=== PATIENT | male | born 1965 | race Caucasian/White ===

== ENCOUNTER 2017-09-05 08:03 | Inpatient (IN) | payer OTHER ==
[~2017-09-05] VITALS: Ht 175.3 cm; Wt 60.0 kg
[2017-09-05] VITALS (11 sets, daily range): BP systolic 81–122; BP diastolic 51–87; PULSE 86–106; RESP 17–22; TEMP 99.2; Ht 175.3 cm; Wt 60.0 kg
[2017-09-05] MEDS ORDERED: SOD CHLORIDE 0.9% 1,000 ML IV ONE (08:30)
[2017-09-05] MEDS ORDERED: MULTIVITAMINS 10 ML, THIAMINE 100 MG, FOLIC ACID 1 MG, MAGNESIUM SULFATE 2 GM in SOD CH... IV ONE (08:30)
[2017-09-05] MEDS ORDERED: MULTIVITAMINS 10 ML, THIAMINE 100 MG, MAGNESIUM SULFATE 2 GM in SOD CHLORIDE 0.9% 1,000 ML IV ONE (08:30)
[2017-09-05] MEDS ORDERED: LORAZEPAM 2 MG INJ IV ONE (08:30)
[2017-09-05 08:41] LABS: ABNORMAL IP MESSAGE 1; BASOPHILS % 0.1 % (0.0-2.0); HEMATOCRIT 30.3 % (42.0-52.0); HEMOGLOBIN 9.5 g/dl (14.0-18.0); LYMPHOCYTES # 0.5 10^3/ul (0.8-2.9); LYMPHOCYTES % 3.1 % (15.0-51.0); MEAN CORPUSCULAR HEMOGLOBIN 21.2 pg (29.0-33.0); MEAN CORPUSCULAR HGB CONC 31.4 g/dl (32.0-37.0); MEAN CORPUSCULAR VOLUME 67.5 fl (82.0-101.0); MEAN PLATELET VOLUME 8.6 fl (7.4-10.4); MONOCYTE # 1.4 10^3/ul (0.3-0.9); MONOCYTES % 8.4 % (0.0-11.0); NEUTROPHIL # 14.7 10^3/ul (1.6-7.5); NEUTROPHILS % 87.6 % (39.0-77.0); PLATELET COUNT 308 10^3/UL (140-415); POSITIVE DIFF @See below; RED BLOOD COUNT 4.49 10^6/ul (4.70-6.10); RED CELL DISTRIBUTION WIDTH 18.4 % (11.5-14.5); WHITE BLOOD COUNT 16.8 10^3/ul (4.8-10.8)
[2017-09-05 09:03] LABS: ALANINE AMINOTRANSFERASE 41 IU/L (13-69); ALBUMIN 3.9 g/dl (3.3-4.9); ALBUMIN/GLOBULIN RATIO 0.84; ALKALINE PHOSPHATASE 151 IU/L (42-121); ANION GAP 20 (8-16); ASPARTATE AMINO TRANSFERASE 94 IU/L (15-46); BILIRUBIN,INDIRECT 0.7 mg/dl (0-1.1); BILIRUBIN,TOTAL 0.7 mg/dl (0.2-1.3); BLOOD UREA NITROGEN 8 mg/dl (7-20); CARBON DIOXIDE 28 mmol/L (21-31); CHLORIDE 70 mmol/L (97-110); CREATININE 0.56 mg/dl (0.61-1.24); GLUCOSE 115 mg/dl (70-220); TOTAL PROTEIN 8.5 g/dl (6.1-8.1)
[2017-09-05 09:10] LABS: POTASSIUM 2.4 mmol/L (3.5-5.1); SODIUM 116 mmol/L (135-144)
[2017-09-05 09:12] LABS: TROPONIN-I < 0.012 ng/ml (0.00-0.12)
[2017-09-05] MEDS ORDERED: POTASSIUM CHLORIDE (SR) 20 MEQ TAB PO STA (09:21)
[2017-09-05] MEDS ORDERED: CALCIUM GLUCONATE 10% 1 GM in SOD CHLORIDE 0.9% 100 ML IVPB ONE (09:30)
--- NOTE | 2017-09-05 09:32 | ERD ---
ER Documentation Chief Complaint Chief Complaint BIB RA FOR EVAL SEIZURE. NO TRAUMA HPI 51-year-old man with a history of alcoholism and alcohol withdrawal seizures brought in by EMS after having an alcohol withdrawal seizure today, described as tonic-clonic and similar to previous episodes. Patient admits to drinking alcohol denies suicidal homicidal ideation, no loss of bowel or bladder control , no fevers or chills, no vomiting or diarrhea. Patient denies chest pain or shortness of breath. ROS All systems reviewed and are negative except as per history of present illness. Medications Home Meds No Active Prescriptions or Reported Meds Allergies Allergies: Coded Allergies: No Known Allergy (Unverified , 09/05/17) PMhx/Soc Alcoholism and associated complications History of Surgery: No Anesthesia Reaction: No Hx Neurological Disorder: No Hx Respiratory Disorders: No Hx Cardiac Disorders: No Hx Psychiatric Problems: No Hx Miscellaneous Medical Probl: Yes (SEIZURES ) Hx Alcohol Use: Yes Hx Substance Use: No Hx Tobacco Use: Yes Smoking Status: Current some day smoker FmHx Family History: No diabetes Physical Exam Vitals Vital Signs Date Time Temp Pulse Resp B/P Pulse Ox O2 Delivery O2 Flow Rate FiO2 09/05/17 10:05 113 18 150/99 96 Nasal Cannula 3.0 09/05/17 09:00 97.6 112 18 167/99 96 Nasal Cannula 3.0 09/05/17 08:08 98.1 103 17 171/102 89 Physical Exam GENERAL: Well-developed, appears dehydrated, afebrile, withdrawing HEENT: Dry mucous membranes, pink conjunctiva, no cervical spine tenderness or step-off deformities, no goiter, no jaundice or icterus, extraocular movements intact without pain. No submandibular induration, and no pharyngeal erythema NEURO: Alert and oriented 3, cranial nerves II through XII intact bilaterally, pupils equal round reactive to light, upper and lower extremity tremors, tongue fasciculation CARDIAC: Tachycardic and regular, no murmurs rubs or gallops LUNGS: Clear bilaterally no wheezing crackles or stridor ABDOMEN: Soft nontender, no guarding, no rigidity, no rebound, no psoas sign no obturator sign. SKIN: Warm and dry to touch, no abrasions, contusions, or hematomas, no lacerations, no ecchymosis, no target lesions, and without ulcers EXTREMITIES: No clubbing cyanosis or edema, calves are bilaterally symmetrical, no Homans sign, no popliteal cord sign. Distal pulses equal and bilateral PSYCH: Agitated, withdrawing Result Diagram: 09/05/1782409/05/17824 Results 24 hrs Laboratory Tests Test 09/05/17 08:25 White Blood Count 16.810^3/ul Red Blood Count 4.4910^6/ul Hemoglobin 9.5g/dl Hematocrit 30.3% Mean Corpuscular Volume 67.5fl Mean Corpuscular Hemoglobin 21.2pg Mean Corpuscular Hemoglobin Concent 31.4g/dl Red Cell Distribution Width 18.4% Platelet Count 45968^3/UL Mean Platelet Volume 8.6fl Neutrophils % 87.6% Lymphocytes % 3.1% Monocytes % 8.4% Eosinophils % 0.0% Basophils % 0.1% Nucleated Red Blood Cells % 0.0/100WBC Neutrophils # 14.710^3/ul Lymphocytes # 0.510^3/ul Monocytes # 1.410^3/ul Eosinophils # 0.010^3/ul Basophils # 0.010^3/ul Nucleated Red Blood Cells # 0.010^3/ul Sodium Level 116mmol/L Potassium Level 2.4mmol/L Chloride Level 70mmol/L Carbon Dioxide Level 28mmol/L Anion Gap 20 Blood Urea Nitrogen 8mg/dl Creatinine 0.56mg/dl Glucose Level 115mg/dl Calcium Level 7.0mg/dl Total Bilirubin 0.7mg/dl Direct Bilirubin 0.00mg/dl Indirect Bilirubin 0.7mg/dl Aspartate Amino Transf (AST/SGOT) 94IU/L Alanine Aminotransferase (ALT/SGPT) 41IU/L Alkaline Phosphatase 151IU/L Troponin I < 0.012ng/ml Total Protein 8.5g/dl Albumin 3.9g/dl Globulin 4.60g/dl Albumin/Globulin Ratio 0.84 Lipase 122U/L Current Medications Medications (Trade) Dose Ordered Sig/Ricki Route PRN Reason Start Time Stop Time Status Last Admin Dose Admin Multivitamins 10 ml/Thiamine HCl 100 mg/Folic Acid 1 mg/Magnesium Sulfate 2 gm/ Sodium Chloride 1,015.2 ml @ 500 mls/ hr Q2H2M ONCE IV 09/05/17 08:30 09/05/17 08:30 DC Sodium Chloride (NS) 1,000 ml @ 1,000 mls/hr Q1H ONCE IV 09/05/17 08:30 09/05/17 09:29 DC 09/05/17 08:24 Lorazepam 2 mg 2 mg ONCE ONCE IV 09/05/17 08:30 09/05/17 08:31 DC 09/05/17 08:24 Multivitamins/ Thiamine HCl/ Magnesium Sulfate/ Sodium Chloride (Mvi Adult/ Vitamin B1/ Magnesium Sulfate/ NS) 1,015 ml @ 500 mls/hr Q2H2M ONCE IV 09/05/17 08:30 09/05/17 10:31 DC 09/05/17 08:45 Potassium Chloride 60 meq 60 meq ONCE STAT PO 09/05/17 09:21 09/05/17 09:22 DC 09/05/17 09:39 Calcium Gluconate 1 gm/Sodium Chloride 110 ml @ 110 mls/hr ONCE ONCE IVPB 09/05/17 09:30 09/05/17 09:35 DC Calcium Gluconate 1 gm/Dextrose 110 ml @ 110 mls/hr ONCE ONCE IVPB 09/05/17 09:35 09/05/17 10:29 DC 09/05/17 10:45 Potassium Phosphate/Sodium Chloride (K Phos (Meq)/NS) 259.0909 ml @ 43.182 m... ONCE ONCE IVPB 09/05/17 15:00 09/05/17 20:59 Enalaprilat (Vasotec Iv) 1.25 mg ONCE ONCE IV 09/05/17 13:30 09/05/17 13:31 Procedures/MDM IV line was established patient was placed on circular knitter rhythm strip revealed a sinus tachycardia at 110 bpm with upright P and T waves. Patient was afebrile EKG performed, read by me: 96 bpm, normal sinus rhythm, normal axis, no acute ST segment changes, narrow QRS complex, with good R-wave progression in precordial leads. Prolonged QT of 550 ms I administered 1 L normal saline intravenously and intravenous banana bag, as well as lorazepam 2 mg IV. CBC reveals a leukocytosis of 17 and anemia 9 5, electrolytes were all abnormal with a critically low potassium at 2.4 and hyponatremia at 116, liver function tests normal, troponin negative. Calcium was critically low at 7. I also supplemented his potassium at 60 mEq p.o. 1 and he also received calcium gluconate 1 g IV x 1. Patient's hypertension improved. Critical Care: Time: 43 minutes, this was time separate from other billable procedures. Treatments/Evaluations: Close monitoring and treatment of unstable vital signs, cardiorespiratory, and neurologic status, while maintaining tight balance of fluid, respiratory, and cardiac interventions. Patient received 40 mEq intravenous potassium. One view chest x-ray performed, read by me revealed opacification of the right lung consistent with large pleural effusion and infiltrate. Although the patient is afebrile I suspect aspiration and resulting pneumonia. Rectal temperature was performed and patient was again afebrile, blood cultures were obtained and I ordered Zosyn 3.375 g IV and vancomycin 1 g IV. Patient's labs and EKG findings as well as his physical exam findings are all consistent with acute alcohol withdrawal, with above interventions his symptoms and labs have improved. Patient will be admitted to telemetry setting for continued medical management, hydration, electrolyte supplementation, and reevaluation. Departure Diagnosis: Primary Impression: Acute hypokalemia Additional Impressions: Hypocalcemia Alcohol withdrawal seizure Complication of substance-induced condition: uncomplicated Qualified Code: F10.230 - Alcohol withdrawal seizure without complication Alcoholism Dehydration Aspiration pneumonia Aspiration pneumonia type: unspecified Laterality: right Lung location: lower lobe of lung Qualified Code: J69.0 - Aspiration pneumonia of right lower lobe, unspecified aspiration pneumonia type Hypertension Hypertension type: essential hypertension Qualified Code: I10 - Essential hypertension Condition: Serious CATHERINE CHRISTOPHER MD Sep 05, 2017 09:32
[2017-09-05] MEDS ORDERED: CALCIUM GLUCONATE 10% 1 GM in DEXTROSE 5% 100 ML IVPB ONE (09:35)
--- NOTE | 2017-09-05 11:52 | RADRPT ---
PROCEDURE: XR Chest. CLINICAL INDICATION: Abdominal pain. TECHNIQUE: Single frontal view. COMPARISON: None. FINDINGS: There is near-complete opacification of the right hemithorax due to a large right pleural effusion. There is patchy consolidation throughout the visualized right lung and throughout the left lung. The heart size is normal. There is calcification in the aorta consistent with atherosclerosis. There is no pleural effusion. There is no pneumothorax. IMPRESSION: 1. Near-complete opacification of the right hemithorax due to a large right pleural effusion. 2. Probable extensive bilateral pneumonia. 3. Atherosclerosis. 4. Otherwise unremarkable chest radiograph. RPTAT: QQ .John Paul Hall MD, MD Date Time Electronically viewed and signed by .John Paul Hall MD, MD on 09/05/2017 11:51 .R/
[2017-09-05] MEDS ORDERED: VANCOMYCIN 1 GM (PMX) 250 ML IVPB SCH (13:30)
[2017-09-05] MEDS ORDERED: PIPER-TAZO 3.375 GM IV (PMX) 50 ML IV ONE (13:30)
[2017-09-05] MEDS ORDERED: ENALAPRILAT 1.25 MG INJ IV ONE (13:30)
[2017-09-05] MEDS ORDERED: POTASSIUM PHOSPHATE 40 MEQ in SOD CHLORIDE 0.9% 250 ML IVPB ONE (15:00)
[2017-09-05] MEDS ORDERED: SOD CHLORIDE 0.9% 1,000 ML IV SCH (16:00)
[2017-09-05] MEDS ORDERED: DEXTROSE 5%-0.45% NACL 1,000 ML IV SCH (16:26)
[2017-09-05] MEDS ORDERED: ONDANSETRON 4 MG INJ IV PRN (16:30)
[2017-09-05] MEDS ORDERED: NACL 0.9% 3 ML SYG IV SCH (16:30)
[2017-09-05] MEDS ORDERED: BISACODYL (EC) 5 MG TAB PO PRN (16:30)
--- NOTE | 2017-09-05 16:47 | HP ---
Date/Time of Note Date/Time of Note DATE: 09/05/17 TIME: 16:41 Assessment/Plan VTE Prophylaxis VTE Prophylaxis Intervention: SCD's Assessment/Plan Chief Complaint/Hosp Course Patient is a 51-year-old homeless alcoholic who presents with right pleural effusion, pneumonia, and alcohol withdrawal induced seizure Assessment and plan Delirium tremens Seizure's Bilateral pneumonia, likely aspiration Severe hyponatremia Large right pleural effusion Alcoholism Hypokalemia Leukocytosis Sepsis, severe, pneumonia source -Scheduled benzodiazepine with as needed Ativan for seizure, monitor closely. -Nephrology consulted for electrolyte derangement, patient received fluid in the ED, will repeat stat CMP, avoid increase in sodium more than 12 mEq over 24. Given patient's severe alcoholism and likely chronic hyponatremia -Half-normal saline for now, if sodium is more than 12 units above previous read we will have to change to free water, nephrology recommendations appreciated -Although patient's blood pressure was high earlier, low currently on the floor , continue fluids, hold off on Lasix due to blood pressure for now, thoracentesis pending for tomorrow -Repeat labs, CK, lactic acid -Monitor, if pressure remains low or seizures or uncontrolled upgrade to ICU immediately Problems: HPI/ROS Admit Date/Time Admit Date/Time Sep 05, 2017 at 13:14 Hx of Present Illness Patient is a homeless 51-year-old male with a past medical history of alcohol abuse and alcohol induced seizure who presents to [facility] with witnessed seizure in the field and brought in by EMT. Patient has not experienced seizure during this admission so far. Upon evaluation patient is lethargic, however was given Ativan in the ED, is able to respond to most questions with good recall and states that his last drink was 2 days ago, states that he wants to quit drinking. Patient also states that this has happened before when asked about the shakes or seizure. Patient's mental state is the main barrier to a extensive HPI at this time, patient denies any shortness of breath or chest pain at this time. Patient denies nausea, however is found to be dry heaving. PMH: Alcohol abuse PSH: Left shoulder surgery questionable, left wrist surgery, foot surgery Social: Alcoholic, smoker, denies drugs Meds: None PMH/Family/Social Social History Smoking Status: Current some day smoker Exam/Review of Systems Vital Signs Vitals Vital Signs Date Time Temp Pulse Resp B/P Pulse Ox O2 Delivery O2 Flow Rate FiO2 09/05/17 13:23 99.2 09/05/17 10:05 113 18 150/99 96 Nasal Cannula 3.0 Exam Exam Physical exam General: Patient is laying in bed and answers questions appropriately, but lethargic Mentation: Patient is alert and oriented 3 Head: Normocephalic atraumatic Eyes: EOMI, pupils reactive to light Neck: Supple, nontender, midline Respiratory: diminished breath sounds on the R Cardiovascular: tachycardic, no obvious murmurs Gastrointestinal: non-tender to palpation, bowel sounds heard. Neurological: Moves all extremities spontaneously Skin: No new skin lesions Labs Result Diagram: 09/05/1782409/05/17824 Medications Medications Current Medications Potassium Phosphate/Sodium Chloride (K Phos (Meq)/NS) 259.0909 ml @ 43.182 m... ONCE ONCE IVPB ; Start 09/05/17 at 15:00; Stop 09/05/17 at 20:59 CATHERINE DUMONT Sep 05, 2017 16:47
[2017-09-05] MEDS ORDERED: ALBUTEROL/IPRATROPIUM (NEB) 3 ML AMP HHN PRN (17:00)
[2017-09-05] MEDS ORDERED: NICOTINE (21 MG/24 HR) PATCH TRANSDERM SCH (17:00)
[2017-09-05 17:07] LABS: ALBUMIN 3.1 g/dl (3.3-4.9); ALBUMIN/GLOBULIN RATIO 0.68; BILIRUBIN,INDIRECT 0.5 mg/dl (0-1.1); BILIRUBIN,TOTAL 0.5 mg/dl (0.2-1.3); CALCIUM 6.9 mg/dl (8.4-10.2); CREATININE 0.74 mg/dl (0.61-1.24); TOTAL PROTEIN 7.6 g/dl (6.1-8.1)
[2017-09-05 17:22] LABS: POTASSIUM 2.7 mmol/L (3.5-5.1)
[2017-09-05] MEDS ORDERED: POTASSIUM CHLORIDE 250 ML IVPB SCH (17:30)
[2017-09-05 17:45] LABS: ALBUMIN 3.1 g/dl (3.3-4.9); CALCIUM 6.7 mg/dl (8.4-10.2); CREATININE 0.69 mg/dl (0.61-1.24); PHOSPHORUS 3.9 mg/dl (2.5-4.9)
[2017-09-05] MEDS: DIAZEPAM 5 MG/ML SYG IV SCH ×2 (18:00→22:36)
[2017-09-05] MEDS ORDERED: CALCIUM GLUCONATE 10% 1 GM in SOD CHLORIDE 0.9% 100 ML IVPB SCH (18:00)
[2017-09-05] MEDS: PIPER-TAZO 3.375 GM IV (PMX) 50 ML IVPB SCH (20:04)
[2017-09-05] MEDS: LORAZEPAM 2 MG INJ IV PRN (20:31)
[2017-09-05] MEDS: NICOTINE (21 MG/24 HR) PATCH TRANSDERM SCH (20:39)
[2017-09-05] MEDS: ALBUTEROL/IPRATROPIUM (NEB) 3 ML AMP HHN SCH (20:56)
[2017-09-05 21:53] LABS: CALCIUM 6.6 mg/dl (8.4-10.2); CREATININE 0.73 mg/dl (0.61-1.24); POTASSIUM 3.3 mmol/L (3.5-5.1)
[2017-09-05 22:57] LABS: ALBUMIN 3.1 g/dl (3.3-4.9); CALCIUM 6.6 mg/dl (8.4-10.2); CREATININE 0.74 mg/dl (0.61-1.24); PHOSPHORUS 3.9 mg/dl (2.5-4.9); POTASSIUM 3.3 mmol/L (3.5-5.1)
[2017-09-06] VITALS (24 sets, daily range): BP systolic 99–155; BP diastolic 62–93; PULSE 89–110; RESP 17–28
[2017-09-06 00:11] LABS: AADO2 Arterial 567.3 mmHg (7.0-24.0); Allen Test ACCEPTAB; Arterial Base Excess 2.5 mmol/L (-3.0-3); Arterial COHb 0.9 % (0.0-3.0); Arterial Fraction of Oxyhgb 95.6 % (93.0-99.0); Arterial HCO3 27.8 mmol/L (22.0-26.0); Arterial MetHb 0.4 % (0.0-1.5); Arterial Total Hemglobin 9.9 g/dl (12.0-18.0); MODE MASK - NRB
[2017-09-06] MEDS: LORAZEPAM 2 MG INJ IV PRN ×3 (00:16→22:37)
--- NOTE | 2017-09-06 00:31 | CONS ---
DATE OF ADMISSION: 09/05/2017 DATE OF CONSULTATION: 09/05/2017 REASON FOR CONSULTATION: Hyponatremia. PHYSICIAN REQUESTING CONSULT: Dr. Mosley. HISTORY OF PRESENT ILLNESS: This is a 51-year-old male with a past medical history of ETOH abuse who presents to [facility] Emergency Room with noted withdrawal seizures. The patient's seizu res were described as tonic-clonic. The patient in the emergency room admitted to having excessive alcohol use. Denied any vomiting, hematochezia or hemoptysis. In the emergency room, the patient w as given IV Ativan. In the emergency room, laboratory data drawn showed an initial sodium of 116, p otassium 2.4, chloride of 70. The patient was given IV hydration . In terms of the patient's hyponatremia, the patient has no prior history of hyponatremia per medical records. The patient himself is currently altered, unable to give any adequate history. PAST MEDICAL HISTORY: History of ETOH abuse. PAST SURGICAL HISTORY: The patient had left shoulder surgery, left wrist surgery. SOCIAL HISTORY: Positive alcohol use. MEDICATIONS: None. FAMILY HISTORY: Noncontributory. REVIEW OF SYSTEMS: Unable to do adequate review of systems as the patient is altered. Pertinent po sitives as obtained by reviewing medical records and speaking to hospital staff, stated in HPI. PHYSICAL EXAMINATION: VITAL SIGNS: Blood pressure is 107/67, respiration is 19, pulse 100, temperature 98.6. HEENT: Head is normocephalic. Pupils are reactive to light. NECK: Supple. HEART: Regular rate. LUNGS: Show diminished breath sounds at the base. ABDOMEN: Soft, nontender to palpation without rebound or guarding. EXTREMITIES: Negative for clubbing, cyanosis, no edema. DERMATOLOGIC: No rashes. MUSCULOSKELETAL: No joint effusions. NEUROLOGIC: Limited exam due to lack of patient cooperation. LABORATORY DATA: Currently shows sodium 123, potassium 3.0, chloride 78, bicarbonate 32, BUN 10, cr eatinine 0.69. White count , hemoglobin 9.5, hematocrit 30.3, platelet count 308. IMAGING STUDIES: The patient's chest x-ray shows near complete opacification of right hemithorax wi th right pleural effusion, bilateral pneumonia, otherwise unremarkable. ASSESSMENT AND PLAN: This is a 51-year-old male who presents with: 1. Hyponatremia, possibly acute versus subacute versus chronic. Underlying etiology is multifactor ial secondary to likely low solute intake, i.e., beer potomania given the patient's extensive alcoho l abuse, severe hypokalemia, possible volume depletion. The patient's sodium level improved from 11 6 to 122 mEq after being given IV fluids and with correction of hypokalemia. Recommendation at this point would be to decrease and discontinue IV hydration. My recommendation would be to stop IV flu ids as the patient is at high risk for overcorrection. Would continue to correct hypokalemia by giv ing potassium chloride. Will monitor serum sodium levels q.2-4 hours to ensure correction of no mor e than 10 to 12 mEq in a 24-hour period. Will monitor strict I's and O's. If patient shows evidenc e of over correction, would consider getting D5 water in conjunction with desmopressin. Will monito r closely. 2. Acute encephalopathy with seizures. Etiology may be multifactorial secondary to hyponatremia, p ossible ETOH withdrawal. The patient's sodium levels have improved. Will continue to monitor for E TRELL withdrawal. 3. Severe hypokalemia, likely secondary to p.o. intake. The patient has a total body deficit of ap proximately 400 mEq of potassium chloride. Will continue to replete and monitor sodium levels close ly. 4. Seizure disorder, possibly due to ETOH withdrawal versus hyponatremia. Continue to monitor. 5. Delirium tremens. Continue Ativan. Consider Librium. Defer to primary team. 6. Bilateral pneumonia, likely aspiration. Continue antibiotic therapy. 7. Large pleural effusion, likely parapneumonic. Continue to monitor. 8. Sepsis secondary to pneumonia. Continue current treatment plan. Please note I spent over 35 minutes of critical care time with this patient. Thank you, Dr. Mosley, for this interesting consult. It will be a pleasure to follow the patient with you throughout the hospital course. Dictated By: SLIME CHANG/VICKY Conf#: [id number] DID#: [id number]
--- NOTE | 2017-09-06 00:43 | RADRPT ---
PROCEDURE: XR Chest. CLINICAL INDICATION: Respiratory distress. TECHNIQUE: Portable AP semi erect view of the chest was obtained. COMPARISON: 09/05/2017 FINDINGS: Slight displacement of the cardiomediastinal silhouette to the left of midline is noted. Total opac ification of the right hemithorax appears slightly worse most likely related to an enlarging pleural effusion and compressive atelectasis involving the right lung. Diffuse left lung infiltrate appear s slightly worse concerning for radiographic progression of pneumonia. There is no evidence of left pleural effusion. The trachea is deviated to the left of midline by approximately 2 cm. There is no evidence of pneumothorax. The osseous structures are intact with no evidence for acute abnormality. Calcification is visible within the aorta. RPTAT:HJJR IMPRESSION: 1. Interval increase in size of the huge right pleural effusion occupying almost entire right hemith orax with associated compressive atelectasis of the right lung and displacement of the trachea and m ediastinal structures to the left. 2. Radiographic worsening of diffuse left lung infiltrate consistent with pneumonia.. Physician Allen Date Time Electronically viewed and signed by Physician Allen on 09/06/2017 00:43 /
[2017-09-06] MEDS: PIPER-TAZO 3.375 GM IV (PMX) 50 ML IVPB SCH ×4 (00:56→18:00)
[2017-09-06 03:05] LABS: CALCIUM 6.4 mg/dl (8.4-10.2); CREATININE 0.74 mg/dl (0.61-1.24); POTASSIUM 3.1 mmol/L (3.5-5.1)
[2017-09-06 03:07] LABS: ADD UMIC YES; UR ASCORBIC ACID NEGATIVE (NEGATIVE); UR BILIRUBIN (Dip) NEGATIVE (NEGATIVE); UR BLOOD (Dip) 1+ mg/dL (NEGATIVE); UR CLARITY CLEAR (CLEAR); UR COLOR YELLOW (YELLOW); UR GLUCOSE (Dip) NEGATIVE (NEGATIVE); UR KETONES (Dip) TRACE mg/dL (NEGATIVE); UR LEUKOCYTE ESTERASE (Dip) NEGATIVE Leu/ul (NEGATIVE); UR NITRITE (Dip) NEGATIVE (NEGATIVE); UR RBC 2 /HPF (0-5); UR SPECIFIC GRAVITY (Dip) 1.013 (1.003-1.030); UR TOTAL PROTEIN (Dip) 2+ mg/dl (NEGATIVE); UR UROBILINOGEN (Dip) 1+ mg/dL (NEGATIVE)
[2017-09-06] MEDS ORDERED: POTASSIUM CHLORIDE 250 ML IVPB ONE ×2 (04:00→16:00)
[2017-09-06] MEDS ORDERED: PANTOPRAZOLE 40 MG INJ IV SCH (06:00)
[2017-09-06] MEDS: DIAZEPAM 5 MG/ML SYG IV SCH ×2 (06:00)
[2017-09-06 08:26] LABS: ABNORMAL IP MESSAGE 1; BASOPHIL # 0.1 10^3/ul (0.0-0.1); BASOPHILS % 0.4 % (0.0-2.0); EOSINOPHILS # 0.1 10^3/ul (0.0-0.5); EOSINOPHILS % 0.5 % (0.0-7.0); HEMATOCRIT 29.4 % (42.0-52.0); HEMOGLOBIN 8.9 g/dl (14.0-18.0); LYMPHOCYTES # 0.3 10^3/ul (0.8-2.9); LYMPHOCYTES % 2.2 % (15.0-51.0); MEAN CORPUSCULAR HEMOGLOBIN 21.4 pg (29.0-33.0); MEAN CORPUSCULAR HGB CONC 30.3 g/dl (32.0-37.0); MEAN CORPUSCULAR VOLUME 70.8 fl (82.0-101.0); MEAN PLATELET VOLUME 9.1 fl (7.4-10.4); MONOCYTE # 1.2 10^3/ul (0.3-0.9); MONOCYTES % 8.1 % (0.0-11.0); NEUTROPHILS % 88.3 % (39.0-77.0); PLATELET COUNT 291 10^3/UL (140-415); POSITIVE DIFF @See below; RED BLOOD COUNT 4.15 10^6/ul (4.70-6.10); RED CELL DISTRIBUTION WIDTH 18.9 % (11.5-14.5); WHITE BLOOD COUNT 14.7 10^3/ul (4.8-10.8)
[2017-09-06 08:41] LABS: IRON 21 ug/dl (35-150)
[2017-09-06 08:51] LABS: TOTAL IRON BINDING CAPACITY 397 ug/dl (241-421)
[2017-09-06] MEDS: ALBUTEROL/IPRATROPIUM (NEB) 3 ML AMP HHN SCH ×3 (08:52→20:57)
[2017-09-06 09:11] LABS: ALBUMIN 3.2 g/dl (3.3-4.9); ALBUMIN/GLOBULIN RATIO 0.78; BILIRUBIN,INDIRECT 0.3 mg/dl (0-1.1); BILIRUBIN,TOTAL 0.3 mg/dl (0.2-1.3); CALCIUM 6.7 mg/dl (8.4-10.2); CHOL/HDL RATIO 3.7 RATIO; CREATININE 0.68 mg/dl (0.61-1.24); POTASSIUM 3.5 mmol/L (3.5-5.1); TOTAL PROTEIN 7.3 g/dl (6.1-8.1)
--- NOTE | 2017-09-06 09:14 | RADRPT ---
PROCEDURE: Chest radiograph CLINICAL INDICATION: Pleural effusion. COMPARISON: Radiograph from 7 hours earlier. TECHNIQUE: Single frontal chest radiograph. FINDINGS: The right chest is completely opacified. The cardiomediastinal silhouette is shifted to the left. Alveolar opacities in the left upper, mid, and lower lung which may represent edema or multi focal p neumonia. No suspicious bone lesion. IMPRESSION: Overall, no change in aeration of the lungs in the last 7 hours when allowing for differences in uche hnique. 1. Large right pleural effusion with mass effect resulting in cardiomediastinal shift to the left. 2. Alveolar opacities throughout the left lung which may represent pulmonary edema and/or pneumonia . If there is clinical concern for primary lung malignancy or metastasis, a chest CT should be consi dered for evaluation. RPTAT: PP Physician Laura Date Time Electronically viewed and signed by Physician Laura on 09/06/2017 09:14 /
--- NOTE | 2017-09-06 09:21 | PN ---
DATE: 09/06/2017 SUBJECTIVE: The patient is critically ill. Overnight, patient had a rapid response, placed on 100% nonrebreather. The patient is pending possible transfer to intensive care unit. The patient's uri nary output has increased over the last 24 hours. No other events noted. OBJECTIVE: VITAL SIGNS: Blood pressure 152/83, pulse 107, temperature 99.9. HEENT: Head is normocephalic. NECK: Supple. HEART: Regular rate. LUNGS: Show diminished breath sounds at the base. ABDOMEN: Soft, nontender to palpation. No rebound or guarding. EXTREMITIES: Negative for clubbing, cyanosis, no edema. DERMATOLOGIC: No rashes. MUSCULOSKELETAL: No joint effusions. NEUROLOGIC: No change in exam. MEDICATIONS: The patient's medications have been reviewed. LABORATORY DATA: For shows a sodium 126, potassium 3.1, BUN 13, creatinine 0.74. White c ount 14.7, hemoglobin 9.9, hematocrit 29.4, platelet count 291. ASSESSMENT AND PLAN: 1. Hyponatremia, possibly acute versus subacute versus chronic. Underlying etiology is multifactor ial secondary to volume depletion, possible low solute intake given history of alcohol use, severe h ypokalemia. The patient's sodium level has improved appropriately 10 mEq in a 24-hour period. At t his point, we will continue to monitor closely. Avoid overcorrection of no more than 18 mEq in a 48 -hour period. Would continue current treatment plan, supportive care, renally dose all medications, continue to monitor serial sodium levels. 2. Acute respiratory failure secondary to pneumonia. The patient is currently on a nonrebreather m ay require intubation. Would consider checking ABG, follow up chest x-ray. 3. Acute encephalopathy with seizures, etiology secondary to sepsis, toxic metabolic, ETOH withdraw al, and hyponatremia. Continue current medical management. 4. Severe hypokalemia. Continue to replete with potassium chloride. 5. Sepsis secondary to pneumonia. Continue current antibiotic regimen. 6. Seizure disorder. Continue medical management. 7. Delirium tremens. Continue Ativan and Librium, defer to primary team. 8. Large pleural effusion, possible parapneumonic continue to monitor. 9. Anemia. Monitor hemoglobin and hematocrit levels. Please note I spent over 30 minutes of critical care time with this patient. Dictated By: SLIME CHANG/VICKY Conf#: [id number] DID#: [id number]
[2017-09-06] MEDS ORDERED: MAGNESIUM SULFATE 2 GM/50 ML 50 ML IVPB ONE (09:30)
[2017-09-06] MEDS: CHLORDIAZEPOXIDE 25 MG CAP PO SCH ×3 (09:30→21:00)
[2017-09-06 10:03] LABS: BARBITURATES Negative (NEGATIVE); BENZODIAZEPINES Negative (NEGATIVE); CANNABINOIDS Negative (NEGATIVE); COCAINE Negative (NEGATIVE); OPIATES Negative (NEGATIVE)
[2017-09-06] MEDS ORDERED: INFLUENZA VIRUS VACCINE 0.5 ML SYG IM* ONE (12:00)
[2017-09-06 12:57] LABS: INR 1.43; PROTIME 17.5 Sec (12.2-14.2); PT RATIO 1.4
[2017-09-06 12:58] LABS: PARTIAL THROMBOPLASTIN TIME 33.7 Sec (25.0-35.0)
[2017-09-06 13:32] LABS: THYROID STIMULATING HORMONE 0.929 MIU/L (0.465-4.680)
[2017-09-06 15:11] LABS: CALCIUM 6.7 mg/dl (8.4-10.2); CREATININE 0.75 mg/dl (0.61-1.24); POTASSIUM 3.1 mmol/L (3.5-5.1)
--- NOTE | 2017-09-06 15:19 | RADRPT ---
Echocardiogram Report Patient Name: JUDD LORD Gender: Male Date: 1965 Study Date: 06-Sep-2017 Grocery Associate: Maria Del Carmen [facility] Location: [address] Ref. Physician: CATHERINE DUMONT Quality: Adequate Procedures: Transthoracic echocardiogram with complete 2D, M-Mode, and doppler examination. Indications: Pleural effusion/chf?. 2D/M Mode Doppler Measurement Value Normal Ranges Measurement Value Normal Ranges LVIDd 2D 4.8 3.5 - 5.6 cm AV Peak Lester 1.5 m/sec LVIDs 2D 3.0 2.1 - 4.1 cm AV Peak PG 8.7 mmHg LVPWd 2D 1.3 0.6 - 1.1 cm LVOT Peak Lester 1.2 m/sec IVSd 2D 1.3 0.6 - 1.1 cm LVOT Peak PG 5.6 mmHg AoR Diam 2D 2.7 2.0 - 3.7 cm TR Peak Lester 3.4 m/sec EDV 2D 109.9 cm3 TR Peak PG 46.0 mmHg ESV 2D 27.8 cm3 RVSP 49.0 mmHg LA Dimen 2D 3.5 2.3 - 4.0 cm Findings Left Ventricle: Normal left ventricular systolic function. Normal left ventricular cavity size. Mild concentric left ventricular hypertrophy. Ejection fraction is visually estimated at 60 %. Abnormal Diastolic Function. Right Ventricle: Normal right ventricular size. Normal right ventricular systolic function. Left Atrium: The left atrium is normal in size. Right Atrium: The right atrium is normal in size. Mitral Valve: Mild mitral leaflet calcification. Mild mitral annular calcification. Trace mitral regurgitation. Aortic Valve: No significant aortic stenosis or insufficiency. Aortic cusps appear mildly calcified. Trace aortic valve regurgitation. Tricuspid Valve: Normal appearance and function of the tricuspid valve with trace physiologic regurgitation. Estimated peak PA systolic pressure 49 mmHg. Pulmonic Valve: Pulmonic valve not well visualized. There is trace pulmonic regurgitation. Pericardium: Normal pericardium with no significant pericardial effusion. Aorta: Normal aortic root. IVC: Normal size and normal respiratory collapse consistent with normal right atrial pressure. Conclusions 1.Normal left ventricular systolic function. Normal left ventricular cavity size. Mild concentric left ventricular hypertrophy. Ejection fraction is visually estimated at 60 %. Abnormal Diastolic Function. 2.Normal right ventricular size. Normal right ventricular systolic function. 3.The left atrium is normal in size. 4.The right atrium is normal in size. 5.Estimated peak PA systolic pressure 49 mmHg. 6.No significant valvular stenosis or regurgitation seen. Electronically Signed By: Dhruv Torres 06-Sep-2017 15:18:16 -0800 Patient Name: JUDD LORD Study Date: 06-Sep-2017 [id number]
--- NOTE | 2017-09-06 15:55 | PN ---
Date/Time of Note Date/Time of Note DATE: 09/06/17 TIME: 15:51 Assessment/Plan VTE Prophylaxis VTE Prophylaxis Intervention: SCD's Lines/Catheters IV Catheter Type (from Nrsg): Saline Lock Urinary Cath still in place: Yes Reason Cath still needed: terminal illness/intractable pain Assessment/Plan Chief Complaint/Hosp Course Patient is a 51-year-old homeless alcoholic who presents with right pleural effusion, pneumonia, and alcohol withdrawal induced seizure Assessment and plan Delirium tremens Seizure's acute respiratory failure, 2/2 PNA/pleural effusion Bilateral pneumonia, likely aspiration Severe hyponatremia Large right pleural effusion Alcoholism Hypokalemia Leukocytosis Sepsis, severe, pneumonia source -Scheduled librium with as needed Ativan for seizure, monitor closely. -Nephrology consulted for electrolyte derangement, frequent renal panels, watch carefully for overcorrection. should not correct more than 12meq/day -seizure precautions -pulmonology consulted, abg noted -thoracentesis ordered, large R pleural effusion, patient too obtunded to consent. Decision was made by physician to proceed with thoracentesis as benefits outweigh the costs of respiratory failure -broad spectrum abx for bilat PNA -Monitor, if pressure (MAP<65)is low, seizures are uncontrolled, severe respiratory distress upgrade to ICU immediately Problems: Subjective 24 Hr Interval Summary Free Text/Dictation just received ativan, lethargic, but arousable Exam/Review of Systems Vital Signs Vitals Vital Signs Date Time Temp Pulse Resp B/P Pulse Ox O2 Delivery O2 Flow Rate FiO2 09/06/17 15:28 99.6 98 28 128/73 98 09/06/17 14:06 10.0 09/06/17 14:03 Non Rebreather Mask Intake and Output 09/05/17 09/05/17 09/06/17 15:00 23:00 07:00 Intake Total 50 ml 100 ml Output Total 1250 ml Balance 50 ml -1150 ml Exam Physical exam General: Patient is laying in bed and arousable, but lethargic, sedated with ativan Mentation: Patient is alert but sedated Head: Normocephalic atraumatic Eyes: EOMI, pupils reactive to light Neck: Supple, nontender, midline Respiratory: diminished breath sounds on the R Cardiovascular: tachycardic, no obvious murmurs Gastrointestinal: non-tender to palpation, bowel sounds heard. Neurological: Moves all extremities spontaneously Skin: No new skin lesions Results Result Diagram: 09/06/17 0802 09/06/17 1410 Results 24 hrs Laboratory Tests Test 09/05/17 16:12 09/05/17 20:19 09/06/17 00:00 09/06/17 00:06 Sodium Level 123 L 122 L Potassium Level 3.0 L 3.3 L Chloride Level 78 L 81 L Carbon Dioxide Level 32 H 30 Anion Gap 16 14 Blood Urea Nitrogen 10 13 Creatinine 0.69 0.74 Glucose Level 84 89 Calcium Level 6.7 L 6.6 L Phosphorus Level 3.9 3.9 Total Bilirubin 0.5 Direct Bilirubin 0.00 Indirect Bilirubin 0.5 Aspartate Amino Transf (AST/SGOT) 78 H Alanine Aminotransferase (ALT/SGPT) 49 Alkaline Phosphatase 130 H Creatine Kinase 620 H Total Protein 7.6 Albumin 3.1 L 3.1 L Globulin 4.50 H Albumin/Globulin Ratio 0.68 Lactic Acid Level 1.3 Urine Color YELLOW Urine Clarity CLEAR Urine pH 6.0 Urine Specific Worden 1.013 Urine Ketones TRACE A Urine Nitrite NEGATIVE Urine Bilirubin NEGATIVE Urine Urobilinogen 1+ H Urine Leukocyte Esterase NEGATIVE Urine Microscopic RBC 2 Urine Microscopic WBC 0 Urine Hemoglobin 1+ H Urine Random Creatinine 49.96 Urine Random Sodium 41 Urine Glucose NEGATIVE Urine Total Protein 124.0 H Blood Gas Specimen Source Blood arterial Arterial Blood Date Drawn 09/06/2017 12:00:11 AM Arterial Blood pH (Temp corrected) 7.398 Arterial Blood pCO2 (Temp correct) 46.1 H Arterial Blood pO2 (Temp corrected) 99.6 Arterial Blood HCO3 27.8 H Arterial Blood Base Excess 2.5 Arterial Blood Oxygen Saturation 96.9 Quan Test ACCEPTAB Arterial Blood Gas Puncture Site Right Radial Arterial Blood Carboxyhemoglobin 0.9 Arterial Blood Methemoglobin 0.4 Blood Gas A-a O2 Differential 567.3 H Oxyhemoglobin Percent 95.6 Total Hemoglobin 9.9 L Blood Gas Temperature 37.0 Blood Gas Modality MASK - NRB FiO2 100.0 Blood Gas Notified Whom TN Blood Gas Notified Time 09/06/2017 12:11:42 AM Test 09/06/17 02:17 09/06/17 02:33 09/06/17 08:02 09/06/17 12:17 Sodium Level 126 L 128 L Potassium Level 3.1 L 3.5 Chloride Level 86 L 88 L Carbon Dioxide Level 28 28 Anion Gap 15 16 Blood Urea Nitrogen 13 14 Creatinine 0.74 0.68 Glucose Level 84 78 Calcium Level 6.4 L 6.7 L Urine Opiates Screen Negative Urine Barbiturates Negative Urine Amphetamines Screen Negative Urine Benzodiazepines Screen Negative Urine Cocaine Screen Negative Urine Cannabinoids Negative White Blood Count 14.7 H Red Blood Count 4.15 L Hemoglobin 8.9 L Hematocrit 29.4 L Mean Corpuscular Volume 70.8 L Mean Corpuscular Hemoglobin 21.4 L Mean Corpuscular Hemoglobin Concent 30.3 L Red Cell Distribution Width 18.9 H Platelet Count 291 Mean Platelet Volume 9.1 Neutrophils % 88.3 H Lymphocytes % 2.2 L Monocytes % 8.1 Eosinophils % 0.5 Basophils % 0.4 Nucleated Red Blood Cells % 0.0 Neutrophils # 13.0 H Lymphocytes # 0.3 L Monocytes # 1.2 H Eosinophils # 0.1 Basophils # 0.1 Nucleated Red Blood Cells # 0.0 Magnesium Level 0.9 *L Iron Level 21 L Total Iron Binding Capacity 397 Percent Iron Saturation 5 L Ferritin 39.7 Total Bilirubin 0.3 Direct Bilirubin 0.00 Indirect Bilirubin 0.3 Aspartate Amino Transf (AST/SGOT) 81 H Alanine Aminotransferase (ALT/SGPT) 45 Alkaline Phosphatase 139 H Creatine Kinase 430 #H Total Protein 7.3 Albumin 3.2 L Globulin 4.10 H Albumin/Globulin Ratio 0.78 Triglycerides Level 81 Cholesterol Level 106 LDL Cholesterol, Calculated 62 HDL Cholesterol 28 Cholesterol/HDL Ratio 3.7 Thyroid Stimulating Hormone (TSH) 0.929 Prothrombin Time 17.5 H Prothrombin Time Ratio 1.4 INR International Normalized Ratio 1.43 Activated Partial Thromboplast Time 33.7 Test 09/06/17 14:10 Sodium Level 130 L Potassium Level 3.1 L Chloride Level 89 L Carbon Dioxide Level 31 Anion Gap 13 Blood Urea Nitrogen 15 Creatinine 0.75 Glucose Level 86 Calcium Level 6.7 L Medications Medications Current Medications Piperacillin Sod/ Tazobactam Sod (Zosyn 3.375gm/ 50 ml (Pmx)) 50 ml @ 100 mls/ hr Q6 IVPB Last administered on 09/06/17 12:56; Admin Dose 100 MLS/HR; Start 09/05/17 at 18:00 Lorazepam (Ativan) 2 mg Q10MIN PRN IV seizure Last administered on 09/06/17 09 :11; Admin Dose 2 MG; Start 09/05/17 at 16:00 Labetalol HCl (Labetalol) 10 mg Q4 PRN IV sbp>160; Start 09/05/17 at 16:30 Ondansetron HCl (Zofran Inj) 4 mg Q6H PRN IV NAUSEA AND/OR VOMITING; Start 09/05/17 at 16:30 Acetaminophen (Tylenol Tab) 650 mg Q6H PRN PO PAIN LEVEL 1-3 OR FEVER; Start 09/05/17 at 16:30 Morphine Sulfate (morphine) 2 mg Q4H PRN IV PAIN LEVEL 7-10; Start 09/05/17 at 16:30 Bisacodyl (Dulcolax) 5 mg DAILY PRN PO CONSTIPATION; Start 09/05/17 at 16:30 Pantoprazole (Protonix Iv) 40 mg DAILY@06 IV Last administered on 09/06/17 06: 19; Admin Dose 40 MG; Start 09/06/17 at 06:00 Lorazepam (Ativan) 1 mg Q6H PRN IV agitation/anxiety Last administered on 20:31; Admin Dose 1 MG; Start 09/05/17 at 17:00 Nicotine (Nicoderm 21 Mg/ 24hr) 1 patch Q24H TRANSDERM Last administered on 20:39; Admin Dose 1 PATCH; Start 09/05/17 at 17:00 Chlordiazepoxide (Librium) 50 mg TID PO ; Start 09/06/17 at 09:30 CATHERINE DUMONT Sep 06, 2017 15:55
[2017-09-06] MEDS: NICOTINE (21 MG/24 HR) PATCH TRANSDERM SCH (16:22)
[2017-09-06 17:17] LABS: INR 1.32; PROTIME 16.5 Sec (12.2-14.2); PT RATIO 1.3
[2017-09-06] MEDS ORDERED: LIDOCAINE 1% (MPF) 5 ML VIAL ONE (17:50)
--- NOTE | 2017-09-06 17:51 | RADRPT ---
PROCEDURE: US guided right thoracentesis. CLINICAL INDICATION: Shortness of breath. Right pleural effusion. TECHNIQUE: Prior to the procedure, informed consent was obtained. The risks, benefits, and alternatives were e xplained to the patient or the patient's family, including but not limited to bleeding, infection, p ain, visceral or vascular damage, shock, pneumothorax, chest tube placement, air embolism, and . The patient or the patient's family understood the risks and the alternatives and wished to proce ed with the study. Informed written consent was obtained. A procedural pause was performed. The patient's name, date of , and procedure to be performed were verified. Ultrasound of the right hemithorax was performed in the axial and sagittal planes. A right pleural e ffusion is noted. Utilizing ultrasound guidance, optimal location for entry to the pleural cavity wa s ascertained. The overlying skin was prepped and draped in the usual sterile fashion. Approximate ly 10 ml of 1% Xylocaine was injected locally for pain control. Using ultrasound guidance, a 5-Fren Yueh catheter was introduced into the right pleural space without difficulty. Fluid was aspirated . COMPARISON: Chest x-ray done earlier the same day which demonstrated a large right pleural effusio n. FINDINGS: Initial ultrasound demonstrates fluid in the right pleural space. Approximately 2.0 liters of serou s fluid was aspirated and sent to the laboratory. IMPRESSION: 1. Satisfactory ultrasound-guided right thoracentesis. RPTAT: QQ .John Paul Hall MD, Date Time Electronically viewed and signed by .John Paul Hall MD, on 09/06/2017 17:50 .R/
--- NOTE | 2017-09-06 18:00 | RADRPT ---
PROCEDURE: XR Chest. CLINICAL INDICATION: Shortness of breath. Post right thoracentesis. TECHNIQUE: Single frontal view. COMPARISON: 09/06/2017. 0744 hours. FINDINGS: Previously noted large right pleural effusion is now much smaller. There is a small right pleural ef fusion and mild right basilar atelectasis. There is interstitial and alveolar disease throughout the left lung, unchanged. The heart size is normal. There is calcification in the aorta consistent with atherosclerosis. There is no left pleural effusion. There is no pneumothorax. IMPRESSION: 1. Marked improvement in the aeration of the right lung. 2. No pneumothorax. 3. No other change from the prior chest radiograph. RPTAT: QQ .John Paul Hall MD, MD Date Time Electronically viewed and signed by .John Paul Hall MD, on 09/06/2017 18:00 .R/
[2017-09-06 18:55] LABS: AADO2 Arterial 176.1 mmHg (7.0-24.0); Allen Test ACCEPTAB; Arterial Base Excess 3.3 mmol/L (-3.0-3); Arterial COHb 0.4 % (0.0-3.0); Arterial Fraction of Oxyhgb 98.1 % (93.0-99.0); Arterial HCO3 29.7 mmol/L (22.0-26.0); Arterial MetHb 0.4 % (0.0-1.5); MODE MASK - NRB
[2017-09-06 19:46] LABS: FLUID GLUCOSE 84 mg/dl
[2017-09-06 19:47] LABS: FLD MN% 64.3 %; FLD RBC 1000 /uL; FLD WBC 238 /cmm
[2017-09-06 19:48] LABS: FLUID AMYLASE 43 U/L; FLUID LD 425 U/L; FLUID TOTAL PROTEIN 5.3 g/dl; FLUID TYPE PLEURAL FLUID
[2017-09-06 19:54] LABS: FLD CLARITY HAZY; FLD COLOR YELLOW; FLD TYPE PLEURAL
[2017-09-06 19:55] LABS: FLD PMN% 35.7 %; PATH REVIEW? NO
[2017-09-07] VITALS (13 sets, daily range): BP systolic 122–155; BP diastolic 68–88; PULSE 81–101; RESP 19–22
[2017-09-07] MEDS: PIPER-TAZO 3.375 GM IV (PMX) 50 ML IVPB SCH ×4 (00:56→18:59)
--- NOTE | 2017-09-07 07:23 | RADRPT ---
PROCEDURE: XR Chest. CLINICAL INDICATION: Pleural effusion, status post recent right-sided thoracentesis. TECHNIQUE: Single portable view of the chest was obtained COMPARISON: DR REHMAN 09/06/2017 FINDINGS: The cardiomediastinal silhouette is stable in size and configuration. There is interval increased si ze of a right-sided pleural effusion with right mid lung consolidation or atelectasis .Interval appe aring patchy right lower lobe air space disease is present. Left-sided pulmonary vascular congestive changes are slightly decreased. No evidence of a pneumothorax. IMPRESSION: 1. Increased size of a right-sided pleural effusion. 2. Increasing right mid lung consolidation or atelectasis. 3. Interval appearing right lower lobe patchy air space disease 4. Interval slightly decreased left-sided pulmonary vascular congestion. RPTAT: HRSR Physician Clifford Date Time Electronically viewed and signed by Crow Dodson Physician on 09/07/2017 07:23 RR/
[2017-09-07 07:40] LABS: ABNORMAL IP MESSAGE 1; BASOPHIL # 0.1 10^3/ul (0.0-0.1); BASOPHILS % 0.5 % (0.0-2.0); EOSINOPHILS # 0.1 10^3/ul (0.0-0.5); EOSINOPHILS % 1.2 % (0.0-7.0); HEMATOCRIT 27.5 % (42.0-52.0); HEMOGLOBIN 8.1 g/dl (14.0-18.0); LYMPHOCYTES # 0.5 10^3/ul (0.8-2.9); LYMPHOCYTES % 4.7 % (15.0-51.0); MEAN CORPUSCULAR HEMOGLOBIN 21.7 pg (29.0-33.0); MEAN CORPUSCULAR HGB CONC 29.5 g/dl (32.0-37.0); MEAN CORPUSCULAR VOLUME 73.7 fl (82.0-101.0); MEAN PLATELET VOLUME 9.2 fl (7.4-10.4); MONOCYTE # 0.9 10^3/ul (0.3-0.9); NEUTROPHIL # 8.8 10^3/ul (1.6-7.5); NEUTROPHILS % 84.1 % (39.0-77.0); PLATELET COUNT 253 10^3/UL (140-415); POSITIVE DIFF @See below; RED BLOOD COUNT 3.73 10^6/ul (4.70-6.10); RED CELL DISTRIBUTION WIDTH 18.7 % (11.5-14.5); WHITE BLOOD COUNT 10.4 10^3/ul (4.8-10.8)
[2017-09-07] MEDS: ALBUTEROL/IPRATROPIUM (NEB) 3 ML AMP HHN SCH ×3 (07:49→20:16)
[2017-09-07 08:07] LABS: CREATININE 0.67 mg/dl (0.61-1.24); PHOSPHORUS 2.7 mg/dl (2.5-4.9); POTASSIUM 3.5 mmol/L (3.5-5.1)
[2017-09-07 08:11] LABS: MAGNESIUM 0.9 mg/dl (1.7-2.5)
[2017-09-07] MEDS ORDERED: MAGNESIUM SULFATE 4 GM/100 ML 100 ML IVPB SCH (09:00)
[2017-09-07] MEDS: CHLORDIAZEPOXIDE 25 MG CAP PO SCH ×3 (09:00→20:48)
[2017-09-07] MEDS: FAMOTIDINE 20 MG INJ IV SCH ×2 (09:30→21:05)
--- NOTE | 2017-09-07 09:31 | PN ---
DATE: 09/07/2017 SUBJECTIVE: The patient remains critically ill. No other acute events noted. No hemoptysis, hemat emesis or hematochezia. OBJECTIVE: VITAL SIGNS: Blood pressure is 140/74, respirations 20, pulse 83, temperature 98.6. HEENT: Head is normocephalic. NECK: Supple. HEART: Regular rate. LUNGS: Show diminished breath sounds at the base. ABDOMEN: Soft, nontender to palpation without rebound or guarding. EXTREMITIES: Negative for clubbing, cyanosis, no edema. DERMATOLOGIC: No rashes. MUSCULOSKELETAL: No joint effusions. NEUROLOGIC: No change in exam. MEDICATIONS: The patient's medications have been reviewed. LABORATORY DATA: Shows sodium 133, potassium 3.5, chloride 93, BUN 14, creatinine 0.67, magnesium 0 .9. White count 10.4, hemoglobin 8.1, platelet count 253. ASSESSMENT AND PLAN: 1. Hyponatremia, etiology secondary to volume depletion, possible low solute intake state given his tory of alcohol abuse and hypokalemia. The patient's sodium levels have appropriately corrected les s than 18 mEq in a 48-hour period. At this point, we will continue current treatment plan, supporti ve care, monitor sodium levels closely. 2. Hypomagnesemia, etiology is secondary to renal wasting due to underlying ETOH abuse. Recommenda tion would be continue to monitor magnesium levels daily and replete. 3. Hypokalemia secondary to total body volume depletion and hypomagnesemia. Continue to monitor an d replete. We will continue to correct underlying hypomagnesemia. 4. Acute respiratory failure secondary to pneumonia. Continue current medical management. Continu e nonrebreather. 5. Sepsis secondary to pneumonia. Continue current antibiotic therapy. 6. Acute encephalopathy, delirium tremens. Continue current medical management. Continue Ativan. 7. Seizure disorder. Continue current treatment. 8. Large pleural effusion, likely parapneumonic, continue to monitor. Dictated By: SLIME CHANG/VICKY Conf#: [id number] DID#: [id number]
[2017-09-07] MEDS ORDERED: FUROSEMIDE 20 MG INJ IV ONE (10:00)
[2017-09-07] MEDS ORDERED: LACTULOSE 30ML CUP PO ONE ×2 (10:00→21:00)
[2017-09-07] MEDS ORDERED: MAGNESIUM SULFATE 3 GM in DEXTROSE 5% 100 ML IVPB ONE (10:00)
[2017-09-07] MEDS: SOD CHLORIDE 0.9% 1,000 ML IV SCH (10:32)
--- NOTE | 2017-09-07 13:43 | PN ---
Date/Time of Note Date/Time of Note DATE: 09/07/17 TIME: 13:40 Assessment/Plan VTE Prophylaxis VTE Prophylaxis Intervention: SCD's Lines/Catheters IV Catheter Type (from Nrs): Saline Lock Urinary Cath still in place: Yes Reason Cath still needed: terminal illness/intractable pain Assessment/Plan Chief Complaint/Hosp Course Patient is a 51-year-old homeless alcoholic who presents with right pleural effusion, pneumonia, and alcohol withdrawal induced seizure Assessment and plan Delirium tremens Seizure's bacteremia, gram neg acute respiratory failure, 2/2 PNA/pleural effusion Bilateral pneumonia, likely aspiration Severe hyponatremia Large right pleural effusion Alcoholism Hypokalemia Leukocytosis Sepsis, severe, pneumonia source -Scheduled librium with as needed Ativan for seizure, monitor closely. -gram neg on blood culture, repeat tomorrow, cont abx until sensitivities -s/p 2 L drained on pleural effusion, pulm recs appreciated, Dr. Richter. Pleural effusion again seen on CXR, repeat tomorrow -Nephrology consulted for electrolyte derangement, frequent renal panels, watch carefully for overcorrection. should not correct more than 12meq/day -seizure precautions -pulmonology consulted, abg noted -broad spectrum abx for bilat PNA DISPO: monitor closely, patient still high risk of DTs. electrolytes returning to normal, however patient now has recurrent pleural effusion/bilat PNA/gram neg bacteremia. Will have to await sensitivies before planning dispo. Problems: Subjective 24 Hr Interval Summary Free Text/Dictation no symptoms of DT this AM. lethargic, but sedated with ativan Exam/Review of Systems Vital Signs Vitals Vital Signs Date Time Temp Pulse Resp B/P Pulse Ox O2 Delivery O2 Flow Rate FiO2 09/07/17 12:00 90 09/07/17 11:14 98.0 20 132/68 98 09/07/17 11:00 5.0 09/07/17 08:00 Simple Mask Intake and Output 09/06/17 09/06/17 09/07/17 15:00 23:00 07:00 Intake Total 50 ml 30 ml Output Total 3800 ml 1200 ml Balance 50 ml -3800 ml -1170 ml Exam Physical exam General: Patient is laying in bed and arousable, but lethargic, Mentation: Patient is alert but sedated Head: Normocephalic atraumatic Eyes: EOMI, pupils reactive to light Neck: Supple, nontender, midline Respiratory: diminished breath sounds on the R Cardiovascular: tachycardic, no obvious murmurs Gastrointestinal: non-tender to palpation, bowel sounds heard. Neurological: Moves all extremities spontaneously Skin: No new skin lesions Results Result Diagram: 09/07/17 0653 09/07/17 0653 Results 24 hrs Laboratory Tests Test 09/06/17 14:10 09/06/17 15:56 09/06/17 16:34 09/06/17 17:15 Sodium Level 130 L Potassium Level 3.1 L Chloride Level 89 L Carbon Dioxide Level 31 Anion Gap 13 Blood Urea Nitrogen 15 Creatinine 0.75 Glucose Level 86 Calcium Level 6.7 L Blood Gas Specimen Source Blood arterial Arterial Blood Date Drawn 09/06/2017 6:35:00 PM Arterial Blood pH (Temp corrected) 7.350 Arterial Blood pCO2 (Temp correct) 55.0 H Arterial Blood pO2 (Temp corrected) 140.3 H Arterial Blood HCO3 29.7 H Arterial Blood Base Excess 3.3 H Arterial Blood Oxygen Saturation 98.9 H Quan Test ACCEPTAB Arterial Blood Gas Puncture Site Left Radial Arterial Blood Carboxyhemoglobin 0.4 Arterial Blood Methemoglobin 0.4 Blood Gas A-a O2 Differential 176.1 H Oxyhemoglobin Percent 98.1 Total Hemoglobin 10.0 L Blood Gas Temperature 37.0 Blood Gas Modality MASK - NRB FiO2 53.0 Blood Gas Notified Whom DT Blood Gas Notified Time 09/06/2017 6:54:00 PM Prothrombin Time 16.5 H Prothrombin Time Ratio 1.3 INR International Normalized Ratio 1.32 Pathologist Review (Hematology) NO Body Fluid Type PLEURAL FLUID Body Fluid Volume 1100.0 Body Fluid Color YELLOW Body Fluid Appearance HAZY Body Fluid WBC 238 Body Fluid RBC (Auto) 1000 Body Fluid Polynuclear WBCs (%) 35.7 Body Fluid Mononuclear Cells % Auto 64.3 Body Fluid Glucose 84 Body Fluid Total Protein 5.3 Body Fluid Lactate Dehydrogenase 425 Body Fluid Amylase 43 Test 09/07/17 06:53 White Blood Count 10.4 # Red Blood Count 3.73 L Hemoglobin 8.1 L Hematocrit 27.5 L Mean Corpuscular Volume 73.7 L Mean Corpuscular Hemoglobin 21.7 L Mean Corpuscular Hemoglobin Concent 29.5 L Red Cell Distribution Width 18.7 H Platelet Count 253 Mean Platelet Volume 9.2 Neutrophils % 84.1 H Lymphocytes % 4.7 L Monocytes % 9.0 Eosinophils % 1.2 Basophils % 0.5 Nucleated Red Blood Cells % 0.0 Neutrophils # 8.8 H Lymphocytes # 0.5 L Monocytes # 0.9 Eosinophils # 0.1 Basophils # 0.1 Nucleated Red Blood Cells # 0.0 Sodium Level 133 L Potassium Level 3.5 Chloride Level 93 L Carbon Dioxide Level 34 H Anion Gap 10 Blood Urea Nitrogen 14 Creatinine 0.67 Glucose Level 104 Lactic Acid Level 1.0 Calcium Level 7.0 L Phosphorus Level 2.7 Magnesium Level 0.9 *L Ammonia 33 H Creatine Kinase 63 # Medications Medications Current Medications Piperacillin Sod/ Tazobactam Sod (Zosyn 3.375gm/ 50 ml (Pmx)) 50 ml @ 100 mls/ hr Q6 IVPB Last administered on 09/07/17 12:08; Admin Dose 100 MLS/HR; Start 09/05/17 at 18:00 Lorazepam (Ativan) 2 mg Q10MIN PRN IV seizure Last administered on 09/06/17 09 :11; Admin Dose 2 MG; Start 09/05/17 at 16:00 Labetalol HCl (Labetalol) 10 mg Q4 PRN IV sbp>160; Start 09/05/17 at 16:30 Ondansetron HCl (Zofran Inj) 4 mg Q6H PRN IV NAUSEA AND/OR VOMITING; Start 09/05/17 at 16:30 Acetaminophen (Tylenol Tab) 650 mg Q6H PRN PO PAIN LEVEL 1-3 OR FEVER; Start 09/05/17 at 16:30 Morphine Sulfate (morphine) 2 mg Q4H PRN IV PAIN LEVEL 7-10; Start 09/05/17 at 16:30 Bisacodyl (Dulcolax) 5 mg DAILY PRN PO CONSTIPATION; Start 09/05/17 at 16:30 Lorazepam (Ativan) 1 mg Q6H PRN IV agitation/anxiety Last administered on 22:37; Admin Dose 1 MG; Start 09/05/17 at 17:00 Nicotine (Nicoderm 21 Mg/ 24hr) 1 patch Q24H TRANSDERM Last administered on 16:22; Admin Dose 1 PATCH; Start 09/05/17 at 17:00 Famotidine 20 mg 20 mg BID IV Last administered on 09/07/17 09:30; Admin Dose 20 MG; Start 09/07/17 at 09:00 Sodium Chloride (NS) 1,000 ml @ 40 mls/hr Q24H IV Last administered on 10:32; Admin Dose 40 MLS/HR; Start 09/07/17 at 09:00 Chlordiazepoxide (Librium) 25 mg TID PO ; Start 09/07/17 at 13:00 CATHERINE DUMONT Sep 07, 2017 13:43
[2017-09-07 16:31] LABS: MICROALBUMIN 37.4 mg/dL
[2017-09-07] MEDS: NICOTINE (21 MG/24 HR) PATCH TRANSDERM SCH (17:39)
[2017-09-07 17:42] LABS: ALBUMIN 3.1 g/dl (3.3-4.9); CALCIUM 7.3 mg/dl (8.4-10.2); CREATININE 0.66 mg/dl (0.61-1.24); PHOSPHORUS 2.2 mg/dl (2.5-4.9)
--- NOTE | 2017-09-07 17:43 | CONS ---
DATE OF ADMISSION: 09/05/2017 DATE OF CONSULTATION: TYPE OF CONSULTATION: Pulmonary. REASON FOR CONSULTATION: Respiratory distress. Thank you, Dr. Rehman, for this consultation. HISTORY OF PRESENT ILLNESS: This is a 51-year-old gentleman with multiple medical problems, extensi ve alcohol history, came in altered and in respiratory distress, found to have extensive right pleur al effusion. Few further details are available. The patient had been drinking prior to this admiss ion with evidence of delirium tremens. PAST MEDICAL HISTORY: EtOH abuse, shoulder and wrist surgeries. MEDICATIONS: Per chart. ALLERGIES: NONE. SOCIAL HISTORY: Positive tobacco and alcohol history. REVIEW OF SYSTEMS: A 12-point review of systems unable to perform. PHYSICAL EXAMINATION: GENERAL: Well-nourished, well-developed gentleman, comfortable at rest, no acute distress. VITAL SIGNS: Currently afebrile, pulse is 98, blood pressure 132/60, O2 sat 96% on 5 liters. NECK: Supple. No JVD or lymphadenopathy. CARDIAC: S1, S2, no added sounds or murmurs. CHEST: Diminished air entry bilaterally. ABDOMEN: Soft, nontender. No guarding or rebound. EXTREMITIES: No cyanosis, clubbing or edema. NEUROLOGIC: Generalized weakness. LABORATORIES: White count initially 15.8, now 10.4. Hemoglobin 8.1. BUN 14, creatinine 0.67. Mag was 0.9. Initial ABG: PaO2 was 114 on nonrebreather. IMAGING: Initial chest x-ray demonstrated extensive right pleural effusion. The patient underwent thoracentesis with 2 liters of fluid removed from the right lung. Subsequent resolution. No underl isidro masses noted. Pleural fluid was consistent with exudative process given high protein and LDH. IMPRESSION: Likely aspiration pneumonia versus healthcare-associated pneumonia and exudative pleura l effusion. The patient, in addition, has blood cultures demonstrating gram-negative rods. PLAN: 1. Continue medications for EtOH withdrawal. 2. Aspiration precautions. 3. Correct magnesium. 4. Continue Zosyn. 5. DVT and GI prophylaxis. Dictated By: WOOD CONTRERAS/VICKY Conf#: [id number] DID#: [id number] CC: TANK MALHOTRA;*EndCC*
[2017-09-07] MEDS: MULTIVITAMINS 10 ML, THIAMINE 100 MG in SOD CHLORIDE 0.9% 1,000 ML IVPB SCH (20:14)
[2017-09-07] MEDS: FOLIC ACID 1 MG TAB PO SCH (20:39)
[2017-09-08] VITALS (15 sets, daily range): BP systolic 120–189; BP diastolic 74–104; PULSE 84–100; RESP 18–30
[2017-09-08] MEDS: PIPER-TAZO 3.375 GM IV (PMX) 50 ML IVPB SCH ×4 (00:17→17:54)
[2017-09-08] MEDS: LABETALOL HCL 20MG INJ IV PRN ×2 (04:16→09:46)
[2017-09-08 07:16] LABS: ABNORMAL IP MESSAGE 1; BASOPHIL # 0.1 10^3/ul (0.0-0.1); BASOPHILS % 0.6 % (0.0-2.0); EOSINOPHILS # 0.1 10^3/ul (0.0-0.5); EOSINOPHILS % 1.2 % (0.0-7.0); HEMATOCRIT 27.3 % (42.0-52.0); HEMOGLOBIN 8.1 g/dl (14.0-18.0); LYMPHOCYTES # 0.6 10^3/ul (0.8-2.9); LYMPHOCYTES % 5.7 % (15.0-51.0); MEAN CORPUSCULAR HEMOGLOBIN 21.8 pg (29.0-33.0); MEAN CORPUSCULAR HGB CONC 29.7 g/dl (32.0-37.0); MEAN CORPUSCULAR VOLUME 73.4 fl (82.0-101.0); MEAN PLATELET VOLUME 9.1 fl (7.4-10.4); MONOCYTE # 1.2 10^3/ul (0.3-0.9); MONOCYTES % 12.4 % (0.0-11.0); NEUTROPHIL # 7.9 10^3/ul (1.6-7.5); NEUTROPHILS % 79.7 % (39.0-77.0); PLATELET COUNT 230 10^3/UL (140-415); POSITIVE DIFF @See below; RED BLOOD COUNT 3.72 10^6/ul (4.70-6.10); RED CELL DISTRIBUTION WIDTH 19.2 % (11.5-14.5); WHITE BLOOD COUNT 9.9 10^3/ul (4.8-10.8)
[2017-09-08 07:30] LABS: CALCIUM 7.2 mg/dl (8.4-10.2); CREATININE 0.67 mg/dl (0.61-1.24); PHOSPHORUS 2.5 mg/dl (2.5-4.9)
[2017-09-08 07:56] LABS: MAGNESIUM 0.9 mg/dl (1.7-2.5)
--- NOTE | 2017-09-08 08:51 | RADRPT ---
PROCEDURE: XR Chest. CLINICAL INDICATION: Shortness of breath. TECHNIQUE: Single frontal view. COMPARISON: 09/07/2017. FINDINGS: There is extensive consolidation throughout the right lung and in the left mid to upper lung zone, u nchanged. The heart size is normal. There is a moderate right pleural effusion, unchanged. Fluid is in the right minor fissure. There is no pneumothorax. IMPRESSION: 1. Bilateral multifocal pneumonia with right worse than left, unchanged. 2. Moderate right pleural effusion, unchanged. 3. No change from the 09/07/2017 chest radiograph. RPTAT: QQ .John Paul Hall MD, MD Date Time Electronically viewed and signed by .John Paul Hall MD, MD on 09/08/2017 08:51 .R/
[2017-09-08] MEDS: ALBUTEROL/IPRATROPIUM (NEB) 3 ML AMP HHN SCH ×3 (08:59→19:55)
[2017-09-08] MEDS: SOD CHLORIDE 0.9% 1,000 ML IV SCH (09:00)
[2017-09-08] MEDS ORDERED: FOLIC ACID 1 MG TAB PO SCH (09:00)
[2017-09-08] MEDS ORDERED: THIAMINE 100 MG TAB PO SCH (09:00)
[2017-09-08] MEDS: MULTIVITAMINS 10 ML, THIAMINE 100 MG in SOD CHLORIDE 0.9% 1,000 ML IVPB SCH (09:03)
[2017-09-08] MEDS: FOLIC ACID 1 MG TAB PO SCH (09:09)
[2017-09-08] MEDS: CHLORDIAZEPOXIDE 25 MG CAP PO SCH ×3 (09:10→21:46)
[2017-09-08] MEDS: FAMOTIDINE 20 MG INJ IV SCH ×2 (09:13→21:39)
[2017-09-08] MEDS: LORAZEPAM 2 MG INJ IV PRN (09:30)
[2017-09-08] MEDS ORDERED: POTASSIUM CHLORIDE (SR) 20 MEQ TAB PO STA (09:40)
[2017-09-08] MEDS ORDERED: POTASSIUM CHLORIDE 250 ML IVPB ONE ×2 (10:00→15:00)
[2017-09-08] MEDS ORDERED: hydrALAzine 20 MG INJ IV PRN (10:00)
--- NOTE | 2017-09-08 10:01 | CONS ---
Date/Time of Note Date/Time of Note DATE: 09/08/17 TIME: 09:57 Consult Date/Type/Reason Admit Date/Time Sep 05, 2017 at 13:14 Initial Consult Date Subjective The patient remains sedated. no signs of dt. continues good uo. No other acute events noted. No hemoptysis, hematemesis or hematochezia. OBJECTIVE: HEENT: Head is normocephalic. NECK: Supple. HEART: Regular rate. LUNGS: Show diminished breath sounds at the base. ABDOMEN: Soft, nontender to palpation without rebound or guarding. EXTREMITIES: Negative for clubbing, cyanosis, no edema. DERMATOLOGIC: No rashes. MUSCULOSKELETAL: No joint effusions. NEUROLOGIC: No change in exam. MEDICATIONS: The patient's medications have been reviewed. L Objective Vital Signs Date Time Temp Pulse Resp B/P Pulse Ox O2 Delivery O2 Flow Rate FiO2 09/08/17 09:42 97.9 92 22 189/104 99 09/08/17 09:00 Nasal Cannula 5.0 Intake and Output 09/07/17 09/07/17 09/08/17 15:00 23:00 07:00 Intake Total 400 ml 200 ml Output Total 2100 ml Balance -1700 ml 200 ml Results/Medications Result Diagram: 09/08/17 0655 09/08/17 0655 Results 24 hrs Laboratory Tests Test 09/07/17 17:06 09/08/17 06:55 Sodium Level 136 141 Potassium Level 3.0 L 3.0 L Chloride Level 91 L 98 Carbon Dioxide Level 35 H 35 H Anion Gap 13 11 Blood Urea Nitrogen 13 13 Creatinine 0.66 0.67 Glucose Level 101 100 Calcium Level 7.3 L 7.2 L Phosphorus Level 2.2 L 2.5 Albumin 3.1 L White Blood Count 9.9 Red Blood Count 3.72 L Hemoglobin 8.1 L Hematocrit 27.3 L Mean Corpuscular Volume 73.4 L Mean Corpuscular Hemoglobin 21.8 L Mean Corpuscular Hemoglobin Concent 29.7 L Red Cell Distribution Width 19.2 H Platelet Count 230 Mean Platelet Volume 9.1 Neutrophils % 79.7 H Lymphocytes % 5.7 L Monocytes % 12.4 H Eosinophils % 1.2 Basophils % 0.6 Nucleated Red Blood Cells % 0.0 Neutrophils # 7.9 H Lymphocytes # 0.6 L Monocytes # 1.2 H Eosinophils # 0.1 Basophils # 0.1 Nucleated Red Blood Cells # 0.0 Magnesium Level 0.9 *L Ammonia 16 Medications Current Medications Piperacillin Sod/ Tazobactam Sod (Zosyn 3.375gm/ 50 ml (Pmx)) 50 ml @ 100 mls/ hr Q6 IVPB Last administered on 09/08/17 05:35; Admin Dose 100 MLS/HR; Start 09/05/17 at 18:00 Lorazepam (Ativan) 2 mg Q10MIN PRN IV seizure Last administered on 09/06/17 09 :11; Admin Dose 2 MG; Start 09/05/17 at 16:00 Labetalol HCl (Labetalol) 10 mg Q4 PRN IV sbp>160 Last administered on 09:46; Admin Dose 10 MG; Start 09/05/17 at 16:30 Ondansetron HCl (Zofran Inj) 4 mg Q6H PRN IV NAUSEA AND/OR VOMITING; Start 09/05/17 at 16:30 Acetaminophen (Tylenol Tab) 650 mg Q6H PRN PO PAIN LEVEL 1-3 OR FEVER; Start 09/05/17 at 16:30 Morphine Sulfate (morphine) 2 mg Q4H PRN IV PAIN LEVEL 7-10; Start 09/05/17 at 16:30 Bisacodyl (Dulcolax) 5 mg DAILY PRN PO CONSTIPATION; Start 09/05/17 at 16:30 Lorazepam (Ativan) 1 mg Q6H PRN IV agitation/anxiety Last administered on 09/08 09:30; Admin Dose 1 MG; Start 09/05/17 at 17:00 Nicotine (Nicoderm 21 Mg/ 24hr) 1 patch Q24H TRANSDERM Last administered on 17:39; Admin Dose 1 PATCH; Start 09/05/17 at 17:00 Famotidine 20 mg 20 mg BID IV Last administered on 09/08/17 09:13; Admin Dose 20 MG; Start 09/07/17 at 09:00 Sodium Chloride (NS) 1,000 ml @ 40 mls/hr Q24H IV Last administered on 10:32; Admin Dose 40 MLS/HR; Start 09/07/17 at 09:00 Chlordiazepoxide 25 mg 25 mg TID PO Last administered on 09/08/17 09:10; Admin Dose 25 MG; Start 09/07/17 at 13:00 Multivitamins/ Thiamine HCl/ Sodium Chloride (Mvi Adult/ Vitamin B1/NS) 1,011 ml @ 125 mls/hr DAILY@09 IVPB Last administered on 09/08/17 09:03; Admin Dose 125 MLS/HR; Start 09/07/17 at 16:30 Folic Acid 1 mg 1 mg DAILY PO Last administered on 09/08/17 09:09; Admin Dose 1 MG; Start 09/07/17 at 16:30 Magnesium Sulfate 6 gm/Dextrose 112 ml @ 50 mls/hr ONCE ONCE IVPB ; Start 09/14 at 11:00; Stop 09/08/17 at 13:14 Potassium Chloride (KCl 40 MEQ/250 ML NS) 250 ml @ 62.5 mls/hr ONCE ONCE IVPB ; Start 09/08/17 at 10:00; Stop 09/08/17 at 13:59 Assessment/Plan Chief Complaint/Hosp Course 1. Hyponatremia, etiology secondary to volume depletion, possible low solute intake state given history of alcohol abuse and hypokalemia. The patient's sodium levels have appropriately corrected less than 18 mEq in a 48-hour period. At this point, we will continue current treatment plan, supportive care , monitor sodium levels closely. 2. Hypomagnesemia, etiology is secondary to renal wasting due to underlying ETOH abuse and poor po intake in ETOH diet. Recommendation would be continue to monitor magnesium levels daily and replete. 3. Hypokalemia secondary to total body volume depletion and hypomagnesemia. improving. Continue to monitor and replete. We will continue to correct underlying hypomagnesemia. improved. 4. Acute respiratory failure secondary to pneumonia. Continue current medical management. Continue nonrebreather. 5. Sepsis secondary to pneumonia. Continue current antibiotic therapy. 6. Acute encephalopathy, delirium tremens. Continue current medical management. Continue Ativan. 7. Seizure disorder. Continue current treatment. 8. Large pleural effusion, likely parapneumonic, continue to monitor. Problems: WICHO MARY MD Sep 08, 2017 10:01
--- NOTE | 2017-09-08 10:45 | PN ---
Date/Time of Note Date/Time of Note DATE: 09/08/17 TIME: 10:44 Assessment/Plan VTE Prophylaxis VTE Prophylaxis Intervention: SCD's Lines/Catheters IV Catheter Type (from Nrsg): Saline Lock Assessment/Plan Assessment/Plan 1. Delirium tremens - Continue monitoring - On Librium and Ativan PRN for agitation 2. bacteremia, gram neg - continue on IV antibiotics - awaiting sensitivities - remains afebrile with nl WBC 3. acute respiratory failure, 2/2 PNA/pleural effusion - Pulmonology on board and recommendations appreciated - s/p 2 L drained on pleural effusion - CXR this am shows moderate R pleural effusion 4. Bilateral pneumonia, likely aspiration - CXR shows worsening on R. - Continue antibiotics 5. Severe hyponatremia- resolved - Nephrology on board and recommendations appreciated 6. Large right pleural effusion - CXR shows moderate pleural effusion still present 7. Alcoholism - Banana bag - Librium 8. Hypokalemia -replaced. continue monitoring 9. Sepsis, severe, pneumonia source- improving 10. Disposition - Continue monitoring closely given high risk for DTS. Okay for transfer to med/ surg Subjective 24 Hr Interval Summary Free Text/Dictation Patient resting comfortably and opens eyes to touch. Confused but in no acute distress. no signs of DT. Exam/Review of Systems Vital Signs Vitals Vital Signs Date Time Temp Pulse Resp B/P Pulse Ox O2 Delivery O2 Flow Rate FiO2 09/08/17 10:16 98.2 89 21 120/79 100 09/08/17 09:00 Nasal Cannula 4.0 Intake and Output 09/07/17 09/07/17 09/08/17 14:59 22:59 06:59 Intake Total 400 ml 200 ml Output Total 2100 ml Balance -1700 ml 200 ml Exam General: Patient resting comfortably, lethargic but opens eyes to touch Mentation: Patient is alert but sedated Head: Normocephalic atraumatic Eyes: EOMI, pupils reactive to light Neck: Supple, nontender, midline Respiratory: diminished breath sounds on the R Cardiovascular: tachycardic, no obvious murmurs Gastrointestinal: non-tender to palpation, bowel sounds heard. Neurological: Moves all extremities spontaneously Skin: No new skin lesions Results Result Diagram: 09/08/17 0655 09/08/17 0655 Results 24 hrs Laboratory Tests Test 09/07/17 17:06 09/08/17 06:55 Sodium Level 136 141 Potassium Level 3.0 L 3.0 L Chloride Level 91 L 98 Carbon Dioxide Level 35 H 35 H Anion Gap 13 11 Blood Urea Nitrogen 13 13 Creatinine 0.66 0.67 Glucose Level 101 100 Calcium Level 7.3 L 7.2 L Phosphorus Level 2.2 L 2.5 Albumin 3.1 L White Blood Count 9.9 Red Blood Count 3.72 L Hemoglobin 8.1 L Hematocrit 27.3 L Mean Corpuscular Volume 73.4 L Mean Corpuscular Hemoglobin 21.8 L Mean Corpuscular Hemoglobin Concent 29.7 L Red Cell Distribution Width 19.2 H Platelet Count 230 Mean Platelet Volume 9.1 Neutrophils % 79.7 H Lymphocytes % 5.7 L Monocytes % 12.4 H Eosinophils % 1.2 Basophils % 0.6 Nucleated Red Blood Cells % 0.0 Neutrophils # 7.9 H Lymphocytes # 0.6 L Monocytes # 1.2 H Eosinophils # 0.1 Basophils # 0.1 Nucleated Red Blood Cells # 0.0 Magnesium Level 0.9 *L Ammonia 16 Medications Medications Current Medications Piperacillin Sod/ Tazobactam Sod (Zosyn 3.375gm/ 50 ml (Pmx)) 50 ml @ 100 mls/ hr Q6 IVPB Last administered on 09/08/17 05:35; Admin Dose 100 MLS/HR; Start 09/05/17 at 18:00 Lorazepam (Ativan) 2 mg Q10MIN PRN IV seizure Last administered on 09/06/17 09 :11; Admin Dose 2 MG; Start 09/05/17 at 16:00 Labetalol HCl (Labetalol) 10 mg Q4 PRN IV sbp>160 Last administered on 09:46; Admin Dose 10 MG; Start 09/05/17 at 16:30 Ondansetron HCl (Zofran Inj) 4 mg Q6H PRN IV NAUSEA AND/OR VOMITING; Start 09/05/17 at 16:30 Acetaminophen (Tylenol Tab) 650 mg Q6H PRN PO PAIN LEVEL 1-3 OR FEVER; Start 09/05/17 at 16:30 Morphine Sulfate (morphine) 2 mg Q4H PRN IV PAIN LEVEL 7-10; Start 09/05/17 at 16:30 Bisacodyl (Dulcolax) 5 mg DAILY PRN PO CONSTIPATION; Start 09/05/17 at 16:30 Lorazepam (Ativan) 1 mg Q6H PRN IV agitation/anxiety Last administered on 09/08 09:30; Admin Dose 1 MG; Start 09/05/17 at 17:00 Nicotine (Nicoderm 21 Mg/ 24hr) 1 patch Q24H TRANSDERM Last administered on 17:39; Admin Dose 1 PATCH; Start 09/05/17 at 17:00 Famotidine 20 mg 20 mg BID IV Last administered on 09/08/17 09:13; Admin Dose 20 MG; Start 09/07/17 at 09:00 Sodium Chloride (NS) 1,000 ml @ 40 mls/hr Q24H IV Last administered on 10:32; Admin Dose 40 MLS/HR; Start 09/07/17 at 09:00 Chlordiazepoxide 25 mg 25 mg TID PO Last administered on 09/08/17 09:10; Admin Dose 25 MG; Start 09/07/17 at 13:00 Multivitamins/ Thiamine HCl/ Sodium Chloride (Mvi Adult/ Vitamin B1/NS) 1,011 ml @ 125 mls/hr DAILY@09 IVPB Last administered on 09/08/17 09:03; Admin Dose 125 MLS/HR; Start 09/07/17 at 16:30 Folic Acid 1 mg 1 mg DAILY PO Last administered on 09/08/17 09:09; Admin Dose 1 MG; Start 09/07/17 at 16:30 Magnesium Sulfate 6 gm/Dextrose 112 ml @ 50 mls/hr ONCE ONCE IVPB ; Start 09/14 at 11:00; Stop 09/08/17 at 13:14 Potassium Chloride 250 ml @ 62.5 mls/hr ONCE ONCE IVPB ; Start 09/08/17 at 10 :00; Stop 09/08/17 at 13:59 Potassium Chloride (KCl 40 MEQ/250 ML NS) 250 ml @ 62.5 mls/hr ONCE ONCE IVPB ; Start 09/08/17 at 15:00; Stop 09/08/17 at 18:59 THEO BUSH MD Sep 08, 2017 10:44
[2017-09-08] MEDS ORDERED: MAGNESIUM SULFATE 6 GM in DEXTROSE 5% 100 ML IVPB ONE (11:00)
--- NOTE | 2017-09-08 12:33 | CONS ---
Date/Time of Note Date/Time of Note DATE: 09/08/17 TIME: 12:31 Consult Date/Type/Reason Admit Date/Time Sep 05, 2017 at 13:14 Initial Consult Date Type of Consultation: Pulmonary Subjective Patient confused but comfortable this morning. No new events. Continues nasal cannula oxygen. Objective Vital Signs Date Time Temp Pulse Resp B/P Pulse Ox O2 Delivery O2 Flow Rate FiO2 09/08/17 12:18 87 09/08/17 11:06 98.0 24 162/84 100 09/08/17 09:00 Nasal Cannula 4.0 Intake and Output 09/07/17 09/07/17 09/08/17 15:00 23:00 07:00 Intake Total 400 ml 200 ml Output Total 2100 ml Balance -1700 ml 200 ml Exam GENERAL: Chronically ill-appearing gentleman comfortable at rest no acute distress VITAL SIGNS: per chart NECK: Supple. No JVD or lymphadenopathy. CARDIAC EXAM: S1, S2. No added sounds or murmurs. CHEST: Diminished air entry bilaterally ABDOMEN: Soft, nontender. No guarding or rebound. EXTREMITIES: No cyanosis, clubbing or edema. NEUROLOGIC: Generalized weakness. No focal deficits. Results/Medications Result Diagram: 09/08/17 0655 09/08/17 0655 Results 24 hrs Laboratory Tests Test 09/07/17 17:06 09/08/17 06:55 Sodium Level 136 141 Potassium Level 3.0 L 3.0 L Chloride Level 91 L 98 Carbon Dioxide Level 35 H 35 H Anion Gap 13 11 Blood Urea Nitrogen 13 13 Creatinine 0.66 0.67 Glucose Level 101 100 Calcium Level 7.3 L 7.2 L Phosphorus Level 2.2 L 2.5 Albumin 3.1 L White Blood Count 9.9 Red Blood Count 3.72 L Hemoglobin 8.1 L Hematocrit 27.3 L Mean Corpuscular Volume 73.4 L Mean Corpuscular Hemoglobin 21.8 L Mean Corpuscular Hemoglobin Concent 29.7 L Red Cell Distribution Width 19.2 H Platelet Count 230 Mean Platelet Volume 9.1 Neutrophils % 79.7 H Lymphocytes % 5.7 L Monocytes % 12.4 H Eosinophils % 1.2 Basophils % 0.6 Nucleated Red Blood Cells % 0.0 Neutrophils # 7.9 H Lymphocytes # 0.6 L Monocytes # 1.2 H Eosinophils # 0.1 Basophils # 0.1 Nucleated Red Blood Cells # 0.0 Magnesium Level 0.9 *L Ammonia 16 Medications Current Medications Piperacillin Sod/ Tazobactam Sod (Zosyn 3.375gm/ 50 ml (Pmx)) 50 ml @ 100 mls/ hr Q6 IVPB Last administered on 09/08/17 12:26; Admin Dose 100 MLS/HR; Start 09/05/17 at 18:00 Lorazepam (Ativan) 2 mg Q10MIN PRN IV seizure Last administered on 09/06/17 09 :11; Admin Dose 2 MG; Start 09/05/17 at 16:00 Labetalol HCl (Labetalol) 10 mg Q4 PRN IV sbp>160 Last administered on 09:46; Admin Dose 10 MG; Start 09/05/17 at 16:30 Ondansetron HCl (Zofran Inj) 4 mg Q6H PRN IV NAUSEA AND/OR VOMITING; Start 09/05/17 at 16:30 Acetaminophen (Tylenol Tab) 650 mg Q6H PRN PO PAIN LEVEL 1-3 OR FEVER; Start 09/05/17 at 16:30 Morphine Sulfate (morphine) 2 mg Q4H PRN IV PAIN LEVEL 7-10; Start 09/05/17 at 16:30 Bisacodyl (Dulcolax) 5 mg DAILY PRN PO CONSTIPATION; Start 09/05/17 at 16:30 Lorazepam (Ativan) 1 mg Q6H PRN IV agitation/anxiety Last administered on 09/08 09:30; Admin Dose 1 MG; Start 09/05/17 at 17:00 Nicotine (Nicoderm 21 Mg/ 24hr) 1 patch Q24H TRANSDERM Last administered on 17:39; Admin Dose 1 PATCH; Start 09/05/17 at 17:00 Famotidine 20 mg 20 mg BID IV Last administered on 09/08/17 09:13; Admin Dose 20 MG; Start 09/07/17 at 09:00 Sodium Chloride (NS) 1,000 ml @ 40 mls/hr Q24H IV Last administered on 10:32; Admin Dose 40 MLS/HR; Start 09/07/17 at 09:00 Chlordiazepoxide 25 mg 25 mg TID PO Last administered on 09/08/17 09:10; Admin Dose 25 MG; Start 09/07/17 at 13:00 Multivitamins/ Thiamine HCl/ Sodium Chloride (Mvi Adult/ Vitamin B1/NS) 1,011 ml @ 125 mls/hr DAILY@09 IVPB Last administered on 09/08/17 09:03; Admin Dose 125 MLS/HR; Start 09/07/17 at 16:30 Folic Acid 1 mg 1 mg DAILY PO Last administered on 09/08/17 09:09; Admin Dose 1 MG; Start 09/07/17 at 16:30 Magnesium Sulfate 6 gm/Dextrose 112 ml @ 50 mls/hr ONCE ONCE IVPB Last administered on 09/08/17 11:14; Admin Dose 50 MLS/HR; Start 09/08/17 at 11:00 ; Stop 09/08/17 at 13:14 Potassium Chloride 250 ml @ 62.5 mls/hr ONCE ONCE IVPB ; Start 09/08/17 at 10 :00; Stop 09/08/17 at 13:59 Potassium Chloride (KCl 40 MEQ/250 ML NS) 250 ml @ 62.5 mls/hr ONCE ONCE IVPB ; Start 09/08/17 at 15:00; Stop 09/08/17 at 18:59 Assessment/Plan Chief Complaint/Hosp Course Assessment 1. Hypoxemic respiratory failure with large right pleural effusion likely post aspiration 2. EtOH withdrawal 3. Electrolyte abnormalities Plan 1. Continue Librium taper 2. Thiamine and folate 3. Watch for reaccumulation of exudative pleural fluid 4. Encourage out of bed Transfer to [facility] Problems: WOOD TUBBS MD, [facility] Sep 08, 2017 12:33
[2017-09-08 14:40] LABS: CALCIUM 7.1 mg/dl (8.4-10.2); CREATININE 0.63 mg/dl (0.61-1.24)
[2017-09-08 14:44] LABS: POTASSIUM 2.8 mmol/L (3.5-5.1)
[2017-09-08] MEDS: FUROSEMIDE 40 MG INJ IV SCH (15:10)
[2017-09-08] MEDS: METHYLPREDNISOLONE 40 MG INJ IV SCH ×2 (15:11→21:39)
[2017-09-08] MEDS: NICOTINE (21 MG/24 HR) PATCH TRANSDERM SCH (18:02)
[2017-09-09] VITALS (8 sets, daily range): BP systolic 122–161; BP diastolic 72–91; PULSE 82–98; RESP 19–20
[2017-09-09] MEDS: PIPER-TAZO 3.375 GM IV (PMX) 50 ML IVPB SCH ×5 (00:37→23:53)
[2017-09-09 06:16] LABS: ABNORMAL IP MESSAGE 1; BASOPHILS % 0.2 % (0.0-2.0); HEMATOCRIT 26.5 % (42.0-52.0); HEMOGLOBIN 7.7 g/dl (14.0-18.0); LYMPHOCYTES # 0.4 10^3/ul (0.8-2.9); MEAN CORPUSCULAR HEMOGLOBIN 21.6 pg (29.0-33.0); MEAN CORPUSCULAR HGB CONC 29.1 g/dl (32.0-37.0); MEAN CORPUSCULAR VOLUME 74.4 fl (82.0-101.0); MEAN PLATELET VOLUME 9.5 fl (7.4-10.4); MONOCYTE # 0.3 10^3/ul (0.3-0.9); NEUTROPHIL # 4.9 10^3/ul (1.6-7.5); NEUTROPHILS % 86.4 % (39.0-77.0); PLATELET COUNT 272 10^3/UL (140-415); POSITIVE DIFF @See below; RED BLOOD COUNT 3.56 10^6/ul (4.70-6.10); RED CELL DISTRIBUTION WIDTH 19.4 % (11.5-14.5); WHITE BLOOD COUNT 5.7 10^3/ul (4.8-10.8)
[2017-09-09] MEDS: SOD CHLORIDE 0.9% 1,000 ML IV SCH ×2 (06:22→09:00)
[2017-09-09] MEDS: METHYLPREDNISOLONE 40 MG INJ IV SCH ×3 (06:22→21:23)
[2017-09-09] MEDS: FUROSEMIDE 40 MG INJ IV SCH (06:22)
[2017-09-09 06:35] LABS: ALBUMIN 2.8 g/dl (3.3-4.9); ALBUMIN/GLOBULIN RATIO 0.65; BILIRUBIN,INDIRECT 0.1 mg/dl (0-1.1); BILIRUBIN,TOTAL 0.1 mg/dl (0.2-1.3); CALCIUM 7.2 mg/dl (8.4-10.2); CREATININE 0.66 mg/dl (0.61-1.24); POTASSIUM 3.6 mmol/L (3.5-5.1); TOTAL PROTEIN 7.1 g/dl (6.1-8.1)
[2017-09-09 07:56] LABS: AADO2 Arterial 24.9 mmHg (7.0-24.0); Allen Test ACCEPTAB; Arterial Base Excess 12.2 mmol/L (-3.0-3); Arterial Fraction of Oxyhgb 97.9 % (93.0-99.0); Arterial HCO3 37.7 mmol/L (22.0-26.0); Arterial MetHb 0 % (0.0-1.5); Arterial Total Hemglobin 7.7 g/dl (12.0-18.0); MODE NASAL CANNULA
[2017-09-09] MEDS: ALBUTEROL/IPRATROPIUM (NEB) 3 ML AMP HHN SCH ×3 (08:19→19:47)
[2017-09-09] MEDS: FAMOTIDINE 20 MG INJ IV SCH (08:37)
[2017-09-09] MEDS: CHLORDIAZEPOXIDE 25 MG CAP PO SCH ×3 (08:37→21:23)
[2017-09-09] MEDS: FOLIC ACID 1 MG TAB PO SCH (08:37)
--- NOTE | 2017-09-09 09:17 | RADRPT ---
PROCEDURE: XR Chest. CLINICAL INDICATION: Shortness of breath. TECHNIQUE: Single frontal view. COMPARISON: 09/08/2017. FINDINGS: There is extensive consolidation throughout the right lung and in the left mid to upper lung zone, s lightly improved on the left. The heart size is normal. There is a moderate right pleural effusion, unchanged. Fluid is in the right minor fissure. There is no pneumothorax. IMPRESSION: 1. Bilateral multifocal pneumonia with right worse than left, slightly improved on the left. 2. Moderate right pleural effusion, unchanged. 3. No other change from the 09/08/2017 chest radiograph. RPTAT: QQ .John Paul Hall MD, MD Date Time Electronically viewed and signed by .John Paul Hall MD, MD on 09/09/2017 09:16 .R/
[2017-09-09 09:28] LABS: PHOSPHORUS 3.4 mg/dl (2.5-4.9)
[2017-09-09 09:34] LABS: MAGNESIUM 0.9 mg/dl (1.7-2.5)
[2017-09-09] MEDS: MULTIVITAMINS 10 ML, THIAMINE 100 MG in SOD CHLORIDE 0.9% 1,000 ML IVPB SCH (09:44)
[2017-09-09] MEDS ORDERED: POTASSIUM CHLORIDE 250 ML IVPB ONE (10:30)
[2017-09-09] MEDS ORDERED: MAGNESIUM SULFATE 6 GM in DEXTROSE 5% 100 ML IVPB ONE (10:30)
--- NOTE | 2017-09-09 11:46 | CONS ---
Date/Time of Note Date/Time of Note DATE: 09/09/17 TIME: 11:42 Consult Date/Type/Reason Admit Date/Time Sep 05, 2017 at 13:14 Type of Consultation: neph Subjective The patient remains sedated. no signs of dt. continues good uo. No other acute events noted. No hemoptysis, hematemesis or hematochezia. OBJECTIVE: HEENT: Head is normocephalic. NECK: Supple. HEART: Regular rate. LUNGS: Show diminished breath sounds at the base. ABDOMEN: Soft, nontender to palpation without rebound or guarding. EXTREMITIES: Negative for clubbing, cyanosis, no edema. DERMATOLOGIC: No rashes. MUSCULOSKELETAL: No joint effusions. NEUROLOGIC: No change in exam. MEDICATIONS: The patient's medications have been reviewed. Objective Vital Signs Date Time Temp Pulse Resp B/P Pulse Ox O2 Delivery O2 Flow Rate FiO2 09/09/17 10:00 98.2 98 20 142/91 100 Nasal Cannula 1.0 Intake and Output 09/08/17 09/08/17 09/09/17 15:00 23:00 07:00 Intake Total 162 ml 660 ml 1100 ml Output Total 1600 ml 900 ml Balance 162 ml -940 ml 200 ml Results/Medications Result Diagram: 09/09/17 0510 09/09/17 0510 Results 24 hrs Laboratory Tests Test 09/08/17 13:55 09/09/17 05:10 09/09/17 07:00 Sodium Level 142 144 Potassium Level 2.8 *L 3.6 Chloride Level 99 99 Carbon Dioxide Level 38 H 38 H Anion Gap 8 11 Blood Urea Nitrogen 12 14 Creatinine 0.63 0.66 Glucose Level 115 168 Calcium Level 7.1 L 7.2 L Magnesium Level 2.4 # 0.9 #*L White Blood Count 5.7 # Red Blood Count 3.56 L Hemoglobin 7.7 L Hematocrit 26.5 L Mean Corpuscular Volume 74.4 L Mean Corpuscular Hemoglobin 21.6 L Mean Corpuscular Hemoglobin Concent 29.1 L Red Cell Distribution Width 19.4 H Platelet Count 272 Mean Platelet Volume 9.5 Neutrophils % 86.4 H Lymphocytes % 7.0 L Monocytes % 6.0 Eosinophils % 0.0 Basophils % 0.2 Nucleated Red Blood Cells % 0.0 Neutrophils # 4.9 Lymphocytes # 0.4 L Monocytes # 0.3 Eosinophils # 0.0 Basophils # 0.0 Nucleated Red Blood Cells # 0.0 Phosphorus Level 3.4 Total Bilirubin 0.1 L Direct Bilirubin 0.00 Indirect Bilirubin 0.1 Aspartate Amino Transf (AST/SGOT) 58 H Alanine Aminotransferase (ALT/SGPT) 48 Alkaline Phosphatase 117 Total Protein 7.1 Albumin 2.8 L Globulin 4.30 H Albumin/Globulin Ratio 0.65 Blood Gas Specimen Source Blood arterial Arterial Blood Date Drawn 09/09/2017 7:45:36 AM Arterial Blood pH (Temp corrected) 7.442 Arterial Blood pCO2 (Temp correct) 56.5 H Arterial Blood pO2 (Temp corrected) 122.6 H Arterial Blood HCO3 37.7 H Arterial Blood Base Excess 12.2 H Arterial Blood Oxygen Saturation 98.9 H Quan Test ACCEPTAB Arterial Blood Gas Puncture Site LB Arterial Blood Carboxyhemoglobin 1.0 Arterial Blood Methemoglobin 0 Blood Gas A-a O2 Differential 24.9 H Oxyhemoglobin Percent 97.9 Total Hemoglobin 7.7 L Blood Gas Temperature 37.0 Blood Gas Modality NASAL CANNULA FiO2 30.0 Blood Gas Notified Whom RH Blood Gas Notified Time 09/09/2017 7:56:22 AM Medications Current Medications Piperacillin Sod/ Tazobactam Sod (Zosyn 3.375gm/ 50 ml (Pmx)) 50 ml @ 100 mls/ hr Q6 IVPB Last administered on 09/09/17 06:22; Admin Dose 100 MLS/HR; Start 09/05/17 at 18:00 Lorazepam (Ativan) 2 mg Q10MIN PRN IV seizure Last administered on 09/06/17 09 :11; Admin Dose 2 MG; Start 09/05/17 at 16:00 Ondansetron HCl (Zofran Inj) 4 mg Q6H PRN IV NAUSEA AND/OR VOMITING; Start 09/05/17 at 16:30 Acetaminophen (Tylenol Tab) 650 mg Q6H PRN PO PAIN LEVEL 1-3 OR FEVER; Start 09/05/17 at 16:30 Morphine Sulfate (morphine) 2 mg Q4H PRN IV PAIN LEVEL 7-10; Start 09/05/17 at 16:30 Bisacodyl (Dulcolax) 5 mg DAILY PRN PO CONSTIPATION; Start 09/05/17 at 16:30 Lorazepam (Ativan) 1 mg Q6H PRN IV agitation/anxiety Last administered on 09/08 09:30; Admin Dose 1 MG; Start 09/05/17 at 17:00 Nicotine (Nicoderm 21 Mg/ 24hr) 1 patch Q24H TRANSDERM Last administered on 18:02; Admin Dose 1 PATCH; Start 09/05/17 at 17:00 Famotidine 20 mg 20 mg BID IV Last administered on 09/09/17 08:37; Admin Dose 20 MG; Start 09/07/17 at 09:00 Sodium Chloride (NS) 1,000 ml @ 40 mls/hr Q24H IV Last administered on 06:22; Admin Dose 40 MLS/HR; Start 09/07/17 at 09:00 Chlordiazepoxide 25 mg 25 mg TID PO Last administered on 09/09/17 08:37; Admin Dose 25 MG; Start 09/07/17 at 13:00 Multivitamins/ Thiamine HCl/ Sodium Chloride (Mvi Adult/ Vitamin B1/NS) 1,011 ml @ 125 mls/hr DAILY@09 IVPB Last administered on 09/09/17 09:44; Admin Dose 125 MLS/HR; Start 09/07/17 at 16:30 Folic Acid (Folic Acid) 1 mg DAILY PO Last administered on 09/09/17 08:37; Admin Dose 1 MG; Start 09/07/17 at 16:30 Methylprednisolone Sodium Succinate (Solu-Medrol) 40 mg Q8 IV Last administered on 09/09/17 06:22; Admin Dose 40 MG; Start 09/08/17 at 14:00 Furosemide 40 mg 40 mg DAILY@06 IV Last administered on 09/09/17 06:22; Admin Dose 40 MG; Start 09/08/17 at 13:00 Magnesium Sulfate 6 gm/Dextrose 112 ml @ 50 mls/hr ONCE ONCE IVPB Last administered on 09/09/17 11:02; Admin Dose 50 MLS/HR; Start 09/09/17 at 10:30 ; Stop 09/09/17 at 12:44 Potassium Chloride (KCl 40 MEQ/250 ML NS) 250 ml @ 62.5 mls/hr ONCE ONCE IVPB ; Start 09/09/17 at 10:30; Stop 09/09/17 at 14:29 Assessment/Plan Chief Complaint/Hosp Course 1. Hyponatremia, etiology secondary to volume depletion, possible low solute intake state given history of alcohol abuse and hypokalemia. The patient's sodium levels have appropriately corrected less than 18 mEq in a 48-hour period. At this point, we will continue current treatment plan, supportive care , monitor sodium levels closely. 2. Hypomagnesemia, etiology is secondary to renal wasting due to underlying ETOH abuse and poor po intake in ETOH diet. Recommendation would be continue to monitor magnesium levels daily and replete. not significantly improved with aggressive iv supplementation. IV magnesium may promote increased magnesium excretion so will add oral mag ox as well. 3. Hypokalemia secondary to total body volume depletion and hypomagnesemia. improved. Continue to monitor and replete. We will continue to correct underlying hypomagnesemia. improved. 4. Acute respiratory failure secondary to pneumonia. Continue current medical management. Continue nonrebreather. 5. Sepsis secondary to pneumonia. Continue current antibiotic therapy. 6. Acute encephalopathy, delirium tremens. Continue current medical management. Continue Ativan. 7. Seizure disorder. Continue current treatment. 8. Large pleural effusion, likely parapneumonic, continue to monitor. Problems: WICHO MARY MD Sep 09, 2017 11:46
--- NOTE | 2017-09-09 12:06 | PN ---
Date/Time of Note Date/Time of Note DATE: 09/09/17 TIME: 12:06 Assessment/Plan VTE Prophylaxis VTE Prophylaxis Intervention: SCD's Lines/Catheters IV C[facility]ter Type (from [facility] Saline Lock Urinary Cath still in place: No Assessment/Plan Assessment/Plan 1. Delirium tremens - Continue monitoring - On Librium and Ativan PRN for agitation - Will start tapering down Librium since may be causing patients excess lethargy 2. bacteremia, gram neg - continue on IV antibiotics - awaiting sensitivities - remains afebrile with nl WBC 3. acute respiratory failure, 2/2 PNA/pleural effusion - Pulmonology on board and recommendations appreciated - s/p 2 L drained on pleural effusion - CXR this am shows moderate R pleural effusion 4. Bilateral pneumonia, likely aspiration - CXR shows worsening on R, improvement on L - Continue antibiotics 5. Severe hyponatremia- resolved - Nephrology on board and recommendations appreciated 6. Large right pleural effusion - CXR shows moderate pleural effusion still present 7. Alcoholism - Banana bag - Librium taper 8. Hypokalemia -replaced. continue monitoring 9. Hypomagnesia - Mg 0.9. Replace with PO and IV 10. Disposition - Continue monitoring closely given high risk for DTS Subjective 24 Hr Interval Summary Free Text/Dictation Patient resting comfortably but still confused and lethargic. No acute issues and no overnight events. Patient has been coughing when eating and producing clear sputum. Exam/Review of Systems Vital Signs Vitals Vital Signs Date Time Temp Pulse Resp B/P Pulse Ox O2 Delivery O2 Flow Rate FiO2 09/09/17 10:00 98.2 98 20 142/91 100 Nasal Cannula 1.0 Intake and Output 09/08/17 09/08/17 09/09/17 15:00 23:00 07:00 Intake Total 162 ml 660 ml 1100 ml Output Total 1600 ml 900 ml Balance 162 ml -940 ml 200 ml Exam General: Patient resting comfortably, lethargic, in no acute distress Mentation: Patient is alert but sedated. mumbling to questions Head: Normocephalic atraumatic Eyes: EOMI, pupils reactive to light Neck: Supple, nontender, midline Respiratory: diminished breath sounds on the R Cardiovascular: tachycardic, no obvious murmurs Gastrointestinal: non-tender to palpation, bowel sounds heard. Neurological: Moves all extremities spontaneously Skin: No new skin lesions Results Result Diagram: 09/09/17 0510 09/09/17 0510 Results 24 hrs Laboratory Tests Test 09/08/17 13:55 09/09/17 05:10 09/09/17 07:00 Sodium Level 142 144 Potassium Level 2.8 *L 3.6 Chloride Level 99 99 Carbon Dioxide Level 38 H 38 H Anion Gap 8 11 Blood Urea Nitrogen 12 14 Creatinine 0.63 0.66 Glucose Level 115 168 Calcium Level 7.1 L 7.2 L Magnesium Level 2.4 # 0.9 #*L White Blood Count 5.7 # Red Blood Count 3.56 L Hemoglobin 7.7 L Hematocrit 26.5 L Mean Corpuscular Volume 74.4 L Mean Corpuscular Hemoglobin 21.6 L Mean Corpuscular Hemoglobin Concent 29.1 L Red Cell Distribution Width 19.4 H Platelet Count 272 Mean Platelet Volume 9.5 Neutrophils % 86.4 H Lymphocytes % 7.0 L Monocytes % 6.0 Eosinophils % 0.0 Basophils % 0.2 Nucleated Red Blood Cells % 0.0 Neutrophils # 4.9 Lymphocytes # 0.4 L Monocytes # 0.3 Eosinophils # 0.0 Basophils # 0.0 Nucleated Red Blood Cells # 0.0 Phosphorus Level 3.4 Total Bilirubin 0.1 L Direct Bilirubin 0.00 Indirect Bilirubin 0.1 Aspartate Amino Transf (AST/SGOT) 58 H Alanine Aminotransferase (ALT/SGPT) 48 Alkaline Phosphatase 117 Total Protein 7.1 Albumin 2.8 L Globulin 4.30 H Albumin/Globulin Ratio 0.65 Blood Gas Specimen Source Blood arterial Arterial Blood Date Drawn 09/09/2017 7:45:36 AM Arterial Blood pH (Temp corrected) 7.442 Arterial Blood pCO2 (Temp correct) 56.5 H Arterial Blood pO2 (Temp corrected) 122.6 H Arterial Blood HCO3 37.7 H Arterial Blood Base Excess 12.2 H Arterial Blood Oxygen Saturation 98.9 H Quan Test ACCEPTAB Arterial Blood Gas Puncture Site LB Arterial Blood Carboxyhemoglobin 1.0 Arterial Blood Methemoglobin 0 Blood Gas A-a O2 Differential 24.9 H Oxyhemoglobin Percent 97.9 Total Hemoglobin 7.7 L Blood Gas Temperature 37.0 Blood Gas Modality NASAL CANNULA FiO2 30.0 Blood Gas Notified Whom RH Blood Gas Notified Time 09/09/2017 7:56:22 AM Medications Medications Current Medications Piperacillin Sod/ Tazobactam Sod (Zosyn 3.375gm/ 50 ml (Pmx)) 50 ml @ 100 mls/ hr Q6 IVPB Last administered on 09/09/17 06:22; Admin Dose 100 MLS/HR; Start 09/05/17 at 18:00 Lorazepam (Ativan) 2 mg Q10MIN PRN IV seizure Last administered on 09/06/17 09 :11; Admin Dose 2 MG; Start 09/05/17 at 16:00 Ondansetron HCl (Zofran Inj) 4 mg Q6H PRN IV NAUSEA AND/OR VOMITING; Start 09/05/17 at 16:30 Acetaminophen (Tylenol Tab) 650 mg Q6H PRN PO PAIN LEVEL 1-3 OR FEVER; Start 09/05/17 at 16:30 Morphine Sulfate (morphine) 2 mg Q4H PRN IV PAIN LEVEL 7-10; Start 09/05/17 at 16:30 Bisacodyl (Dulcolax) 5 mg DAILY PRN PO CONSTIPATION; Start 09/05/17 at 16:30 Lorazepam (Ativan) 1 mg Q6H PRN IV agitation/anxiety Last administered on 09/08 09:30; Admin Dose 1 MG; Start 09/05/17 at 17:00 Nicotine (Nicoderm 21 Mg/ 24hr) 1 patch Q24H TRANSDERM Last administered on 18:02; Admin Dose 1 PATCH; Start 09/05/17 at 17:00 Famotidine 20 mg 20 mg BID IV Last administered on 09/09/17 08:37; Admin Dose 20 MG; Start 09/07/17 at 09:00 Sodium Chloride (NS) 1,000 ml @ 40 mls/hr Q24H IV Last administered on 06:22; Admin Dose 40 MLS/HR; Start 09/07/17 at 09:00 Chlordiazepoxide 25 mg 25 mg TID PO Last administered on 09/09/17 08:37; Admin Dose 25 MG; Start 09/07/17 at 13:00 Multivitamins/ Thiamine HCl/ Sodium Chloride (Mvi Adult/ Vitamin B1/NS) 1,011 ml @ 125 mls/hr DAILY@09 IVPB Last administered on 09/09/17 09:44; Admin Dose 125 MLS/HR; Start 09/07/17 at 16:30 Folic Acid (Folic Acid) 1 mg DAILY PO Last administered on 09/09/17 08:37; Admin Dose 1 MG; Start 09/07/17 at 16:30 Methylprednisolone Sodium Succinate (Solu-Medrol) 40 mg Q8 IV Last administered on 09/09/17 06:22; Admin Dose 40 MG; Start 09/08/17 at 14:00 Furosemide 40 mg 40 mg DAILY@06 IV Last administered on 09/09/17 06:22; Admin Dose 40 MG; Start 09/08/17 at 13:00 Magnesium Sulfate 6 gm/Dextrose 112 ml @ 50 mls/hr ONCE ONCE IVPB Last administered on 09/09/17 11:02; Admin Dose 50 MLS/HR; Start 09/09/17 at 10:30 ; Stop 09/09/17 at 12:44 Potassium Chloride (KCl 40 MEQ/250 ML NS) 250 ml @ 62.5 mls/hr ONCE ONCE IVPB ; Start 09/09/17 at 10:30; Stop 09/09/17 at 14:29 Magnesium Oxide (Mag-Ox 400) 400 mg BID PO ; Start 09/09/17 at 12:00 THEO BUSH MD Sep 09, 2017 12:06
[2017-09-09] MEDS: MAGNESIUM OXIDE 400 MG TAB PO SCH ×2 (13:34→21:23)
[2017-09-09] MEDS: NICOTINE (21 MG/24 HR) PATCH TRANSDERM SCH (17:47)
[2017-09-09] MEDS: FAMOTIDINE 20 MG TAB PO SCH (21:23)
[2017-09-10 02:00] VITALS: BP 167/90; RESP 20
[2017-09-10] MEDS: PIPER-TAZO 3.375 GM IV (PMX) 50 ML IVPB SCH ×3 (05:20→17:04)
[2017-09-10] MEDS: METHYLPREDNISOLONE 40 MG INJ IV SCH ×3 (05:20→21:41)
[2017-09-10] MEDS: FUROSEMIDE 40 MG INJ IV SCH (05:20)
[2017-09-10] MEDS: hydrALAzine 20 MG INJ IV PRN (06:01)
[2017-09-10 06:19] LABS: ABNORMAL IP MESSAGE 1; BASOPHILS % 0.2 % (0.0-2.0); HEMATOCRIT 27.9 % (42.0-52.0); LYMPHOCYTES # 0.6 10^3/ul (0.8-2.9); LYMPHOCYTES % 6.3 % (15.0-51.0); MEAN CORPUSCULAR HEMOGLOBIN 21.3 pg (29.0-33.0); MEAN CORPUSCULAR HGB CONC 28.7 g/dl (32.0-37.0); MEAN CORPUSCULAR VOLUME 74.4 fl (82.0-101.0); MEAN PLATELET VOLUME 9.4 fl (7.4-10.4); MONOCYTE # 0.8 10^3/ul (0.3-0.9); MONOCYTES % 7.5 % (0.0-11.0); NEUTROPHIL # 8.6 10^3/ul (1.6-7.5); NEUTROPHILS % 85.6 % (39.0-77.0); PLATELET COUNT 277 10^3/UL (140-415); POSITIVE DIFF @See below; RED BLOOD COUNT 3.75 10^6/ul (4.70-6.10); RED CELL DISTRIBUTION WIDTH 19.7 % (11.5-14.5); WHITE BLOOD COUNT 10.1 10^3/ul (4.8-10.8)
[2017-09-10 06:31] VITALS: BP_SYST 142; BP_SYST 170; BP_DIAS 81; BP_DIAS 83; PULSE 66; PULSE 92
[2017-09-10 06:38] LABS: ALBUMIN 2.9 g/dl (3.3-4.9); CALCIUM 7.4 mg/dl (8.4-10.2); CREATININE 0.7 mg/dl (0.61-1.24); PHOSPHORUS 3.2 mg/dl (2.5-4.9); POTASSIUM 3.8 mmol/L (3.5-5.1)
[2017-09-10 07:20] LABS: MAGNESIUM 1.2 mg/dl (1.7-2.5)
[2017-09-10] MEDS: ALBUTEROL/IPRATROPIUM (NEB) 3 ML AMP HHN SCH ×3 (07:22→19:55)
[2017-09-10 08:01] VITALS: BP 152/79; RESP 18
--- NOTE | 2017-09-10 08:58 | PN ---
DATE: 09/10/2017 SUBJECTIVE: The patient is confused, but more alert. No other events noted. OBJECTIVE: VITAL SIGNS: Blood pressure is 152/79, pulse 92, respiration 18, temperature 98.2. HEENT: Head is normocephalic. NECK: Supple. HEART: Regular rate. LUNGS: Show diminished breath sounds at the base. ABDOMEN: Soft, nontender to palpation. No rebound or guarding. EXTREMITIES: Negative for clubbing, cyanosis. No edema. DERMATOLOGIC: No rashes. MUSCULOSKELETAL: No joint effusions. NEUROLOGIC: No change in exam. MEDICATIONS: The patient's medications have been reviewed. LABORATORY DATA: Shows sodium 146, potassium 3.8, BUN 18, magnesium 1.2. White count 10.1, hemoglo bin 9.0, platelet count is 19.7. ASSESSMENT AND PLAN: 1. Hypernatremia, etiology is secondary to insensible losses. Will start the patient on D5 water a t 75 mL an hour. 2. Hypomagnesemia. Etiology is secondary to renal wasting due to underlying ETOH abuse. Would con tinue to monitor magnesium levels. Continue repletion with magnesium sulfate. 3. Hyperkalemia. Etiology secondary to hypomagnesemia and total body volume depletion. Continue t o monitor and replete. 4. Acute respiratory failure secondary to pneumonia. Continue to medical management. 5. Sepsis secondary to pneumonia. Continue current antibiotic regimen. 6. Acute encephalopathy secondary to ETOH withdrawal, delirium tremens. Continue medical managemen t. 7. Seizure disorder. Continue current treatment plan. 8. Large pleural effusion. 9. Status post hyponatremia. Dictated By: SLIME CHANG/VICKY Conf#: [id number] DID#: [id number] CC: TANK MALHOTRA;*EndCC*
[2017-09-10] MEDS: DEXTROSE 5% 1,000 ML IV SCH (09:10)
[2017-09-10] MEDS: MAGNESIUM OXIDE 400 MG TAB PO SCH ×2 (09:11→21:41)
[2017-09-10] MEDS: FOLIC ACID 1 MG TAB PO SCH (09:11)
[2017-09-10] MEDS: CHLORDIAZEPOXIDE 25 MG CAP PO SCH ×2 (09:11→21:47)
[2017-09-10] MEDS: MULTIVITAMINS 10 ML, THIAMINE 100 MG in SOD CHLORIDE 0.9% 1,000 ML IVPB SCH (09:11)
[2017-09-10] MEDS: FAMOTIDINE 20 MG TAB PO SCH ×2 (09:11→21:41)
[2017-09-10] MEDS ORDERED: MAGNESIUM SULFATE 2 GM/50 ML 50 ML IVPB ONE (09:30)
--- NOTE | 2017-09-10 10:09 | PN ---
Date/Time of Note Date/Time of Note DATE: 09/10/17 TIME: 10:09 Assessment/Plan VTE Prophylaxis VTE Prophylaxis Intervention: SCD's Lines/Catheters IV C[facility]ter Type (from [facility]): Saline Lock Urinary Cath still in place: No Assessment/Plan Assessment/Plan 1. Delirium tremens- improving - Continue monitoring - On Librium and Ativan PRN for agitation - tapering down Librium and patient less lethargic this am. 2. bacteremia, gram neg - continue on IV antibiotics - awaiting sensitivities - remains afebrile with nl WBC 3. acute respiratory failure, 2/2 PNA/pleural effusion - Pulmonology on board and recommendations appreciated - s/p 2 L drained on pleural effusion - CXR this am shows moderate R pleural effusion 4. Bilateral pneumonia, likely aspiration - CXR shows worsening on R, improvement on L - Continue antibiotics 5. Severe hyponatremia- resolved - Nephrology on board and recommendations appreciated 6. Large right pleural effusion - CXR shows moderate pleural effusion still present 7. Alcoholism - Banana bag - Librium taper 8. Hypokalemia - stable 9. Hypomagnesia - Mg 1.2. Replace with PO and IV 10. Disposition - Continue monitoring closely given high risk for DTS Subjective 24 Hr Interval Summary Free Text/Dictation Patient more awake and alert this am. Not complaining of any pain but is expressing he is hungry and would like foods other than clears. No acute overnight events. Exam/Review of Systems Vital Signs Vitals Vital Signs Date Time Temp Pulse Resp B/P Pulse Ox O2 Delivery O2 Flow Rate FiO2 09/10/17 08:01 98.2 92 18 152/79 98 09/10/17 07:22 1.0 09/10/17 07:22 Nasal Cannula Intake and Output 09/09/17 09/09/17 09/10/17 14:59 22:59 06:59 Intake Total 290 ml 1300 ml 1080 ml Output Total 300 ml Balance 290 ml 1300 ml 780 ml Exam General: Patient resting comfortably, more arousable, in no acute distress Mentation: Patient is alert but sedated. mumbling to questions Head: Normocephalic atraumatic Eyes: EOMI, pupils reactive to light Neck: Supple, nontender, midline Respiratory: diminished breath sounds on the R Cardiovascular: regular rate and rhythm, no obvious murmurs Gastrointestinal: non-tender to palpation, bowel sounds heard. Neurological: Moves all extremities spontaneously Skin: No new skin lesions Results Result Diagram: 09/10/17 0545 09/10/17 0546 Results 24 hrs Laboratory Tests Test 09/09/17 15:00 09/10/17 05:45 09/10/17 05:46 Urine Osmolality 364 White Blood Count 10.1 # Red Blood Count 3.75 L Hemoglobin 8.0 L Hematocrit 27.9 L Mean Corpuscular Volume 74.4 L Mean Corpuscular Hemoglobin 21.3 L Mean Corpuscular Hemoglobin Concent 28.7 L Red Cell Distribution Width 19.7 H Platelet Count 277 Mean Platelet Volume 9.4 Neutrophils % 85.6 H Lymphocytes % 6.3 L Monocytes % 7.5 Eosinophils % 0.0 Basophils % 0.2 Nucleated Red Blood Cells % 0.0 Neutrophils # 8.6 H Lymphocytes # 0.6 L Monocytes # 0.8 Eosinophils # 0.0 Basophils # 0.0 Nucleated Red Blood Cells # 0.0 Sodium Level 146 H Potassium Level 3.8 Chloride Level 102 Carbon Dioxide Level 39 H Anion Gap 9 Blood Urea Nitrogen 18 Creatinine 0.70 Glucose Level 124 # Calcium Level 7.4 L Phosphorus Level 3.2 Magnesium Level 1.2 L Albumin 2.9 L Medications Medications Current Medications Piperacillin Sod/ Tazobactam Sod (Zosyn 3.375gm/ 50 ml (Pmx)) 50 ml @ 100 mls/ hr Q6 IVPB Last administered on 09/10/17 05:20; Admin Dose 100 MLS/HR; Start 09/05/17 at 18:00 Lorazepam (Ativan) 2 mg Q10MIN PRN IV seizure Last administered on 09/06/17 09 :11; Admin Dose 2 MG; Start 09/05/17 at 16:00 Ondansetron HCl (Zofran Inj) 4 mg Q6H PRN IV NAUSEA AND/OR VOMITING; Start 09/05/17 at 16:30 Acetaminophen (Tylenol Tab) 650 mg Q6H PRN PO PAIN LEVEL 1-3 OR FEVER; Start 09/05/17 at 16:30 Morphine Sulfate (morphine) 2 mg Q4H PRN IV PAIN LEVEL 7-10; Start 09/05/17 at 16:30 Bisacodyl (Dulcolax) 5 mg DAILY PRN PO CONSTIPATION; Start 09/05/17 at 16:30 Lorazepam (Ativan) 1 mg Q6H PRN IV agitation/anxiety Last administered on 09/08 09:30; Admin Dose 1 MG; Start 09/05/17 at 17:00 Nicotine 1 patch 1 patch Q24H TRANSDERM Last administered on 09/09/17 17:47; Admin Dose 1 PATCH; Start 09/05/17 at 17:00 Multivitamins/ Thiamine HCl/ Sodium Chloride (Mvi Adult/ Vitamin B1/NS) 1,011 ml @ 125 mls/hr DAILY@09 IVPB Last administered on 09/10/17 09:11; Admin Dose 125 MLS/HR; Start 09/07/17 at 16:30 Folic Acid (Folic Acid) 1 mg DAILY PO Last administered on 09/10/17 09:11; Admin Dose 1 MG; Start 09/07/17 at 16:30 Methylprednisolone Sodium Succinate (Solu-Medrol) 40 mg Q8 IV Last administered on 09/10/17 05:20; Admin Dose 40 MG; Start 09/08/17 at 14:00 Furosemide (Lasix) 40 mg DAILY@06 IV Last administered on 09/10/17 05:20; Admin Dose 40 MG; Start 09/08/17 at 13:00 Magnesium Oxide (Mag-Ox 400) 400 mg BID PO Last administered on 09/10/17 09: 11; Admin Dose 400 MG; Start 09/09/17 at 12:00 Chlordiazepoxide (Librium) 25 mg BID PO Last administered on 09/10/17 09:11; Admin Dose 25 MG; Start 09/10/17 at 09:00 Famotidine (Pepcid) 20 mg BID PO Last administered on 09/10/17 09:11; Admin Dose 20 MG; Start 09/09/17 at 21:00 Hydralazine HCl 10 mg 10 mg Q4H PRN IV ELEVATED BLOOD PRESSURE Last administered on 09/10/17 06:01; Admin Dose 10 MG; Start 09/10/17 at 04:55 Magnesium Sulfate 50 ml @ 25 mls/hr ONCE ONCE IVPB ; Start 09/10/17 at 09:30; Stop 09/10/17 at 11:29 Dextrose 1,000 ml @ 50 mls/hr Q20H IV Last administered on 09/10/17 09:10; Admin Dose 50 MLS/HR; Start 09/10/17 at 08:30 Magnesium Sulfate/ Dextrose (Magnesium Sulfate/D5W) 112 ml @ 50 mls/hr ONCE IVPB ; Start 09/10/17 at 11:00; Stop 09/10/17 at 13:15 THEO BUSH MD Sep 10, 2017 10:09
[2017-09-10] MEDS ORDERED: MAGNESIUM SULFATE 6 GM in DEXTROSE 5% 100 ML IVPB SCH (11:00)
[2017-09-10 13:53] VITALS: BP 117/70; RESP 18
[2017-09-10] MEDS: NICOTINE (21 MG/24 HR) PATCH TRANSDERM SCH (17:04)
[2017-09-10 19:55] VITALS: BP 155/80; RESP 20
[2017-09-11] MEDS: PIPER-TAZO 3.375 GM IV (PMX) 50 ML IVPB SCH ×4 (00:05→17:37)
[2017-09-11 02:00] VITALS: BP_SYST 191; BP_DIAS 51; BP_DIAS 93; RESP 20
[2017-09-11] MEDS: hydrALAzine 20 MG INJ IV PRN (03:01)
[2017-09-11 03:48] VITALS: BP 134/66; PULSE 96
[2017-09-11] MEDS: DEXTROSE 5% 1,000 ML IV SCH (04:30)
[2017-09-11] MEDS: METHYLPREDNISOLONE 40 MG INJ IV SCH ×4 (05:07→21:13)
[2017-09-11] MEDS: FUROSEMIDE 40 MG INJ IV SCH (05:07)
[2017-09-11 06:30] LABS: BASOPHILS % 0.1 % (0.0-2.0); HEMATOCRIT 27.9 % (42.0-52.0); HEMOGLOBIN 8.5 g/dl (14.0-18.0); LYMPHOCYTES # 0.7 10^3/ul (0.8-2.9); LYMPHOCYTES % 6.3 % (15.0-51.0); MEAN CORPUSCULAR HEMOGLOBIN 21.8 pg (29.0-33.0); MEAN CORPUSCULAR HGB CONC 30.5 g/dl (32.0-37.0); MEAN CORPUSCULAR VOLUME 71.5 fl (82.0-101.0); MEAN PLATELET VOLUME 9.9 fl (7.4-10.4); MONOCYTE # 0.8 10^3/ul (0.3-0.9); MONOCYTES % 7.1 % (0.0-11.0); NEUTROPHIL # 9.9 10^3/ul (1.6-7.5); NEUTROPHILS % 85.3 % (39.0-77.0); PLATELET COUNT 282 10^3/UL (140-415); RED CELL DISTRIBUTION WIDTH 19.3 % (11.5-14.5); WHITE BLOOD COUNT 11.6 10^3/ul (4.8-10.8)
[2017-09-11 06:54] LABS: ALBUMIN 3.1 g/dl (3.3-4.9); CALCIUM 7.5 mg/dl (8.4-10.2); CREATININE 0.73 mg/dl (0.61-1.24); MAGNESIUM 1.1 mg/dl (1.7-2.5); PHOSPHORUS 2.6 mg/dl (2.5-4.9); POTASSIUM 3.3 mmol/L (3.5-5.1)
[2017-09-11] MEDS: ALBUTEROL/IPRATROPIUM (NEB) 3 ML AMP HHN SCH ×3 (07:45→20:10)
[2017-09-11 07:53] VITALS: BP 134/83; RESP 20
[2017-09-11] MEDS ORDERED: POTASSIUM CHLORIDE 20 MEQ POWDER FOR ORAL SOLN PO ONE (08:30)
[2017-09-11] MEDS: CHLORDIAZEPOXIDE 25 MG CAP PO SCH ×2 (08:40→20:42)
[2017-09-11] MEDS: FOLIC ACID 1 MG TAB PO SCH (08:40)
[2017-09-11] MEDS: FAMOTIDINE 20 MG TAB PO SCH ×2 (08:40→20:42)
[2017-09-11] MEDS: MAGNESIUM OXIDE 400 MG TAB PO SCH ×2 (08:40→20:42)
[2017-09-11] MEDS: MULTIVITAMINS 10 ML, THIAMINE 100 MG in SOD CHLORIDE 0.9% 1,000 ML IVPB SCH (08:41)
--- NOTE | 2017-09-11 09:04 | PN ---
DATE: 09/11/2017 SUBJECTIVE: The patient is more alert. No hemoptysis, hematemesis or hematochezia. OBJECTIVE: VITAL SIGNS: Blood pressure is 134/83, respiratory rate 20, pulse 96, temperature 97.5. HEENT: Head is normocephalic. NECK: Supple. HEART: Regular rate. LUNGS: Show diminished breath sounds at base. ABDOMEN: Soft, nontender to palpation without rebound or guarding. EXTREMITIES: No clubbing, cyanosis, no edema. DERMATOLOGIC: No rashes. MUSCULOSKELETAL: No joint effusions. NEUROLOGIC: No change in exam. MEDICATIONS: Have been reviewed. The patient has been reviewed. LABORATORY DATA: The patient has sodium 144, potassium 3.3, magnesium 1.1. White count 11.6, hemog lobin 8.5, hematocrit 27.9, platelet count is 282. ASSESSMENT AND PLAN: 1. Hypernatremia, etiology is secondary to insensible losses. The patient's sodium levels are impr oving. Continue D5 water. Continue to encourage free water intake. 2. Hypomagnesemia. Etiology secondary to renal wasting due to ETOH abuse in conjunction with diure tic therapy. Would continue to monitor and replete magnesium levels daily. 3. Hyperkalemia secondary to hypomagnesemia and total body volume depletion and diuretic therapy, c ontinue to monitor and replete. 4. Acute respiratory failure secondary to pneumonia. Continue current medical management. 5. Sepsis secondary to pneumonia. Continue current antibiotic therapy. 6. Acute encephalopathy secondary to ETOH withdrawal and delirium tremens. Continue supportive car e. 7. Seizure disorder. Continue medical management. 8. Large pleural effusion. 9. Status post hyponatremia. Dictated By: SLIME AGUILAR DO NR/NTS Conf#: [id number] DID#: [id number] CC: SLIME AGUILAR DO;*EndCC*
--- NOTE | 2017-09-11 09:15 | PN ---
Date/Time of Note Date/Time of Note DATE: 09/11/17 TIME: 09:15 Assessment/Plan VTE Prophylaxis VTE Prophylaxis Intervention: SCD's Lines/Catheters IV Catheter Type (from Nrs): Saline Lock Urinary Cath still in place: No Assessment/Plan Assessment/Plan 1. Delirium tremens- improving - Continue monitoring - On Librium and Ativan PRN for agitation - tapering down Librium and patient less lethargic this am. 2. bacteremia, gram neg - continue on IV antibiotics - awaiting sensitivities - remains afebrile with nl WBC 3. acute respiratory failure, 2/2 PNA/pleural effusion - Pulmonology on board and recommendations appreciated - s/p 2 L drained on pleural effusion - CXR this am shows moderate R pleural effusion 4. Bilateral pneumonia, likely aspiration - CXR shows worsening on R, improvement on L - Continue antibiotics 5. Severe hyponatremia- resolved - Nephrology on board and recommendations appreciated 6. Large right pleural effusion - CXR shows moderate pleural effusion still present 7. Alcoholism - Banana bag - Librium taper 8. Hypokalemia - 3.3, replaced 9. Hypomagnesia - Mg 1.1. Replace with PO and IV 10. Disposition - Continue monitoring closely given high risk for DTS Subjective 24 Hr Interval Summary Free Text/Dictation Patient awake and alert. No acute distress. Still confused and was talking about picking up his check at the bank this am. No acute overnight events. Exam/Review of Systems Vital Signs Vitals Vital Signs Date Time Temp Pulse Resp B/P Pulse Ox O2 Delivery O2 Flow Rate FiO2 09/11/17 07:53 97.5 96 20 134/83 98 09/11/17 07:48 21 09/10/17 10:23 Nasal Cannula 1.0 Intake and Output 09/10/17 09/10/17 09/11/17 15:00 23:00 07:00 Intake Total 572 ml 2380 ml 761 ml Output Total 2500 ml 1500 ml Balance 572 ml -120 ml -739 ml Exam General: Patient resting comfortably, more arousable, in no acute distress Mentation: Patient is alert and only oriented to self. Difficult to understand secondary to mumbling Head: Normocephalic atraumatic Eyes: EOMI, pupils reactive to light Neck: Supple, nontender, midline Respiratory: diminished breath sounds, no crackles or wheezing Cardiovascular: regular rate and rhythm, no obvious murmurs Gastrointestinal: non-tender to palpation, bowel sounds heard. Neurological: Moves all extremities spontaneously Skin: No new skin lesions Results Result Diagram: 09/11/1757 09/11/17 0557 Results 24 hrs Laboratory Tests Test 09/11/17 05:57 White Blood Count 11.6 H Red Blood Count 3.90 L Hemoglobin 8.5 L Hematocrit 27.9 L Mean Corpuscular Volume 71.5 L Mean Corpuscular Hemoglobin 21.8 L Mean Corpuscular Hemoglobin Concent 30.5 L Red Cell Distribution Width 19.3 H Platelet Count 282 Mean Platelet Volume 9.9 Neutrophils % 85.3 H Lymphocytes % 6.3 L Monocytes % 7.1 Eosinophils % 0.0 Basophils % 0.1 Nucleated Red Blood Cells % 0.0 Neutrophils # 9.9 H Lymphocytes # 0.7 L Monocytes # 0.8 Eosinophils # 0.0 Basophils # 0.0 Nucleated Red Blood Cells # 0.0 Sodium Level 144 Potassium Level 3.3 L Chloride Level 98 Carbon Dioxide Level 34 H Anion Gap 15 Blood Urea Nitrogen 21 H Creatinine 0.73 Glucose Level 138 Calcium Level 7.5 L Phosphorus Level 2.6 Magnesium Level 1.1 L Albumin 3.1 L Medications Medications Current Medications Piperacillin Sod/ Tazobactam Sod (Zosyn 3.375gm/ 50 ml (Pmx)) 50 ml @ 100 mls/ hr Q6 IVPB Last administered on 09/11/17 05:07; Admin Dose 100 MLS/HR; Start 09/05/17 at 18:00 Lorazepam (Ativan) 2 mg Q10MIN PRN IV seizure Last administered on 09/06/17 09 :11; Admin Dose 2 MG; Start 09/05/17 at 16:00 Ondansetron HCl (Zofran Inj) 4 mg Q6H PRN IV NAUSEA AND/OR VOMITING; Start 09/05/17 at 16:30 Acetaminophen (Tylenol Tab) 650 mg Q6H PRN PO PAIN LEVEL 1-3 OR FEVER; Start 09/05/17 at 16:30 Morphine Sulfate (morphine) 2 mg Q4H PRN IV PAIN LEVEL 7-10; Start 09/05/17 at 16:30 Bisacodyl (Dulcolax) 5 mg DAILY PRN PO CONSTIPATION; Start 09/05/17 at 16:30 Lorazepam (Ativan) 1 mg Q6H PRN IV agitation/anxiety Last administered on 09/08 09:30; Admin Dose 1 MG; Start 09/05/17 at 17:00 Nicotine 1 patch 1 patch Q24H TRANSDERM Last administered on 09/10/17 17:04; Admin Dose 1 PATCH; Start 09/05/17 at 17:00 Multivitamins/ Thiamine HCl/ Sodium Chloride (Mvi Adult/ Vitamin B1/NS) 1,011 ml @ 125 mls/hr DAILY@09 IVPB Last administered on 09/11/17 08:41; Admin Dose 125 MLS/HR; Start 09/07/17 at 16:30 Folic Acid (Folic Acid) 1 mg DAILY PO Last administered on 09/11/17 08:40; Admin Dose 1 MG; Start 09/07/17 at 16:30 Methylprednisolone Sodium Succinate (Solu-Medrol) 40 mg Q8 IV Last administered on 09/11/17 05:07; Admin Dose 40 MG; Start 09/08/17 at 14:00 Furosemide (Lasix) 40 mg DAILY@06 IV Last administered on 09/11/17 05:07; Admin Dose 40 MG; Start 09/08/17 at 13:00; Status Future Hold Magnesium Oxide (Mag-Ox 400) 400 mg BID PO Last administered on 09/11/17 08: 40; Admin Dose 400 MG; Start 09/09/17 at 12:00 Chlordiazepoxide (Librium) 25 mg BID PO Last administered on 09/11/17 08:40; Admin Dose 25 MG; Start 09/10/17 at 09:00 Famotidine (Pepcid) 20 mg BID PO Last administered on 09/11/17 08:40; Admin Dose 20 MG; Start 09/09/17 at 21:00 Hydralazine HCl 10 mg 10 mg Q4H PRN IV ELEVATED BLOOD PRESSURE Last administered on 09/11/17 03:01; Admin Dose 10 MG; Start 09/10/17 at 04:55 Dextrose 1,000 ml @ 50 mls/hr Q20H IV Last administered on 09/10/17 09:10; Admin Dose 50 MLS/HR; Start 09/10/17 at 08:30 Magnesium Sulfate (Magnesium Sulfate 2 Gm/50 ml) 50 ml @ 25 mls/hr ONCE ONCE IVPB ; Start 09/11/17 at 10:00; Stop 09/11/17 at 11:59 THEO BUSH MD Sep 11, 2017 09:15
[2017-09-11] MEDS ORDERED: MAGNESIUM SULFATE 2 GM/50 ML 50 ML IVPB ONE (10:00)
[2017-09-11 14:10] VITALS: BP 150/80; RESP 20
[2017-09-11] MEDS: NICOTINE (21 MG/24 HR) PATCH TRANSDERM SCH (17:38)
[2017-09-11 20:04] VITALS: BP 157/84; RESP 20
[2017-09-12] MEDS: DEXTROSE 5% 1,000 ML IV SCH ×2 (00:29→20:30)
[2017-09-12] MEDS: PIPER-TAZO 3.375 GM IV (PMX) 50 ML IVPB SCH ×4 (00:30→17:57)
[2017-09-12 01:41] VITALS: BP 176/94
[2017-09-12 05:55] LABS: HEMATOCRIT 26.7 % (42.0-52.0); HEMOGLOBIN 8.1 g/dl (14.0-18.0); LYMPHOCYTES # 0.7 10^3/ul (0.8-2.9); LYMPHOCYTES % 7.6 % (15.0-51.0); MEAN CORPUSCULAR HEMOGLOBIN 21.7 pg (29.0-33.0); MEAN CORPUSCULAR HGB CONC 30.3 g/dl (32.0-37.0); MEAN CORPUSCULAR VOLUME 71.4 fl (82.0-101.0); MEAN PLATELET VOLUME 10.2 fl (7.4-10.4); MONOCYTE # 0.8 10^3/ul (0.3-0.9); MONOCYTES % 8.3 % (0.0-11.0); NEUTROPHIL # 8.2 10^3/ul (1.6-7.5); NEUTROPHILS % 83.7 % (39.0-77.0); PLATELET COUNT 274 10^3/UL (140-415); RED BLOOD COUNT 3.74 10^6/ul (4.70-6.10); RED CELL DISTRIBUTION WIDTH 19.2 % (11.5-14.5); WHITE BLOOD COUNT 9.8 10^3/ul (4.8-10.8)
[2017-09-12] MEDS: METHYLPREDNISOLONE 40 MG INJ IV SCH ×3 (06:05→21:26)
[2017-09-12 06:43] LABS: ALBUMIN 2.8 g/dl (3.3-4.9); CALCIUM 7.4 mg/dl (8.4-10.2); CREATININE 0.68 mg/dl (0.61-1.24); MAGNESIUM 1.1 mg/dl (1.7-2.5); PHOSPHORUS 4.2 mg/dl (2.5-4.9); POTASSIUM 3.6 mmol/L (3.5-5.1)
[2017-09-12 08:05] VITALS: BP 188/98; RESP 18
[2017-09-12] MEDS: ALBUTEROL/IPRATROPIUM (NEB) 3 ML AMP HHN SCH ×3 (08:25→19:45)
[2017-09-12] MEDS ORDERED: POTASSIUM CHLORIDE (SR) 20 MEQ TAB PO STA (08:41)
[2017-09-12] MEDS: hydrALAzine 20 MG INJ IV PRN (08:53)
[2017-09-12] MEDS: CHLORDIAZEPOXIDE 25 MG CAP PO SCH ×2 (08:55→21:27)
[2017-09-12] MEDS: FOLIC ACID 1 MG TAB PO SCH (08:55)
[2017-09-12] MEDS: FAMOTIDINE 20 MG TAB PO SCH ×2 (08:55→21:27)
[2017-09-12] MEDS: MAGNESIUM OXIDE 400 MG TAB PO SCH ×2 (08:55→21:27)
[2017-09-12] MEDS: MULTIVITAMINS 10 ML, THIAMINE 100 MG in SOD CHLORIDE 0.9% 1,000 ML IVPB SCH (09:02)
[2017-09-12] MEDS: LISINOPRIL 10 MG TAB PO SCH (09:03)
--- NOTE | 2017-09-12 09:46 | PN ---
DATE: 09/12/2017 SUBJECTIVE: The patient is stable. No events overnight. No fevers, chills, nausea, vomiting. OBJECTIVE: VITAL SIGNS: Blood pressure is 188/98, respiration 18, pulse 73, temperature 98.6. I's and O's 2.8 liters in, 1.9 liters out. HEENT: Head is normocephalic. NECK: Supple. HEART: Regular rate. LUNGS: Show diminished breath sounds at the base. ABDOMEN: Soft, nontender to palpation. No rebound or guarding. EXTREMITIES: Negative for clubbing, cyanosis, no edema. DERMATOLOGIC: No rashes. MUSCULOSKELETAL: No joint effusions. NEUROLOGIC: No change in exam. MEDICATIONS: The patient's medications have been reviewed. LABORATORY DATA: Showed sodium 142, potassium 3.6, BUN 21, creatinine 0.68, magnesium is 1.1. Whit e count 9.8, hemoglobin 9.1, hematocrit 26.7, platelet count 274. ASSESSMENT AND PLAN: 1. Hyponatremia, improved. Continue to encourage free water intake. Continue hypertonic fluids. 2. Hypomagnesemia. Etiology is secondary to renal wasting due to chronic ETOH abuse. At this poin t, continue to monitor and replete magnesium levels daily. 3. Hyperkalemia. Etiology secondary to hypomagnesemia and total body depletion. The patient's pot assium levels have improved. Continue to monitor. 4. Acute respiratory failure secondary to pneumonia. Continue medical management. 5. Sepsis secondary to pneumonia. Continue current antibiotic regimen. 6. Delirium tremens. The patient is improving. Continue supportive care. 7. Seizure disorder. Continue medical management. 8. Pleural effusion. 9. Status post hyponatremia. Dictated By: SLIME CHANG/VICKY Conf#: [id number] DID#: [id number]
[2017-09-12] MEDS ORDERED: MAGNESIUM SULFATE 4 GM/100 ML 100 ML IVPB ONE (10:00)
[2017-09-12] MEDS ORDERED: MAGNESIUM SULFATE 2 GM/50 ML 50 ML IVPB SCH (10:30)
[2017-09-12 11:50] VITALS: BP 116/71; RESP 18
[2017-09-12 15:05] VITALS: BP 110/64; RESP 18
--- NOTE | 2017-09-12 15:51 | PN ---
Date/Time of Note Date/Time of Note DATE: 09/12/17 TIME: 15:43 Assessment/Plan VTE Prophylaxis VTE Prophylaxis Intervention: SCD's Lines/Catheters IV Catheter Type (from Nrs): Mid Line Urinary Cath still in place: No Assessment/Plan Assessment/Plan 1. Delirium tremens- improving - Continue monitoring - On Librium and Ativan PRN for agitation - tapering down Librium and patient less lethargic this am. 2. bacteremia, gram neg - continue on IV antibiotics for 10-14 days. Currently on day 8 - remains afebrile with nl WBC 3. acute respiratory failure, 2/2 PNA/pleural effusion - Pulmonology on board and recommendations appreciated - s/p 2 L drained on pleural effusion - CXR this am shows moderate R pleural effusion 4. Bilateral pneumonia, likely aspiration - Continue antibiotics 5. Severe hyponatremia- resolved - Nephrology on board and recommendations appreciated 6. Large right pleural effusion - CXR shows moderate pleural effusion still present 7. Alcoholism - Banana bag - Librium taper 8. Hypokalemia - 3.6, replaced 9. Hypomagnesia - Mg 1.1. Replace with PO and IV 10. Disposition - Continue monitoring closely given high risk for DTS Subjective 24 Hr Interval Summary Free Text/Dictation Patient awake and alert, still mumbling when asked questions but denies any pain. No acute overnight events. Exam/Review of Systems Vital Signs Vitals Vital Signs Date Time Temp Pulse Resp B/P Pulse Ox O2 Delivery O2 Flow Rate FiO2 09/12/17 15:05 98.0 114 18 110/64 96 09/12/17 14:09 21 09/10/17 10:23 Nasal Cannula 1.0 Intake and Output 09/11/17 09/11/17 09/12/17 15:00 23:00 07:00 Intake Total 675 ml 900 ml 1286 ml Output Total 1201 ml 700 ml Balance 675 ml -301 ml 586 ml Exam General: Patient resting comfortably, more arousable, in no acute distress Mentation: Patient is alert and only oriented to self. Difficult to understand fully Head: Normocephalic atraumatic Eyes: EOMI, pupils reactive to light Neck: Supple, nontender, midline Respiratory: diminished breath sounds, no crackles or wheezing Cardiovascular: regular rate and rhythm, no obvious murmurs Gastrointestinal: non-tender to palpation, bowel sounds heard. Neurological: Moves all extremities spontaneously Skin: No new skin lesions Results Result Diagram: 09/12/1752209/12/1723 Results 24 hrs Laboratory Tests Test 09/12/17 05:23 White Blood Count 9.8 Red Blood Count 3.74 L Hemoglobin 8.1 L Hematocrit 26.7 L Mean Corpuscular Volume 71.4 L Mean Corpuscular Hemoglobin 21.7 L Mean Corpuscular Hemoglobin Concent 30.3 L Red Cell Distribution Width 19.2 H Platelet Count 274 Mean Platelet Volume 10.2 Neutrophils % 83.7 H Lymphocytes % 7.6 L Monocytes % 8.3 Eosinophils % 0.0 Basophils % 0.0 Nucleated Red Blood Cells % 0.0 Neutrophils # 8.2 H Lymphocytes # 0.7 L Monocytes # 0.8 Eosinophils # 0.0 Basophils # 0.0 Nucleated Red Blood Cells # 0.0 Sodium Level 142 Potassium Level 3.6 Chloride Level 101 Carbon Dioxide Level 33 H Anion Gap 12 Blood Urea Nitrogen 21 H Creatinine 0.68 Glucose Level 125 Calcium Level 7.4 L Phosphorus Level 4.2 Magnesium Level 1.1 L Albumin 2.8 L Medications Medications Current Medications Piperacillin Sod/ Tazobactam Sod (Zosyn 3.375gm/ 50 ml (Pmx)) 50 ml @ 100 mls/ hr Q6 IVPB Last administered on 09/12/17 13:48; Admin Dose 100 MLS/HR; Start 09/05/17 at 18:00 Lorazepam (Ativan) 2 mg Q10MIN PRN IV seizure Last administered on 09/06/17 09 :11; Admin Dose 2 MG; Start 09/05/17 at 16:00 Ondansetron HCl (Zofran Inj) 4 mg Q6H PRN IV NAUSEA AND/OR VOMITING; Start 09/05/17 at 16:30 Acetaminophen (Tylenol Tab) 650 mg Q6H PRN PO PAIN LEVEL 1-3 OR FEVER; Start 09/05/17 at 16:30 Morphine Sulfate (morphine) 2 mg Q4H PRN IV PAIN LEVEL 7-10; Start 09/05/17 at 16:30 Bisacodyl (Dulcolax) 5 mg DAILY PRN PO CONSTIPATION; Start 09/05/17 at 16:30 Lorazepam (Ativan) 1 mg Q6H PRN IV agitation/anxiety Last administered on 09/08 09:30; Admin Dose 1 MG; Start 09/05/17 at 17:00 Nicotine 1 patch 1 patch Q24H TRANSDERM Last administered on 09/11/17 17:38; Admin Dose 1 PATCH; Start 09/05/17 at 17:00 Multivitamins/ Thiamine HCl/ Sodium Chloride (Mvi Adult/ Vitamin B1/NS) 1,011 ml @ 125 mls/hr DAILY@09 IVPB Last administered on 09/12/17 09:02; Admin Dose 125 MLS/HR; Start 09/07/17 at 16:30 Folic Acid (Folic Acid) 1 mg DAILY PO Last administered on 09/12/17 08:55; Admin Dose 1 MG; Start 09/07/17 at 16:30 Methylprednisolone Sodium Succinate (Solu-Medrol) 40 mg Q8 IV Last administered on 09/12/17 13:49; Admin Dose 40 MG; Start 09/08/17 at 14:00 Furosemide (Lasix) 40 mg DAILY@06 IV Last administered on 09/11/17 05:07; Admin Dose 40 MG; Start 09/08/17 at 13:00; Status Future Hold Magnesium Oxide (Mag-Ox 400) 400 mg BID PO Last administered on 09/12/17 08: 55; Admin Dose 400 MG; Start 09/09/17 at 12:00 Chlordiazepoxide (Librium) 25 mg BID PO Last administered on 09/12/17 08:55; Admin Dose 25 MG; Start 09/10/17 at 09:00 Famotidine (Pepcid) 20 mg BID PO Last administered on 09/12/17 08:55; Admin Dose 20 MG; Start 09/09/17 at 21:00 Hydralazine HCl 10 mg 10 mg Q4H PRN IV ELEVATED BLOOD PRESSURE Last administered on 09/12/17 08:53; Admin Dose 10 MG; Start 09/10/17 at 04:55 Dextrose (D5W) 1,000 ml @ 50 mls/hr Q20H IV Last administered on 09/12/17 00 :29; Admin Dose 50 MLS/HR; Start 09/10/17 at 08:30 Lisinopril (Zestril) 10 mg DAILY PO Last administered on 09/12/17 09:03; Admin Dose 10 MG; Start 09/12/17 at 09:00 THEO BUSH MD Sep 12, 2017 15:51
[2017-09-12] MEDS: NICOTINE (21 MG/24 HR) PATCH TRANSDERM SCH (17:58)
[2017-09-12 19:30] VITALS: BP 137/81; RESP 20
[2017-09-13] MEDS: PIPER-TAZO 3.375 GM IV (PMX) 50 ML IVPB SCH ×4 (00:12→18:08)
[2017-09-13 02:31] VITALS: BP 173/96; RESP 20
[2017-09-13 03:46] VITALS: BP 152/88; PULSE 77
[2017-09-13] MEDS: METHYLPREDNISOLONE 40 MG INJ IV SCH ×3 (05:31→21:38)
[2017-09-13 06:23] LABS: BASOPHILS % 0.1 % (0.0-2.0); HEMATOCRIT 27.3 % (42.0-52.0); HEMOGLOBIN 8.2 g/dl (14.0-18.0); LYMPHOCYTES # 0.7 10^3/ul (0.8-2.9); LYMPHOCYTES % 6.3 % (15.0-51.0); MEAN CORPUSCULAR HEMOGLOBIN 21.6 pg (29.0-33.0); MEAN CORPUSCULAR VOLUME 71.8 fl (82.0-101.0); MONOCYTE # 0.7 10^3/ul (0.3-0.9); MONOCYTES % 5.9 % (0.0-11.0); NEUTROPHIL # 10.1 10^3/ul (1.6-7.5); NEUTROPHILS % 87.2 % (39.0-77.0); PLATELET COUNT 248 10^3/UL (140-415); RED CELL DISTRIBUTION WIDTH 19.2 % (11.5-14.5); WHITE BLOOD COUNT 11.5 10^3/ul (4.8-10.8)
[2017-09-13 07:02] LABS: ALBUMIN 2.9 g/dl (3.3-4.9); CALCIUM 7.6 mg/dl (8.4-10.2); CREATININE 0.73 mg/dl (0.61-1.24); MAGNESIUM 1.2 mg/dl (1.7-2.5); PHOSPHORUS 4.6 mg/dl (2.5-4.9); POTASSIUM 3.7 mmol/L (3.5-5.1)
[2017-09-13 07:32] VITALS: BP 171/97; RESP 18
[2017-09-13] MEDS: ALBUTEROL/IPRATROPIUM (NEB) 3 ML AMP HHN SCH ×3 (08:46→21:12)
--- NOTE | 2017-09-13 09:03 | PN ---
DATE: 09/13/2017 SUBJECTIVE: The patient is confused but improved. No other events noted. OBJECTIVE: VITAL SIGNS: Blood pressure is 171/97, respiration 18, pulse 75, temperature 98.7. HEENT: Head is normocephalic. NECK: Supple. HEART: Regular rate. LUNGS: Show diminished breath sounds at the base. ABDOMEN: Soft, nontender to palpation without rebound or guarding. EXTREMITIES: Negative for clubbing, cyanosis, no edema. DERMATOLOGIC: No rashes. MUSCULOSKELETAL: No joint effusions. NEUROLOGIC: No change in exam. MEDICATIONS: The patient's medications have been reviewed. LABORATORY DATA: Shows sodium 140, potassium 3.7, chloride 102, BUN 20, creatinine 0.73, magnesium is 1.2. White count 11.5, hemoglobin 9.2, hematocrit 27.3, and platelet count is 248. ASSESSMENT AND PLAN: 1. Hypomagnesemia, etiology secondary to renal wasting due to chronic ETOH abuse. At this point, c ontinue to monitor and replete magnesium levels daily. 2. Hypokalemia, improved. Continue to monitor. 3. Hypernatremia, resolved. 4. Acute respiratory failure secondary to pneumonia. Continue supplemental oxygen. Continue medic al management. 5. Sepsis secondary to pneumonia. The patient is completing antibiotic course. 6. Seizure disorder. Continue current treatment plan. 7. Alcohol withdrawal and delirium tremens, improving. Continue supportive care. 8. Status post hyponatremia. Dictated By: SLIME CHANG/VICKY Conf#: [id number] DID#: [id number]
[2017-09-13] MEDS ORDERED: MAGNESIUM SULFATE 2 GM/50 ML 50 ML IVPB ONE (09:30)
[2017-09-13] MEDS: FOLIC ACID 1 MG TAB PO SCH (10:50)
[2017-09-13] MEDS: MULTIVITAMINS 10 ML, THIAMINE 100 MG in SOD CHLORIDE 0.9% 1,000 ML IVPB SCH (10:50)
[2017-09-13] MEDS: CHLORDIAZEPOXIDE 25 MG CAP PO SCH (10:50)
[2017-09-13] MEDS: FAMOTIDINE 20 MG TAB PO SCH ×2 (10:51→21:37)
[2017-09-13] MEDS: LISINOPRIL 10 MG TAB PO SCH (10:51)
[2017-09-13] MEDS: MAGNESIUM OXIDE 400 MG TAB PO SCH ×2 (10:51→21:37)
[2017-09-13 12:28] VITALS: BP 131/80; PULSE 101; RESP 16
[2017-09-13 13:02] VITALS: BP 129/74; RESP 20
--- NOTE | 2017-09-13 15:17 | PN ---
Date/Time of Note Date/Time of Note DATE: 09/13/17 TIME: 15:13 Assessment/Plan VTE Prophylaxis VTE Prophylaxis Intervention: SCD's Lines/Catheters IV Catheter Type (from Nrsg): Mid Line Urinary Cath still in place: No Assessment/Plan Assessment/Plan 1. Delirium tremens- resolving - On Librium taper and will decrease to daily for next 3 days then stop - Ativan PRN for agitation 2. bacteremia, gram neg - continue on IV antibiotics for 10-14 days. Currently on day 9 - remains afebrile with nl WBC 3. acute respiratory failure, 2/2 PNA/pleural effusion- resolving - Pulmonology on board and recommendations appreciated - s/p 2 L drained on pleural effusion - Respiratory status stable. Saturating 90% on RA 4. Bilateral pneumonia, likely aspiration - Continue antibiotics 5. Severe hyponatremia- resolved - Nephrology on board and recommendations appreciated 6. Large right pleural effusion 7. Alcoholism - Banana bag - Librium taper 8. Hypokalemia - 3.7 9. Hypomagnesia - Mg 1.2. Replace with PO and IV 10. Disposition - PT for discharge planning Subjective 24 Hr Interval Summary Free Text/Dictation Patient doing better and less confused this am. No acute overnight events and no new complaints. No witnessed seizures. Exam/Review of Systems Vital Signs Vitals Vital Signs Date Time Temp Pulse Resp B/P Pulse Ox O2 Delivery O2 Flow Rate FiO2 09/13/17 13:30 96 20 95 21 09/13/17 13:02 97.9 129/74 09/13/17 12:28 Room Air 09/10/17 10:23 1.0 Intake and Output 09/12/17 09/12/17 09/13/17 15:00 23:00 07:00 Intake Total 200 ml 1901 ml 600 ml Balance 200 ml 1901 ml 600 ml Exam General: Patient resting comfortably, in no acute distress. oriented to self and place Head: Normocephalic atraumatic Eyes: EOMI, pupils reactive to light Neck: Supple, nontender, midline Respiratory: diminished breath sounds, no crackles or wheezing Cardiovascular: regular rate and rhythm, no obvious murmurs Gastrointestinal: non-tender to palpation, bowel sounds heard. Neurological: Moves all extremities spontaneously Skin: No new skin lesions Results Result Diagram: 09/13/1728 09/13/17527 Results 24 hrs Laboratory Tests Test 09/13/17 05:28 White Blood Count 11.5 H Red Blood Count 3.80 L Hemoglobin 8.2 L Hematocrit 27.3 L Mean Corpuscular Volume 71.8 L Mean Corpuscular Hemoglobin 21.6 L Mean Corpuscular Hemoglobin Concent 30.0 L Red Cell Distribution Width 19.2 H Platelet Count 248 Mean Platelet Volume 10.0 Neutrophils % 87.2 H Lymphocytes % 6.3 L Monocytes % 5.9 Eosinophils % 0.0 Basophils % 0.1 Nucleated Red Blood Cells % 0.0 Neutrophils # 10.1 H Lymphocytes # 0.7 L Monocytes # 0.7 Eosinophils # 0.0 Basophils # 0.0 Nucleated Red Blood Cells # 0.0 Sodium Level 140 Potassium Level 3.7 Chloride Level 102 Carbon Dioxide Level 28 Anion Gap 14 Blood Urea Nitrogen 20 Creatinine 0.73 Glucose Level 130 Calcium Level 7.6 L Phosphorus Level 4.6 Magnesium Level 1.2 L Albumin 2.9 L Medications Medications Current Medications Piperacillin Sod/ Tazobactam Sod (Zosyn 3.375gm/ 50 ml (Pmx)) 50 ml @ 100 mls/ hr Q6 IVPB Last administered on 09/13/17 12:28; Admin Dose 100 MLS/HR; Start 09/05/17 at 18:00 Lorazepam (Ativan) 2 mg Q10MIN PRN IV seizure Last administered on 09/06/17 09 :11; Admin Dose 2 MG; Start 09/05/17 at 16:00 Ondansetron HCl (Zofran Inj) 4 mg Q6H PRN IV NAUSEA AND/OR VOMITING; Start 09/05/17 at 16:30 Acetaminophen (Tylenol Tab) 650 mg Q6H PRN PO PAIN LEVEL 1-3 OR FEVER; Start 09/05/17 at 16:30 Morphine Sulfate (morphine) 2 mg Q4H PRN IV PAIN LEVEL 7-10; Start 09/05/17 at 16:30 Bisacodyl (Dulcolax) 5 mg DAILY PRN PO CONSTIPATION; Start 09/05/17 at 16:30 Lorazepam (Ativan) 1 mg Q6H PRN IV agitation/anxiety Last administered on 09/08 09:30; Admin Dose 1 MG; Start 09/05/17 at 17:00 Nicotine 1 patch 1 patch Q24H TRANSDERM Last administered on 09/12/17 17:58; Admin Dose 1 PATCH; Start 09/05/17 at 17:00 Multivitamins/ Thiamine HCl/ Sodium Chloride (Mvi Adult/ Vitamin B1/NS) 1,011 ml @ 125 mls/hr DAILY@09 IVPB Last administered on 09/13/17 10:50; Admin Dose 125 MLS/HR; Start 09/07/17 at 16:30 Folic Acid (Folic Acid) 1 mg DAILY PO Last administered on 09/13/17 10:50; Admin Dose 1 MG; Start 09/07/17 at 16:30 Methylprednisolone Sodium Succinate (Solu-Medrol) 40 mg Q8 IV Last administered on 09/13/17 13:50; Admin Dose 40 MG; Start 09/08/17 at 14:00 Furosemide (Lasix) 40 mg DAILY@06 IV Last administered on 09/11/17 05:07; Admin Dose 40 MG; Start 09/08/17 at 13:00; Status Future Hold Magnesium Oxide (Mag-Ox 400) 400 mg BID PO Last administered on 09/13/17 10: 51; Admin Dose 400 MG; Start 09/09/17 at 12:00 Famotidine (Pepcid) 20 mg BID PO Last administered on 09/13/17 10:51; Admin Dose 20 MG; Start 09/09/17 at 21:00 Hydralazine HCl 10 mg 10 mg Q4H PRN IV ELEVATED BLOOD PRESSURE Last administered on 09/12/17 08:53; Admin Dose 10 MG; Start 09/10/17 at 04:55 Dextrose (D5W) 1,000 ml @ 50 mls/hr Q20H IV Last administered on 09/12/17 00 :29; Admin Dose 50 MLS/HR; Start 09/10/17 at 08:30 Lisinopril (Zestril) 10 mg DAILY PO Last administered on 09/13/17 10:51; Admin Dose 10 MG; Start 09/12/17 at 09:00 Chlordiazepoxide (Librium) 25 mg DAILY PO ; Start 09/14/17 at 09:00 THEO BUSH MD Sep 13, 2017 15:17
[2017-09-13] MEDS: DEXTROSE 5% 1,000 ML IV SCH ×2 (16:01→21:39)
[2017-09-13] MEDS: NICOTINE (21 MG/24 HR) PATCH TRANSDERM SCH (18:08)
[2017-09-13 19:35] VITALS: BP 126/74; RESP 20
[2017-09-14] MEDS: PIPER-TAZO 3.375 GM IV (PMX) 50 ML IVPB SCH ×5 (00:38→23:50)
[2017-09-14 02:06] VITALS: BP 157/92; RESP 20
[2017-09-14] MEDS: METHYLPREDNISOLONE 40 MG INJ IV SCH ×3 (05:47→21:10)
[2017-09-14 06:13] LABS: HEMATOCRIT 27.4 % (42.0-52.0); HEMOGLOBIN 8.3 g/dl (14.0-18.0); LYMPHOCYTES # 0.7 10^3/ul (0.8-2.9); LYMPHOCYTES % 5.2 % (15.0-51.0); MEAN CORPUSCULAR HEMOGLOBIN 21.8 pg (29.0-33.0); MEAN CORPUSCULAR HGB CONC 30.3 g/dl (32.0-37.0); MEAN CORPUSCULAR VOLUME 71.9 fl (82.0-101.0); MEAN PLATELET VOLUME 10.6 fl (7.4-10.4); MONOCYTE # 0.7 10^3/ul (0.3-0.9); MONOCYTES % 5.6 % (0.0-11.0); NEUTROPHIL # 11.7 10^3/ul (1.6-7.5); NEUTROPHILS % 88.7 % (39.0-77.0); PLATELET COUNT 265 10^3/UL (140-415); RED BLOOD COUNT 3.81 10^6/ul (4.70-6.10); RED CELL DISTRIBUTION WIDTH 19.1 % (11.5-14.5); WHITE BLOOD COUNT 13.2 10^3/ul (4.8-10.8)
[2017-09-14 06:45] LABS: ALBUMIN 2.7 g/dl (3.3-4.9); CALCIUM 7.7 mg/dl (8.4-10.2); CREATININE 0.74 mg/dl (0.61-1.24); MAGNESIUM 1.1 mg/dl (1.7-2.5); PHOSPHORUS 4.2 mg/dl (2.5-4.9); POTASSIUM 3.8 mmol/L (3.5-5.1)
[2017-09-14] MEDS: ALBUTEROL/IPRATROPIUM (NEB) 3 ML AMP HHN SCH ×3 (07:56→19:37)
[2017-09-14 07:59] VITALS: BP 149/87; RESP 20
[2017-09-14] MEDS: MULTIVITAMINS 10 ML, THIAMINE 100 MG in SOD CHLORIDE 0.9% 1,000 ML IVPB SCH (08:40)
[2017-09-14] MEDS: FOLIC ACID 1 MG TAB PO SCH (08:41)
[2017-09-14] MEDS: FAMOTIDINE 20 MG TAB PO SCH ×2 (08:41→21:10)
[2017-09-14] MEDS: LISINOPRIL 10 MG TAB PO SCH (08:42)
[2017-09-14] MEDS: MAGNESIUM OXIDE 400 MG TAB PO SCH ×2 (08:42→21:10)
[2017-09-14] MEDS: CHLORDIAZEPOXIDE 25 MG CAP PO SCH (08:44)
--- NOTE | 2017-09-14 09:39 | PN ---
DATE: 09/14/2017 SUBJECTIVE: The patient is stable. No events overnight. No fevers, chills, nausea, vomiting. OBJECTIVE: VITAL SIGNS: Blood pressure is 149/87, respiratory rate 20, pulse 91, temperature 98.6. HEENT: Head is normocephalic. NECK: Supple. HEART: Regular rate. LUNGS: Show diminished breath sounds at the base. ABDOMEN: Soft, nontender to palpation. No rebound or guarding. EXTREMITIES: Negative for clubbing, cyanosis, no edema. DERMATOLOGIC: No rashes. MUSCULOSKELETAL: No joint effusions. NEUROLOGIC: No change in exam. MEDICATIONS: The patient's medications have been reviewed. LABORATORY DATA: Shows a BMP within normal limits. Magnesium 1.1. White count 13.2, hemoglobin 8. 3, hematocrit 27.4, platelet count is 265. ASSESSMENT AND PLAN: 1. Hypomagnesemia, etiology secondary to renal wasting due to chronic alcohol abuse. Continue to m onitor magnesium level. Continue daily repletion. 2. Hyperkalemia, improved. 3. Hyponatremia, resolved. 4. Acute respiratory failure secondary to pneumonia. Continue supplemental oxygen. 5. Sepsis secondary to pneumonia. The patient is completing antibiotic course. 6. Alcohol use with withdrawal and delirium tremens. Continue current regimen. Continue Librium, continue Ativan. 7. Status post hyponatremia. Dictated By: SLIME CHANG/VICKY Conf#: [id number] DID#: [id number] CC: TANK MALHOTRA;*EndCC*
[2017-09-14] MEDS ORDERED: MAGNESIUM SULFATE 2 GM/50 ML 50 ML IVPB ONE (10:00)
[2017-09-14] MEDS: FERROUS SULFATE (EC) 325 MG TAB PO SCH (10:27)
[2017-09-14 13:34] VITALS: BP 108/67; RESP 20
[2017-09-14] MEDS: NICOTINE (21 MG/24 HR) PATCH TRANSDERM SCH (16:58)
--- NOTE | 2017-09-14 17:16 | PN ---
Date/Time of Note Date/Time of Note DATE: 09/14/17 TIME: 17:04 Assessment/Plan VTE Prophylaxis VTE Prophylaxis Intervention: SCD's Lines/Catheters IV Catheter Type (from Nrsg): Mid Line Urinary Cath still in place: No Assessment/Plan Assessment/Plan 1. Delirium tremens- resolving - On Librium taper and will decrease to daily for next 3 days then stop - Ativan PRN for agitation 2. bacteremia, gram neg - continue on IV antibiotics for 10-14 days. Currently on day 10 - remains afebrile with nl WBC 3. acute respiratory failure, 2/2 PNA/pleural effusion- resolving - Pulmonology on board and recommendations appreciated - s/p 2 L drained on pleural effusion - Respiratory status stable. Saturating 90% on RA 4. Bilateral pneumonia, likely aspiration - Continue antibiotics 5. Severe hyponatremia- resolved - Nephrology on board and recommendations appreciated 6. Large right pleural effusion 7. Alcoholism - Banana bag - Librium taper 8. Hypokalemia - 3.8 9. Hypomagnesia - Mg 1.1. Replace with PO and IV - Nephrology on board assisting with electrolyte abnormalities 10. Disposition - Rehab consult placed Subjective 24 Hr Interval Summary Free Text/Dictation Patient doing well and has no new complaints. worked with PT and feels unsteady on his feet. No signs of DTs Exam/Review of Systems Vital Signs Vitals Vital Signs Date Time Temp Pulse Resp B/P Pulse Ox O2 Delivery O2 Flow Rate FiO2 09/14/17 16:23 82 23 99 21 09/14/17 13:34 98.4 108/67 09/13/17 12:28 Room Air 09/10/17 10:23 1.0 Intake and Output 09/13/17 09/13/17 09/14/17 15:00 23:00 07:00 Intake Total 340 ml 1770 ml 100 ml Output Total 400 ml Balance 340 ml 1370 ml 100 ml Exam General: Patient resting comfortably, in no acute distress. oriented to self and place Head: Normocephalic atraumatic Eyes: EOMI, pupils reactive to light Neck: Supple, nontender, midline Respiratory: diminished breath sounds, no crackles or wheezing Cardiovascular: regular rate and rhythm, no obvious murmurs Gastrointestinal: non-tender to palpation, bowel sounds heard. Neurological: Moves all extremities spontaneously Skin: No new skin lesions Results Result Diagram: 09/14/17 0532 09/14/17 0532 Results 24 hrs Laboratory Tests Test 09/14/17 05:32 White Blood Count 13.2 H Red Blood Count 3.81 L Hemoglobin 8.3 L Hematocrit 27.4 L Mean Corpuscular Volume 71.9 L Mean Corpuscular Hemoglobin 21.8 L Mean Corpuscular Hemoglobin Concent 30.3 L Red Cell Distribution Width 19.1 H Platelet Count 265 Mean Platelet Volume 10.6 H Neutrophils % 88.7 H Lymphocytes % 5.2 L Monocytes % 5.6 Eosinophils % 0.0 Basophils % 0.0 Nucleated Red Blood Cells % 0.0 Neutrophils # 11.7 H Lymphocytes # 0.7 L Monocytes # 0.7 Eosinophils # 0.0 Basophils # 0.0 Nucleated Red Blood Cells # 0.0 Sodium Level 139 Potassium Level 3.8 Chloride Level 103 Carbon Dioxide Level 27 Anion Gap 13 Blood Urea Nitrogen 20 Creatinine 0.74 Glucose Level 140 Calcium Level 7.7 L Phosphorus Level 4.2 Magnesium Level 1.1 L Albumin 2.7 L Medications Medications Current Medications Piperacillin Sod/ Tazobactam Sod (Zosyn 3.375gm/ 50 ml (Pmx)) 50 ml @ 100 mls/ hr Q6 IVPB Last administered on 09/14/17 12:41; Admin Dose 100 MLS/HR; Start 09/05/17 at 18:00 Lorazepam (Ativan) 2 mg Q10MIN PRN IV seizure Last administered on 09/06/17 09 :11; Admin Dose 2 MG; Start 09/05/17 at 16:00 Ondansetron HCl (Zofran Inj) 4 mg Q6H PRN IV NAUSEA AND/OR VOMITING; Start 09/05/17 at 16:30 Acetaminophen (Tylenol Tab) 650 mg Q6H PRN PO PAIN LEVEL 1-3 OR FEVER; Start 09/05/17 at 16:30 Morphine Sulfate (morphine) 2 mg Q4H PRN IV PAIN LEVEL 7-10; Start 09/05/17 at 16:30 Bisacodyl (Dulcolax) 5 mg DAILY PRN PO CONSTIPATION; Start 09/05/17 at 16:30 Lorazepam (Ativan) 1 mg Q6H PRN IV agitation/anxiety Last administered on 09/08 09:30; Admin Dose 1 MG; Start 09/05/17 at 17:00 Nicotine 1 patch 1 patch Q24H TRANSDERM Last administered on 09/14/17 16:58; Admin Dose 1 PATCH; Start 09/05/17 at 17:00 Multivitamins/ Thiamine HCl/ Sodium Chloride (Mvi Adult/ Vitamin B1/NS) 1,011 ml @ 125 mls/hr DAILY@09 IVPB Last administered on 09/14/17 08:40; Admin Dose 125 MLS/HR; Start 09/07/17 at 16:30 Folic Acid (Folic Acid) 1 mg DAILY PO Last administered on 09/14/17 08:41; Admin Dose 1 MG; Start 09/07/17 at 16:30 Methylprednisolone Sodium Succinate (Solu-Medrol) 40 mg Q8 IV Last administered on 09/14/17 14:13; Admin Dose 40 MG; Start 09/08/17 at 14:00 Magnesium Oxide (Mag-Ox 400) 400 mg BID PO Last administered on 09/14/17 08: 42; Admin Dose 400 MG; Start 09/09/17 at 12:00 Famotidine (Pepcid) 20 mg BID PO Last administered on 09/14/17 08:41; Admin Dose 20 MG; Start 09/09/17 at 21:00 Hydralazine HCl (Apresoline) 10 mg Q4H PRN IV ELEVATED BLOOD PRESSURE Last administered on 09/12/17 08:53; Admin Dose 10 MG; Start 09/10/17 at 04:55 Lisinopril (Zestril) 10 mg DAILY PO Last administered on 09/14/17 08:42; Admin Dose 10 MG; Start 09/12/17 at 09:00 Chlordiazepoxide (Librium) 25 mg DAILY PO Last administered on 09/14/17 08:44 ; Admin Dose 25 MG; Start 09/14/17 at 09:00 Ferrous Sulfate (Ferrous Sulfate (Ec)) 325 mg DAILY PO Last administered on 10:27; Admin Dose 325 MG; Start 09/14/17 at 09:30 THEO BUSH MD Sep 14, 2017 17:15
[2017-09-14 20:44] VITALS: BP 136/79; RESP 20
[2017-09-15 02:56] VITALS: BP 141/84; RESP 18
[2017-09-15] MEDS: PIPER-TAZO 3.375 GM IV (PMX) 50 ML IVPB SCH ×4 (06:21→23:29)
[2017-09-15] MEDS: METHYLPREDNISOLONE 40 MG INJ IV SCH ×3 (06:21→21:43)
[2017-09-15 06:34] LABS: ABNORMAL IP MESSAGE 1; BASOPHILS % 0.1 % (0.0-2.0); HEMATOCRIT 27.2 % (42.0-52.0); HEMOGLOBIN 8.2 g/dl (14.0-18.0); LYMPHOCYTES # 0.5 10^3/ul (0.8-2.9); LYMPHOCYTES % 3.9 % (15.0-51.0); MEAN CORPUSCULAR HEMOGLOBIN 21.8 pg (29.0-33.0); MEAN CORPUSCULAR HGB CONC 30.1 g/dl (32.0-37.0); MEAN CORPUSCULAR VOLUME 72.1 fl (82.0-101.0); MEAN PLATELET VOLUME 10.6 fl (7.4-10.4); MONOCYTE # 0.8 10^3/ul (0.3-0.9); MONOCYTES % 5.7 % (0.0-11.0); NEUTROPHIL # 11.7 10^3/ul (1.6-7.5); NEUTROPHILS % 89.7 % (39.0-77.0); PLATELET COUNT 256 10^3/UL (140-415); POSITIVE DIFF @See below; RED BLOOD COUNT 3.77 10^6/ul (4.70-6.10); RED CELL DISTRIBUTION WIDTH 19.2 % (11.5-14.5); WHITE BLOOD COUNT 13.1 10^3/ul (4.8-10.8)
[2017-09-15 07:08] LABS: ALBUMIN 2.6 g/dl (3.3-4.9); CALCIUM 8.3 mg/dl (8.4-10.2); CREATININE 0.86 mg/dl (0.61-1.24); MAGNESIUM 1.2 mg/dl (1.7-2.5); PHOSPHORUS 3.7 mg/dl (2.5-4.9); POTASSIUM 3.8 mmol/L (3.5-5.1)
[2017-09-15] MEDS: ALBUTEROL/IPRATROPIUM (NEB) 3 ML AMP HHN SCH ×3 (07:39→19:53)
[2017-09-15 07:50] VITALS: BP 143/84; RESP 16
[2017-09-15] MEDS: FERROUS SULFATE (EC) 325 MG TAB PO SCH (08:18)
[2017-09-15] MEDS: LISINOPRIL 10 MG TAB PO SCH (08:18)
[2017-09-15] MEDS: FOLIC ACID 1 MG TAB PO SCH (08:18)
[2017-09-15] MEDS: FAMOTIDINE 20 MG TAB PO SCH ×2 (08:18→20:37)
[2017-09-15] MEDS: MAGNESIUM OXIDE 400 MG TAB PO SCH ×2 (08:18→20:37)
[2017-09-15] MEDS: CHLORDIAZEPOXIDE 25 MG CAP PO SCH (08:18)
[2017-09-15] MEDS: MULTIVITAMINS 10 ML, THIAMINE 100 MG in SOD CHLORIDE 0.9% 1,000 ML IVPB SCH (08:40)
--- NOTE | 2017-09-15 09:25 | PN ---
Date/Time of Note Date/Time of Note DATE: 09/15/17 TIME: 09:24 Assessment/Plan VTE Prophylaxis VTE Prophylaxis Intervention: other Lines/C[facility] Cath still in place: No Assessment/Plan Chief Complaint/Hosp Course renal follow up SUBJECTIVE: The patient is stable. No events overnight. No fevers, chills, nausea, vomiting. OBJECTIVE: HEENT: Head is normocephalic. NECK: Supple. HEART: Regular rate. LUNGS: Show diminished breath sounds at the base. ABDOMEN: Soft, nontender to palpation. No rebound or guarding. EXTREMITIES: Negative for clubbing, cyanosis, no edema. DERMATOLOGIC: No rashes. MUSCULOSKELETAL: No joint effusions. NEUROLOGIC: No change in exam. MEDICATIONS: The patient's medications have been reviewed. ASSESSMENT AND PLAN: 1. Hypomagnesemia, etiology secondary to renal wasting due to chronic alcohol abuse. will replete aggressively. will calculate FeMag in no improvement with today's repletion 2. Hyperkalemia, improved. 3. Hyponatremia, resolved. 4. Acute respiratory failure secondary to pneumonia. Continue supplemental oxygen. 5. Sepsis secondary to pneumonia. The patient is completing antibiotic course. 6. Alcohol use with withdrawal and delirium tremens. Continue current regimen. Continue Librium, continue Ativan. 7. Status post hyponatremia. Problems: Exam/Review of Systems Vital Signs Vitals Vital Signs Date Time Temp Pulse Resp B/P Pulse Ox O2 Delivery O2 Flow Rate FiO2 09/15/17 07:50 97.7 100 16 143/84 100 09/15/17 07:39 21 09/13/17 12:28 Room Air Intake and Output 09/14/17 09/14/17 09/15/17 14:59 22:59 06:59 Intake Total 860 ml 1861 ml 650 ml Output Total 1000 ml 850 ml Balance 860 ml 861 ml -200 ml Results Result Diagram: 09/15/17 0515 09/15/17 0515 Results 24 hrs Laboratory Tests Test 09/15/17 05:15 White Blood Count 13.1 H Red Blood Count 3.77 L Hemoglobin 8.2 L Hematocrit 27.2 L Mean Corpuscular Volume 72.1 L Mean Corpuscular Hemoglobin 21.8 L Mean Corpuscular Hemoglobin Concent 30.1 L Red Cell Distribution Width 19.2 H Platelet Count 256 Mean Platelet Volume 10.6 H Neutrophils % 89.7 H Lymphocytes % 3.9 L Monocytes % 5.7 Eosinophils % 0.0 Basophils % 0.1 Nucleated Red Blood Cells % 0.0 Neutrophils # 11.7 H Lymphocytes # 0.5 L Monocytes # 0.8 Eosinophils # 0.0 Basophils # 0.0 Nucleated Red Blood Cells # 0.0 Sodium Level 141 Potassium Level 3.8 Chloride Level 105 Carbon Dioxide Level 29 Anion Gap 11 Blood Urea Nitrogen 23 H Creatinine 0.86 Glucose Level 151 Calcium Level 8.3 L Phosphorus Level 3.7 Magnesium Level 1.2 L Albumin 2.6 L Medications Medications Current Medications Piperacillin Sod/ Tazobactam Sod (Zosyn 3.375gm/ 50 ml (Pmx)) 50 ml @ 100 mls/ hr Q6 IVPB Last administered on 09/15/17 06:21; Admin Dose 100 MLS/HR; Start 09/05/17 at 18:00 Lorazepam (Ativan) 2 mg Q10MIN PRN IV seizure Last administered on 09/06/17 09 :11; Admin Dose 2 MG; Start 09/05/17 at 16:00 Ondansetron HCl (Zofran Inj) 4 mg Q6H PRN IV NAUSEA AND/OR VOMITING; Start 09/05/17 at 16:30 Acetaminophen (Tylenol Tab) 650 mg Q6H PRN PO PAIN LEVEL 1-3 OR FEVER; Start 09/05/17 at 16:30 Morphine Sulfate (morphine) 2 mg Q4H PRN IV PAIN LEVEL 7-10; Start 09/05/17 at 16:30 Bisacodyl (Dulcolax) 5 mg DAILY PRN PO CONSTIPATION; Start 09/05/17 at 16:30 Lorazepam (Ativan) 1 mg Q6H PRN IV agitation/anxiety Last administered on 09/08 09:30; Admin Dose 1 MG; Start 09/05/17 at 17:00 Nicotine 1 patch 1 patch Q24H TRANSDERM Last administered on 09/14/17 16:58; Admin Dose 1 PATCH; Start 09/05/17 at 17:00 Multivitamins/ Thiamine HCl/ Sodium Chloride (Mvi Adult/ Vitamin B1/NS) 1,011 ml @ 125 mls/hr DAILY@09 IVPB Last administered on 09/15/17 08:40; Admin Dose 125 MLS/HR; Start 09/07/17 at 16:30 Folic Acid (Folic Acid) 1 mg DAILY PO Last administered on 09/15/17 08:18; Admin Dose 1 MG; Start 09/07/17 at 16:30 Methylprednisolone Sodium Succinate (Solu-Medrol) 40 mg Q8 IV Last administered on 09/15/17 06:21; Admin Dose 40 MG; Start 09/08/17 at 14:00 Magnesium Oxide (Mag-Ox 400) 400 mg BID PO Last administered on 09/15/17 08: 18; Admin Dose 400 MG; Start 09/09/17 at 12:00 Famotidine (Pepcid) 20 mg BID PO Last administered on 09/15/17 08:18; Admin Dose 20 MG; Start 09/09/17 at 21:00 Hydralazine HCl (Apresoline) 10 mg Q4H PRN IV ELEVATED BLOOD PRESSURE Last administered on 09/12/17 08:53; Admin Dose 10 MG; Start 09/10/17 at 04:55 Lisinopril (Zestril) 10 mg DAILY PO Last administered on 09/15/17 08:18; Admin Dose 10 MG; Start 09/12/17 at 09:00 Chlordiazepoxide (Librium) 25 mg DAILY PO Last administered on 09/15/17 08:18 ; Admin Dose 25 MG; Start 09/14/17 at 09:00 Ferrous Sulfate (Ferrous Sulfate (Ec)) 325 mg DAILY PO Last administered on 08:18; Admin Dose 325 MG; Start 09/14/17 at 09:30 EWELINA MCCLURE DO Sep 15, 2017 09:25
[2017-09-15] MEDS ORDERED: MAGNESIUM SULFATE 6 GM in DEXTROSE 5% 100 ML IVPB ONE (10:10)
--- NOTE | 2017-09-15 10:11 | CONS ---
Date/Time of Note Date/Time of Note DATE: 09/15/17 TIME: 10:08 Assessment/Plan Assessment/Plan Additional Assessment/Plan Assessment and recommendations; 1. Patient admitted with alcohol withdrawal with right sided pneumonia, possibly aspiration, status post right thoracentesis. Continue current supportive care. Will obtain follow-up chest x-ray. Consultation Date/Type/Reason Admit Date/Time Sep 05, 2017 at 13:14 Initial Consult Date Type of Consultation: Pulmonary 24 HR Interval Summary Free Text/Dictation Patient's condition is stable. Resting comfortably. Has remained hemodynamically stable. Chest exam; diminished but clear breath sounds bilaterally. S1-S2 audible, no murmurs. Regular rhythm. Abdomen exam; soft, nontender. No organomegaly. Bowel sounds audible. Extremity exam; no peripheral edema. Pulses 1+ bilaterally. 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 Exam/Review of Systems Vital Signs Vitals Vital Signs Date Time Temp Pulse Resp B/P Pulse Ox O2 Delivery O2 Flow Rate FiO2 09/15/17 07:50 97.7 100 16 143/84 100 09/15/17 07:39 21 09/13/17 12:28 Room Air Intake and Output 09/14/17 09/14/17 09/15/17 15:00 23:00 07:00 Intake Total 860 ml 1861 ml 650 ml Output Total 1000 ml 850 ml Balance 860 ml 861 ml -200 ml Results Result Diagram: 09/15/17 0515 09/15/17 0515 Results 24 hrs Laboratory Tests Test 09/15/17 05:15 White Blood Count 13.1 H Red Blood Count 3.77 L Hemoglobin 8.2 L Hematocrit 27.2 L Mean Corpuscular Volume 72.1 L Mean Corpuscular Hemoglobin 21.8 L Mean Corpuscular Hemoglobin Concent 30.1 L Red Cell Distribution Width 19.2 H Platelet Count 256 Mean Platelet Volume 10.6 H Neutrophils % 89.7 H Lymphocytes % 3.9 L Monocytes % 5.7 Eosinophils % 0.0 Basophils % 0.1 Nucleated Red Blood Cells % 0.0 Neutrophils # 11.7 H Lymphocytes # 0.5 L Monocytes # 0.8 Eosinophils # 0.0 Basophils # 0.0 Nucleated Red Blood Cells # 0.0 Sodium Level 141 Potassium Level 3.8 Chloride Level 105 Carbon Dioxide Level 29 Anion Gap 11 Blood Urea Nitrogen 23 H Creatinine 0.86 Glucose Level 151 Calcium Level 8.3 L Phosphorus Level 3.7 Magnesium Level 1.2 L Albumin 2.6 L Medications Medications Current Medications Piperacillin Sod/ Tazobactam Sod (Zosyn 3.375gm/ 50 ml (Pmx)) 50 ml @ 100 mls/ hr Q6 IVPB Last administered on 09/15/17 06:21; Admin Dose 100 MLS/HR; Start 09/05/17 at 18:00 Lorazepam (Ativan) 2 mg Q10MIN PRN IV seizure Last administered on 09/06/17 09 :11; Admin Dose 2 MG; Start 09/05/17 at 16:00 Ondansetron HCl (Zofran Inj) 4 mg Q6H PRN IV NAUSEA AND/OR VOMITING; Start 09/05/17 at 16:30 Acetaminophen (Tylenol Tab) 650 mg Q6H PRN PO PAIN LEVEL 1-3 OR FEVER; Start 09/05/17 at 16:30 Morphine Sulfate (morphine) 2 mg Q4H PRN IV PAIN LEVEL 7-10; Start 09/05/17 at 16:30 Bisacodyl (Dulcolax) 5 mg DAILY PRN PO CONSTIPATION; Start 09/05/17 at 16:30 Lorazepam (Ativan) 1 mg Q6H PRN IV agitation/anxiety Last administered on 09/08 09:30; Admin Dose 1 MG; Start 09/05/17 at 17:00 Nicotine 1 patch 1 patch Q24H TRANSDERM Last administered on 09/14/17 16:58; Admin Dose 1 PATCH; Start 09/05/17 at 17:00 Multivitamins/ Thiamine HCl/ Sodium Chloride (Mvi Adult/ Vitamin B1/NS) 1,011 ml @ 125 mls/hr DAILY@09 IVPB Last administered on 09/15/17 08:40; Admin Dose 125 MLS/HR; Start 09/07/17 at 16:30 Folic Acid (Folic Acid) 1 mg DAILY PO Last administered on 09/15/17 08:18; Admin Dose 1 MG; Start 09/07/17 at 16:30 Methylprednisolone Sodium Succinate (Solu-Medrol) 40 mg Q8 IV Last administered on 09/15/17 06:21; Admin Dose 40 MG; Start 09/08/17 at 14:00 Magnesium Oxide (Mag-Ox 400) 400 mg BID PO Last administered on 09/15/17 08: 18; Admin Dose 400 MG; Start 09/09/17 at 12:00 Famotidine (Pepcid) 20 mg BID PO Last administered on 09/15/17 08:18; Admin Dose 20 MG; Start 09/09/17 at 21:00 Hydralazine HCl (Apresoline) 10 mg Q4H PRN IV ELEVATED BLOOD PRESSURE Last administered on 09/12/17 08:53; Admin Dose 10 MG; Start 09/10/17 at 04:55 Lisinopril (Zestril) 10 mg DAILY PO Last administered on 09/15/17 08:18; Admin Dose 10 MG; Start 09/12/17 at 09:00 Ferrous Sulfate 325 mg 325 mg DAILY PO Last administered on 09/15/17 08:18; Admin Dose 325 MG; Start 09/14/17 at 09:30 Magnesium Sulfate/ Dextrose (Magnesium Sulfate/D5W) 112 ml @ 25 mls/hr ONCE ONCE IVPB ; Start 09/15/17 at 10:10; Stop 09/15/17 at 14:38 Chlordiazepoxide (Librium) 10 mg DAILY PO ; Start 09/16/17 at 09:00 KIRILL PEREZ Sep 15, 2017 10:11
[2017-09-15] MEDS: ACETAMINOPHEN 325 MG TAB PO PRN (14:05)
--- NOTE | 2017-09-15 14:06 | RADRPT ---
PROCEDURE: XR portable chest CLINICAL INDICATION: Pleural effusion TECHNIQUE: Portable upright chest radiograph COMPARISON: Portable chest radiograph 09/09/2017 FINDINGS: New apparent elevation of the right hemidiaphragm in a configuration suggesting right subpulmonic pl eural effusion. Interval decrease in right lung volume. Except for right lower lung zone opacity, im proved aeration in both lungs. No other significant interval changes seen. IMPRESSION: 1. No apparent elevation of the right hemidiaphragm in a configuration suggesting right subpulmonic pleural effusion; consider decubitus chest radiographs or chest sonography for further analysis. 2. Except for right lower lung zone opacity, improved aeration in both lungs. Right lung volume inte rval decrease. RPTAT: TT Physician Kamlesh Date Time Electronically viewed and signed by Physician Kamlesh on 09/15/2017 14:05 JS/
[2017-09-15 14:39] VITALS: BP 139/78; RESP 16
--- NOTE | 2017-09-15 15:00 | PN ---
Date/Time of Note Date/Time of Note DATE: 09/15/17 TIME: 14:56 Assessment/Plan VTE Prophylaxis VTE Prophylaxis Intervention: SCD's Lines/Catheters [facility]ter [facility] (from [facility] Mid Line Urinary Cath still in place: No Assessment/Plan Chief Complaint/Hosp Course Patient is a 51-year-old homeless alcoholic who presents with right pleural effusion, pneumonia, and alcohol withdrawal induced seizure 1. Delirium tremens- resolving - On Librium taper - Ativan PRN for agitation 2. bacteremia, gram neg - continue on IV antibiotics for 10-14 days. Currently on day 11 - remains afebrile -wbc creeping up -if wbc stable tomorrow, will transition to oral for remainder of abx 3. acute respiratory failure, 2/2 PNA/pleural effusion- resolving - Pulmonology on board and recommendations appreciated - s/p 2 L drained on pleural effusion - Respiratory status stable. Saturating well 4. Bilateral pneumonia, likely aspiration - Continue antibiotics 5. Severe hyponatremia- resolved - Nephrology on board and recommendations appreciated 6. Large right pleural effusion -resolving 7. Alcoholism - Banana bag - Librium taper 8. Hypokalemia - replete as needed 9. Hypomagnesia - Nephrology on board assisting with electrolyte abnormalities 10. Disposition - Rehab consult placed Problems: Subjective 24 Hr Interval Summary Free Text/Dictation no acute complaints Exam/Review of Systems Vital Signs Vitals Vital Signs Date Time Temp Pulse Resp B/P Pulse Ox O2 Delivery O2 Flow Rate FiO2 09/15/17 14:39 98.6 96 16 139/78 99 09/15/17 13:56 21 09/13/17 12:28 Room Air Intake and Output 09/14/17 09/14/17 09/15/17 15:00 23:00 07:00 Intake Total 860 ml 1861 ml 650 ml Output Total 1000 ml 850 ml Balance 860 ml 861 ml -200 ml Exam General: Patient resting comfortably, in no acute distress. oriented to self and place Head: Normocephalic atraumatic Eyes: EOMI, pupils reactive to light Neck: Supple, nontender, midline Respiratory: diminished breath sounds, no crackles or wheezing Cardiovascular: regular rate and rhythm, no obvious murmurs Gastrointestinal: non-tender to palpation, bowel sounds heard. Neurological: Moves all extremities spontaneously Skin: No new skin lesions Results Result Diagram: 09/15/17 0515 09/15/17 0515 Results 24 hrs Laboratory Tests Test 09/15/17 05:15 White Blood Count 13.1 H Red Blood Count 3.77 L Hemoglobin 8.2 L Hematocrit 27.2 L Mean Corpuscular Volume 72.1 L Mean Corpuscular Hemoglobin 21.8 L Mean Corpuscular Hemoglobin Concent 30.1 L Red Cell Distribution Width 19.2 H Platelet Count 256 Mean Platelet Volume 10.6 H Neutrophils % 89.7 H Lymphocytes % 3.9 L Monocytes % 5.7 Eosinophils % 0.0 Basophils % 0.1 Nucleated Red Blood Cells % 0.0 Neutrophils # 11.7 H Lymphocytes # 0.5 L Monocytes # 0.8 Eosinophils # 0.0 Basophils # 0.0 Nucleated Red Blood Cells # 0.0 Sodium Level 141 Potassium Level 3.8 Chloride Level 105 Carbon Dioxide Level 29 Anion Gap 11 Blood Urea Nitrogen 23 H Creatinine 0.86 Glucose Level 151 Calcium Level 8.3 L Phosphorus Level 3.7 Magnesium Level 1.2 L Albumin 2.6 L Medications Medications Current Medications Piperacillin Sod/ Tazobactam Sod (Zosyn 3.375gm/ 50 ml (Pmx)) 50 ml @ 100 mls/ hr Q6 IVPB Last administered on 09/15/17 12:20; Admin Dose 100 MLS/HR; Start 09/05/17 at 18:00 Lorazepam (Ativan) 2 mg Q10MIN PRN IV seizure Last administered on 09/06/17 09 :11; Admin Dose 2 MG; Start 09/05/17 at 16:00 Ondansetron HCl (Zofran Inj) 4 mg Q6H PRN IV NAUSEA AND/OR VOMITING; Start 09/05/17 at 16:30 Acetaminophen (Tylenol Tab) 650 mg Q6H PRN PO PAIN LEVEL 1-3 OR FEVER Last administered on 09/15/17 14:05; Admin Dose 650 MG; Start 09/05/17 at 16:30 Morphine Sulfate (morphine) 2 mg Q4H PRN IV PAIN LEVEL 7-10; Start 09/05/17 at 16:30 Bisacodyl (Dulcolax) 5 mg DAILY PRN PO CONSTIPATION; Start 09/05/17 at 16:30 Lorazepam (Ativan) 1 mg Q6H PRN IV agitation/anxiety Last administered on 09/08 09:30; Admin Dose 1 MG; Start 09/05/17 at 17:00 Nicotine 1 patch 1 patch Q24H TRANSDERM Last administered on 09/14/17 16:58; Admin Dose 1 PATCH; Start 09/05/17 at 17:00 Multivitamins/ Thiamine HCl/ Sodium Chloride (Mvi Adult/ Vitamin B1/NS) 1,011 ml @ 125 mls/hr DAILY@09 IVPB Last administered on 09/15/17 08:40; Admin Dose 125 MLS/HR; Start 09/07/17 at 16:30 Folic Acid (Folic Acid) 1 mg DAILY PO Last administered on 09/15/17 08:18; Admin Dose 1 MG; Start 09/07/17 at 16:30 Methylprednisolone Sodium Succinate (Solu-Medrol) 40 mg Q8 IV Last administered on 09/15/17 13:04; Admin Dose 40 MG; Start 09/08/17 at 14:00 Magnesium Oxide (Mag-Ox 400) 400 mg BID PO Last administered on 09/15/17 08: 18; Admin Dose 400 MG; Start 09/09/17 at 12:00 Famotidine (Pepcid) 20 mg BID PO Last administered on 09/15/17 08:18; Admin Dose 20 MG; Start 09/09/17 at 21:00 Hydralazine HCl (Apresoline) 10 mg Q4H PRN IV ELEVATED BLOOD PRESSURE Last administered on 09/12/17 08:53; Admin Dose 10 MG; Start 09/10/17 at 04:55 Lisinopril (Zestril) 10 mg DAILY PO Last administered on 09/15/17 08:18; Admin Dose 10 MG; Start 09/12/17 at 09:00 Ferrous Sulfate (Ferrous Sulfate (Ec)) 325 mg DAILY PO Last administered on 08:18; Admin Dose 325 MG; Start 09/14/17 at 09:30 Chlordiazepoxide (Librium) 10 mg BID PO ; Start 09/15/17 at 21:00; Status UNCATHERINE CHIN Sep 15, 2017 15:00
[2017-09-15] MEDS: NICOTINE (21 MG/24 HR) PATCH TRANSDERM SCH (17:17)
[2017-09-15 20:00] VITALS: BP 119/68; RESP 18
[2017-09-15] MEDS: CHLORDIAZEPOXIDE 5 MG CAP PO SCH (20:37)
[2017-09-16 02:54] VITALS: BP 137/80; RESP 18
[2017-09-16 05:14] LABS: ABNORMAL IP MESSAGE 1; BASOPHILS % 0.1 % (0.0-2.0); HEMATOCRIT 26.2 % (42.0-52.0); HEMOGLOBIN 8.1 g/dl (14.0-18.0); LYMPHOCYTES # 0.5 10^3/ul (0.8-2.9); LYMPHOCYTES % 3.3 % (15.0-51.0); MEAN CORPUSCULAR HGB CONC 30.9 g/dl (32.0-37.0); MEAN CORPUSCULAR VOLUME 71.2 fl (82.0-101.0); MEAN PLATELET VOLUME 10.8 fl (7.4-10.4); MONOCYTE # 0.6 10^3/ul (0.3-0.9); NEUTROPHIL # 14.7 10^3/ul (1.6-7.5); PLATELET COUNT 261 10^3/UL (140-415); POSITIVE DIFF @See below; RED BLOOD COUNT 3.68 10^6/ul (4.70-6.10); RED CELL DISTRIBUTION WIDTH 19.4 % (11.5-14.5)
[2017-09-16 05:56] LABS: CALCIUM 8.4 mg/dl (8.4-10.2); CREATININE 0.72 mg/dl (0.61-1.24); MAGNESIUM 1.5 mg/dl (1.7-2.5); PHOSPHORUS 3.5 mg/dl (2.5-4.9); POTASSIUM 3.9 mmol/L (3.5-5.1)
[2017-09-16] MEDS: METHYLPREDNISOLONE 40 MG INJ IV SCH (06:12)
[2017-09-16] MEDS: PIPER-TAZO 3.375 GM IV (PMX) 50 ML IVPB SCH (06:13)
[2017-09-16] MEDS: ALBUTEROL/IPRATROPIUM (NEB) 3 ML AMP HHN SCH ×3 (07:17→19:41)
[2017-09-16 07:45] VITALS: BP 155/83; RESP 19
[2017-09-16] MEDS: FOLIC ACID 1 MG TAB PO SCH (08:20)
[2017-09-16] MEDS: FERROUS SULFATE (EC) 325 MG TAB PO SCH (08:20)
[2017-09-16] MEDS: MAGNESIUM OXIDE 400 MG TAB PO SCH ×2 (08:20→20:33)
[2017-09-16] MEDS: LISINOPRIL 10 MG TAB PO SCH (08:20)
[2017-09-16] MEDS: MULTIVITAMINS 10 ML, THIAMINE 100 MG in SOD CHLORIDE 0.9% 1,000 ML IVPB SCH (08:20)
[2017-09-16] MEDS: FAMOTIDINE 20 MG TAB PO SCH ×2 (08:20→20:33)
[2017-09-16] MEDS: CHLORDIAZEPOXIDE 5 MG CAP PO SCH ×3 (08:20→20:33)
[2017-09-16] MEDS ORDERED: CHLORDIAZEPOXIDE 5 MG CAP PO SCH (09:00)
--- NOTE | 2017-09-16 09:02 | PN ---
Date/Time of Note Date/Time of Note DATE: 09/16/17 TIME: 09:02 Assessment/Plan VTE Prophylaxis VTE Prophylaxis Intervention: other Lines/Catheters [facility] Mid Line Urinary Cath still in place: No Assessment/Plan Chief Complaint/Hosp Course renal follow up SUBJECTIVE: The patient is stable. No events overnight. No fevers, chills, nausea, vomiting. OBJECTIVE: HEENT: Head is normocephalic. NECK: Supple. HEART: Regular rate. LUNGS: Show diminished breath sounds at the base. ABDOMEN: Soft, nontender to palpation. No rebound or guarding. EXTREMITIES: Negative for clubbing, cyanosis, no edema. DERMATOLOGIC: No rashes. MUSCULOSKELETAL: No joint effusions. NEUROLOGIC: No change in exam. MEDICATIONS: The patient's medications have been reviewed. ASSESSMENT AND PLAN: 1. Hypomagnesemia, etiology secondary to renal wasting due to chronic alcohol abuse. will replete aggressively. will calculate FeMag in no improvement with today's repletion 2. Hyperkalemia, improved. 3. Hyponatremia, resolved. 4. Acute respiratory failure secondary to pneumonia. Continue supplemental oxygen. 5. Sepsis secondary to pneumonia. The patient is completing antibiotic course. 6. Alcohol use with withdrawal and delirium tremens. Continue current regimen. Continue Librium, continue Ativan. 7. Status post hyponatremia. Problems: Exam/Review of Systems Vital Signs Vitals Vital Signs Date Time Temp Pulse Resp B/P Pulse Ox O2 Delivery O2 Flow Rate FiO2 09/16/17 07:45 97.6 91 19 155/83 97 09/16/17 07:21 21 09/13/17 12:28 Room Air Intake and Output 09/15/17 09/15/17 09/16/17 15:00 23:00 07:00 Intake Total 162 ml 2261 ml 840 ml Output Total 500 ml 1075 ml Balance 162 ml 1761 ml -235 ml Results Result Diagram: 09/16/17 0450 09/16/17 0450 Results 24 hrs Laboratory Tests Test 09/16/17 04:50 White Blood Count 16.0 #H Red Blood Count 3.68 L Hemoglobin 8.1 L Hematocrit 26.2 L Mean Corpuscular Volume 71.2 L Mean Corpuscular Hemoglobin 22.0 L Mean Corpuscular Hemoglobin Concent 30.9 L Red Cell Distribution Width 19.4 H Platelet Count 261 Mean Platelet Volume 10.8 H Neutrophils % 92.0 H Lymphocytes % 3.3 L Monocytes % 4.0 Eosinophils % 0.0 Basophils % 0.1 Nucleated Red Blood Cells % 0.0 Neutrophils # 14.7 H Lymphocytes # 0.5 L Monocytes # 0.6 Eosinophils # 0.0 Basophils # 0.0 Nucleated Red Blood Cells # 0.0 Sodium Level 140 Potassium Level 3.9 Chloride Level 106 Carbon Dioxide Level 29 Anion Gap 9 Blood Urea Nitrogen 19 Creatinine 0.72 Glucose Level 143 Calcium Level 8.4 Phosphorus Level 3.5 Magnesium Level 1.5 L Medications Medications Current Medications Lorazepam (Ativan) 2 mg Q10MIN PRN IV seizure Last administered on 09/06/17 09 :11; Admin Dose 2 MG; Start 09/05/17 at 16:00 Ondansetron HCl (Zofran Inj) 4 mg Q6H PRN IV NAUSEA AND/OR VOMITING; Start 09/05/17 at 16:30 Acetaminophen (Tylenol Tab) 650 mg Q6H PRN PO PAIN LEVEL 1-3 OR FEVER Last administered on 09/15/17 14:05; Admin Dose 650 MG; Start 09/05/17 at 16:30 Morphine Sulfate (morphine) 2 mg Q4H PRN IV PAIN LEVEL 7-10; Start 09/05/17 at 16:30 Bisacodyl (Dulcolax) 5 mg DAILY PRN PO CONSTIPATION; Start 09/05/17 at 16:30 Lorazepam (Ativan) 1 mg Q6H PRN IV agitation/anxiety Last administered on 09/08 09:30; Admin Dose 1 MG; Start 09/05/17 at 17:00 Nicotine 1 patch 1 patch Q24H TRANSDERM Last administered on 09/15/17 17:17; Admin Dose 1 PATCH; Start 09/05/17 at 17:00 Multivitamins/ Thiamine HCl/ Sodium Chloride (Mvi Adult/ Vitamin B1/NS) 1,011 ml @ 125 mls/hr DAILY@09 IVPB Last administered on 09/16/17 08:20; Admin Dose 125 MLS/HR; Start 09/07/17 at 16:30 Folic Acid (Folic Acid) 1 mg DAILY PO Last administered on 09/16/17 08:20; Admin Dose 1 MG; Start 09/07/17 at 16:30 Methylprednisolone Sodium Succinate (Solu-Medrol) 40 mg Q8 IV Last administered on 09/16/17 06:12; Admin Dose 40 MG; Start 09/08/17 at 14:00 Magnesium Oxide (Mag-Ox 400) 400 mg BID PO Last administered on 09/16/17 08: 20; Admin Dose 400 MG; Start 09/09/17 at 12:00 Famotidine (Pepcid) 20 mg BID PO Last administered on 09/16/17 08:20; Admin Dose 20 MG; Start 09/09/17 at 21:00 Hydralazine HCl (Apresoline) 10 mg Q4H PRN IV ELEVATED BLOOD PRESSURE Last administered on 09/12/17 08:53; Admin Dose 10 MG; Start 09/10/17 at 04:55 Lisinopril (Zestril) 10 mg DAILY PO Last administered on 09/16/17 08:20; Admin Dose 10 MG; Start 09/12/17 at 09:00 Ferrous Sulfate 325 mg 325 mg DAILY PO Last administered on 09/16/17 08:20; Admin Dose 325 MG; Start 09/14/17 at 09:30 Levofloxacin/ Dextrose (Levaquin 750 Mg/ D5W 150 ml (Pmx)) 150 ml @ 100 mls/hr Q24H IVPB ; Start 09/16/17 at 09:00; Status UNV Chlordiazepoxide (Librium) 5 mg BID PO ; Start 09/16/17 at 09:00; Status UNV EWELINA MCCLURE DO Sep 16, 2017 09:02
--- NOTE | 2017-09-16 10:15 | CONS ---
Date/Time of Note Date/Time of Note DATE: 09/16/17 TIME: 10:13 Assessment/Plan Assessment/Plan Additional Assessment/Plan Chest x-ray was reviewed which is showing slight elevation of right hemidiaphragm with significant improvement in right pleural effusion as well as infiltrative changes in the right lower lobe. Assessment and recommendations; 1. Patient admitted with shortness of breath with very large right pleural effusion status post thoracentesis, fluid studies are equivocal in terms of either a transudate or exudate. 2. Possibly parapneumonic effusion. 3. Unlikely to be hepatic hydrothorax because of significant improvement in chest x-ray. 4. History of alcohol abuse. Continue current supportive care. Will obtain CT scan of chest again without contrast. Once a CT imaging is done I will review it and make further recommendations. Consultation Date/Type/Reason Admit Date/Time Sep 05, 2017 at 13:14 Type of Consultation: Pulmonary 24 HR Interval Summary Free Text/Dictation Patient's condition is stable. Denies any shortness of breath, chest pain, abdominal pain, nausea or vomiting. General exam; middle-aged male, awake and alert, currently in no distress. Exam/Review of Systems Vital Signs Vitals Vital Signs Date Time Temp Pulse Resp B/P Pulse Ox O2 Delivery O2 Flow Rate FiO2 09/16/17 07:45 97.6 91 19 155/83 97 09/16/17 07:21 21 09/13/17 12:28 Room Air Intake and Output 09/15/17 09/15/17 09/16/17 15:00 23:00 07:00 Intake Total 162 ml 2261 ml 840 ml Output Total 500 ml 1075 ml Balance 162 ml 1761 ml -235 ml Exam HEENT exam; supple neck, no JVD. No lymphadenopathy. Midline trachea. No thyromegaly. Patient has a multiple carious teeth. Chest exam; diminished but clear breath sounds. S1-S2 audible, no murmurs. Regular rhythm. Abdomen exam; soft, no ascites. No organomegaly. Nontender. Bowel sounds audible. Extremity exam; no edema. No clubbing. [employer] exam; no focal motor deficit. Results Result Diagram: 09/16/17 0450 09/16/17 0450 Results 24 hrs Laboratory Tests Test 09/16/17 04:50 White Blood Count 16.0 #H Red Blood Count 3.68 L Hemoglobin 8.1 L Hematocrit 26.2 L Mean Corpuscular Volume 71.2 L Mean Corpuscular Hemoglobin 22.0 L Mean Corpuscular Hemoglobin Concent 30.9 L Red Cell Distribution Width 19.4 H Platelet Count 261 Mean Platelet Volume 10.8 H Neutrophils % 92.0 H Lymphocytes % 3.3 L Monocytes % 4.0 Eosinophils % 0.0 Basophils % 0.1 Nucleated Red Blood Cells % 0.0 Neutrophils # 14.7 H Lymphocytes # 0.5 L Monocytes # 0.6 Eosinophils # 0.0 Basophils # 0.0 Nucleated Red Blood Cells # 0.0 Sodium Level 140 Potassium Level 3.9 Chloride Level 106 Carbon Dioxide Level 29 Anion Gap 9 Blood Urea Nitrogen 19 Creatinine 0.72 Glucose Level 143 Calcium Level 8.4 Phosphorus Level 3.5 Magnesium Level 1.5 L Medications Medications Current Medications Lorazepam (Ativan) 2 mg Q10MIN PRN IV seizure Last administered on 09/06/17 09 :11; Admin Dose 2 MG; Start 09/05/17 at 16:00 Ondansetron HCl (Zofran Inj) 4 mg Q6H PRN IV NAUSEA AND/OR VOMITING; Start 09/05/17 at 16:30 Acetaminophen (Tylenol Tab) 650 mg Q6H PRN PO PAIN LEVEL 1-3 OR FEVER Last administered on 09/15/17 14:05; Admin Dose 650 MG; Start 09/05/17 at 16:30 Morphine Sulfate (morphine) 2 mg Q4H PRN IV PAIN LEVEL 7-10; Start 09/05/17 at 16:30 Bisacodyl (Dulcolax) 5 mg DAILY PRN PO CONSTIPATION; Start 09/05/17 at 16:30 Lorazepam (Ativan) 1 mg Q6H PRN IV agitation/anxiety Last administered on 09/08 09:30; Admin Dose 1 MG; Start 09/05/17 at 17:00 Nicotine 1 patch 1 patch Q24H TRANSDERM Last administered on 09/15/17 17:17; Admin Dose 1 PATCH; Start 09/05/17 at 17:00 Multivitamins/ Thiamine HCl/ Sodium Chloride (Mvi Adult/ Vitamin B1/NS) 1,011 ml @ 125 mls/hr DAILY@09 IVPB Last administered on 09/16/17 08:20; Admin Dose 125 MLS/HR; Start 09/07/17 at 16:30 Folic Acid (Folic Acid) 1 mg DAILY PO Last administered on 09/16/17 08:20; Admin Dose 1 MG; Start 09/07/17 at 16:30 Methylprednisolone Sodium Succinate (Solu-Medrol) 40 mg Q8 IV Last administered on 09/16/17 06:12; Admin Dose 40 MG; Start 09/08/17 at 14:00 Magnesium Oxide (Mag-Ox 400) 400 mg BID PO Last administered on 09/16/17 08: 20; Admin Dose 400 MG; Start 09/09/17 at 12:00 Famotidine (Pepcid) 20 mg BID PO Last administered on 09/16/17 08:20; Admin Dose 20 MG; Start 09/09/17 at 21:00 Hydralazine HCl (Apresoline) 10 mg Q4H PRN IV ELEVATED BLOOD PRESSURE Last administered on 09/12/17 08:53; Admin Dose 10 MG; Start 09/10/17 at 04:55 Lisinopril (Zestril) 10 mg DAILY PO Last administered on 09/16/17 08:20; Admin Dose 10 MG; Start 09/12/17 at 09:00 Ferrous Sulfate 325 mg 325 mg DAILY PO Last administered on 09/16/17 08:20; Admin Dose 325 MG; Start 09/14/17 at 09:30 Levofloxacin/ Dextrose (Levaquin 750 Mg/ D5W 150 ml (Pmx)) 150 ml @ 100 mls/hr Q24H IVPB ; Start 09/16/17 at 10:00 Chlordiazepoxide 5 mg 5 mg BID PO ; Start 09/16/17 at 09:00 Magnesium Sulfate/ Dextrose (Magnesium Sulfate/D5W) 112 ml @ 18.667 mls/ hr ONCE ONCE IVPB ; Start 09/16/17 at 11:00; Stop 09/16/17 at 16:59 KIRILL PEREZ Sep 16, 2017 10:15
[2017-09-16] MEDS: LEVOFLOXACIN 750MG/D5W (PMX) 150 ML IVPB SCH (10:19)
[2017-09-16] MEDS ORDERED: MAGNESIUM SULFATE 6 GM in DEXTROSE 5% 100 ML IVPB ONE (11:00)
--- NOTE | 2017-09-16 11:48 | RADRPT ---
PROCEDURE: XR Chest. CLINICAL INDICATION: Shortness of breath. Pleural effusion. TECHNIQUE: Single portable view of the chest was obtained. COMPARISON: 09/16/2017 and 09/15/2017 FINDINGS: Cardiac/vascular structures: Stable cardiomediastinal silhouette. Aortic calcifications. Pulmonary: Diffuse right lung air space opacities.. Large right pleural effusion. No significant le ft pleural effusion. No evidence of pneumothorax. Osseous structures: Normal Soft tissues: Normal IMPRESSION: 1. Large right pleural effusion. 2. Diffuse right lung air space opacities may represent atelectasis or pneumonia. RPTAT:AAJJ Physician Chris Date Time Electronically viewed and signed by Angi Mukherjee Physician on 09/16/2017 11:48 /
--- NOTE | 2017-09-16 12:19 | PN ---
Date/Time of Note Date/Time of Note DATE: 09/16/17 TIME: 12:17 Assessment/Plan VTE Prophylaxis VTE Prophylaxis Intervention: SCD's Lines/Catheters [facility] Mid Line Urinary Cath still in place: No Assessment/Plan Chief Complaint/Hosp Course Patient is a 51-year-old homeless alcoholic who presents with right pleural effusion, pneumonia, and alcohol withdrawal induced seizure #. Delirium tremens- resolving - On Librium taper - Ativan PRN for agitation #. bacteremia, gram neg - continue on IV antibiotics for 10-14 days. Currently on day 12 - remains afebrile -wbc has mild elevation, will watch #. acute respiratory failure, 2/2 PNA/pleural effusion- resolved - Pulmonology on board and recommendations appreciated - s/p 2 L drained on pleural effusion - Respiratory status stable. Saturating well #. Bilateral pneumonia, likely aspiration - Continue antibiotics #. Severe hyponatremia- resolved - Nephrology on board and recommendations appreciated #. Large right pleural effusion -resolved #. Alcoholism - Banana bag - Librium taper #. Hypokalemia - replete as needed #. Hypomagnesia - Nephrology on board assisting with electrolyte abnormalities #. Disposition - Rehab consult placed Problems: Subjective 24 Hr Interval Summary Free Text/Dictation no acute issues, no sob Exam/Review of Systems Vital Signs Vitals Vital Signs Date Time Temp Pulse Resp B/P Pulse Ox O2 Delivery O2 Flow Rate FiO2 09/16/17 07:45 97.6 91 19 155/83 97 09/16/17 07:21 21 09/13/17 12:28 Room Air Intake and Output 09/15/17 09/15/17 09/16/17 15:00 23:00 07:00 Intake Total 162 ml 2261 ml 840 ml Output Total 500 ml 1075 ml Balance 162 ml 1761 ml -235 ml Exam General: Patient resting comfortably, in no acute distress. oriented to self and place Head: Normocephalic atraumatic Eyes: EOMI, pupils reactive to light Neck: Supple, nontender, midline Respiratory: diminished breath sounds, no crackles or wheezing Cardiovascular: regular rate and rhythm, no obvious murmurs Gastrointestinal: non-tender to palpation, bowel sounds heard. Neurological: Moves all extremities spontaneously Skin: No new skin lesions Results Result Diagram: 09/16/17 0450 09/16/17 0450 Results 24 hrs Laboratory Tests Test 09/16/17 04:50 White Blood Count 16.0 #H Red Blood Count 3.68 L Hemoglobin 8.1 L Hematocrit 26.2 L Mean Corpuscular Volume 71.2 L Mean Corpuscular Hemoglobin 22.0 L Mean Corpuscular Hemoglobin Concent 30.9 L Red Cell Distribution Width 19.4 H Platelet Count 261 Mean Platelet Volume 10.8 H Neutrophils % 92.0 H Lymphocytes % 3.3 L Monocytes % 4.0 Eosinophils % 0.0 Basophils % 0.1 Nucleated Red Blood Cells % 0.0 Neutrophils # 14.7 H Lymphocytes # 0.5 L Monocytes # 0.6 Eosinophils # 0.0 Basophils # 0.0 Nucleated Red Blood Cells # 0.0 Sodium Level 140 Potassium Level 3.9 Chloride Level 106 Carbon Dioxide Level 29 Anion Gap 9 Blood Urea Nitrogen 19 Creatinine 0.72 Glucose Level 143 Calcium Level 8.4 Phosphorus Level 3.5 Magnesium Level 1.5 L Medications Medications Current Medications Lorazepam (Ativan) 2 mg Q10MIN PRN IV seizure Last administered on 09/06/17 09 :11; Admin Dose 2 MG; Start 09/05/17 at 16:00 Ondansetron HCl (Zofran Inj) 4 mg Q6H PRN IV NAUSEA AND/OR VOMITING; Start 09/05/17 at 16:30 Acetaminophen (Tylenol Tab) 650 mg Q6H PRN PO PAIN LEVEL 1-3 OR FEVER Last administered on 09/15/17 14:05; Admin Dose 650 MG; Start 09/05/17 at 16:30 Morphine Sulfate (morphine) 2 mg Q4H PRN IV PAIN LEVEL 7-10; Start 09/05/17 at 16:30 Bisacodyl (Dulcolax) 5 mg DAILY PRN PO CONSTIPATION; Start 09/05/17 at 16:30 Lorazepam (Ativan) 1 mg Q6H PRN IV agitation/anxiety Last administered on 09/08 09:30; Admin Dose 1 MG; Start 09/05/17 at 17:00 Nicotine 1 patch 1 patch Q24H TRANSDERM Last administered on 09/15/17 17:17; Admin Dose 1 PATCH; Start 09/05/17 at 17:00 Multivitamins/ Thiamine HCl/ Sodium Chloride (Mvi Adult/ Vitamin B1/NS) 1,011 ml @ 125 mls/hr DAILY@09 IVPB Last administered on 09/16/17 08:20; Admin Dose 125 MLS/HR; Start 09/07/17 at 16:30 Folic Acid (Folic Acid) 1 mg DAILY PO Last administered on 09/16/17 08:20; Admin Dose 1 MG; Start 09/07/17 at 16:30 Methylprednisolone Sodium Succinate (Solu-Medrol) 40 mg Q8 IV Last administered on 09/16/17 06:12; Admin Dose 40 MG; Start 09/08/17 at 14:00 Magnesium Oxide (Mag-Ox 400) 400 mg BID PO Last administered on 09/16/17 08: 20; Admin Dose 400 MG; Start 09/09/17 at 12:00 Famotidine (Pepcid) 20 mg BID PO Last administered on 09/16/17 08:20; Admin Dose 20 MG; Start 09/09/17 at 21:00 Hydralazine HCl (Apresoline) 10 mg Q4H PRN IV ELEVATED BLOOD PRESSURE Last administered on 09/12/17 08:53; Admin Dose 10 MG; Start 09/10/17 at 04:55 Lisinopril (Zestril) 10 mg DAILY PO Last administered on 09/16/17 08:20; Admin Dose 10 MG; Start 09/12/17 at 09:00 Ferrous Sulfate 325 mg 325 mg DAILY PO Last administered on 09/16/17 08:20; Admin Dose 325 MG; Start 09/14/17 at 09:30 Levofloxacin/ Dextrose (Levaquin 750 Mg/ D5W 150 ml (Pmx)) 150 ml @ 100 mls/hr Q24H IVPB Last administered on 09/16/17 10:19; Admin Dose 100 MLS/HR; Start 09/16/17 at 10:00 Chlordiazepoxide 5 mg 5 mg BID PO ; Start 09/16/17 at 09:00 Magnesium Sulfate/ Dextrose (Magnesium Sulfate/D5W) 112 ml @ 18.667 mls/ hr ONCE ONCE IVPB Last administered on 09/16/17 11:06; Admin Dose 18.667 MLS/HR ; Start 09/16/17 at 11:00; Stop 09/16/17 at 16:59 CATHERINE DUMONT Sep 16, 2017 12:19
--- NOTE | 2017-09-16 12:20 | RADRPT ---
PROCEDURE: CT Chest without contrast. CLINICAL INDICATION: Right pleural effusion. Alcohol withdrawal. Dyspnea. Liver cirrhosis. TECHNIQUE: CT scan of the chest without contrast was performed on a multidetector high-resolution CT scanner. Coronal and sagittal reformatted images were obtained from the axial source images. DIC OM images are available. CTDI 7.86 mGy and DLP 300.51 mGy-cm. One or more of the following dose reduction techniques were used: - Automated exposure control. - Adjustment of the mA and/or kV according to patient size. - Use of iterative reconstruction technique. COMPARISON: CHEST 09/15/2017; CHEST 09/09/2017 FINDINGS: Lungs: Mild scattered compressive atelectasis within the lungs, worse on the right side. Airways: Normal. Pleura: Very large right-sided pleural effusion with associated adjacent atelectasis. Mediastinum: Normal. Cardiovascular: Atherosclerotic vascular calcifications. Lymph nodes: No adenopathy. Musculoskeletal: Normal. Upper abdomen: Significant liver cirrhosis with portal hypertension. Mild ascites. IMPRESSION: 1. Very large right pleural effusion with adjacent compressive atelectasis. 2. Significant liver cirrhosis with portal hypertension and mild ascites. RPTAT: HMJB .Francisco Javier Sommers MD, MD Date Time Electronically viewed and signed by .Francisco Javier Sommers MD, MD on 09/16/2017 12:20 .B/
[2017-09-16 15:27] VITALS: BP 123/69; RESP 19
[2017-09-16] MEDS: NICOTINE (21 MG/24 HR) PATCH TRANSDERM SCH (16:54)
[2017-09-16 21:00] VITALS: BP 126/65; RESP 20
[2017-09-16 21:16] LABS: ADD UMIC YES; UR AMORPHOUS CRYSTAL FEW /HPF (NONE SEEN); UR ASCORBIC ACID NEGATIVE (NEGATIVE); UR BILIRUBIN (Dip) NEGATIVE (NEGATIVE); UR BLOOD (Dip) 1+ mg/dL (NEGATIVE); UR CLARITY SLIGHTLY CLOUDY (CLEAR); UR COLOR YELLOW (YELLOW); UR GLUCOSE (Dip) NEGATIVE (NEGATIVE); UR KETONES (Dip) NEGATIVE (NEGATIVE); UR LEUKOCYTE ESTERASE (Dip) NEGATIVE Leu/ul (NEGATIVE); UR NITRITE (Dip) NEGATIVE (NEGATIVE); UR RBC 24 /HPF (0-5); UR SPECIFIC GRAVITY (Dip) 1.013 (1.003-1.030); UR TOTAL PROTEIN (Dip) NEGATIVE (NEGATIVE); UR UROBILINOGEN (Dip) NEGATIVE (NEGATIVE)
[2017-09-17 02:03] VITALS: BP 113/74; RESP 18
[2017-09-17 05:55] LABS: BASOPHILS % 0.1 % (0.0-2.0); EOSINOPHILS # 0.1 10^3/ul (0.0-0.5); EOSINOPHILS % 1.1 % (0.0-7.0); HEMATOCRIT 28.8 % (42.0-52.0); HEMOGLOBIN 8.7 g/dl (14.0-18.0); LYMPHOCYTES # 1.8 10^3/ul (0.8-2.9); MEAN CORPUSCULAR HEMOGLOBIN 21.8 pg (29.0-33.0); MEAN CORPUSCULAR HGB CONC 30.2 g/dl (32.0-37.0); MONOCYTE # 1.2 10^3/ul (0.3-0.9); MONOCYTES % 9.4 % (0.0-11.0); NEUTROPHIL # 9.8 10^3/ul (1.6-7.5); NEUTROPHILS % 74.5 % (39.0-77.0); PLATELET COUNT 279 10^3/UL (140-415); RED CELL DISTRIBUTION WIDTH 19.7 % (11.5-14.5); WHITE BLOOD COUNT 13.1 10^3/ul (4.8-10.8)
[2017-09-17 06:53] LABS: CALCIUM 8.4 mg/dl (8.4-10.2); CREATININE 0.82 mg/dl (0.61-1.24); MAGNESIUM 1.6 mg/dl (1.7-2.5); PHOSPHORUS 3.1 mg/dl (2.5-4.9); POTASSIUM 3.5 mmol/L (3.5-5.1)
[2017-09-17 06:54] LABS: ALBUMIN 2.8 g/dl (3.3-4.9); BILIRUBIN,INDIRECT 0.2 mg/dl (0-1.1); BILIRUBIN,TOTAL 0.2 mg/dl (0.2-1.3); TOTAL PROTEIN 6.7 g/dl (6.1-8.1)
[2017-09-17] MEDS: ALBUTEROL/IPRATROPIUM (NEB) 3 ML AMP HHN SCH ×3 (07:20→20:38)
[2017-09-17 08:04] VITALS: BP 108/71; RESP 20
[2017-09-17] MEDS: MAGNESIUM OXIDE 400 MG TAB PO SCH ×2 (08:05→20:25)
[2017-09-17] MEDS: LISINOPRIL 10 MG TAB PO SCH (08:05)
[2017-09-17] MEDS: CHLORDIAZEPOXIDE 5 MG CAP PO SCH (08:06)
[2017-09-17] MEDS: FERROUS SULFATE (EC) 325 MG TAB PO SCH (08:06)
[2017-09-17] MEDS: FOLIC ACID 1 MG TAB PO SCH (08:06)
[2017-09-17] MEDS: FAMOTIDINE 20 MG TAB PO SCH ×2 (08:06→20:25)
[2017-09-17] MEDS: MULTIVITAMINS 10 ML, THIAMINE 100 MG in SOD CHLORIDE 0.9% 1,000 ML IVPB SCH (08:07)
[2017-09-17] MEDS ORDERED: predniSONE 20 MG TAB PO SCH (09:00)
[2017-09-17] MEDS: LEVOFLOXACIN 750MG/D5W (PMX) 150 ML IVPB SCH (10:03)
[2017-09-17] MEDS ORDERED: MAGNESIUM SULFATE 2 GM/50 ML 50 ML IVPB ONE (11:00)
--- NOTE | 2017-09-17 12:31 | PN ---
DATE: 09/17/2017 SUBJECTIVE: The patient is stable. No events overnight. OBJECTIVE: VITAL SIGNS: Blood pressure is 108/71, temperature 98.8, pulse 101, respirations 20. HEENT: Head is normocephalic. NECK: Supple. HEART: Regular rate. LUNGS: Show diminished breath sounds at the base. ABDOMEN: Soft, nontender to palpation. No rebound or guarding. EXTREMITIES: Negative for clubbing, cyanosis, no edema. DERMATOLOGIC: No rashes. MUSCULOSKELETAL: No joint effusions. NEUROLOGIC: No change in exam. MEDICATIONS: The patient's medications have been reviewed. LABORATORY DATA: Shows BMP within normal limits. Magnesium level 1.5. ASSESSMENT AND PLAN: 1. Hypomagnesemia, etiology secondary to renal wasting due to chronic alcohol abuse. Continue to r eplete with IV and oral magnesium supplementation. We will give 1 course of magnesium sulfate 2 gra ms IV x1. We will continue to monitor. 2. Hypokalemia, improved. 3. Hyponatremia, resolved. 4. Acute respiratory failure secondary to pneumonia. Continue supplemental oxygen. 5. Sepsis secondary to pneumonia. Continue current antibiotic course. 6. Alcohol abuse with withdrawal and delirium tremens. Continue Librium. Continue Ativan. 7. Status post hyponatremia. Dictated By: SLIME CHANG/VICKY Conf#: [id number] DID#: [id number] CC: TANK MALHOTRA;*EndCC*
[2017-09-17 13:51] VITALS: BP 106/66; RESP 18
[2017-09-17] MEDS ORDERED: LORAZEPAM 1 MG TAB PO PRN (15:00)
--- NOTE | 2017-09-17 15:00 | PN ---
Date/Time of Note Date/Time of Note DATE: 09/17/17 TIME: 14:58 Assessment/Plan VTE Prophylaxis VTE Prophylaxis Intervention: SCD's Lines/Catheters IV [facility] Type (from [facility] Mid Line Urinary Cath still in place: No Assessment/Plan Chief Complaint/Hosp Course Patient is a 51-year-old homeless alcoholic who presents with right pleural effusion, pneumonia, and alcohol withdrawal induced seizure. #R pleural effusion -recurrent -?hepatic hydrothorax -tap today/tomorrow #elevated AST/ALT -?cirrhosis -us gallbladder ordered #. Delirium tremens- resolved -librium tapered off - Ativan PRN for agitation/anxiety #. bacteremia, gram neg - continue on IV antibiotics for 10-14 days. stop in 2 days - remains afebrile -wbc has mild elevation, will watch although likely 2/2 steroids #. acute respiratory failure, 2/2 PNA/pleural effusion- resolved - Pulmonology on board and recommendations appreciated - s/p 2 L drained on pleural effusion - Respiratory status stable. Saturating well #. Bilateral pneumonia, likely aspiration - Continue antibiotics #. Severe hyponatremia- resolved - Nephrology on board and recommendations appreciated #. Alcoholism - Banana bag - Librium tapered #. Hypokalemia - replete as needed #. Hypomagnesia - Nephrology on board assisting with electrolyte abnormalities #. Disposition - Rehab consult placed -patient continues to be weak during PT Problems: Subjective 24 Hr Interval Summary Free Text/Dictation no sob, sitting in chair with no acute complaints Exam/Review of Systems Vital Signs Vitals Vital Signs Date Time Temp Pulse Resp B/P Pulse Ox O2 Delivery O2 Flow Rate FiO2 09/17/17 13:59 82 20 97 21 09/17/17 13:51 98.3 106/66 09/13/17 12:28 Room Air Intake and Output 09/16/17 09/16/17 09/17/17 15:00 23:00 07:00 Intake Total 2393 ml Output Total 450 ml Balance 1943 ml Exam General: Patient resting comfortably, in no acute distress. oriented to self and place Head: Normocephalic atraumatic Eyes: EOMI, pupils reactive to light Neck: Supple, nontender, midline Respiratory: diminished breath sounds, no crackles or wheezing Cardiovascular: regular rate and rhythm, no obvious murmurs Gastrointestinal: non-tender to palpation, bowel sounds heard. Neurological: Moves all extremities spontaneously Skin: No new skin lesions Results Result Diagram: 09/17/17 0532 09/17/17 0532 Results 24 hrs Laboratory Tests Test 09/16/17 20:30 09/17/17 05:32 Urine Color YELLOW Urine Clarity SLIGHTLY CLOUDY A Urine pH 7.0 Urine Specific [place] 1.013 Urine Ketones NEGATIVE Urine Nitrite NEGATIVE Urine Bilirubin NEGATIVE Urine Urobilinogen NEGATIVE Urine Leukocyte Esterase NEGATIVE Urine Microscopic RBC 24 H Urine Microscopic WBC 2 Urine Amorphous Crystals FEW A Urine Hemoglobin 1+ H Urine Glucose NEGATIVE Urine Total Protein NEGATIVE White Blood Count 13.1 H Red Blood Count 4.00 L Hemoglobin 8.7 L Hematocrit 28.8 L Mean Corpuscular Volume 72.0 L Mean Corpuscular Hemoglobin 21.8 L Mean Corpuscular Hemoglobin Concent 30.2 L Red Cell Distribution Width 19.7 H Platelet Count 279 Mean Platelet Volume 10.0 Neutrophils % 74.5 Lymphocytes % 14.0 L Monocytes % 9.4 Eosinophils % 1.1 Basophils % 0.1 Nucleated Red Blood Cells % 0.0 Neutrophils # 9.8 H Lymphocytes # 1.8 Monocytes # 1.2 H Eosinophils # 0.1 Basophils # 0.0 Nucleated Red Blood Cells # 0.0 Sodium Level 141 Potassium Level 3.5 Chloride Level 106 Carbon Dioxide Level 28 Anion Gap 11 Blood Urea Nitrogen 21 H Creatinine 0.82 Glucose Level 78 # Calcium Level 8.4 Phosphorus Level 3.1 Magnesium Level 1.6 L Total Bilirubin 0.2 Direct Bilirubin 0.00 Indirect Bilirubin 0.2 Aspartate Amino Transf (AST/SGOT) 213 H Alanine Aminotransferase (ALT/SGPT) 295 H Alkaline Phosphatase 154 H Total Protein 6.7 Albumin 2.8 L Medications Medications Current Medications Lorazepam (Ativan) 2 mg Q10MIN PRN IV seizure Last administered on 09/06/17 09 :11; Admin Dose 2 MG; Start 09/05/17 at 16:00 Ondansetron HCl (Zofran Inj) 4 mg Q6H PRN IV NAUSEA AND/OR VOMITING; Start 09/05/17 at 16:30 Acetaminophen (Tylenol Tab) 650 mg Q6H PRN PO PAIN LEVEL 1-3 OR FEVER Last administered on 09/15/17 14:05; Admin Dose 650 MG; Start 09/05/17 at 16:30 Morphine Sulfate (morphine) 2 mg Q4H PRN IV PAIN LEVEL 7-10; Start 09/05/17 at 16:30 Bisacodyl (Dulcolax) 5 mg DAILY PRN PO CONSTIPATION; Start 09/05/17 at 16:30 Lorazepam (Ativan) 1 mg Q6H PRN IV agitation/anxiety Last administered on 09/08 09:30; Admin Dose 1 MG; Start 09/05/17 at 17:00 Nicotine 1 patch 1 patch Q24H TRANSDERM Last administered on 09/16/17 16:54; Admin Dose 1 PATCH; Start 09/05/17 at 17:00 Multivitamins/ Thiamine HCl/ Sodium Chloride (Mvi Adult/ Vitamin B1/NS) 1,011 ml @ 125 mls/hr DAILY@09 IVPB Last administered on 09/17/17 08:07; Admin Dose 125 MLS/HR; Start 09/07/17 at 16:30 Folic Acid (Folic Acid) 1 mg DAILY PO Last administered on 09/17/17 08:06; Admin Dose 1 MG; Start 09/07/17 at 16:30 Magnesium Oxide (Mag-Ox 400) 400 mg BID PO Last administered on 09/17/17 08: 05; Admin Dose 400 MG; Start 09/09/17 at 12:00 Famotidine (Pepcid) 20 mg BID PO Last administered on 09/17/17 08:06; Admin Dose 20 MG; Start 09/09/17 at 21:00 Hydralazine HCl (Apresoline) 10 mg Q4H PRN IV ELEVATED BLOOD PRESSURE Last administered on 09/12/17 08:53; Admin Dose 10 MG; Start 09/10/17 at 04:55 Lisinopril (Zestril) 10 mg DAILY PO Last administered on 09/17/17 08:05; Admin Dose 10 MG; Start 09/12/17 at 09:00 Ferrous Sulfate 325 mg 325 mg DAILY PO Last administered on 09/17/17 08:06; Admin Dose 325 MG; Start 09/14/17 at 09:30 Levofloxacin/ Dextrose (Levaquin 750 Mg/ D5W 150 ml (Pmx)) 150 ml @ 100 mls/hr Q24H IVPB Last administered on 09/17/17 10:03; Admin Dose 100 MLS/HR; Start 09/16/17 at 10:00 Chlordiazepoxide (Librium) 5 mg BID PO Last administered on 09/17/17t 08:06; Admin Dose 5 MG; Start 09/16/17 at 09:00 Prednisone (Prednisone) 10 mg DAILY PO ; Start 09/18/17 at 09:00 CATHERINE DUMONT Sep 17, 2017 15:00
[2017-09-17 15:40] LABS: INR 1.36; PROTIME 16.8 Sec (12.2-14.2); PT RATIO 1.3
--- NOTE | 2017-09-17 15:52 | CONS ---
Date/Time of Note Date/Time of Note DATE: 09/17/17 TIME: 15:49 Consult Date/Type/Reason Admit Date/Time Sep 05, 2017 at 13:14 Type of Consultation: Pulmonary Subjective Increased sob. Objective Vital Signs Date Time Temp Pulse Resp B/P Pulse Ox O2 Delivery O2 Flow Rate FiO2 09/17/17 13:59 82 20 97 21 09/17/17 13:51 98.3 106/66 09/13/17 12:28 Room Air Intake and Output 09/16/17 09/16/17 09/17/17 15:00 23:00 07:00 Intake Total 2393 ml Output Total 450 ml Balance 1943 ml Exam PHYSICAL EXAMINATION: GENERAL: WNWD male. VITAL SIGNS: NECK: Supple. No JVD or lymphadenopathy. CARDIAC: S1, S2, no added sounds or murmurs. CHEST: Diminished air entry R>L ABDOMEN: Soft, nontender. No guarding or rebound. EXTREMITIES: No cyanosis, clubbing or edema. NEUROLOGIC: Generalized weakness. Results/Medications Result Diagram: 09/17/17 0532 09/17/17 0532 Results 24 hrs Laboratory Tests Test 09/16/17 20:30 09/17/17 05:32 09/17/17 14:57 Urine Color YELLOW Urine Clarity SLIGHTLY CLOUDY A Urine pH 7.0 Urine Specific [place] 1.013 Urine Ketones NEGATIVE Urine Nitrite NEGATIVE Urine Bilirubin NEGATIVE Urine Urobilinogen NEGATIVE Urine Leukocyte Esterase NEGATIVE Urine Microscopic RBC 24 H Urine Microscopic WBC 2 Urine Amorphous Crystals FEW A Urine Hemoglobin 1+ H Urine Glucose NEGATIVE Urine Total Protein NEGATIVE White Blood Count 13.1 H Red Blood Count 4.00 L Hemoglobin 8.7 L Hematocrit 28.8 L Mean Corpuscular Volume 72.0 L Mean Corpuscular Hemoglobin 21.8 L Mean Corpuscular Hemoglobin Concent 30.2 L Red Cell Distribution Width 19.7 H Platelet Count 279 Mean Platelet Volume 10.0 Neutrophils % 74.5 Lymphocytes % 14.0 L Monocytes % 9.4 Eosinophils % 1.1 Basophils % 0.1 Nucleated Red Blood Cells % 0.0 Neutrophils # 9.8 H Lymphocytes # 1.8 Monocytes # 1.2 H Eosinophils # 0.1 Basophils # 0.0 Nucleated Red Blood Cells # 0.0 Sodium Level 141 Potassium Level 3.5 Chloride Level 106 Carbon Dioxide Level 28 Anion Gap 11 Blood Urea Nitrogen 21 H Creatinine 0.82 Glucose Level 78 # Calcium Level 8.4 Phosphorus Level 3.1 Magnesium Level 1.6 L Total Bilirubin 0.2 Direct Bilirubin 0.00 Indirect Bilirubin 0.2 Aspartate Amino Transf (AST/SGOT) 213 H Alanine Aminotransferase (ALT/SGPT) 295 H Alkaline Phosphatase 154 H Total Protein 6.7 Albumin 2.8 L Prothrombin Time 16.8 H Prothrombin Time Ratio 1.3 INR International Normalized Ratio 1.36 Medications Current Medications Lorazepam (Ativan) 2 mg Q10MIN PRN IV seizure Last administered on 09/06/17 09 :11; Admin Dose 2 MG; Start 09/05/17 at 16:00 Ondansetron HCl (Zofran Inj) 4 mg Q6H PRN IV NAUSEA AND/OR VOMITING; Start 09/05/17 at 16:30 Acetaminophen (Tylenol Tab) 650 mg Q6H PRN PO PAIN LEVEL 1-3 OR FEVER Last administered on 09/15/17 14:05; Admin Dose 650 MG; Start 09/05/17 at 16:30 Morphine Sulfate (morphine) 2 mg Q4H PRN IV PAIN LEVEL 7-10; Start 09/05/17 at 16:30 Bisacodyl (Dulcolax) 5 mg DAILY PRN PO CONSTIPATION; Start 09/05/17 at 16:30 Lorazepam (Ativan) 1 mg Q6H PRN IV agitation/anxiety Last administered on 09/08 09:30; Admin Dose 1 MG; Start 09/05/17 at 17:00 Nicotine 1 patch 1 patch Q24H TRANSDERM Last administered on 09/16/17 16:54; Admin Dose 1 PATCH; Start 09/05/17 at 17:00 Multivitamins/ Thiamine HCl/ Sodium Chloride (Mvi Adult/ Vitamin B1/NS) 1,011 ml @ 125 mls/hr DAILY@09 IVPB Last administered on 09/17/17 08:07; Admin Dose 125 MLS/HR; Start 09/07/17 at 16:30 Folic Acid (Folic Acid) 1 mg DAILY PO Last administered on 09/17/17 08:06; Admin Dose 1 MG; Start 09/07/17 at 16:30 Magnesium Oxide (Mag-Ox 400) 400 mg BID PO Last administered on 09/17/17 08: 05; Admin Dose 400 MG; Start 09/09/17 at 12:00 Famotidine (Pepcid) 20 mg BID PO Last administered on 09/17/17 08:06; Admin Dose 20 MG; Start 09/09/17 at 21:00 Hydralazine HCl (Apresoline) 10 mg Q4H PRN IV ELEVATED BLOOD PRESSURE Last administered on 09/12/17 08:53; Admin Dose 10 MG; Start 09/10/17 at 04:55 Lisinopril (Zestril) 10 mg DAILY PO Last administered on 09/17/17 08:05; Admin Dose 10 MG; Start 09/12/17 at 09:00 Ferrous Sulfate (Ferrous Sulfate (Ec)) 325 mg DAILY PO Last administered on 08:06; Admin Dose 325 MG; Start 09/14/17 at 09:30 Prednisone (Prednisone) 10 mg DAILY PO ; Start 09/18/17 at 09:00 Levofloxacin (Levaquin) 750 mg DAILY@06 PO ; Start 09/18/17 at 06:00 Lorazepam (Ativan) 1 mg Q6H PRN PO ANXIETY; Start 09/17/17 at 15:00 Assessment/Plan Chief Complaint/Hosp Course Assessment 1. 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 2. EtOH withdrawal 3. Electrolyte abnormalities Plan 1. Repeat thoracentesis. Pleural fluid studies 2. Aspiration precautions. 3. Referral to Liver Unit 4. Encourage out of bed Problems: WOOD TUBBS MD, [facility] Sep 17, 2017 15:52
[2017-09-17] MEDS ORDERED: LIDOCAINE 1% (MPF) 5 ML VIAL ONE (16:42)
--- NOTE | 2017-09-17 17:09 | RADRPT ---
PROCEDURE: US guided right thoracentesis. CLINICAL INDICATION: Shortness of breath. Right pleural effusion. TECHNIQUE: Prior to the procedure, informed consent was obtained. The risks, benefits, and alternatives were e xplained to the patient or the patient's family, including but not limited to bleeding, infection, p ain, visceral or vascular damage, shock, pneumothorax, chest tube placement, air embolism, and . The patient or the patient's family understood the risks and the alternatives and wished to proce ed with the study. Informed written consent was obtained. A procedural pause was performed. The patient's name, date of , and procedure to be performed were verified. Ultrasound of the right hemithorax was performed in the axial and sagittal planes. A right pleural e ffusion is noted. Utilizing ultrasound guidance, optimal location for entry to the pleural cavity wa s ascertained. The overlying skin was prepped and draped in the usual sterile fashion. Approximate ly 10 ml of 1% Xylocaine was injected locally for pain control. Using ultrasound guidance, a 5-Fren ch Yueh catheter was introduced into the right pleural space without difficulty. Fluid was aspirated . COMPARISON: None. FINDINGS: Initial ultrasound demonstrates fluid in the right pleural space. Approximately 1.0liters of serous fluid was aspirated and sent to the laboratory. IMPRESSION: 1. Satisfactory ultrasound-guided right thoracentesis. RPTAT: QQ .John Paul Hall MD, Date Time Electronically viewed and signed by .John Paul Hall MD, on 09/17/2017 17:09 .R/
--- NOTE | 2017-09-17 17:11 | RADRPT ---
PROCEDURE: XR Chest. CLINICAL INDICATION: Post right thoracentesis. TECHNIQUE: Single frontal view. COMPARISON: 09/16/2017. FINDINGS: Previously noted large right pleural effusion is no longer present. There is only a very small right pleural effusion. There is a small right pneumothorax measuring approximately 10%. There is improve d aeration of the right lung. The left lung is clear and there is no left pleural effusion. There is no left pneumothorax. The heart size is normal. IMPRESSION: 1. Improved appearance of the right lung and much smaller right pleural effusion. 2. Approximately a 10% right pneumothorax. Follow-up chest x-ray advised. 3. No other change from 09/16/2017 chest radiograph. Call report: A call report of the findings was made to Dr. Mosley on 09/17/2017 at 1705 hours. RPTAT: QQ .John Paul Hall MD, MD Date Time Electronically viewed and signed by .John Paul Hall MD, on 09/17/2017 17:10 .R/
--- NOTE | 2017-09-17 17:49 | RADRPT ---
PROCEDURE: US Abdomen (right upper quadrant). CLINICAL INDICATION: Cirrhosis. TECHNIQUE: Multiple real-time longitudinal and transverse images of the right upper quadrant of th e abdomen were acquired utilizing a curved array transducer. Images were reviewed on a high-resoluti on PACS workstation. COMPARISON: None FINDINGS: The liver is normal in size and normal in echogenicity. There is no focal hepatic lesion. The liver has a nodular surface consistent with cirrhosis. There is normal antegrade flow in the portal vein demonstrated with color Doppler and pulsed Doppler sonog moira. Gallstones are present in the gallbladder. There is gallbladder wall thickening, likely due to ascit es or contracted gallbladder. The bile ducts are normal with the common bile duct measuring 4.4 mm in diameter. The visualized portions of the pancreas are unremarkable with obscuration of the tail of the pancrea s. There is mild ascites. There is a large right pleural effusion. The right kidney measures 11.5 x 5.9 x 5.6 cm. There is normal echogenicity of the right kidney. There is no perinephric fluid collection. There is mild right hydronephrosis with no obstructing le salomon visualized. There is no right renal mass or calculus. IMPRESSION: 1. Cirrhotic liver with nodular surface. 2. Gallstones in the gallbladder. Gallbladder wall thickening likely due to ascites or contracted g allbladder. 3. Mild ascites. 4. Large right pleural effusion. 5. Mild right hydronephrosis. 6. Otherwise unremarkable right upper quadrant abdomen ultrasound. RPTAT: QQ .John Paul Hall MD, Date Time Electronically viewed and signed by .John Paul Hall MD, on 09/17/2017 17:49 .R/
[2017-09-17] MEDS: NICOTINE (21 MG/24 HR) PATCH TRANSDERM SCH (17:51)
[2017-09-17 19:43] LABS: FLD MN% 82.4 %; FLD PMN% 17.6 %; FLD RBC 0 /uL; FLD WBC 74 /cmm
[2017-09-17 20:10] VITALS: BP 122/72; RESP 18
[2017-09-17 20:19] LABS: FLUID AMYLASE < 30 U/L; FLUID GLUCOSE 99 mg/dl; FLUID LD 263 U/L; FLUID TOTAL PROTEIN 3.4 g/dl; FLUID TYPE PLEURAL FLUID
[2017-09-17 20:40] LABS: FLD TYPE PLEURAL
[2017-09-17 20:42] LABS: FLD CLARITY CLEAR; FLD COLOR YELLOW
--- NOTE | 2017-09-17 21:25 | RADRPT ---
PROCEDURE: XR Chest. CLINICAL INDICATION: . Follow up right pneumothorax . Status post right thoracentesis TECHNIQUE: Single frontal chest x-ray. COMPARISON: 04:55 p.m. FINDINGS: There is increased moderate to large right-sided pneumothorax measuring 40%. There is layering pleur al effusion with right lower thorax. . Atelectasis of the right lower lung is seen. The left lung is clear.. The cardiomediastinal silhouette is unremarkable. The osseous structures are intact. IMPRESSION: Large 40% right-sided hydropneumothorax increased since prior exam. Call report: A call report of the findings was made to patient's nurse Kun with instructions to notify Dr. Mosley on 09/17/2017 9:20:39 PM.. RPTAT: RR .Laureano Hewitt MD, Date Time Electronically viewed and signed by .Laureano Hewitt MD, on 09/17/2017 21:24 .L/
[2017-09-18] VITALS (10 sets, daily range): BP systolic 114–158; BP diastolic 73–102; PULSE 84–98; RESP 16–21
[2017-09-18] MEDS: LEVOFLOXACIN 750 MG TABLET PO SCH (05:38)
[2017-09-18 06:05] LABS: EOSINOPHILS # 0.1 10^3/ul (0.0-0.5); EOSINOPHILS % 0.8 % (0.0-7.0); HEMATOCRIT 23.9 % (42.0-52.0); HEMOGLOBIN 7.5 g/dl (14.0-18.0); LYMPHOCYTES # 1.8 10^3/ul (0.8-2.9); LYMPHOCYTES % 17.8 % (15.0-51.0); MEAN CORPUSCULAR HEMOGLOBIN 22.1 pg (29.0-33.0); MEAN CORPUSCULAR HGB CONC 31.4 g/dl (32.0-37.0); MEAN CORPUSCULAR VOLUME 70.5 fl (82.0-101.0); MEAN PLATELET VOLUME 10.3 fl (7.4-10.4); MONOCYTE # 0.9 10^3/ul (0.3-0.9); MONOCYTES % 8.6 % (0.0-11.0); NEUTROPHIL # 7.2 10^3/ul (1.6-7.5); NEUTROPHILS % 71.9 % (39.0-77.0); PLATELET COUNT 221 10^3/UL (140-415); RED BLOOD COUNT 3.39 10^6/ul (4.70-6.10); RED CELL DISTRIBUTION WIDTH 18.9 % (11.5-14.5)
[2017-09-18 06:40] LABS: ALBUMIN 2.5 g/dl (3.3-4.9); BILIRUBIN,INDIRECT 0.3 mg/dl (0-1.1); BILIRUBIN,TOTAL 0.3 mg/dl (0.2-1.3)
[2017-09-18 07:03] LABS: CALCIUM 7.8 mg/dl (8.4-10.2); CREATININE 0.69 mg/dl (0.61-1.24); MAGNESIUM 1.2 mg/dl (1.7-2.5); PHOSPHORUS 3.6 mg/dl (2.5-4.9); POTASSIUM 3.7 mmol/L (3.5-5.1)
[2017-09-18] MEDS ORDERED: MULTIVITAMINS 10 ML, THIAMINE 100 MG in SOD CHLORIDE 0.9% 1,000 ML IVPB SCH (09:00)
[2017-09-18] MEDS: ALBUTEROL/IPRATROPIUM (NEB) 3 ML AMP HHN SCH ×3 (09:07→19:36)
--- NOTE | 2017-09-18 09:34 | RADRPT ---
PROCEDURE: XR Chest AP portable CLINICAL INDICATION: Pneumothorax TECHNIQUE: An AP portable radiograph of the chest was submitted. COMPARISON: 09/17/2017 FINDINGS: Support Hardware: None Cardiovascular: The cardiovascular silhouette appears unremarkable except for persistent leftward sh ift of the mediastinum. Lung [place]: There is partial atelectasis of the right lung. Pleural Spaces: The right pneumothorax has decreased in size with the thickness at the lateral right hemithorax going from 4.1 cm to 2.1 cm. No effusion is identified. Osseous Structures: The osseous structures appear intact. Soft Tissues: The soft tissues appear unremarkable. IMPRESSION: 1. The right pneumothorax has decreased in size from the previous study from 4.1-2.1 cm in lateral thickness. 2. Partial atelectasis of the right lung. 3. The mediastinum remains mildly shifted leftward but the right hemidiaphragm is not depressed. Physician Jennifer Date Time Electronically viewed and signed by Physician Jennifer on 09/18/2017 09:34 /
--- NOTE | 2017-09-18 09:35 | PN ---
DATE: 09/18/2017 SUBJECTIVE: The patient is stable. No events overnight. OBJECTIVE: VITAL SIGNS: Blood pressure is 126/80, pulse 77, respiration 18, temperature 98.2. HEENT: Head is normocephalic. NECK: Supple. HEART: Regular rate. LUNGS: Show diminished breath sounds at the base. ABDOMEN: Soft, nontender to palpation. No rebound or guarding. EXTREMITIES: Negative for clubbing, cyanosis. No edema. DERMATOLOGIC: No rashes. MUSCULOSKELETAL: No joint effusions. NEUROLOGIC: No change in exam. MEDICATIONS: Reviewed. LABORATORY DATA: Showed a magnesium of 1.2, sodium 137, potassium 3.7, BUN 17, creatinine 0.69. ASSESSMENT AND PLAN: 1. Hypomagnesemia, etiology secondary to renal wasting due to chronic alcohol abuse. Continue to r eplete with IV and oral magnesium. We will give one course of magnesium sulfate 3 grams IV x1. 2. Hypokalemia, improved. 3. Hyponatremia, resolved. 4. Acute respiratory failure secondary to pneumonia. The patient is completing antibiotic course. 5. Alcohol abuse withdrawal, delirium tremens. Continue Librium and Ativan. 6. Status post hyponatremia. Dictated By: SLIME CHANG/VICKY Conf#: [id number] DID#: [id number]
[2017-09-18] MEDS: FERROUS SULFATE (EC) 325 MG TAB PO SCH (09:53)
[2017-09-18] MEDS: FAMOTIDINE 20 MG TAB PO SCH ×2 (09:53→21:50)
[2017-09-18] MEDS: MAGNESIUM OXIDE 400 MG TAB PO SCH ×2 (09:53→21:50)
[2017-09-18] MEDS: FOLIC ACID 1 MG TAB PO SCH (09:54)
[2017-09-18] MEDS: LISINOPRIL 10 MG TAB PO SCH (09:54)
[2017-09-18] MEDS: predniSONE 20 MG TAB PO SCH (09:54)
[2017-09-18] MEDS: MULTIVITAMINS 10 ML, THIAMINE 100 MG in SOD CHLORIDE 0.9% 1,000 ML IVPB SCH (09:55)
[2017-09-18] MEDS ORDERED: MAGNESIUM SULFATE 3 GM in DEXTROSE 5% 100 ML IVPB ONE (10:00)
--- NOTE | 2017-09-18 11:28 | CONS ---
Date/Time of Note Date/Time of Note DATE: 09/18/17 TIME: 11:26 Assessment/Plan Assessment/Plan Additional Assessment/Plan Assessment and recommendations; 1. 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 2. Advanced cirrhosis of liver with portal hypertension. 3. Anemia. Continue current treatment. Add Aldactone 25 mg daily. Because of significant improvement in chest x-ray patient does not need any chest tube placement. Prognosis is poor. Consultation Date/Type/Reason Admit Date/Time Sep 05, 2017 at 13:14 Type of Consultation: Pulmonary 24 HR Interval Summary Free Text/Dictation Patient's condition is stable. Remains awake and alert. Has remained hemodynamically stable. General exam; middle-aged male, awake alert, currently in no distress. Laying flat in bed. Exam/Review of Systems Vital Signs Vitals Vital Signs Date Time Temp Pulse Resp B/P Pulse Ox O2 Delivery O2 Flow Rate FiO2 09/18/17 10:43 Nasal Cannula 3.0 09/18/17 09:07 96 20 97 21 09/18/17 08:08 98.2 126/80 Intake and Output 09/17/17 09/17/17 09/18/17 15:00 23:00 07:00 Intake Total 2411 ml 600 ml Output Total 1800 ml 1400 ml Balance 611 ml -800 ml Exam HEENT exam; supple neck, no JVD. No lymphadenopathy. Midline trachea. No thyromegaly. Chest exam; minimally decreased breath sounds right lower lobe. S1-S2 audible, no murmurs. Regular rhythm. Abdomen exam; protuberant. Nontender. No organomegaly. Bowel sounds audible. Extremity exam; no peripheral edema. HIDE INSPECTOR exam; no focal deficit. Results Result Diagram: 09/18/1752909/18/17 0530 Results 24 hrs Laboratory Tests Test 09/17/17 14:57 09/17/17 17:00 09/18/17 05:30 Prothrombin Time 16.8 H Prothrombin Time Ratio 1.3 INR International Normalized Ratio 1.36 Body Fluid Type PLEURAL FLUID Body Fluid Volume 1000.0 Body Fluid Color YELLOW Body Fluid Appearance CLEAR Body Fluid WBC 74 Body Fluid RBC (Auto) 0 Body Fluid Polynuclear WBCs (%) 17.6 Body Fluid Mononuclear Cells % Auto 82.4 Body Fluid Glucose 99 Body Fluid Total Protein 3.4 Body Fluid Lactate Dehydrogenase 263 Body Fluid Amylase < 30 White Blood Count 10.0 # Red Blood Count 3.39 L Hemoglobin 7.5 L Hematocrit 23.9 L Mean Corpuscular Volume 70.5 L Mean Corpuscular Hemoglobin 22.1 L Mean Corpuscular Hemoglobin Concent 31.4 L Red Cell Distribution Width 18.9 H Platelet Count 221 # Mean Platelet Volume 10.3 Neutrophils % 71.9 Lymphocytes % 17.8 Monocytes % 8.6 Eosinophils % 0.8 Basophils % 0.0 Nucleated Red Blood Cells % 0.0 Neutrophils # 7.2 Lymphocytes # 1.8 Monocytes # 0.9 Eosinophils # 0.1 Basophils # 0.0 Nucleated Red Blood Cells # 0.0 Sodium Level 137 Potassium Level 3.7 Chloride Level 104 Carbon Dioxide Level 28 Anion Gap 9 Blood Urea Nitrogen 17 Creatinine 0.69 Glucose Level 71 Calcium Level 7.8 L Phosphorus Level 3.6 Magnesium Level 1.2 L Total Bilirubin 0.3 Direct Bilirubin 0.00 Indirect Bilirubin 0.3 Aspartate Amino Transf (AST/SGOT) 114 H Alanine Aminotransferase (ALT/SGPT) 214 H Alkaline Phosphatase 161 H Total Protein 6.0 L Albumin 2.5 L Medications Medications Current Medications Lorazepam (Ativan) 2 mg Q10MIN PRN IV seizure Last administered on 09/06/17 09 :11; Admin Dose 2 MG; Start 09/05/17 at 16:00 Ondansetron HCl (Zofran Inj) 4 mg Q6H PRN IV NAUSEA AND/OR VOMITING; Start 09/05/17 at 16:30 Acetaminophen (Tylenol Tab) 650 mg Q6H PRN PO PAIN LEVEL 1-3 OR FEVER Last administered on 09/15/17 14:05; Admin Dose 650 MG; Start 09/05/17 at 16:30 Morphine Sulfate (morphine) 2 mg Q4H PRN IV PAIN LEVEL 7-10; Start 09/05/17 at 16:30 Bisacodyl (Dulcolax) 5 mg DAILY PRN PO CONSTIPATION; Start 09/05/17 at 16:30 Lorazepam (Ativan) 1 mg Q6H PRN IV agitation/anxiety Last administered on 09/08 09:30; Admin Dose 1 MG; Start 09/05/17 at 17:00 Nicotine (Nicoderm 21 Mg/ 24hr) 1 patch Q24H TRANSDERM Last administered on 17:51; Admin Dose 1 PATCH; Start 09/05/17 at 17:00 Folic Acid (Folic Acid) 1 mg DAILY PO Last administered on 09/18/17 09:54; Admin Dose 1 MG; Start 09/07/17 at 16:30 Magnesium Oxide (Mag-Ox 400) 400 mg BID PO Last administered on 09/18/17 09: 53; Admin Dose 400 MG; Start 09/09/17 at 12:00 Famotidine (Pepcid) 20 mg BID PO Last administered on 09/18/17 09:53; Admin Dose 20 MG; Start 09/09/17 at 21:00 Hydralazine HCl (Apresoline) 10 mg Q4H PRN IV ELEVATED BLOOD PRESSURE Last administered on 09/12/17 08:53; Admin Dose 10 MG; Start 09/10/17 at 04:55 Lisinopril (Zestril) 10 mg DAILY PO Last administered on 09/18/17 09:54; Admin Dose 10 MG; Start 09/12/17 at 09:00 Ferrous Sulfate (Ferrous Sulfate (Ec)) 325 mg DAILY PO Last administered on 09:53; Admin Dose 325 MG; Start 09/14/17 at 09:30 Prednisone (Prednisone) 10 mg DAILY PO Last administered on 09/18/17 09:54; Admin Dose 10 MG; Start 09/18/17 at 09:00 Levofloxacin (Levaquin) 750 mg DAILY@06 PO Last administered on 09/18/17 05: 38; Admin Dose 750 MG; Start 09/18/17 at 06:00 Lorazepam 1 mg 1 mg Q6H PRN PO ANXIETY; Start 09/17/17 at 15:00 Magnesium Sulfate/ Dextrose (Magnesium Sulfate/D5W) 106 ml @ 35.333 mls/ hr ONCE ONCE IVPB Last administered on 09/18/17 11:20; Admin Dose 35.333 MLS/HR ; Start 09/18/17 at 10:00; Stop 09/18/17 at 12:59 Spironolactone (Aldactone) 100 mg DAILY PO ; Start 09/19/17 at 09:00 Furosemide 40 mg 40 mg DAILY PO ; Start 09/19/17 at 09:00 Multivitamins/ Thiamine HCl/ Sodium Chloride (Mvi Adult/ Vitamin B1/NS) 1,011 ml @ 50 mls/hr DAILY@09 IVPB Last administered on 09/18/17t 11:21; Admin Dose 50 MLS/HR; Start 09/18/17 at 09:00; Stop 09/18/17 at 15:00 KIRILL PEREZ Sep 18, 2017 11:28
[2017-09-18] MEDS: SPIRONOLACTONE 25 MG TAB NGT SCH (11:40)
--- NOTE | 2017-09-18 14:10 | PN ---
Date/Time of Note Date/Time of Note DATE: 09/18/17 TIME: 14:07 Assessment/Plan VTE Prophylaxis VTE Prophylaxis Intervention: SCD's Lines/Catheters IV [facility]from [facility] Mid Line Urinary Cath still in place: No Assessment/Plan Chief Complaint/Hosp Course Patient is a 51-year-old homeless alcoholic who presents with right pleural effusion, pneumonia, and alcohol withdrawal induced seizure. #R pleural effusion -recurrent -?hepatic hydrothorax -will recur likely -aldactone/lasix started, low dose, will titrate as needed #pneumo/hydropneumothorax -s/p thoracentesis on 09/17 -stable, seen by pulmonology -will monitor #elevated AST/ALT -cirrhosis -us gallbladder noted #. Delirium tremens- resolved -librium tapered off - Ativan PRN for agitation/anxiety #. bacteremia, gram neg - continue on IV antibiotics for 10-14 days. stop in 1 day - remains afebrile -wbc stabilized #. acute respiratory failure, 2/2 PNA/pleural effusion- resolved - Pulmonology on board and recommendations appreciated - s/p 2 L drained on pleural effusion 1st time, 1 L drained 2nd time - Respiratory status stable. Saturating well #. Bilateral pneumonia, likely aspiration - Continue antibiotics #. Severe hyponatremia- resolved - Nephrology on board and recommendations appreciated #. Alcoholism - Banana bag stopped -thiamine and folic acid - Librium tapered #. Hypokalemia - replete as needed #. Hypomagnesia - Nephrology on board assisting with electrolyte abnormalities #. Disposition - Rehab consult placed -patient continues to be weak during PT -poor prognosis -needs placement as patient is weak Problems: Subjective 24 Hr Interval Summary Free Text/Dictation pneumothorax s/p thoracentesis yesterday, stable, breathing well Exam/Review of Systems Vital Signs Vitals Vital Signs Date Time Temp Pulse Resp B/P Pulse Ox O2 Delivery O2 Flow Rate FiO2 09/18/17 14:01 91 20 96 21 09/18/17 13:17 97.9 141/88 09/18/17 11:40 Nasal Cannula 3.0 Intake and Output 09/17/17 09/17/17 09/18/17 14:59 22:59 06:59 Intake Total 2025 ml 986 ml Output Total 1800 ml 1400 ml Balance 225 ml -414 ml Exam General: Patient resting comfortably, in no acute distress. oriented to self and place Head: Normocephalic atraumatic Eyes: EOMI, pupils reactive to light Neck: Supple, nontender, midline Respiratory: diminished breath sounds on R, no crackles or wheezing Cardiovascular: regular rate and rhythm, no obvious murmurs Gastrointestinal: non-tender to palpation, bowel sounds heard. Neurological: Moves all extremities spontaneously Skin: No new skin lesions Results Result Diagram: 09/18/17 0530 09/18/17 0530 Results 24 hrs Laboratory Tests Test 09/17/17 14:57 09/17/17 17:00 09/18/17 05:30 Prothrombin Time 16.8 H Prothrombin Time Ratio 1.3 INR International Normalized Ratio 1.36 Body Fluid Type PLEURAL FLUID Body Fluid Volume 1000.0 Body Fluid Color YELLOW Body Fluid Appearance CLEAR Body Fluid WBC 74 Body Fluid RBC (Auto) 0 Body Fluid Polynuclear WBCs (%) 17.6 Body Fluid Mononuclear Cells % Auto 82.4 Body Fluid Glucose 99 Body Fluid Total Protein 3.4 Body Fluid Lactate Dehydrogenase 263 Body Fluid Amylase < 30 White Blood Count 10.0 # Red Blood Count 3.39 L Hemoglobin 7.5 L Hematocrit 23.9 L Mean Corpuscular Volume 70.5 L Mean Corpuscular Hemoglobin 22.1 L Mean Corpuscular Hemoglobin Concent 31.4 L Red Cell Distribution Width 18.9 H Platelet Count 221 # Mean Platelet Volume 10.3 Neutrophils % 71.9 Lymphocytes % 17.8 Monocytes % 8.6 Eosinophils % 0.8 Basophils % 0.0 Nucleated Red Blood Cells % 0.0 Neutrophils # 7.2 Lymphocytes # 1.8 Monocytes # 0.9 Eosinophils # 0.1 Basophils # 0.0 Nucleated Red Blood Cells # 0.0 Sodium Level 137 Potassium Level 3.7 Chloride Level 104 Carbon Dioxide Level 28 Anion Gap 9 Blood Urea Nitrogen 17 Creatinine 0.69 Glucose Level 71 Calcium Level 7.8 L Phosphorus Level 3.6 Magnesium Level 1.2 L Total Bilirubin 0.3 Direct Bilirubin 0.00 Indirect Bilirubin 0.3 Aspartate Amino Transf (AST/SGOT) 114 H Alanine Aminotransferase (ALT/SGPT) 214 H Alkaline Phosphatase 161 H Total Protein 6.0 L Albumin 2.5 L Medications Medications Current Medications Lorazepam (Ativan) 2 mg Q10MIN PRN IV seizure Last administered on 09/06/17 09 :11; Admin Dose 2 MG; Start 09/05/17 at 16:00 Ondansetron HCl (Zofran Inj) 4 mg Q6H PRN IV NAUSEA AND/OR VOMITING; Start 09/05/17 at 16:30 Acetaminophen (Tylenol Tab) 650 mg Q6H PRN PO PAIN LEVEL 1-3 OR FEVER Last administered on 09/15/17 14:05; Admin Dose 650 MG; Start 09/05/17 at 16:30 Morphine Sulfate (morphine) 2 mg Q4H PRN IV PAIN LEVEL 7-10; Start 09/05/17 at 16:30 Bisacodyl (Dulcolax) 5 mg DAILY PRN PO CONSTIPATION; Start 09/05/17 at 16:30 Lorazepam (Ativan) 1 mg Q6H PRN IV agitation/anxiety Last administered on 09/08 09:30; Admin Dose 1 MG; Start 09/05/17 at 17:00 Nicotine (Nicoderm 21 Mg/ 24hr) 1 patch Q24H TRANSDERM Last administered on 17:51; Admin Dose 1 PATCH; Start 09/05/17 at 17:00 Folic Acid (Folic Acid) 1 mg DAILY PO Last administered on 09/18/17 09:54; Admin Dose 1 MG; Start 09/07/17 at 16:30 Magnesium Oxide (Mag-Ox 400) 400 mg BID PO Last administered on 09/18/17 09: 53; Admin Dose 400 MG; Start 09/09/17 at 12:00 Famotidine (Pepcid) 20 mg BID PO Last administered on 09/18/17 09:53; Admin Dose 20 MG; Start 09/09/17 at 21:00 Hydralazine HCl (Apresoline) 10 mg Q4H PRN IV ELEVATED BLOOD PRESSURE Last administered on 09/12/17 08:53; Admin Dose 10 MG; Start 09/10/17 at 04:55 Lisinopril (Zestril) 10 mg DAILY PO Last administered on 09/18/17 09:54; Admin Dose 10 MG; Start 09/12/17 at 09:00 Ferrous Sulfate (Ferrous Sulfate (Ec)) 325 mg DAILY PO Last administered on 09:53; Admin Dose 325 MG; Start 09/14/17 at 09:30 Prednisone (Prednisone) 10 mg DAILY PO Last administered on 09/18/17 09:54; Admin Dose 10 MG; Start 09/18/17 at 09:00 Levofloxacin (Levaquin) 750 mg DAILY@06 PO Last administered on 09/18/17 05: 38; Admin Dose 750 MG; Start 09/18/17 at 06:00 Lorazepam (Ativan) 1 mg Q6H PRN PO ANXIETY; Start 09/17/17 at 15:00 Spironolactone (Aldactone) 100 mg DAILY PO ; Start 09/19/17 at 09:00 Furosemide 40 mg 40 mg DAILY PO ; Start 09/19/17 at 09:00 Multivitamins/ Thiamine HCl/ Sodium Chloride (Mvi Adult/ Vitamin B1/NS) 1,011 ml @ 50 mls/hr DAILY@09 IVPB Last administered on 09/18/17 11:21; Admin Dose 50 MLS/HR; Start 09/18/17 at 09:00; Stop 09/18/17 at 15:00 Spironolactone (Aldactone) 25 mg DAILY NGT Last administered on 09/18/17 11: 40; Admin Dose 25 MG; Start 09/18/17 at 11:30 CATHERINE DUMONT Sep 18, 2017 14:10
[2017-09-18] MEDS: NICOTINE (21 MG/24 HR) PATCH TRANSDERM SCH (17:22)
[2017-09-19] VITALS (12 sets, daily range): BP systolic 101–149; BP diastolic 68–82; PULSE 99–117; RESP 18–20
[2017-09-19] MEDS: LEVOFLOXACIN 750 MG TABLET PO SCH (06:16)
--- NOTE | 2017-09-19 08:09 | RADRPT ---
PROCEDURE: XR Chest. CLINICAL INDICATION: pneumothorax TECHNIQUE: AP portable chest COMPARISON: AP portable chest 09/18/2017 FINDINGS: The position of the patient is different than the more recent chest study 09/18/2017. Again noted is a moderate to large right pneumothorax which may have increased during the interval. There is right lung atelectasis. No evidence of left pneumothorax. The left lung is clear. No gross pleural effusi ons. The heart is within normal limits size without pulmonary vascular congestion. IMPRESSION: 1. Difficult to optimally evaluate changes in size of the right pneumothorax though it is probably increased during the interval and now all is considered [id number]. 2. Right lung atelectasis. 3. No gross pleural effusions. RPTAT:AAJJ Physician Delia Date Time Electronically viewed and signed by Zulema Burns Physician on 09/19/2017 08:08 /
[2017-09-19] MEDS: ALBUTEROL/IPRATROPIUM (NEB) 3 ML AMP HHN SCH ×3 (08:12→19:57)
[2017-09-19] MEDS ORDERED: MAGNESIUM SULFATE 2 GM/50 ML 50 ML IVPB ONE (09:00)
[2017-09-19] MEDS ORDERED: SPIRONOLACTONE 50 MG TAB PO SCH (09:00)
[2017-09-19] MEDS ORDERED: FUROSEMIDE 40 MG TAB PO SCH ×2 (09:00)
[2017-09-19 09:13] LABS: EOSINOPHILS # 0.1 10^3/ul (0.0-0.5); HEMATOCRIT 23.4 % (42.0-52.0); HEMOGLOBIN 7.4 g/dl (14.0-18.0); LYMPHOCYTES # 1.6 10^3/ul (0.8-2.9); LYMPHOCYTES % 16.5 % (15.0-51.0); MEAN CORPUSCULAR HEMOGLOBIN 22.2 pg (29.0-33.0); MEAN CORPUSCULAR HGB CONC 31.6 g/dl (32.0-37.0); MEAN CORPUSCULAR VOLUME 70.1 fl (82.0-101.0); MEAN PLATELET VOLUME 10.4 fl (7.4-10.4); MONOCYTE # 0.9 10^3/ul (0.3-0.9); MONOCYTES % 9.6 % (0.0-11.0); NEUTROPHIL # 7.1 10^3/ul (1.6-7.5); NEUTROPHILS % 72.3 % (39.0-77.0); PLATELET COUNT 216 10^3/UL (140-415); RED BLOOD COUNT 3.34 10^6/ul (4.70-6.10); RED CELL DISTRIBUTION WIDTH 19.5 % (11.5-14.5); WHITE BLOOD COUNT 9.8 10^3/ul (4.8-10.8)
[2017-09-19] MEDS: MAGNESIUM OXIDE 400 MG TAB PO SCH ×2 (09:20→20:51)
[2017-09-19] MEDS: FERROUS SULFATE (EC) 325 MG TAB PO SCH (09:20)
[2017-09-19] MEDS: LISINOPRIL 10 MG TAB PO SCH (09:20)
[2017-09-19] MEDS: FOLIC ACID 1 MG TAB PO SCH (09:20)
[2017-09-19] MEDS: SPIRONOLACTONE 25 MG TAB NGT SCH (09:20)
[2017-09-19] MEDS: FUROSEMIDE 20 MG TAB PO SCH (09:20)
[2017-09-19] MEDS: predniSONE 20 MG TAB PO SCH (09:21)
[2017-09-19] MEDS: FAMOTIDINE 20 MG TAB PO SCH ×2 (09:21→20:51)
[2017-09-19 09:30] LABS: CALCIUM 8.6 mg/dl (8.4-10.2); CREATININE 0.77 mg/dl (0.61-1.24); PHOSPHORUS 4.1 mg/dl (2.5-4.9); POTASSIUM 3.7 mmol/L (3.5-5.1)
--- NOTE | 2017-09-19 09:54 | PN ---
DATE: 09/19/2017 SUBJECTIVE: The patient is stable. No events overnight. No fevers, chills, nausea, vomiting. OBJECTIVE: VITAL SIGNS: Blood pressure is 132/75, respiration 18, pulse 98, temperature 98.5. HEENT: Head is normocephalic. NECK: Supple. HEART: Regular rate. LUNGS: Show diminished breath sounds at the base. ABDOMEN: Soft, nontender to palpation without rebound or guarding. EXTREMITIES: Negative for clubbing, cyanosis, no edema. DERMATOLOGIC: No rashes. MUSCULOSKELETAL: No joint effusions. NEUROLOGIC: No change in exam. MEDICATIONS: The patient's medications have been reviewed. LABORATORY DATA: Currently pending. ASSESSMENT AND PLAN: 1. Hypomagnesemia, etiology secondary to renal wasting due to chronic alcohol abuse. Continue to m onitor and replete with IV and oral magnesium. 2. Hypokalemia, improved. 3. Hyponatremia, resolved. 4. Acute respiratory failure secondary to pneumonia. The patient has completed antibiotic course. Respiratory status has improved. 5. Alcohol abuse, delirium tremens. Continue Librium, Ativan. 6. Status post hyponatremia. 7. Bacteremia. The patient has completed an antibiotic course. 8. Right pneumothorax. Would continue to monitor closely. The patient may require a chest tube pl acement, defer to pulmonary. Dictated By: SLIME CHANG/VICKY Conf#: [id number] DID#: [id number] CC: TANK MALHOTRA;*EndCC*
[2017-09-19] MEDS ORDERED: LIDOCAINE 1% (MPF) 5 ML VIAL SC ONE (14:30)
--- NOTE | 2017-09-19 14:30 | CONS ---
Date/Time of Note Date/Time of Note DATE: 09/19/17 TIME: 14:29 Consult Date/Type/Reason Admit Date/Time Sep 05, 2017 at 13:14 Type of Consultation: Pulmonary Subjective Mild shortness of breath. Chest x-ray shows right pneumothorax with pleural effusion. Objective Vital Signs Date Time Temp Pulse Resp B/P Pulse Ox O2 Delivery O2 Flow Rate FiO2 09/19/17 13:52 90 17 95 21 09/19/17 12:03 97.5 128/82 09/19/17 11:13 Room Air 09/18/17 16:00 2.0 Intake and Output 09/18/17 09/18/17 09/19/17 15:00 23:00 07:00 Intake Total 850 ml 2572 ml 420 ml Output Total 750 ml 900 ml 1000 ml Balance 100 ml 1672 ml -580 ml Exam Chronically ill-appearing gentleman comfortable at rest GENERAL: VITAL SIGNS: per chart NECK: Supple. No JVD or lymphadenopathy. CARDIAC EXAM: S1, S2. No added sounds or murmurs. CHEST: Diminished air entry right lung. ABDOMEN: Soft, nontender. No guarding or rebound. EXTREMITIES: No cyanosis, clubbing or edema. NEUROLOGIC: Generalized weakness. No focal deficits. Results/Medications Result Diagram: 09/19/1782609/19/17 0827 Results 24 hrs Laboratory Tests Test 09/19/17 08:27 White Blood Count 9.8 Red Blood Count 3.34 L Hemoglobin 7.4 L Hematocrit 23.4 L Mean Corpuscular Volume 70.1 L Mean Corpuscular Hemoglobin 22.2 L Mean Corpuscular Hemoglobin Concent 31.6 L Red Cell Distribution Width 19.5 H Platelet Count 216 Mean Platelet Volume 10.4 Neutrophils % 72.3 Lymphocytes % 16.5 Monocytes % 9.6 Eosinophils % 1.0 Basophils % 0.0 Nucleated Red Blood Cells % 0.0 Neutrophils # 7.1 Lymphocytes # 1.6 Monocytes # 0.9 Eosinophils # 0.1 Basophils # 0.0 Nucleated Red Blood Cells # 0.0 Sodium Level 139 Potassium Level 3.7 Chloride Level 102 Carbon Dioxide Level 30 Anion Gap 11 Blood Urea Nitrogen 18 Creatinine 0.77 Glucose Level 76 Calcium Level 8.6 Phosphorus Level 4.1 Magnesium Level 1.1 L Medications Current Medications Lorazepam (Ativan) 2 mg Q10MIN PRN IV seizure Last administered on 09/06/17 09 :11; Admin Dose 2 MG; Start 09/05/17 at 16:00 Ondansetron HCl (Zofran Inj) 4 mg Q6H PRN IV NAUSEA AND/OR VOMITING; Start 09/05/17 at 16:30 Acetaminophen (Tylenol Tab) 650 mg Q6H PRN PO PAIN LEVEL 1-3 OR FEVER Last administered on 09/15/17 14:05; Admin Dose 650 MG; Start 09/05/17 at 16:30 Morphine Sulfate (morphine) 2 mg Q4H PRN IV PAIN LEVEL 7-10; Start 09/05/17 at 16:30 Bisacodyl (Dulcolax) 5 mg DAILY PRN PO CONSTIPATION; Start 09/05/17 at 16:30 Lorazepam (Ativan) 1 mg Q6H PRN IV agitation/anxiety Last administered on 09/08 09:30; Admin Dose 1 MG; Start 09/05/17 at 17:00 Nicotine (Nicoderm 21 Mg/ 24hr) 1 patch Q24H TRANSDERM Last administered on 17:22; Admin Dose 1 PATCH; Start 09/05/17 at 17:00 Folic Acid (Folic Acid) 1 mg DAILY PO Last administered on 09/19/17 09:20; Admin Dose 1 MG; Start 09/07/17 at 16:30 Magnesium Oxide (Mag-Ox 400) 400 mg BID PO Last administered on 09/19/17 09: 20; Admin Dose 400 MG; Start 09/09/17 at 12:00 Famotidine (Pepcid) 20 mg BID PO Last administered on 09/19/17 09:21; Admin Dose 20 MG; Start 09/09/17 at 21:00 Hydralazine HCl (Apresoline) 10 mg Q4H PRN IV ELEVATED BLOOD PRESSURE Last administered on 09/12/17 08:53; Admin Dose 10 MG; Start 09/10/17 at 04:55 Lisinopril (Zestril) 10 mg DAILY PO Last administered on 09/19/17 09:20; Admin Dose 10 MG; Start 09/12/17 at 09:00 Ferrous Sulfate (Ferrous Sulfate (Ec)) 325 mg DAILY PO Last administered on 09:20; Admin Dose 325 MG; Start 09/14/17 at 09:30 Prednisone (Prednisone) 10 mg DAILY PO Last administered on 09/19/17 09:21; Admin Dose 10 MG; Start 09/18/17 at 09:00 Levofloxacin (Levaquin) 750 mg DAILY@06 PO Last administered on 09/19/17 06: 16; Admin Dose 750 MG; Start 09/18/17 at 06:00 Lorazepam (Ativan) 1 mg Q6H PRN PO ANXIETY; Start 09/17/17 at 15:00 Spironolactone (Aldactone) 25 mg DAILY NGT Last administered on 09/19/17 09: 20; Admin Dose 25 MG; Start 09/18/17 at 11:30 Furosemide (Lasix) 10 mg DAILY PO Last administered on 09/19/17 09:20; Admin Dose 10 MG; Start 09/19/17 at 09:00 Lidocaine (Xylocaine 1% (Mpf)) 5 ml ONCE ONCE SC ; Start 09/19/17 at 14:30; Stop 09/19/17 at 14:31 Assessment/Plan Chief Complaint/Hosp Course Assessment 1. 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 2. EtOH withdrawal 3. Electrolyte abnormalities 4. Status post thoracentesis now with pleural effusion and pneumothorax. Plan 1. Discussed with radiology will place chest tube. 2. Aspiration precautions. 3. Referral to Liver Unit 4. Encourage out of bed Problems: WOOD TUBBS [facility] Sep 19, 2017 14:30
--- NOTE | 2017-09-19 15:16 | PN ---
Date/Time of Note Date/Time of Note DATE: 09/19/17 TIME: 15:14 Assessment/Plan VTE Prophylaxis VTE Prophylaxis Intervention: SCD's Lines/Catheters IV Catheter Type (from Nrs): Mid Line Urinary Cath still in place: No Assessment/Plan Chief Complaint/Hosp Course s: no sob, no acute change o: General: Patient resting comfortably, in no acute distress. oriented to self and place Head: Normocephalic atraumatic Eyes: EOMI, pupils reactive to light Neck: Supple, nontender, midline Respiratory: diminished breath sounds on R, no crackles or wheezing Cardiovascular: regular rate and rhythm, no obvious murmurs Gastrointestinal: non-tender to palpation, bowel sounds heard. Neurological: Moves all extremities spontaneously Skin: No new skin lesions Patient is a 51-year-old homeless alcoholic who presents with right pleural effusion, pneumonia, and alcohol withdrawal induced seizure. 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 Delirium tremens- resolved -librium tapered off - Ativan PRN for agitation/anxiety #. bacteremia, gram neg - continue on IV antibiotics for 10-14 days. stop tomorrow - remains afebrile -wbc stabilized #. acute respiratory failure, 2/2 PNA/pleural effusion- resolved - Pulmonology on board and recommendations appreciated - s/p 2 L drained on pleural effusion 1st time, 1 L drained 2nd time - Respiratory status stable. Saturating well #. Bilateral pneumonia, likely aspiration - Continue antibiotics #. Severe hyponatremia- resolved - Nephrology on board and recommendations appreciated #. Alcoholism - Banana bag stopped -thiamine and folic acid - Librium tapered #. Hypokalemia - replete as needed #. Hypomagnesia - Nephrology on board assisting with electrolyte abnormalities #. Disposition - Rehab consult placed -patient continues to be weak during PT -poor prognosis -needs placement as patient is weak Problems: Exam/Review of Systems Vital Signs Vitals Vital Signs Date Time Temp Pulse Resp B/P Pulse Ox O2 Delivery O2 Flow Rate FiO2 09/19/17 13:52 90 17 95 21 09/19/17 12:03 97.5 128/82 09/19/17 11:13 Room Air 09/18/17 16:00 2.0 Intake and Output 09/18/17 09/18/17 09/19/17 15:00 23:00 07:00 Intake Total 850 ml 2572 ml 420 ml Output Total 750 ml 900 ml 1000 ml Balance 100 ml 1672 ml -580 ml Results Result Diagram: 09/19/17 0827 09/19/17 0827 Results 24 hrs Laboratory Tests Test 09/19/17 08:27 White Blood Count 9.8 Red Blood Count 3.34 L Hemoglobin 7.4 L Hematocrit 23.4 L Mean Corpuscular Volume 70.1 L Mean Corpuscular Hemoglobin 22.2 L Mean Corpuscular Hemoglobin Concent 31.6 L Red Cell Distribution Width 19.5 H Platelet Count 216 Mean Platelet Volume 10.4 Neutrophils % 72.3 Lymphocytes % 16.5 Monocytes % 9.6 Eosinophils % 1.0 Basophils % 0.0 Nucleated Red Blood Cells % 0.0 Neutrophils # 7.1 Lymphocytes # 1.6 Monocytes # 0.9 Eosinophils # 0.1 Basophils # 0.0 Nucleated Red Blood Cells # 0.0 Sodium Level 139 Potassium Level 3.7 Chloride Level 102 Carbon Dioxide Level 30 Anion Gap 11 Blood Urea Nitrogen 18 Creatinine 0.77 Glucose Level 76 Calcium Level 8.6 Phosphorus Level 4.1 Magnesium Level 1.1 L Medications Medications Current Medications Lorazepam (Ativan) 2 mg Q10MIN PRN IV seizure Last administered on 09/06/17 09 :11; Admin Dose 2 MG; Start 09/05/17 at 16:00 Ondansetron HCl (Zofran Inj) 4 mg Q6H PRN IV NAUSEA AND/OR VOMITING; Start 09/05/17 at 16:30 Acetaminophen (Tylenol Tab) 650 mg Q6H PRN PO PAIN LEVEL 1-3 OR FEVER Last administered on 09/15/17 14:05; Admin Dose 650 MG; Start 09/05/17 at 16:30 Morphine Sulfate (morphine) 2 mg Q4H PRN IV PAIN LEVEL 7-10; Start 09/05/17 at 16:30 Bisacodyl (Dulcolax) 5 mg DAILY PRN PO CONSTIPATION; Start 09/05/17 at 16:30 Lorazepam (Ativan) 1 mg Q6H PRN IV agitation/anxiety Last administered on 09/08 09:30; Admin Dose 1 MG; Start 09/05/17 at 17:00 Nicotine (Nicoderm 21 Mg/ 24hr) 1 patch Q24H TRANSDERM Last administered on 17:22; Admin Dose 1 PATCH; Start 09/05/17 at 17:00 Folic Acid (Folic Acid) 1 mg DAILY PO Last administered on 09/19/17 09:20; Admin Dose 1 MG; Start 09/07/17 at 16:30 Magnesium Oxide (Mag-Ox 400) 400 mg BID PO Last administered on 09/19/17 09: 20; Admin Dose 400 MG; Start 09/09/17 at 12:00 Famotidine (Pepcid) 20 mg BID PO Last administered on 09/19/17 09:21; Admin Dose 20 MG; Start 09/09/17 at 21:00 Hydralazine HCl (Apresoline) 10 mg Q4H PRN IV ELEVATED BLOOD PRESSURE Last administered on 09/12/17 08:53; Admin Dose 10 MG; Start 09/10/17 at 04:55 Lisinopril (Zestril) 10 mg DAILY PO Last administered on 09/19/17 09:20; Admin Dose 10 MG; Start 09/12/17 at 09:00 Ferrous Sulfate (Ferrous Sulfate (Ec)) 325 mg DAILY PO Last administered on 09:20; Admin Dose 325 MG; Start 09/14/17 at 09:30 Prednisone (Prednisone) 10 mg DAILY PO Last administered on 09/19/17 09:21; Admin Dose 10 MG; Start 09/18/17 at 09:00 Levofloxacin (Levaquin) 750 mg DAILY@06 PO Last administered on 09/19/17 06: 16; Admin Dose 750 MG; Start 09/18/17 at 06:00 Lorazepam (Ativan) 1 mg Q6H PRN PO ANXIETY; Start 09/17/17 at 15:00 Spironolactone (Aldactone) 25 mg DAILY NGT Last administered on 09/19/17 09: 20; Admin Dose 25 MG; Start 09/18/17 at 11:30 Furosemide 10 mg 10 mg DAILY PO Last administered on 09/19/17t 09:20; Admin Dose 10 MG; Start 09/19/17 at 09:00 Sodium Chloride (NS) 1,000 ml @ 100 mls/hr Q10H IV ; Start 09/19/17 at 15:00 CATHERINE DUMONT Sep 19, 2017 15:16
[2017-09-19] MEDS: SOD CHLORIDE 0.9% 1,000 ML IV SCH (15:18)
[2017-09-19] MEDS ORDERED: LIDOCAINE 1% (MDV) 20 ML INJ ONE (16:07)
[2017-09-19] MEDS ORDERED: SOD CHLORIDE 0.9% 500 ML ONE (16:07)
[2017-09-19] MEDS: NICOTINE (21 MG/24 HR) PATCH TRANSDERM SCH (17:00)
--- NOTE | 2017-09-19 17:19 | RADRPT ---
PROCEDURE: Fluoroscopic guided placement of right chest tube. CLINICAL INDICATION: Right pneumothorax. Shortness of breath. TECHNIQUE: Informed consent was obtained. The procedure, risks, benefits, complications and alternatives were explained to the patient. Risks including bleeding, infection, and pneumothorax were explained. The patient understood and was willing to proceed. A procedural pause was performed. The patient's name, date of , and procedure to be performed w ere verified. The right anterior/superior chest wall were prepped and draped in usual sterile fashion. Following the local injection of 1% lidocaine, a 19-gauge Yueh needle was advanced into the right pl eural space in the mid axillary line at the 6/7 interspace with fluoroscopic guidance. The Yueh meta l needle was removed leaving the plastic outer cannula in position. A 0.035 inch guidewire was adva nced into the right pleural space through the plastic cannula with fluoroscopic guidance. The plast ic cannula was removed. The tract was dilated to 8-Yakut. An 8.5 Yakut multipurpose drainage cat heter was then advanced over the guide wire. The guidewire was removed. Fluoroscopic guidance demo nstrates the catheter in satisfactory position within the pleural space. The catheter was sutured t o the patient's skin with 2-0 silk suture. A dressing was applied. The patient tolerated procedure well. A Pleur-Evac system was attached to t he end of the chest tube. COMPARISON: Chest x-ray done earlier the same day. FINDINGS: Final images demonstrate the tip of the catheter in the upper right pleural space. A total of 0.1 m inutes of fluoroscopy time was used. 4 images of the chest were obtained with image intensifier. IMPRESSION: 1. Successful fluoroscopic guided placement of right chest tube. RPTAT: QQ .John Paul Hall MD, MD Date Time Electronically viewed and signed by .John Paul Hall MD, on 09/19/2017 17:18 .R/
[2017-09-20] VITALS (10 sets, daily range): BP systolic 100–113; BP diastolic 61–71; PULSE 77–104; RESP 18–19
[2017-09-20] MEDS: SOD CHLORIDE 0.9% 1,000 ML IV SCH (01:00)
[2017-09-20] MEDS: LEVOFLOXACIN 750 MG TABLET PO SCH (06:15)
[2017-09-20] MEDS: morphine 2 MG INJ IV PRN (06:15)
[2017-09-20] MEDS: ALBUTEROL/IPRATROPIUM (NEB) 3 ML AMP HHN SCH ×3 (08:13→20:08)
[2017-09-20] MEDS ORDERED: predniSONE 5 MG TAB PO SCH (09:00)
[2017-09-20 09:37] LABS: BASOPHILS % 0.1 % (0.0-2.0); EOSINOPHILS # 0.1 10^3/ul (0.0-0.5); EOSINOPHILS % 0.9 % (0.0-7.0); HEMATOCRIT 24.3 % (42.0-52.0); HEMOGLOBIN 7.6 g/dl (14.0-18.0); LYMPHOCYTES % 17.4 % (15.0-51.0); MEAN CORPUSCULAR HEMOGLOBIN 22.2 pg (29.0-33.0); MEAN CORPUSCULAR HGB CONC 31.3 g/dl (32.0-37.0); MEAN CORPUSCULAR VOLUME 70.8 fl (82.0-101.0); MEAN PLATELET VOLUME 10.2 fl (7.4-10.4); MONOCYTE # 0.7 10^3/ul (0.3-0.9); MONOCYTES % 6.2 % (0.0-11.0); NEUTROPHIL # 8.7 10^3/ul (1.6-7.5); NEUTROPHILS % 74.6 % (39.0-77.0); PLATELET COUNT 247 10^3/UL (140-415); RED BLOOD COUNT 3.43 10^6/ul (4.70-6.10); RED CELL DISTRIBUTION WIDTH 19.9 % (11.5-14.5); WHITE BLOOD COUNT 11.6 10^3/ul (4.8-10.8)
[2017-09-20] MEDS: MAGNESIUM OXIDE 400 MG TAB PO SCH ×2 (09:39→21:01)
[2017-09-20] MEDS: FOLIC ACID 1 MG TAB PO SCH (09:39)
[2017-09-20] MEDS: LISINOPRIL 10 MG TAB PO SCH (09:39)
[2017-09-20] MEDS: FERROUS SULFATE (EC) 325 MG TAB PO SCH (09:39)
[2017-09-20] MEDS: FAMOTIDINE 20 MG TAB PO SCH ×2 (09:39→21:01)
[2017-09-20] MEDS: FUROSEMIDE 20 MG TAB PO SCH (09:40)
[2017-09-20] MEDS: SPIRONOLACTONE 25 MG TAB NGT SCH (09:40)
--- NOTE | 2017-09-20 09:57 | RADRPT ---
PROCEDURE: XR Chest. CLINICAL INDICATION: Right hydropneumothorax. Right chest tube. TECHNIQUE: Single frontal view. COMPARISON: 09/19/2017. FINDINGS: The 8-Beninese right pigtail chest tube catheter is in satisfactory position entering laterally with t he tips superiorly. Previously noted right pneumothorax is no longer present. The lungs are clear. The heart size is normal. There is no pleural effusion. There is no left pneumothorax. IMPRESSION: 1. Right chest tube in satisfactory position. 2. Previously noted right hydropneumothorax is no longer present. 3. Otherwise unremarkable chest radiograph. RPTAT: QQ .John Paul Hall MD, MD Date Time Electronically viewed and signed by .John Paul Hall MD, MD on 09/20/2017 09:57 .R/
[2017-09-20 10:19] LABS: CALCIUM 8.5 mg/dl (8.4-10.2); CREATININE 0.75 mg/dl (0.61-1.24); PHOSPHORUS 4.4 mg/dl (2.5-4.9); POTASSIUM 3.4 mmol/L (3.5-5.1)
--- NOTE | 2017-09-20 10:58 | PN ---
DATE: 09/20/2017 SUBJECTIVE: The patient is stable. Chest tube in place. No other acute events noted. No hemoptys is, hematemesis or hematochezia. OBJECTIVE: VITAL SIGNS: Blood pressure is 100/65, respiration 18, pulse 72, temperature 98.5. HEENT: Head is normocephalic. NECK: Supple. HEART: Regular rate. LUNGS: Show diminished breath sounds at the base. ABDOMEN: Soft, nontender to palpation. No rebound or guarding. EXTREMITIES: Negative for clubbing, cyanosis. No edema. DERMATOLOGIC: No rashes. MUSCULOSKELETAL: No joint effusions. NEUROLOGIC: No change in exam. MEDICATIONS: Have been reviewed. LABORATORY DATA: Has been reviewed from yesterday. Laboratory data from today is pending. ASSESSMENT AND PLAN: 1. Hypomagnesemia secondary to renal wasting due to chronic alcohol abuse. Continue to monitor and replete with intravenous and oral magnesium. It may take several weeks before magnesium levels nor malize. 2. Hypokalemia, improved. 3. Hypernatremia, resolved. 4. Acute respiratory failure secondary to pneumonia. The patient is completing antibiotic course. 5. Alcohol abuse. Continue Librium, Ativan. 6. Right pneumothorax status post chest tube. Continue to monitor. 7. Bacteremia. The patient has completed antibiotic course. 8. Status post hyponatremia. Dictated By: SLIME CHANG/VICKY Conf#: [id number] DID#: [id number]
--- NOTE | 2017-09-20 11:47 | PN ---
Date/Time of Note Date/Time of Note DATE: 09/20/17 TIME: 11:44 Assessment/Plan VTE Prophylaxis VTE Prophylaxis Intervention: ambulation, SCD's Lines/Catheters IV Catheter Type (from Nrs): Mid Line Urinary Cath still in place: No Assessment/Plan Chief Complaint/Hosp Course s: 09.19:no sob, no acute change 09.20: s/p chest tube, chest discomfort at site of chest tube insertion o: General: Patient resting comfortably, in no acute distress. oriented to self and place Head: Normocephalic atraumatic Eyes: EOMI, pupils reactive to light Neck: Supple, nontender, midline Respiratory: diminished breath sounds on R, no crackles or wheezing Cardiovascular: regular rate and rhythm, no obvious murmurs Gastrointestinal: non-tender to palpation, bowel sounds heard. Neurological: Moves all extremities spontaneously Skin: No new skin lesions, chest tube placed R Patient is a 51-year-old homeless alcoholic who presents with right pleural effusion, pneumonia, and alcohol withdrawal induced seizure. 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 Delirium tremens- resolved -librium tapered off - Ativan PRN for agitation/anxiety #. bacteremia, gram neg - continue on IV antibiotics for 10-14 days. stop after today - remains afebrile -wbc stabilized #. acute respiratory failure, 2/2 PNA/pleural effusion- resolved - Pulmonology on board and recommendations appreciated - s/p 2 L drained on pleural effusion 1st time, 1 L drained 2nd time - Respiratory status stable. Saturating well #. Bilateral pneumonia, likely aspiration - Continue antibiotics #. Severe hyponatremia- resolved - Nephrology on board and recommendations appreciated #. Alcoholism - Banana bag stopped -thiamine and folic acid - Librium tapered #. Hypokalemia - replete as needed #. Hypomagnesia - Nephrology on board assisting with electrolyte abnormalities #. Disposition - chest tube management, poor prognosis given hepatic hydrothorax/pneumothorax Problems: Exam/Review of Systems Vital Signs Vitals Vital Signs Date Time Temp Pulse Resp B/P Pulse Ox O2 Delivery O2 Flow Rate FiO2 09/20/17 08:19 77 09/20/17 08:13 18 99 Nasal Cannula 3.0 09/20/17 08:04 98.5 100/65 09/19/17 19:57 21 Intake and Output 09/19/17 09/19/17 09/20/17 15:00 23:00 07:00 Intake Total 750 ml 1400 ml Output Total 1500 ml Balance -750 ml 1400 ml Results Result Diagram: 09/20/17 0859 09/20/17 0859 Results 24 hrs Laboratory Tests Test 09/20/17 08:59 White Blood Count 11.6 H Red Blood Count 3.43 L Hemoglobin 7.6 L Hematocrit 24.3 L Mean Corpuscular Volume 70.8 L Mean Corpuscular Hemoglobin 22.2 L Mean Corpuscular Hemoglobin Concent 31.3 L Red Cell Distribution Width 19.9 H Platelet Count 247 Mean Platelet Volume 10.2 Neutrophils % 74.6 Lymphocytes % 17.4 Monocytes % 6.2 Eosinophils % 0.9 Basophils % 0.1 Nucleated Red Blood Cells % 0.0 Neutrophils # 8.7 H Lymphocytes # 2.0 Monocytes # 0.7 Eosinophils # 0.1 Basophils # 0.0 Nucleated Red Blood Cells # 0.0 Sodium Level 139 Potassium Level 3.4 L Chloride Level 98 Carbon Dioxide Level 30 Anion Gap 14 Blood Urea Nitrogen 16 Creatinine 0.75 Glucose Level 84 Calcium Level 8.5 Phosphorus Level 4.4 Magnesium Level 1.0 L Medications Medications Current Medications Lorazepam (Ativan) 2 mg Q10MIN PRN IV seizure Last administered on 09/06/17 09 :11; Admin Dose 2 MG; Start 09/05/17 at 16:00 Ondansetron HCl (Zofran Inj) 4 mg Q6H PRN IV NAUSEA AND/OR VOMITING; Start 09/05/17 at 16:30 Acetaminophen (Tylenol Tab) 650 mg Q6H PRN PO PAIN LEVEL 1-3 OR FEVER Last administered on 09/15/17 14:05; Admin Dose 650 MG; Start 09/05/17 at 16:30 Morphine Sulfate (morphine) 2 mg Q4H PRN IV PAIN LEVEL 7-10 Last administered on 09/20/17 06:15; Admin Dose 2 MG; Start 09/05/17 at 16:30 Bisacodyl (Dulcolax) 5 mg DAILY PRN PO CONSTIPATION; Start 09/05/17 at 16:30 Lorazepam (Ativan) 1 mg Q6H PRN IV agitation/anxiety Last administered on 09/08 09:30; Admin Dose 1 MG; Start 09/05/17 at 17:00 Nicotine (Nicoderm 21 Mg/ 24hr) 1 patch Q24H TRANSDERM Last administered on 17:22; Admin Dose 1 PATCH; Start 09/05/17 at 17:00 Folic Acid (Folic Acid) 1 mg DAILY PO Last administered on 09/20/17 09:39; Admin Dose 1 MG; Start 09/07/17 at 16:30 Magnesium Oxide (Mag-Ox 400) 400 mg BID PO Last administered on 09/20/17 09: 39; Admin Dose 400 MG; Start 09/09/17 at 12:00 Famotidine (Pepcid) 20 mg BID PO Last administered on 09/20/17 09:39; Admin Dose 20 MG; Start 09/09/17 at 21:00 Hydralazine HCl (Apresoline) 10 mg Q4H PRN IV ELEVATED BLOOD PRESSURE Last administered on 09/12/17 08:53; Admin Dose 10 MG; Start 09/10/17 at 04:55 Lisinopril (Zestril) 10 mg DAILY PO Last administered on 09/20/17 09:39; Admin Dose 10 MG; Start 09/12/17 at 09:00 Ferrous Sulfate (Ferrous Sulfate (Ec)) 325 mg DAILY PO Last administered on 09:39; Admin Dose 325 MG; Start 09/14/17 at 09:30 Levofloxacin (Levaquin) 750 mg DAILY@06 PO Last administered on 09/20/17 06: 15; Admin Dose 750 MG; Start 09/18/17 at 06:00 Lorazepam (Ativan) 1 mg Q6H PRN PO ANXIETY; Start 09/17/17 at 15:00 Spironolactone (Aldactone) 25 mg DAILY NGT Last administered on 09/20/17 09: 40; Admin Dose 25 MG; Start 09/18/17 at 11:30 Furosemide 10 mg 10 mg DAILY PO Last administered on 09/20/17 09:40; Admin Dose 10 MG; Start 09/19/17 at 09:00 Sodium Chloride (NS) 1,000 ml @ 100 mls/hr Q10H IV Last administered on 15:18; Admin Dose 100 MLS/HR; Start 09/19/17 at 15:00 Prednisone (Prednisone) 5 mg DAILY PO Last administered on 09/20/17 09:39; Admin Dose 5 MG; Start 09/20/17 at 09:00 CATHERINE DUMONT Sep 20, 2017 11:47
--- NOTE | 2017-09-20 13:18 | CONS ---
Date/Time of Note Date/Time of Note DATE: 09/20/17 TIME: 13:15 Consult Date/Type/Reason Admit Date/Time Sep 05, 2017 at 13:14 Type of Consultation: Pulmonary Subjective Better, less shortness of breath Significant drainage from catheter. PTX resolved. Objective Vital Signs Date Time Temp Pulse Resp B/P Pulse Ox O2 Delivery O2 Flow Rate FiO2 09/20/17 12:12 96 09/20/17 11:55 98.6 18 101/61 100 09/20/17 08:13 Nasal Cannula 3.0 09/19/17 19:57 21 Intake and Output 09/19/17 09/19/17 09/20/17 15:00 23:00 07:00 Intake Total 750 ml 1400 ml Output Total 1500 ml Balance -750 ml 1400 ml Results/Medications Result Diagram: 09/20/17 0859 09/20/17 0859 Results 24 hrs Laboratory Tests Test 09/20/17 08:59 White Blood Count 11.6 H Red Blood Count 3.43 L Hemoglobin 7.6 L Hematocrit 24.3 L Mean Corpuscular Volume 70.8 L Mean Corpuscular Hemoglobin 22.2 L Mean Corpuscular Hemoglobin Concent 31.3 L Red Cell Distribution Width 19.9 H Platelet Count 247 Mean Platelet Volume 10.2 Neutrophils % 74.6 Lymphocytes % 17.4 Monocytes % 6.2 Eosinophils % 0.9 Basophils % 0.1 Nucleated Red Blood Cells % 0.0 Neutrophils # 8.7 H Lymphocytes # 2.0 Monocytes # 0.7 Eosinophils # 0.1 Basophils # 0.0 Nucleated Red Blood Cells # 0.0 Sodium Level 139 Potassium Level 3.4 L Chloride Level 98 Carbon Dioxide Level 30 Anion Gap 14 Blood Urea Nitrogen 16 Creatinine 0.75 Glucose Level 84 Calcium Level 8.5 Phosphorus Level 4.4 Magnesium Level 1.0 L Medications Current Medications Lorazepam (Ativan) 2 mg Q10MIN PRN IV seizure Last administered on 09/06/17 09 :11; Admin Dose 2 MG; Start 09/05/17 at 16:00 Ondansetron HCl (Zofran Inj) 4 mg Q6H PRN IV NAUSEA AND/OR VOMITING; Start 09/05/17 at 16:30 Acetaminophen (Tylenol Tab) 650 mg Q6H PRN PO PAIN LEVEL 1-3 OR FEVER Last administered on 09/15/17 14:05; Admin Dose 650 MG; Start 09/05/17 at 16:30 Morphine Sulfate (morphine) 2 mg Q4H PRN IV PAIN LEVEL 7-10 Last administered on 09/20/17 06:15; Admin Dose 2 MG; Start 09/05/17 at 16:30 Bisacodyl (Dulcolax) 5 mg DAILY PRN PO CONSTIPATION; Start 09/05/17 at 16:30 Lorazepam (Ativan) 1 mg Q6H PRN IV agitation/anxiety Last administered on 09/08 09:30; Admin Dose 1 MG; Start 09/05/17 at 17:00 Nicotine (Nicoderm 21 Mg/ 24hr) 1 patch Q24H TRANSDERM Last administered on 17:22; Admin Dose 1 PATCH; Start 09/05/17 at 17:00 Folic Acid (Folic Acid) 1 mg DAILY PO Last administered on 09/20/17 09:39; Admin Dose 1 MG; Start 09/07/17 at 16:30 Magnesium Oxide (Mag-Ox 400) 400 mg BID PO Last administered on 09/20/17 09: 39; Admin Dose 400 MG; Start 09/09/17 at 12:00 Famotidine (Pepcid) 20 mg BID PO Last administered on 09/20/17 09:39; Admin Dose 20 MG; Start 09/09/17 at 21:00 Hydralazine HCl (Apresoline) 10 mg Q4H PRN IV ELEVATED BLOOD PRESSURE Last administered on 09/12/17 08:53; Admin Dose 10 MG; Start 09/10/17 at 04:55 Lisinopril (Zestril) 10 mg DAILY PO Last administered on 09/20/17 09:39; Admin Dose 10 MG; Start 09/12/17 at 09:00 Ferrous Sulfate (Ferrous Sulfate (Ec)) 325 mg DAILY PO Last administered on 09:39; Admin Dose 325 MG; Start 09/14/17 at 09:30 Levofloxacin (Levaquin) 750 mg DAILY@06 PO Last administered on 09/20/17 06: 15; Admin Dose 750 MG; Start 09/18/17 at 06:00 Lorazepam (Ativan) 1 mg Q6H PRN PO ANXIETY; Start 09/17/17 at 15:00 Spironolactone (Aldactone) 25 mg DAILY NGT Last administered on 09/20/17 09: 40; Admin Dose 25 MG; Start 09/18/17 at 11:30 Furosemide (Lasix) 10 mg DAILY PO Last administered on 09/20/17 09:40; Admin Dose 10 MG; Start 09/19/17 at 09:00 Assessment/Plan Chief Complaint/Hosp Course Assessment 1. Hypoxemic respiratory failure resolved following placement of chest tube. 2. EtOH withdrawal 3. Electrolyte abnormalities Plan 1. Continue chest tube drainage. 2. Aspiration precautions. 3. Encourage OOB. 4. Monitor H/H Problems: WOOD TUBBS MD, [facility] Sep 20, 2017 13:18
--- NOTE | 2017-09-20 16:50 | CONS ---
DATE OF ADMISSION: 09/05/2017 DATE OF CONSULTATION: 09/20/2017 REASON FOR CONSULTATION: Evaluation for pneumothorax. HISTORY OF PRESENT ILLNESS: Thank you, for asking me to see this patient, a 51-year-old m kaylyn with history of ETOH admitted because of a witnessed seizure. The patient was found to have a p leural effusion and subsequently had was found to have a hydropneumothorax on the right side, underw ent a was successful placement of a chest tube on the right side. Chest x-ray this morning shows ri ght chest tube is in place previously right hydropneumothorax is no longer seen. Chest tube has drai abhi 500 mL of clear fluid. PAST MEDICAL HISTORY: Significant for hypertension. PAST SURGICAL HISTORY: None. ALLERGIES: NONE. SOCIAL HISTORY: Positive for drinking history of ETOH use. PHYSICAL EXAMINATION VITAL SIGNS: Blood pressure is 106/66, pulse is 93, respirations 18, saturation is 100% on 2 liters of oxygen. CARDIOVASCULAR: Regular rate and rhythm. LUNGS: Clear. ABDOMEN: Soft. EXTREMITIES: Warm. IMPRESSION: Status post chest tube placement. RECOMMENDATIONS: Will continue chest tube suction until the drainage is less than 100 mL a date dis cussed with Dr. Richter. Dictated By: CHET BRICE/VICKY Conf#: [id number] DID#: [id number]
[2017-09-20] MEDS: NICOTINE (21 MG/24 HR) PATCH TRANSDERM SCH (19:22)
[2017-09-21] VITALS (11 sets, daily range): BP systolic 78–102; BP diastolic 48–67; PULSE 64–106; RESP 18–20
[2017-09-21] MEDS: LEVOFLOXACIN 750 MG TABLET PO SCH (05:49)
[2017-09-21] MEDS: ALBUTEROL/IPRATROPIUM (NEB) 3 ML AMP HHN SCH ×3 (08:14→20:50)
[2017-09-21] MEDS: FOLIC ACID 1 MG TAB PO SCH (08:21)
[2017-09-21] MEDS: FUROSEMIDE 20 MG TAB PO SCH (08:21)
[2017-09-21] MEDS: FERROUS SULFATE (EC) 325 MG TAB PO SCH (08:22)
[2017-09-21] MEDS: SPIRONOLACTONE 25 MG TAB NGT SCH (08:22)
[2017-09-21] MEDS: FAMOTIDINE 20 MG TAB PO SCH ×2 (08:22→20:35)
[2017-09-21] MEDS: MAGNESIUM OXIDE 400 MG TAB PO SCH ×2 (08:22→20:34)
[2017-09-21] MEDS: LISINOPRIL 10 MG TAB PO SCH (08:22)
[2017-09-21 08:51] LABS: BASOPHILS % 0.1 % (0.0-2.0); EOSINOPHILS # 0.2 10^3/ul (0.0-0.5); EOSINOPHILS % 1.2 % (0.0-7.0); HEMATOCRIT 25.3 % (42.0-52.0); LYMPHOCYTES # 1.5 10^3/ul (0.8-2.9); LYMPHOCYTES % 11.6 % (15.0-51.0); MEAN CORPUSCULAR HEMOGLOBIN 22.2 pg (29.0-33.0); MEAN CORPUSCULAR HGB CONC 31.6 g/dl (32.0-37.0); MEAN CORPUSCULAR VOLUME 70.1 fl (82.0-101.0); MEAN PLATELET VOLUME 10.2 fl (7.4-10.4); MONOCYTE # 0.9 10^3/ul (0.3-0.9); MONOCYTES % 6.7 % (0.0-11.0); NEUTROPHIL # 10.2 10^3/ul (1.6-7.5); NEUTROPHILS % 79.2 % (39.0-77.0); PLATELET COUNT 244 10^3/UL (140-415); RED BLOOD COUNT 3.61 10^6/ul (4.70-6.10); RED CELL DISTRIBUTION WIDTH 20.3 % (11.5-14.5); WHITE BLOOD COUNT 12.9 10^3/ul (4.8-10.8)
[2017-09-21 09:00] LABS: CALCIUM 8.9 mg/dl (8.4-10.2); CREATININE 0.8 mg/dl (0.61-1.24); PHOSPHORUS 4.4 mg/dl (2.5-4.9); POTASSIUM 4.3 mmol/L (3.5-5.1)
[2017-09-21] MEDS ORDERED: MAGNESIUM SULFATE 2 GM/50 ML 50 ML IVPB ONE (09:30)
--- NOTE | 2017-09-21 11:15 | CONS ---
Date/Time of Note Date/Time of Note DATE: 09/21/17 TIME: 11:13 Consult Date/Type/Reason Admit Date/Time Sep 05, 2017 at 13:14 Type of Consultation: Pulmonary Subjective Still having moderate chest tube output. Greater than 150 cc over 24 hour period. Objective Vital Signs Date Time Temp Pulse Resp B/P Pulse Ox O2 Delivery O2 Flow Rate FiO2 09/21/17 08:38 64 09/21/17 08:30 98.6 18 102/67 96 09/21/17 08:15 2.0 09/21/17 08:15 Nasal Cannula 09/19/17 19:57 21 Intake and Output 09/20/17 09/20/17 09/21/17 14:59 22:59 06:59 Intake Total 1200 ml 200 ml Output Total 2020 ml 1660 ml Balance -820 ml -1460 ml Exam GENERAL: thin gentleman comfortable at rest no acute distress. NECK: Supple. No JVD or lymphadenopathy. CARDIAC EXAM: S1, S2. No added sounds or murmurs. CHEST: Diminished air entry right lung ABDOMEN: Soft, nontender. No guarding or rebound. EXTREMITIES: No cyanosis, clubbing or edema. NEUROLOGIC: Generalized weakness. No focal deficits. Results/Medications Result Diagram: 09/21/1780409/21/17804 Results 24 hrs Laboratory Tests Test 09/21/17 08:05 White Blood Count 12.9 H Red Blood Count 3.61 L Hemoglobin 8.0 L Hematocrit 25.3 L Mean Corpuscular Volume 70.1 L Mean Corpuscular Hemoglobin 22.2 L Mean Corpuscular Hemoglobin Concent 31.6 L Red Cell Distribution Width 20.3 H Platelet Count 244 Mean Platelet Volume 10.2 Neutrophils % 79.2 H Lymphocytes % 11.6 L Monocytes % 6.7 Eosinophils % 1.2 Basophils % 0.1 Nucleated Red Blood Cells % 0.0 Neutrophils # 10.2 H Lymphocytes # 1.5 Monocytes # 0.9 Eosinophils # 0.2 Basophils # 0.0 Nucleated Red Blood Cells # 0.0 Sodium Level 133 L Potassium Level 4.3 Chloride Level 95 L Carbon Dioxide Level 31 Anion Gap 11 Blood Urea Nitrogen 16 Creatinine 0.80 Glucose Level 73 Calcium Level 8.9 Phosphorus Level 4.4 Magnesium Level 0.8 *L Medications Current Medications Lorazepam (Ativan) 2 mg Q10MIN PRN IV seizure Last administered on 09/06/17 09 :11; Admin Dose 2 MG; Start 09/05/17 at 16:00 Ondansetron HCl (Zofran Inj) 4 mg Q6H PRN IV NAUSEA AND/OR VOMITING; Start 09/05/17 at 16:30 Acetaminophen (Tylenol Tab) 650 mg Q6H PRN PO PAIN LEVEL 1-3 OR FEVER Last administered on 09/15/17 14:05; Admin Dose 650 MG; Start 09/05/17 at 16:30 Morphine Sulfate (morphine) 2 mg Q4H PRN IV PAIN LEVEL 7-10 Last administered on 09/20/17 06:15; Admin Dose 2 MG; Start 09/05/17 at 16:30 Bisacodyl (Dulcolax) 5 mg DAILY PRN PO CONSTIPATION; Start 09/05/17 at 16:30 Lorazepam (Ativan) 1 mg Q6H PRN IV agitation/anxiety Last administered on 09/08 09:30; Admin Dose 1 MG; Start 09/05/17 at 17:00 Nicotine (Nicoderm 21 Mg/ 24hr) 1 patch Q24H TRANSDERM Last administered on 19:22; Admin Dose 1 PATCH; Start 09/05/17 at 17:00 Folic Acid (Folic Acid) 1 mg DAILY PO Last administered on 09/21/17 08:21; Admin Dose 1 MG; Start 09/07/17 at 16:30 Magnesium Oxide (Mag-Ox 400) 400 mg BID PO Last administered on 09/21/17 08: 22; Admin Dose 400 MG; Start 09/09/17 at 12:00 Famotidine (Pepcid) 20 mg BID PO Last administered on 09/21/17 08:22; Admin Dose 20 MG; Start 09/09/17 at 21:00 Hydralazine HCl (Apresoline) 10 mg Q4H PRN IV ELEVATED BLOOD PRESSURE Last administered on 09/12/17 08:53; Admin Dose 10 MG; Start 09/10/17 at 04:55 Lisinopril (Zestril) 10 mg DAILY PO Last administered on 09/21/17 08:22; Admin Dose 10 MG; Start 09/12/17 at 09:00 Ferrous Sulfate (Ferrous Sulfate (Ec)) 325 mg DAILY PO Last administered on 08:22; Admin Dose 325 MG; Start 09/14/17 at 09:30 Levofloxacin (Levaquin) 750 mg DAILY@06 PO Last administered on 09/21/17 05: 49; Admin Dose 750 MG; Start 09/18/17 at 06:00 Lorazepam (Ativan) 1 mg Q6H PRN PO ANXIETY; Start 09/17/17 at 15:00 Spironolactone (Aldactone) 25 mg DAILY NGT Last administered on 09/21/17 08: 22; Admin Dose 25 MG; Start 09/18/17 at 11:30 Furosemide 10 mg 10 mg DAILY PO Last administered on 09/21/17 08:21; Admin Dose 10 MG; Start 09/19/17 at 09:00 Magnesium Sulfate (Magnesium Sulfate 2 Gm/50 ml) 50 ml @ 25 mls/hr ONCE ONCE IVPB Last administered on 09/21/17 09:52; Admin Dose 25 MLS/HR; Start at 09:30; Stop 09/21/17 at 11:29 Assessment/Plan Chief Complaint/Hosp Course Assessment 1. Hypoxemic respiratory failure resolved following placement of chest tube. 2. EtOH withdrawal 3. Electrolyte abnormalities Plan 1. Continue chest tube drainage. Discussed with nursing staff to monitor chest tube output. Will clamp once drainage less than 100 cc / 24hr. repeat chest x-ray in a.m. 2. Aspiration precautions. 3. Encourage OOB. 4. Repeat chest x-ray in a.m. Monitor H/H Problems: WOOD TUBBS MD, [facility] Sep 21, 2017 11:15
--- NOTE | 2017-09-21 11:37 | PN ---
Date/Time of Note Date/Time of Note DATE: 09/21/17 TIME: 11:36 Assessment/Plan VTE Prophylaxis VTE Prophylaxis Intervention: ambulation, SCD's Lines/Catheters IV Catheter Type (from Nrsg): Mid Line Urinary Cath still in place: No Assessment/Plan Chief Complaint/Hosp Course s: 09.19:no sob, no acute change 09.20: s/p chest tube, chest discomfort at site of chest tube insertion 09.21: no acute complaints o: General: Patient resting comfortably, in no acute distress. oriented to self and place Head: Normocephalic atraumatic Eyes: EOMI, pupils reactive to light Neck: Supple, nontender, midline Respiratory: diminished breath sounds on R, no crackles or wheezing Cardiovascular: regular rate and rhythm, no obvious murmurs Gastrointestinal: non-tender to palpation, bowel sounds heard. Neurological: Moves all extremities spontaneously Skin: No new skin lesions, chest tube placed R Patient is a 51-year-old homeless alcoholic who presents with right pleural effusion, pneumonia, and alcohol withdrawal induced seizure. 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 Delirium tremens- resolved -librium tapered off - Ativan PRN for agitation/anxiety #. bacteremia, gram neg - continue on IV antibiotics for 10-14 days. stop after today - remains afebrile -wbc stabilized #. acute respiratory failure, 2/2 PNA/pleural effusion- resolved - Pulmonology on board and recommendations appreciated - s/p 2 L drained on pleural effusion 1st time, 1 L drained 2nd time - Respiratory status stable. Saturating well #. Bilateral pneumonia, likely aspiration - Continue antibiotics #. Severe hyponatremia- resolved - Nephrology on board and recommendations appreciated #. Alcoholism - Banana bag stopped -thiamine and folic acid - Librium tapered #. Hypokalemia - replete as needed #. Hypomagnesia - Nephrology on board assisting with electrolyte abnormalities #. Disposition - chest tube management, poor prognosis given hepatic hydrothorax/pneumothorax Problems: Exam/Review of Systems Vital Signs Vitals Vital Signs Date Time Temp Pulse Resp B/P Pulse Ox O2 Delivery O2 Flow Rate FiO2 09/21/17 08:38 64 09/21/17 08:30 98.6 18 102/67 96 09/21/17 08:15 2.0 09/21/17 08:15 Nasal Cannula 09/19/17 19:57 21 Intake and Output 09/20/17 09/20/17 09/21/17 15:00 23:00 07:00 Intake Total 1200 ml 200 ml Output Total 2020 ml 1660 ml Balance -820 ml -1460 ml Results Result Diagram: 09/21/17 0805 09/21/17 0805 Results 24 hrs Laboratory Tests Test 09/21/17 08:05 White Blood Count 12.9 H Red Blood Count 3.61 L Hemoglobin 8.0 L Hematocrit 25.3 L Mean Corpuscular Volume 70.1 L Mean Corpuscular Hemoglobin 22.2 L Mean Corpuscular Hemoglobin Concent 31.6 L Red Cell Distribution Width 20.3 H Platelet Count 244 Mean Platelet Volume 10.2 Neutrophils % 79.2 H Lymphocytes % 11.6 L Monocytes % 6.7 Eosinophils % 1.2 Basophils % 0.1 Nucleated Red Blood Cells % 0.0 Neutrophils # 10.2 H Lymphocytes # 1.5 Monocytes # 0.9 Eosinophils # 0.2 Basophils # 0.0 Nucleated Red Blood Cells # 0.0 Sodium Level 133 L Potassium Level 4.3 Chloride Level 95 L Carbon Dioxide Level 31 Anion Gap 11 Blood Urea Nitrogen 16 Creatinine 0.80 Glucose Level 73 Calcium Level 8.9 Phosphorus Level 4.4 Magnesium Level 0.8 *L Medications Medications Current Medications Lorazepam (Ativan) 2 mg Q10MIN PRN IV seizure Last administered on 09/06/17 09 :11; Admin Dose 2 MG; Start 09/05/17 at 16:00 Ondansetron HCl (Zofran Inj) 4 mg Q6H PRN IV NAUSEA AND/OR VOMITING; Start 09/05/17 at 16:30 Acetaminophen (Tylenol Tab) 650 mg Q6H PRN PO PAIN LEVEL 1-3 OR FEVER Last administered on 09/15/17 14:05; Admin Dose 650 MG; Start 09/05/17 at 16:30 Morphine Sulfate (morphine) 2 mg Q4H PRN IV PAIN LEVEL 7-10 Last administered on 09/20/17 06:15; Admin Dose 2 MG; Start 09/05/17 at 16:30 Bisacodyl (Dulcolax) 5 mg DAILY PRN PO CONSTIPATION; Start 09/05/17 at 16:30 Lorazepam (Ativan) 1 mg Q6H PRN IV agitation/anxiety Last administered on 09/08 09:30; Admin Dose 1 MG; Start 09/05/17 at 17:00 Nicotine (Nicoderm 21 Mg/ 24hr) 1 patch Q24H TRANSDERM Last administered on 19:22; Admin Dose 1 PATCH; Start 09/05/17 at 17:00 Folic Acid (Folic Acid) 1 mg DAILY PO Last administered on 09/21/17 08:21; Admin Dose 1 MG; Start 09/07/17 at 16:30 Magnesium Oxide (Mag-Ox 400) 400 mg BID PO Last administered on 09/21/17 08: 22; Admin Dose 400 MG; Start 09/09/17 at 12:00 Famotidine (Pepcid) 20 mg BID PO Last administered on 09/21/17 08:22; Admin Dose 20 MG; Start 09/09/17 at 21:00 Hydralazine HCl (Apresoline) 10 mg Q4H PRN IV ELEVATED BLOOD PRESSURE Last administered on 09/12/17 08:53; Admin Dose 10 MG; Start 09/10/17 at 04:55 Lisinopril (Zestril) 10 mg DAILY PO Last administered on 09/21/17 08:22; Admin Dose 10 MG; Start 09/12/17 at 09:00 Ferrous Sulfate (Ferrous Sulfate (Ec)) 325 mg DAILY PO Last administered on 08:22; Admin Dose 325 MG; Start 09/14/17 at 09:30 Levofloxacin (Levaquin) 750 mg DAILY@06 PO Last administered on 09/21/17 05: 49; Admin Dose 750 MG; Start 09/18/17 at 06:00 Lorazepam (Ativan) 1 mg Q6H PRN PO ANXIETY; Start 09/17/17 at 15:00 Spironolactone (Aldactone) 25 mg DAILY NGT Last administered on 11/24/17at 08: 22; Admin Dose 25 MG; Start 09/18/17 at 11:30 Furosemide (Lasix) 10 mg DAILY PO Last administered on 09/21/17t 08:21; Admin Dose 10 MG; Start 09/19/17 at 09:00 CATHERINE DUMONT Sep 21, 2017 11:37
--- NOTE | 2017-09-21 12:09 | PN ---
DATE: 09/21/2017 SUBJECTIVE: The patient is stable. The patient continues to have a chest tube in place. No other events noted. OBJECTIVE: VITAL SIGNS: Blood pressure 102/67, respiration 18, pulse 77, temperature 98.6. HEENT: Head is normocephalic. NECK: Supple. HEART: Regular rate. LUNGS: Show diminished breath sounds at base. ABDOMEN: Soft, nontender to palpation. No rebound or guarding. EXTREMITIES: Negative for clubbing, cyanosis, no edema. DERMATOLOGIC: No rashes. MUSCULOSKELETAL: No joint effusions. NEUROLOGIC: No change in exam. MEDICATIONS: The patient's medications have been reviewed. LABORATORY DATA: From 09/21/2017 is pending. ASSESSMENT AND PLAN: 1. Hypomagnesemia, etiology secondary to chronic alcohol abuse, hypokalemia. Continue to monitor a nd replete with IV and oral magnesium. 2. Hypokalemia. Continue to monitor and replete. 3. Hyponatremia, resolved. 4. Hypertension, likely from third spacing and volume loss. The patient is status post IV fluids. 5. Acute respiratory failure secondary to pneumonia, improved. 6. Alcohol abuse. Continue Librium and Ativan. 7. Right pneumothorax, status post chest tube. Continue to monitor. 8. Sepsis bacteremia. Patient is completing antibiotic course. 9. Status post hyponatremia. Dictated By: SLIME AGUILAR DO NR/NTS Conf#: [id number] DID#: [id number] CC: TANK MALHOTRA; CHET MONREAL MD;*End*
[2017-09-21] MEDS: SOD CHLORIDE 0.9% 1,000 ML IV SCH (13:12)
--- NOTE | 2017-09-21 16:29 | PN ---
Date/Time of Note Date/Time of Note DATE: 09/21/17 TIME: 16:28 Assessment/Plan Lines/Catheters IV Catheter Type (from Nrsg): Mid Line Lema in Place (from Nrsg): No Assessment/Plan Chief Complaint/Hosp Course IMPRESSION: Status post chest tube placement. CT with 170 cc RECOMMENDATIONS: Will continue chest tube suction until the drainage is less than 100 mL a date discussed with Dr. Richter. Problems: Subjective 24 Hr Interval Summary Constitutional: improved Pain Control: mild Exam/Review of Systems Vital Signs Vitals Vital Signs Date Time Temp Pulse Resp B/P Pulse Ox O2 Delivery O2 Flow Rate FiO2 09/21/17 16:22 98 09/21/17 13:04 18 99 21 09/21/17 12:15 98.4 78/54 09/21/17 08:15 2.0 09/21/17 08:15 Nasal Cannula Intake and Output 09/20/17 09/20/17 09/21/17 15:00 23:00 07:00 Intake Total 1200 ml 200 ml Output Total 2020 ml 1660 ml Balance -820 ml -1460 ml Exam Neck: non-tender, supple Respiratory: clear to auscultation, normal air movement Cardiovascular: nl pulses, regular rate and rhythm Results Result Diagram: 09/21/1780409/21/17804 CHET MONREAL MD Sep 21, 2017 16:29
[2017-09-21] MEDS: NICOTINE (21 MG/24 HR) PATCH TRANSDERM SCH (17:30)
[2017-09-22] VITALS (12 sets, daily range): BP systolic 101–113; BP diastolic 55–66; PULSE 91–107; RESP 19–20
[2017-09-22] MEDS: SOD CHLORIDE 0.9% 1,000 ML IV SCH ×2 (03:44→18:31)
[2017-09-22] MEDS ORDERED: MAGNESIUM SULFATE 2 GM/50 ML 50 ML IVPB ONE (07:30)
--- NOTE | 2017-09-22 08:19 | PN ---
DATE: 09/22/2017 SUBJECTIVE: The patient remains on IV fluids. The patient's chest tube remains in place. No other events noted. OBJECTIVE: VITAL SIGNS: Blood pressure is 102/56, respirations 20, pulse 106, temperature 98.0. HEAD: Normocephalic. HEART: Regular rate. LUNGS: Show diminished breath sounds at the base. ABDOMEN: Soft, nontender to palpation. No rebound or guarding. EXTREMITIES: Negative for clubbing, cyanosis, no edema. DERMATOLOGIC: No rashes. MUSCULOSKELETAL: No joint effusions. NEUROLOGIC: No change in exam. MEDICATIONS: The patient's medications have been reviewed. LABORATORY DATA: From 09/21/2017 was reviewed. The patient had a magnesium of 0.8. ASSESSMENT AND PLAN: 1. Severe hypomagnesemia. Etiology is multifactorial secondary to chronic alcohol abuse causing tu bular dysfunction, resulting in . Other contributing factors include recent diuretic therapy, IV fluids that caused renal magnesium wasting. At this point, will hold Lasix. We will continue to aggressively replete with IV magnesium. We will also calculate a fractional excretion of magnesium although would expect findings to be consistent with . 2. Hypokalemia, replete with potassium chloride. 3. Hyponatremia, etiology may be secondary to hypovolemia. We will continue to monitor. The patie nt on IV fluids. 4. Right pneumothorax, status post chest tube placement. 5. Alcohol abuse. Continue Librium, Ativan. 6. Status post respiratory failure. Dictated By: SLIME AGUILAR DO NR/VICKY Conf#: [id number] DID#: [id number] CC: TANK MALHOTRA;*EndCC*
[2017-09-22] MEDS: ALBUTEROL/IPRATROPIUM (NEB) 3 ML AMP HHN SCH ×3 (08:22→19:21)
[2017-09-22 09:01] LABS: CALCIUM 8.8 mg/dl (8.4-10.2); CREATININE 0.76 mg/dl (0.61-1.24); MAGNESIUM 1.2 mg/dl (1.7-2.5); PHOSPHORUS 4.5 mg/dl (2.5-4.9); POTASSIUM 4.5 mmol/L (3.5-5.1)
[2017-09-22] MEDS: SPIRONOLACTONE 25 MG TAB NGT SCH (09:04)
[2017-09-22] MEDS: FERROUS SULFATE (EC) 325 MG TAB PO SCH (09:04)
[2017-09-22] MEDS: FOLIC ACID 1 MG TAB PO SCH (09:06)
[2017-09-22] MEDS: FAMOTIDINE 20 MG TAB PO SCH ×2 (09:06→21:44)
[2017-09-22] MEDS: LISINOPRIL 5 MG TAB PO SCH (09:06)
[2017-09-22] MEDS: MAGNESIUM OXIDE 400 MG TAB PO SCH ×2 (09:12→21:44)
--- NOTE | 2017-09-22 11:32 | CONS ---
Date/Time of Note Date/Time of Note DATE: 09/22/17 TIME: 11:32 Consult Date/Type/Reason Admit Date/Time Sep 05, 2017 at 13:14 Type of Consultation: Pulmonary Subjective Still with moderate chest tube output. Objective Vital Signs Date Time Temp Pulse Resp B/P Pulse Ox O2 Delivery O2 Flow Rate FiO2 09/22/17 08:22 96 20 Nasal Cannula 09/22/17 07:46 98.3 101/66 95 09/21/17 20:50 21 09/21/17 08:15 2.0 Intake and Output 09/21/17 09/21/17 09/22/17 15:00 23:00 07:00 Intake Total 1440 ml 1180 ml Output Total 900 ml 1000 ml Balance 540 ml 180 ml Exam GENERAL: Elderly gentleman anxious on nonrebreather. No accessory muscle use. VITAL SIGNS: per chart NECK: Supple. No JVD or lymphadenopathy. CARDIAC EXAM: S1, S2. No added sounds or murmurs. CHEST: Diminished air entry right lung ABDOMEN: Soft, nontender. No guarding or rebound. EXTREMITIES: No cyanosis, clubbing or edema. NEUROLOGIC: Generalized weakness. No focal deficits. Results/Medications Result Diagram: 09/21/17 0805 09/22/17 0739 Results 24 hrs Laboratory Tests Test 09/22/17 07:39 Sodium Level 134 L Potassium Level 4.5 Chloride Level 97 Carbon Dioxide Level 27 Anion Gap 15 Blood Urea Nitrogen 18 Creatinine 0.76 Glucose Level 81 Calcium Level 8.8 Phosphorus Level 4.5 Magnesium Level 1.2 L Medications Current Medications Lorazepam (Ativan) 2 mg Q10MIN PRN IV seizure Last administered on 09/06/17 09 :11; Admin Dose 2 MG; Start 09/05/17 at 16:00 Ondansetron HCl (Zofran Inj) 4 mg Q6H PRN IV NAUSEA AND/OR VOMITING; Start 09/05/17 at 16:30 Acetaminophen (Tylenol Tab) 650 mg Q6H PRN PO PAIN LEVEL 1-3 OR FEVER Last administered on 09/15/17 14:05; Admin Dose 650 MG; Start 09/05/17 at 16:30 Morphine Sulfate (morphine) 2 mg Q4H PRN IV PAIN LEVEL 7-10 Last administered on 09/20/17 06:15; Admin Dose 2 MG; Start 09/05/17 at 16:30 Bisacodyl (Dulcolax) 5 mg DAILY PRN PO CONSTIPATION; Start 09/05/17 at 16:30 Lorazepam (Ativan) 1 mg Q6H PRN IV agitation/anxiety Last administered on 09/08 09:30; Admin Dose 1 MG; Start 09/05/17 at 17:00 Nicotine (Nicoderm 21 Mg/ 24hr) 1 patch Q24H TRANSDERM Last administered on 17:30; Admin Dose 1 PATCH; Start 09/05/17 at 17:00 Folic Acid (Folic Acid) 1 mg DAILY PO Last administered on 09/22/17 09:06; Admin Dose 1 MG; Start 09/07/17 at 16:30 Magnesium Oxide (Mag-Ox 400) 400 mg BID PO Last administered on 09/22/17 09: 12; Admin Dose 400 MG; Start 09/09/17 at 12:00 Famotidine (Pepcid) 20 mg BID PO Last administered on 09/22/17 09:06; Admin Dose 20 MG; Start 09/09/17 at 21:00 Hydralazine HCl (Apresoline) 10 mg Q4H PRN IV ELEVATED BLOOD PRESSURE Last administered on 09/12/17 08:53; Admin Dose 10 MG; Start 09/10/17 at 04:55 Ferrous Sulfate (Ferrous Sulfate (Ec)) 325 mg DAILY PO Last administered on 09:04; Admin Dose 325 MG; Start 09/14/17 at 09:30 Lorazepam (Ativan) 1 mg Q6H PRN PO ANXIETY; Start 09/17/17 at 15:00 Spironolactone (Aldactone) 25 mg DAILY NGT Last administered on 09/22/17 09: 04; Admin Dose 25 MG; Start 09/18/17 at 11:30 Furosemide 10 mg 10 mg DAILY PO Last administered on 09/21/17 08:21; Admin Dose 10 MG; Start 09/19/17 at 09:00; Status Future Hold Sodium Chloride (NS) 1,000 ml @ 70 mls/hr [id number] IV Last administered on 03:44; Admin Dose 70 MLS/HR; Start 09/21/17 at 13:00 Lisinopril (Zestril) 5 mg DAILY PO Last administered on 09/22/17t 09:06; Admin Dose 5 MG; Start 09/22/17 at 09:00 Assessment/Plan Chief Complaint/Hosp Course Assessment 1. Hypoxemic respiratory failure resolved following placement of chest tube. 2. EtOH withdrawal 3. Electrolyte abnormalities 4. Persistent pleural effusion likely hepatic hydrothorax Plan 1. Continue chest tube drainage. Discussed with nursing staff to monitor chest tube output. Will clamp once drainage less than 100 cc / 24hr. repeat chest x-ray in a.m. may require pleurodesis versus Pleurx catheter. 2. Aspiration precautions. 3. Encourage OOB. 4. Repeat chest x-ray pending. Problems: WOOD TUBBS MD, [facility] Sep 22, 2017 11:32
--- NOTE | 2017-09-22 12:24 | PN ---
Date/Time of Note Date/Time of Note DATE: 09/22/17 TIME: 12:24 Assessment/Plan Lines/Catheters IV Catheter Type (from Nrsg): Peripheral IV Lema in Place (from Nrsg): No Assessment/Plan Chief Complaint/Hosp Course IMPRESSION: Status post chest tube placement. CT with 300 cc RECOMMENDATIONS: Will continue chest tube suction until the drainage is less than 100 mL a date discussed with Dr. Richter. Problems: Subjective 24 Hr Interval Summary Constitutional: improved Pain Control: mild Exam/Review of Systems Vital Signs Vitals Vital Signs Date Time Temp Pulse Resp B/P Pulse Ox O2 Delivery O2 Flow Rate FiO2 09/22/17 12:00 94 09/22/17 11:33 98.3 19 111/58 96 09/22/17 08:22 Nasal Cannula 09/21/17 20:50 21 09/21/17 08:15 2.0 Intake and Output 09/21/17 09/21/17 09/22/17 15:00 23:00 07:00 Intake Total 1440 ml 1180 ml Output Total 900 ml 1000 ml Balance 540 ml 180 ml Results Result Diagram: 09/21/17 0805 09/22/17 0739 CHET MONREAL MD Sep 22, 2017 12:24
--- NOTE | 2017-09-22 12:29 | PN ---
Date/Time of Note Date/Time of Note DATE: 09/22/17 TIME: 12:28 Assessment/Plan VTE Prophylaxis VTE Prophylaxis Intervention: ambulation, SCD's Lines/Catheters IV Catheter Type (from Nrsg): Peripheral IV Urinary Cath still in place: No Assessment/Plan Chief Complaint/Hosp Course s: 09.19:no sob, no acute change 09.20: s/p chest tube, chest discomfort at site of chest tube insertion 09.21: no acute complaints . chest tube still draining, no acute complaints o: General: Patient resting comfortably, in no acute distress. oriented to self and place Head: Normocephalic atraumatic Eyes: EOMI, pupils reactive to light Neck: Supple, nontender, midline Respiratory: diminished breath sounds on R, no crackles or wheezing Cardiovascular: regular rate and rhythm, no obvious murmurs Gastrointestinal: non-tender to palpation, bowel sounds heard. Neurological: Moves all extremities spontaneously Skin: No new skin lesions, chest tube placed R Patient is a 51-year-old homeless alcoholic who presents with right pleural effusion, pneumonia, and alcohol withdrawal induced seizure. 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 Delirium tremens- resolved -librium tapered off - Ativan PRN for agitation/anxiety #. bacteremia, gram neg - continue on IV antibiotics for 10-14 days. stopped abx - remains afebrile -wbc stabilized #. acute respiratory failure, 2/2 PNA/pleural effusion- resolved - Pulmonology on board and recommendations appreciated - s/p 2 L drained on pleural effusion 1st time, 1 L drained 2nd time - Respiratory status stable. Saturating well #. Bilateral pneumonia, likely aspiration -abx finished #. Severe hyponatremia- resolved - Nephrology on board and recommendations appreciated #. Alcoholism - Banana bag stopped -thiamine and folic acid - Librium tapered #. Hypokalemia - replete as needed #. Hypomagnesia - Nephrology on board assisting with electrolyte abnormalities #. Disposition - chest tube management, poor prognosis given hepatic hydrothorax/pneumothorax Problems: Exam/Review of Systems Vital Signs Vitals Vital Signs Date Time Temp Pulse Resp B/P Pulse Ox O2 Delivery O2 Flow Rate FiO2 09/22/17 12:00 94 09/22/17 11:33 98.3 19 111/58 96 09/22/17 08:22 Nasal Cannula 09/21/17 20:50 21 09/21/17 08:15 2.0 Intake and Output 09/21/17 09/21/17 09/22/17 15:00 23:00 07:00 Intake Total 1440 ml 1180 ml Output Total 900 ml 1000 ml Balance 540 ml 180 ml Results Result Diagram: 09/21/17 0805 09/22/17 0739 Results 24 hrs Laboratory Tests Test 09/22/17 07:39 Sodium Level 134 L Potassium Level 4.5 Chloride Level 97 Carbon Dioxide Level 27 Anion Gap 15 Blood Urea Nitrogen 18 Creatinine 0.76 Glucose Level 81 Calcium Level 8.8 Phosphorus Level 4.5 Magnesium Level 1.2 L Medications Medications Current Medications Lorazepam (Ativan) 2 mg Q10MIN PRN IV seizure Last administered on 09/06/17 09 :11; Admin Dose 2 MG; Start 09/05/17 at 16:00 Ondansetron HCl (Zofran Inj) 4 mg Q6H PRN IV NAUSEA AND/OR VOMITING; Start 09/05/17 at 16:30 Acetaminophen (Tylenol Tab) 650 mg Q6H PRN PO PAIN LEVEL 1-3 OR FEVER Last administered on 09/15/17 14:05; Admin Dose 650 MG; Start 09/05/17 at 16:30 Morphine Sulfate (morphine) 2 mg Q4H PRN IV PAIN LEVEL 7-10 Last administered on 09/20/17 06:15; Admin Dose 2 MG; Start 09/05/17 at 16:30 Bisacodyl (Dulcolax) 5 mg DAILY PRN PO CONSTIPATION; Start 09/05/17 at 16:30 Lorazepam (Ativan) 1 mg Q6H PRN IV agitation/anxiety Last administered on 09/08 09:30; Admin Dose 1 MG; Start 09/05/17 at 17:00 Nicotine (Nicoderm 21 Mg/ 24hr) 1 patch Q24H TRANSDERM Last administered on 17:30; Admin Dose 1 PATCH; Start 09/05/17 at 17:00 Folic Acid (Folic Acid) 1 mg DAILY PO Last administered on 09/22/17 09:06; Admin Dose 1 MG; Start 09/07/17 at 16:30 Magnesium Oxide (Mag-Ox 400) 400 mg BID PO Last administered on 09/22/17 09: 12; Admin Dose 400 MG; Start 09/09/17 at 12:00 Famotidine (Pepcid) 20 mg BID PO Last administered on 09/22/17 09:06; Admin Dose 20 MG; Start 09/09/17 at 21:00 Hydralazine HCl (Apresoline) 10 mg Q4H PRN IV ELEVATED BLOOD PRESSURE Last administered on 09/12/17 08:53; Admin Dose 10 MG; Start 09/10/17 at 04:55 Ferrous Sulfate (Ferrous Sulfate (Ec)) 325 mg DAILY PO Last administered on 09:04; Admin Dose 325 MG; Start 09/14/17 at 09:30 Lorazepam (Ativan) 1 mg Q6H PRN PO ANXIETY; Start 09/17/17 at 15:00 Spironolactone (Aldactone) 25 mg DAILY NGT Last administered on 09/22/17 09: 04; Admin Dose 25 MG; Start 09/18/17 at 11:30 Furosemide 10 mg 10 mg DAILY PO Last administered on 09/21/17 08:21; Admin Dose 10 MG; Start 09/19/17 at 09:00; Status Future Hold Sodium Chloride (NS) 1,000 ml @ 70 mls/hr [id number] IV Last administered on 03:44; Admin Dose 70 MLS/HR; Start 09/21/17 at 13:00 Lisinopril (Zestril) 5 mg DAILY PO Last administered on 09/22/17 09:06; Admin Dose 5 MG; Start 09/22/17 at 09:00 CATHERINE DUMONT Sep 22, 2017 12:29
[2017-09-22] MEDS: NICOTINE (21 MG/24 HR) PATCH TRANSDERM SCH (18:31)
[2017-09-23] VITALS (12 sets, daily range): BP systolic 99–127; BP diastolic 55–75; PULSE 87–100; RESP 18–20
[2017-09-23] MEDS: SOD CHLORIDE 0.9% 1,000 ML IV SCH ×2 (00:43→21:23)
[2017-09-23] MEDS ORDERED: MAGNESIUM SULFATE 2 GM/50 ML 50 ML IVPB ONE (08:00)
[2017-09-23 08:41] LABS: CALCIUM 8.4 mg/dl (8.4-10.2); CREATININE 0.78 mg/dl (0.61-1.24); MAGNESIUM 1.1 mg/dl (1.7-2.5); PHOSPHORUS 3.7 mg/dl (2.5-4.9)
[2017-09-23] MEDS: MAGNESIUM OXIDE 400 MG TAB PO SCH ×2 (08:42→21:21)
[2017-09-23] MEDS: SPIRONOLACTONE 25 MG TAB NGT SCH (08:42)
[2017-09-23] MEDS: FOLIC ACID 1 MG TAB PO SCH (08:42)
[2017-09-23] MEDS: FAMOTIDINE 20 MG TAB PO SCH ×2 (08:43→21:21)
[2017-09-23] MEDS: FERROUS SULFATE (EC) 325 MG TAB PO SCH (08:43)
[2017-09-23] MEDS: LISINOPRIL 5 MG TAB PO SCH (08:43)
[2017-09-23] MEDS: ALBUTEROL/IPRATROPIUM (NEB) 3 ML AMP HHN SCH ×3 (08:59→19:24)
--- NOTE | 2017-09-23 09:42 | PN ---
DATE: 09/23/2017 SUBJECTIVE: The patient is stable. No events overnight. PHYSICAL EXAMINATION: OBJECTIVE: VITAL SIGNS: Blood pressure 127/75, respiration 19, pulse 87, temperature 97.6. HEENT: Head is normocephalic. NECK: Supple. HEART: Regular rate. LUNGS: Show diminished breath sounds at the base. ABDOMEN: Soft, nontender to palpation. No rebound or guarding. EXTREMITIES: Negative for clubbing, cyanosis, edema. DERMATOLOGIC: No rashes. MUSCULOSKELETAL: No joint effusions. NEUROLOGIC: No change in exam. MEDICATIONS: The patient's medications have been reviewed. LABORATORY DATA: From 09/22/2017 was reviewed, shows sodium 134, magnesium 1.2. White count 12.9, platelet count 244. MEDICATIONS: The patient's medications have been reviewed. ASSESSMENT AND PLAN: 1. Severe hypomagnesemia. Etiology is secondary to chronic alcohol abuse causing tubular dysfuncti on resulting in renal magnesium wasting. Other contributing factors is most recent diuretic therapy , IV fluids. At this point, continue to monitor and replete magnesium aggressively. Will calculate a fractional excretion of magnesium. Monitor closely. 2. Hypokalemia. Continue to monitor and replete. 3. Hyponatremia the patient's sodium levels are improving. Currently on IV fluids will continue to monitor on IV fluids. 4. Right pneumothorax the patient has a chest tube in place. 5. Alcohol abuse. Continue Librium, Ativan. 6. Status post respiratory failure. Dictated By: SLIME CHANG/VICKY Conf#: [id number] DID#: [id number]
--- NOTE | 2017-09-23 11:35 | PN ---
Date/Time of Note Date/Time of Note DATE: 09/23/17 TIME: 11:35 Assessment/Plan VTE Prophylaxis VTE Prophylaxis Intervention: ambulation, SCD's Lines/Catheters IV Catheter Type (from Nrs): Peripheral IV Urinary Cath still in place: No Assessment/Plan Chief Complaint/Hosp Course s: 09.19:no sob, no acute change 09.20: s/p chest tube, chest discomfort at site of chest tube insertion 09.21: no acute complaints . chest tube still draining, no acute complaints . no acute complaints o: General: Patient resting comfortably, in no acute distress. oriented to self and place Head: Normocephalic atraumatic Eyes: EOMI, pupils reactive to light Neck: Supple, nontender, midline Respiratory: diminished breath sounds on R, no crackles or wheezing Cardiovascular: regular rate and rhythm, no obvious murmurs Gastrointestinal: non-tender to palpation, bowel sounds heard. Neurological: Moves all extremities spontaneously Skin: No new skin lesions, chest tube placed R Patient is a 51-year-old homeless alcoholic who presents with right pleural effusion, pneumonia, and alcohol withdrawal induced seizure. 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 Delirium tremens- resolved -librium tapered off - Ativan PRN for agitation/anxiety #. bacteremia, gram neg - continue on IV antibiotics for 10-14 days. stopped abx - remains afebrile -wbc stabilized #. acute respiratory failure, 2/2 PNA/pleural effusion- resolved - Pulmonology on board and recommendations appreciated - s/p 2 L drained on pleural effusion 1st time, 1 L drained 2nd time - Respiratory status stable. Saturating well #. Bilateral pneumonia, likely aspiration -abx finished #. Severe hyponatremia- resolved - Nephrology on board and recommendations appreciated #. Alcoholism - Banana bag stopped -thiamine and folic acid - Librium tapered #. Hypokalemia - replete as needed #. Hypomagnesia - Nephrology on board assisting with electrolyte abnormalities #. Disposition - chest tube management, poor prognosis given hepatic hydrothorax/pneumothorax Problems: Exam/Review of Systems Vital Signs Vitals Vital Signs Date Time Temp Pulse Resp B/P Pulse Ox O2 Delivery O2 Flow Rate FiO2 09/23/17 08:59 98 20 Nasal Cannula 09/23/17 08:59 2.0 09/23/17 08:02 98.3 103/61 96 09/22/17 19:21 21 Intake and Output 09/22/17 09/22/17 09/23/17 14:59 22:59 06:59 Intake Total 560 ml 980 ml Output Total 1400 ml Balance 560 ml -420 ml Results Result Diagram: 09/21/17 0805 09/23/17 0708 Results 24 hrs Laboratory Tests Test 09/23/17 07:08 Sodium Level 136 Potassium Level 4.0 Chloride Level 100 Carbon Dioxide Level 29 Anion Gap 11 Blood Urea Nitrogen 15 Creatinine 0.78 Glucose Level 99 Calcium Level 8.4 Phosphorus Level 3.7 Magnesium Level 1.1 L Medications Medications Current Medications Lorazepam (Ativan) 2 mg Q10MIN PRN IV seizure Last administered on 09/06/17 09 :11; Admin Dose 2 MG; Start 09/05/17 at 16:00 Ondansetron HCl (Zofran Inj) 4 mg Q6H PRN IV NAUSEA AND/OR VOMITING; Start 09/05/17 at 16:30 Acetaminophen (Tylenol Tab) 650 mg Q6H PRN PO PAIN LEVEL 1-3 OR FEVER Last administered on 09/15/17 14:05; Admin Dose 650 MG; Start 09/05/17 at 16:30 Morphine Sulfate (morphine) 2 mg Q4H PRN IV PAIN LEVEL 7-10 Last administered on 09/20/17 06:15; Admin Dose 2 MG; Start 09/05/17 at 16:30 Bisacodyl (Dulcolax) 5 mg DAILY PRN PO CONSTIPATION; Start 09/05/17 at 16:30 Lorazepam (Ativan) 1 mg Q6H PRN IV agitation/anxiety Last administered on 09/08 09:30; Admin Dose 1 MG; Start 09/05/17 at 17:00 Nicotine (Nicoderm 21 Mg/ 24hr) 1 patch Q24H TRANSDERM Last administered on 11/ 25/17at 18:31; Admin Dose 1 PATCH; Start 09/05/17 at 17:00 Folic Acid (Folic Acid) 1 mg DAILY PO Last administered on 09/23/17 08:42; Admin Dose 1 MG; Start 09/07/17 at 16:30 Magnesium Oxide (Mag-Ox 400) 400 mg BID PO Last administered on 09/23/17 08: 42; Admin Dose 400 MG; Start 09/09/17 at 12:00 Famotidine (Pepcid) 20 mg BID PO Last administered on 09/23/17 08:43; Admin Dose 20 MG; Start 09/09/17 at 21:00 Hydralazine HCl (Apresoline) 10 mg Q4H PRN IV ELEVATED BLOOD PRESSURE Last administered on 09/12/17 08:53; Admin Dose 10 MG; Start 09/10/17 at 04:55 Ferrous Sulfate (Ferrous Sulfate (Ec)) 325 mg DAILY PO Last administered on 08:43; Admin Dose 325 MG; Start 09/14/17 at 09:30 Lorazepam (Ativan) 1 mg Q6H PRN PO ANXIETY; Start 09/17/17 at 15:00 Spironolactone (Aldactone) 25 mg DAILY NGT Last administered on 09/23/17 08: 42; Admin Dose 25 MG; Start 09/18/17 at 11:30 Furosemide 10 mg 10 mg DAILY PO Last administered on 09/21/17 08:21; Admin Dose 10 MG; Start 09/19/17 at 09:00; Status Future Hold Sodium Chloride (NS) 1,000 ml @ 70 mls/hr [id number] IV Last administered on 00:43; Admin Dose 70 MLS/HR; Start 09/21/17 at 13:00 Lisinopril (Zestril) 5 mg DAILY PO Last administered on 09/23/17 08:43; Admin Dose 5 MG; Start 09/22/17 at 09:00 CATHERINE DUMONT Sep 23, 2017 11:35
--- NOTE | 2017-09-23 11:47 | CONS ---
Date/Time of Note Date/Time of Note DATE: 09/23/17 TIME: 11:47 Consult Date/Type/Reason Admit Date/Time Sep 05, 2017 at 13:14 Type of Consultation: Pulmonary Subjective Still having moderate drainage from chest tube. Objective Vital Signs Date Time Temp Pulse Resp B/P Pulse Ox O2 Delivery O2 Flow Rate FiO2 09/23/17 08:59 98 20 Nasal Cannula 09/23/17 08:59 2.0 09/23/17 08:02 98.3 103/61 96 09/22/17 19:21 21 Intake and Output 09/22/17 09/22/17 09/23/17 14:59 22:59 06:59 Intake Total 560 ml 980 ml Output Total 1400 ml Balance 560 ml -420 ml Exam GENERAL: Thin gentleman comfortable at rest no acute distress VITAL SIGNS: per chart NECK: Supple. No JVD or lymphadenopathy. CARDIAC EXAM: S1, S2. No added sounds or murmurs. CHEST: Diminished air entry right lung ABDOMEN: Soft, nontender. No guarding or rebound. EXTREMITIES: No cyanosis, clubbing or edema. NEUROLOGIC: Generalized weakness. No focal deficits. Results/Medications Result Diagram: 09/21/17 0805 09/23/17 0708 Results 24 hrs Laboratory Tests Test 09/23/17 07:08 Sodium Level 136 Potassium Level 4.0 Chloride Level 100 Carbon Dioxide Level 29 Anion Gap 11 Blood Urea Nitrogen 15 Creatinine 0.78 Glucose Level 99 Calcium Level 8.4 Phosphorus Level 3.7 Magnesium Level 1.1 L Medications Current Medications Lorazepam (Ativan) 2 mg Q10MIN PRN IV seizure Last administered on 09/06/17 09 :11; Admin Dose 2 MG; Start 09/05/17 at 16:00 Ondansetron HCl (Zofran Inj) 4 mg Q6H PRN IV NAUSEA AND/OR VOMITING; Start 09/05/17 at 16:30 Acetaminophen (Tylenol Tab) 650 mg Q6H PRN PO PAIN LEVEL 1-3 OR FEVER Last administered on 09/15/17 14:05; Admin Dose 650 MG; Start 09/05/17 at 16:30 Morphine Sulfate (morphine) 2 mg Q4H PRN IV PAIN LEVEL 7-10 Last administered on 09/20/17 06:15; Admin Dose 2 MG; Start 09/05/17 at 16:30 Bisacodyl (Dulcolax) 5 mg DAILY PRN PO CONSTIPATION; Start 09/05/17 at 16:30 Lorazepam (Ativan) 1 mg Q6H PRN IV agitation/anxiety Last administered on 09/08 09:30; Admin Dose 1 MG; Start 09/05/17 at 17:00 Nicotine (Nicoderm 21 Mg/ 24hr) 1 patch Q24H TRANSDERM Last administered on 18:31; Admin Dose 1 PATCH; Start 09/05/17 at 17:00 Folic Acid (Folic Acid) 1 mg DAILY PO Last administered on 09/23/17 08:42; Admin Dose 1 MG; Start 09/07/17 at 16:30 Magnesium Oxide (Mag-Ox 400) 400 mg BID PO Last administered on 09/23/17 08: 42; Admin Dose 400 MG; Start 09/09/17 at 12:00 Famotidine (Pepcid) 20 mg BID PO Last administered on 09/23/17 08:43; Admin Dose 20 MG; Start 09/09/17 at 21:00 Hydralazine HCl (Apresoline) 10 mg Q4H PRN IV ELEVATED BLOOD PRESSURE Last administered on 09/12/17 08:53; Admin Dose 10 MG; Start 09/10/17 at 04:55 Ferrous Sulfate (Ferrous Sulfate (Ec)) 325 mg DAILY PO Last administered on 08:43; Admin Dose 325 MG; Start 09/14/17 at 09:30 Lorazepam (Ativan) 1 mg Q6H PRN PO ANXIETY; Start 09/17/17 at 15:00 Spironolactone (Aldactone) 25 mg DAILY NGT Last administered on 09/23/17 08: 42; Admin Dose 25 MG; Start 09/18/17 at 11:30 Furosemide 10 mg 10 mg DAILY PO Last administered on 09/21/17 08:21; Admin Dose 10 MG; Start 09/19/17 at 09:00; Status Future Hold Sodium Chloride (NS) 1,000 ml @ 70 mls/hr [id number] IV Last administered on 00:43; Admin Dose 70 MLS/HR; Start 09/21/17 at 13:00 Lisinopril (Zestril) 5 mg DAILY PO Last administered on 09/23/17t 08:43; Admin Dose 5 MG; Start 09/22/17 at 09:00 Assessment/Plan Chief Complaint/Hosp Course Assessment 1. Hypoxemic respiratory failure resolved following placement of chest tube. 2. EtOH withdrawal 3. Electrolyte abnormalities 4. Persistent pleural effusion likely hepatic hydrothorax Plan 1. Continue chest tube drainage. Discussed with nursing staff to monitor chest tube output. Will clamp once drainage less than 100 cc / 24hr. repeat chest x-ray in a.m. may require pleurodesis versus Pleurx catheter. 2. Aspiration precautions. 3. Encourage OOB. 4. Alternative therapeutic plan includes possible TIPS procedure although I would defer this. Problems: WOOD TUBBS MD, [facility] Sep 23, 2017 11:47
--- NOTE | 2017-09-23 14:34 | PN ---
Date/Time of Note Date/Time of Note DATE: 09/23/17 TIME: 14:34 Assessment/Plan Lines/Catheters IV Catheter Type (from Nrsg): Peripheral IV Lema in Place (from Nrsg): No Assessment/Plan Chief Complaint/Hosp Course IMPRESSION: Status post chest tube placement. CT with 475 cc RECOMMENDATIONS: Will continue chest tube suction until the drainage is less than 100 mL a date discussed with Dr. Richter. Problems: Subjective 24 Hr Interval Summary Constitutional: improved Pain Control: mild Exam/Review of Systems Vital Signs Vitals Vital Signs Date Time Temp Pulse Resp B/P Pulse Ox O2 Delivery O2 Flow Rate FiO2 09/23/17 12:00 89 09/23/17 11:59 98.3 19 107/65 96 09/23/17 08:59 Nasal Cannula 09/23/17 08:59 2.0 09/22/17 19:21 21 Intake and Output 09/22/17 09/22/17 09/23/17 15:00 23:00 07:00 Intake Total 560 ml 910 ml Output Total 1400 ml Balance 560 ml -490 ml Exam Neck: non-tender, supple Respiratory: clear to auscultation, normal air movement Cardiovascular: nl pulses, regular rate and rhythm Results Result Diagram: 09/21/17 0805 09/23/17 0708 CHET MONREAL MD Sep 23, 2017 14:34
[2017-09-23] MEDS: NICOTINE (21 MG/24 HR) PATCH TRANSDERM SCH (16:58)
[2017-09-24] VITALS (12 sets, daily range): BP systolic 109–133; BP diastolic 67–85; PULSE 78–98; RESP 16–21
[2017-09-24] MEDS: ALBUTEROL/IPRATROPIUM (NEB) 3 ML AMP HHN SCH ×3 (08:00→20:19)
[2017-09-24 08:20] LABS: BASOPHILS % 0.2 % (0.0-2.0); EOSINOPHILS # 0.2 10^3/ul (0.0-0.5); EOSINOPHILS % 2.2 % (0.0-7.0); HEMATOCRIT 26.8 % (42.0-52.0); HEMOGLOBIN 8.2 g/dl (14.0-18.0); LYMPHOCYTES # 1.3 10^3/ul (0.8-2.9); LYMPHOCYTES % 14.3 % (15.0-51.0); MEAN CORPUSCULAR HEMOGLOBIN 22.3 pg (29.0-33.0); MEAN CORPUSCULAR HGB CONC 30.6 g/dl (32.0-37.0); MEAN CORPUSCULAR VOLUME 72.8 fl (82.0-101.0); MEAN PLATELET VOLUME 10.9 fl (7.4-10.4); MONOCYTE # 0.6 10^3/ul (0.3-0.9); MONOCYTES % 6.8 % (0.0-11.0); NEUTROPHIL # 7.1 10^3/ul (1.6-7.5); NEUTROPHILS % 75.8 % (39.0-77.0); PLATELET COUNT 164 10^3/UL (140-415); RED BLOOD COUNT 3.68 10^6/ul (4.70-6.10); RED CELL DISTRIBUTION WIDTH 21.8 % (11.5-14.5); WHITE BLOOD COUNT 9.4 10^3/ul (4.8-10.8)
[2017-09-24] MEDS ORDERED: MAGNESIUM SULFATE 2 GM/50 ML 50 ML IVPB ONE (08:30)
[2017-09-24] MEDS: FERROUS SULFATE (EC) 325 MG TAB PO SCH (08:37)
[2017-09-24] MEDS: MAGNESIUM OXIDE 400 MG TAB PO SCH ×2 (08:37→20:22)
[2017-09-24] MEDS: LISINOPRIL 5 MG TAB PO SCH (08:37)
[2017-09-24] MEDS: FOLIC ACID 1 MG TAB PO SCH (08:37)
[2017-09-24] MEDS: SPIRONOLACTONE 25 MG TAB NGT SCH (08:37)
[2017-09-24] MEDS: FAMOTIDINE 20 MG TAB PO SCH ×2 (08:38→20:22)
--- NOTE | 2017-09-24 08:46 | PN ---
DATE: 09/24/2017 SUBJECTIVE: The patient is stable. No events overnight. OBJECTIVE: VITAL SIGNS: Blood pressure is 110/67, temperature is 98.3, pulse 90, respirations 20. HEENT: Head is normocephalic. NECK: Supple. HEART: Regular rate. LUNGS: Show diminished breath sounds at the base. ABDOMEN: Soft, nontender to palpation. No rebound or guarding. EXTREMITIES: Negative for clubbing, cyanosis, no edema. DERMATOLOGIC: No rashes. MUSCULOSKELETAL: No joint effusions. NEUROLOGIC: No change in exam. MEDICATIONS: The patient's medications have been reviewed. LABORATORY DATA: Has been reviewed. ASSESSMENT AND PLAN: 1. Severe hypomagnesemia. Etiology secondary to chronic alcohol abuse causing tubular dysfunction resulting in renal magnesium wasting. Other contributing factors for this recent diuretic therapy a nd IV fluids. At this point, will continue to monitor the magnesium aggressively. 2. Hypokalemia. Continue to monitor and replete. 3. Hyponatremia, resolved. 4. Right pneumothorax status post chest tube. 5. EtOH abuse. Continue Librium, Ativan. 6. Status post respiratory failure. 7. Tachycardia, resolved. Dictated By: SLIME CHANG/VICKY Conf#: [id number] DID#: [id number]
[2017-09-24 09:09] LABS: ALBUMIN 2.9 g/dl (3.3-4.9); ALBUMIN/GLOBULIN RATIO 0.78; BILIRUBIN,INDIRECT 0.1 mg/dl (0-1.1); BILIRUBIN,TOTAL 0.1 mg/dl (0.2-1.3); CALCIUM 8.3 mg/dl (8.4-10.2); CREATININE 0.75 mg/dl (0.61-1.24); POTASSIUM 3.9 mmol/L (3.5-5.1); TOTAL PROTEIN 6.6 g/dl (6.1-8.1)
--- NOTE | 2017-09-24 10:36 | CONS ---
Date/Time of Note Date/Time of Note DATE: 09/24/17 TIME: 10:34 Assessment/Plan Assessment/Plan Additional Assessment/Plan Assessment and recommendations; 1. Patient admitted with hypoxemia with large right pleural effusion status post thoracentesis with ensuing right hydropneumothorax ultimately requiring a chest tube placement because of hypoxemia. 2. 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 There is copious amounts of drainage per day. 3. Anemia and thrombocytopenia. Continue current supportive care. Prognosis is poor. Only possible alternative would be to perform a TIPS procedure. Consultation Date/Type/Reason Admit Date/Time Sep 05, 2017 at 13:14 Type of Consultation: Pulmonary 24 HR Interval Summary Free Text/Dictation Patient condition is stable. Denies any shortness of breath or chest pain. General exam; middle-aged male, awake, currently in no distress. Appears quite emaciated. Exam/Review of Systems Vital Signs Vitals Vital Signs Date Time Temp Pulse Resp B/P Pulse Ox O2 Delivery O2 Flow Rate FiO2 09/24/17 08:19 98 09/24/17 08:06 98.3 20 109/67 100 09/23/17 19:25 21 09/23/17 08:59 Nasal Cannula 09/23/17 08:59 2.0 Intake and Output 09/23/17 09/23/17 09/24/17 15:00 23:00 07:00 Intake Total 1110 ml 400 ml 350 ml Output Total 1475 ml 800 ml 750 ml Balance -365 ml -400 ml -400 ml Exam HEENT exam; supple neck, no JVD. No lymphadenopathy. Midline trachea. No thyromegaly. Chest exam; diminished breath sounds right lung. Right-sided chest tube in place. Left lung is clear to auscultation. S1-S2 audible, no murmurs. Regular rhythm. Abdomen exam; soft, nontender. No organomegaly. Bowel sounds audible. Extremity exam; no peripheral edema. Patient has a multiple ecchymosis involving all 4 extremities. HAND TOUCH UP PAINTER exam; no focal motor deficit. Results Result Diagram: 09/24/17 0716 09/24/17 0716 Results 24 hrs Laboratory Tests Test 09/24/17 07:16 White Blood Count 9.4 # Red Blood Count 3.68 L Hemoglobin 8.2 L Hematocrit 26.8 L Mean Corpuscular Volume 72.8 L Mean Corpuscular Hemoglobin 22.3 L Mean Corpuscular Hemoglobin Concent 30.6 L Red Cell Distribution Width 21.8 H Platelet Count 164 # Mean Platelet Volume 10.9 H Neutrophils % 75.8 Lymphocytes % 14.3 L Monocytes % 6.8 Eosinophils % 2.2 Basophils % 0.2 Nucleated Red Blood Cells % 0.0 Neutrophils # 7.1 Lymphocytes # 1.3 Monocytes # 0.6 Eosinophils # 0.2 Basophils # 0.0 Nucleated Red Blood Cells # 0.0 Sodium Level 136 Potassium Level 3.9 Chloride Level 104 Carbon Dioxide Level 23 Anion Gap 13 Blood Urea Nitrogen 21 H Creatinine 0.75 Glucose Level 88 Calcium Level 8.3 L Magnesium Level 0.9 *L Total Bilirubin 0.1 L Direct Bilirubin 0.00 Indirect Bilirubin 0.1 Aspartate Amino Transf (AST/SGOT) 33 Alanine Aminotransferase (ALT/SGPT) 55 Alkaline Phosphatase 249 H Total Protein 6.6 Albumin 2.9 L Globulin 3.70 H Albumin/Globulin Ratio 0.78 Medications Medications Current Medications Lorazepam (Ativan) 2 mg Q10MIN PRN IV seizure Last administered on 09/06/17 09 :11; Admin Dose 2 MG; Start 09/05/17 at 16:00 Ondansetron HCl (Zofran Inj) 4 mg Q6H PRN IV NAUSEA AND/OR VOMITING; Start 09/05/17 at 16:30 Acetaminophen (Tylenol Tab) 650 mg Q6H PRN PO PAIN LEVEL 1-3 OR FEVER Last administered on 09/15/17 14:05; Admin Dose 650 MG; Start 09/05/17 at 16:30 Morphine Sulfate (morphine) 2 mg Q4H PRN IV PAIN LEVEL 7-10 Last administered on 09/20/17 06:15; Admin Dose 2 MG; Start 09/05/17 at 16:30 Bisacodyl (Dulcolax) 5 mg DAILY PRN PO CONSTIPATION; Start 09/05/17 at 16:30 Lorazepam (Ativan) 1 mg Q6H PRN IV agitation/anxiety Last administered on 09/08 09:30; Admin Dose 1 MG; Start 09/05/17 at 17:00 Nicotine (Nicoderm 21 Mg/ 24hr) 1 patch Q24H TRANSDERM Last administered on 16:58; Admin Dose 1 PATCH; Start 09/05/17 at 17:00 Folic Acid (Folic Acid) 1 mg DAILY PO Last administered on 09/24/17 08:37; Admin Dose 1 MG; Start 09/07/17 at 16:30 Magnesium Oxide (Mag-Ox 400) 400 mg BID PO Last administered on 09/24/17 08: 37; Admin Dose 400 MG; Start 09/09/17 at 12:00 Famotidine (Pepcid) 20 mg BID PO Last administered on 09/24/17 08:38; Admin Dose 20 MG; Start 09/09/17 at 21:00 Hydralazine HCl (Apresoline) 10 mg Q4H PRN IV ELEVATED BLOOD PRESSURE Last administered on 09/12/17 08:53; Admin Dose 10 MG; Start 09/10/17 at 04:55 Ferrous Sulfate (Ferrous Sulfate (Ec)) 325 mg DAILY PO Last administered on 08:37; Admin Dose 325 MG; Start 09/14/17 at 09:30 Lorazepam (Ativan) 1 mg Q6H PRN PO ANXIETY; Start 09/17/17 at 15:00 Spironolactone (Aldactone) 25 mg DAILY NGT Last administered on 09/24/17 08: 37; Admin Dose 25 MG; Start 09/18/17 at 11:30 Furosemide 10 mg 10 mg DAILY PO Last administered on 09/21/17 08:21; Admin Dose 10 MG; Start 09/19/17 at 09:00; Status Future Hold Sodium Chloride (NS) 1,000 ml @ 70 mls/hr [id number] IV Last administered on 21:23; Admin Dose 70 MLS/HR; Start 09/21/17 at 13:00 Lisinopril (Zestril) 5 mg DAILY PO Last administered on 09/24/17 08:37; Admin Dose 5 MG; Start 09/22/17 at 09:00 KIRILL PEREZ Sep 24, 2017 10:36
[2017-09-24] MEDS: SOD CHLORIDE 0.9% 1,000 ML IV SCH (13:41)
--- NOTE | 2017-09-24 15:54 | PN ---
Date/Time of Note Date/Time of Note DATE: 09/24/17 TIME: 15:48 Assessment/Plan VTE Prophylaxis VTE Prophylaxis Intervention: SCD's Lines/Catheters IV Catheter Type (from Nrs): Peripheral IV Urinary Cath still in place: No Assessment/Plan Assessment/Plan 1. 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 Believes TIPS will be only fci solution for effusion - aldactone/lasix started, low dose, will titrate as needed 2. Pneumo/hydropneumothorax - s/p thoracentesis on 09/17 - chest tube placed 09/19, draining mod amount still - CT surgery recs appreciated 3. tachycardia- resolved - continue to monitor 4. elevated AST/ALT - cirrhosis - us gallbladder noted 5. Delirium tremens- resolved - Completed course of Librium - Ativan PRN for agitation/anxiety 6. bacteremia, gram neg - Completed course of antibiotics - remains afebrile - wbc stabilized 7. acute respiratory failure, 2/2 PNA/pleural effusion- resolved - Pulmonology on board and recommendations appreciated - s/p 2 L drained on pleural effusion 1st time, 1 L drained 2nd time - Respiratory status stable. Saturating well 8. Bilateral pneumonia, likely aspiration - completed course of antibiotics 9. Severe hyponatremia- resolved - Nephrology on board and recommendations appreciated 10. Alcoholism - thiamine and folic acid - Librium tapered off 11. Hypokalemia- stable - replete as needed 12. Hypomagnesia - Nephrology on board assisting with electrolyte abnormalities 13. Disposition - chest tube management, poor prognosis given hepatic hydrothorax/pneumothorax Subjective 24 Hr Interval Summary Free Text/Dictation Patient denies any new complaints and no acute overnight events. Still continues with output from chest tube. No acute overnight events. Exam/Review of Systems Vital Signs Vitals Vital Signs Date Time Temp Pulse Resp B/P Pulse Ox O2 Delivery O2 Flow Rate FiO2 09/24/17 14:20 92 18 97 21 09/24/17 12:41 98.3 133/76 09/23/17 08:59 Nasal Cannula 09/23/17 08:59 2.0 Intake and Output 09/23/17 09/23/17 09/24/17 14:59 22:59 06:59 Intake Total 1110 ml 470 ml 350 ml Output Total 1475 ml 800 ml 750 ml Balance -365 ml -330 ml -400 ml Exam General: Patient resting comfortably, in no acute distress Head: Normocephalic atraumatic Eyes: EOMI, pupils reactive to light Neck: Supple, nontender, midline Respiratory: diminished breath sounds on R, no crackles or wheezing Cardiovascular: regular rate and rhythm, no obvious murmurs Gastrointestinal: non-tender to palpation, bowel sounds heard. Neurological: Moves all extremities spontaneously Skin: No new skin lesions, chest tube placed on R with no discharge or drainage from site Results Result Diagram: 09/24/1716 09/24/1716 Results 24 hrs Laboratory Tests Test 09/24/17 07:16 White Blood Count 9.4 # Red Blood Count 3.68 L Hemoglobin 8.2 L Hematocrit 26.8 L Mean Corpuscular Volume 72.8 L Mean Corpuscular Hemoglobin 22.3 L Mean Corpuscular Hemoglobin Concent 30.6 L Red Cell Distribution Width 21.8 H Platelet Count 164 # Mean Platelet Volume 10.9 H Neutrophils % 75.8 Lymphocytes % 14.3 L Monocytes % 6.8 Eosinophils % 2.2 Basophils % 0.2 Nucleated Red Blood Cells % 0.0 Neutrophils # 7.1 Lymphocytes # 1.3 Monocytes # 0.6 Eosinophils # 0.2 Basophils # 0.0 Nucleated Red Blood Cells # 0.0 Sodium Level 136 Potassium Level 3.9 Chloride Level 104 Carbon Dioxide Level 23 Anion Gap 13 Blood Urea Nitrogen 21 H Creatinine 0.75 Glucose Level 88 Calcium Level 8.3 L Magnesium Level 0.9 *L Total Bilirubin 0.1 L Direct Bilirubin 0.00 Indirect Bilirubin 0.1 Aspartate Amino Transf (AST/SGOT) 33 Alanine Aminotransferase (ALT/SGPT) 55 Alkaline Phosphatase 249 H Total Protein 6.6 Albumin 2.9 L Globulin 3.70 H Albumin/Globulin Ratio 0.78 Medications Medications Current Medications Lorazepam (Ativan) 2 mg Q10MIN PRN IV seizure Last administered on 09/06/17 09 :11; Admin Dose 2 MG; Start 09/05/17 at 16:00 Ondansetron HCl (Zofran Inj) 4 mg Q6H PRN IV NAUSEA AND/OR VOMITING; Start 09/05/17 at 16:30 Acetaminophen (Tylenol Tab) 650 mg Q6H PRN PO PAIN LEVEL 1-3 OR FEVER Last administered on 09/15/17 14:05; Admin Dose 650 MG; Start 09/05/17 at 16:30 Morphine Sulfate (morphine) 2 mg Q4H PRN IV PAIN LEVEL 7-10 Last administered on 09/20/17 06:15; Admin Dose 2 MG; Start 09/05/17 at 16:30 Bisacodyl (Dulcolax) 5 mg DAILY PRN PO CONSTIPATION; Start 09/05/17 at 16:30 Lorazepam (Ativan) 1 mg Q6H PRN IV agitation/anxiety Last administered on 09/08 09:30; Admin Dose 1 MG; Start 09/05/17 at 17:00 Nicotine (Nicoderm 21 Mg/ 24hr) 1 patch Q24H TRANSDERM Last administered on 16:58; Admin Dose 1 PATCH; Start 09/05/17 at 17:00 Folic Acid (Folic Acid) 1 mg DAILY PO Last administered on 09/24/17 08:37; Admin Dose 1 MG; Start 09/07/17 at 16:30 Magnesium Oxide (Mag-Ox 400) 400 mg BID PO Last administered on 09/24/17 08: 37; Admin Dose 400 MG; Start 09/09/17 at 12:00 Famotidine (Pepcid) 20 mg BID PO Last administered on 09/24/17 08:38; Admin Dose 20 MG; Start 09/09/17 at 21:00 Hydralazine HCl (Apresoline) 10 mg Q4H PRN IV ELEVATED BLOOD PRESSURE Last administered on 09/12/17 08:53; Admin Dose 10 MG; Start 09/10/17 at 04:55 Ferrous Sulfate (Ferrous Sulfate (Ec)) 325 mg DAILY PO Last administered on 08:37; Admin Dose 325 MG; Start 09/14/17 at 09:30 Lorazepam (Ativan) 1 mg Q6H PRN PO ANXIETY; Start 09/17/17 at 15:00 Spironolactone (Aldactone) 25 mg DAILY NGT Last administered on 09/24/17 08: 37; Admin Dose 25 MG; Start 09/18/17 at 11:30 Furosemide 10 mg 10 mg DAILY PO Last administered on 09/21/17 08:21; Admin Dose 10 MG; Start 09/19/17 at 09:00; Status Future Hold Sodium Chloride (NS) 1,000 ml @ 70 mls/hr [id number] IV Last administered on 13:41; Admin Dose 70 MLS/HR; Start 09/21/17 at 13:00 Lisinopril (Zestril) 5 mg DAILY PO Last administered on 09/24/17 08:37; Admin Dose 5 MG; Start 09/22/17 at 09:00 THEO BUSH MD Sep 24, 2017 15:54
[2017-09-24] MEDS: NICOTINE (21 MG/24 HR) PATCH TRANSDERM SCH (17:04)
--- NOTE | 2017-09-24 18:44 | PN ---
Date/Time of Note Date/Time of Note DATE: 09/24/17 TIME: 18:43 Assessment/Plan Lines/Catheters IV Catheter Type (from Nrsg): Peripheral IV Lema in Place (from Nrsg): No Assessment/Plan Chief Complaint/Hosp Course IMPRESSION: Status post chest tube placement. CT with 625 cc RECOMMENDATIONS: Will continue chest tube suction until the drainage is less than 100 mL a date discussed with Dr. Richter. Problems: Subjective 24 Hr Interval Summary Constitutional: improved Pain Control: mild Exam/Review of Systems Vital Signs Vitals Vital Signs Date Time Temp Pulse Resp B/P Pulse Ox O2 Delivery O2 Flow Rate FiO2 09/24/17 16:43 98.2 104 18 133/77 99 09/24/17 14:20 21 09/23/17 08:59 Nasal Cannula 09/23/17 08:59 2.0 Intake and Output 09/23/17 09/23/17 09/24/17 15:00 23:00 07:00 Intake Total 1110 ml 400 ml 350 ml Output Total 1475 ml 800 ml 750 ml Balance -365 ml -400 ml -400 ml Exam Neck: non-tender, supple Respiratory: clear to auscultation, normal air movement Cardiovascular: nl pulses, regular rate and rhythm Gastrointestinal: nl liver, spleen, non-tender, soft Results Result Diagram: 09/24/17 0716 09/24/17715 CHET MONREAL MD Sep 24, 2017 18:44
[2017-09-24] MEDS: ACETAMINOPHEN 325 MG TAB PO PRN (19:45)
[2017-09-25] VITALS (12 sets, daily range): BP systolic 94–122; BP diastolic 57–72; PULSE 82–106; RESP 17–20
[2017-09-25] MEDS: SOD CHLORIDE 0.9% 1,000 ML IV SCH ×2 (03:04→21:35)
[2017-09-25 07:12] LABS: BASOPHILS % 0.2 % (0.0-2.0); EOSINOPHILS # 0.2 10^3/ul (0.0-0.5); EOSINOPHILS % 2.5 % (0.0-7.0); HEMATOCRIT 25.3 % (42.0-52.0); HEMOGLOBIN 7.8 g/dl (14.0-18.0); LYMPHOCYTES # 1.3 10^3/ul (0.8-2.9); LYMPHOCYTES % 15.8 % (15.0-51.0); MEAN CORPUSCULAR HEMOGLOBIN 22.3 pg (29.0-33.0); MEAN CORPUSCULAR HGB CONC 30.8 g/dl (32.0-37.0); MEAN CORPUSCULAR VOLUME 72.3 fl (82.0-101.0); MEAN PLATELET VOLUME 10.6 fl (7.4-10.4); MONOCYTE # 0.6 10^3/ul (0.3-0.9); MONOCYTES % 6.8 % (0.0-11.0); NEUTROPHIL # 6.1 10^3/ul (1.6-7.5); NEUTROPHILS % 74.2 % (39.0-77.0); PLATELET COUNT 155 10^3/UL (140-415); RED CELL DISTRIBUTION WIDTH 21.5 % (11.5-14.5); WHITE BLOOD COUNT 8.3 10^3/ul (4.8-10.8)
[2017-09-25 07:40] LABS: ALBUMIN 2.8 g/dl (3.3-4.9); CALCIUM 8.6 mg/dl (8.4-10.2); CREATININE 0.62 mg/dl (0.61-1.24); PHOSPHORUS 4.7 mg/dl (2.5-4.9); POTASSIUM 3.9 mmol/L (3.5-5.1)
[2017-09-25] MEDS: FAMOTIDINE 20 MG TAB PO SCH ×2 (08:32→21:34)
[2017-09-25] MEDS: FERROUS SULFATE (EC) 325 MG TAB PO SCH (08:32)
[2017-09-25] MEDS: MAGNESIUM OXIDE 400 MG TAB PO SCH ×2 (08:32→21:34)
[2017-09-25] MEDS: FOLIC ACID 1 MG TAB PO SCH (08:32)
[2017-09-25] MEDS: SPIRONOLACTONE 25 MG TAB NGT SCH (08:32)
[2017-09-25] MEDS: LISINOPRIL 5 MG TAB PO SCH (08:33)
--- NOTE | 2017-09-25 08:39 | PN ---
DATE: 09/25/2017 SUBJECTIVE: The patient is stable. No events overnight. No fevers, chills, nausea, vomiting. OBJECTIVE: VITAL SIGNS: Blood pressure is 100/66, respirations 20, pulse 89, temperature 99.0. HEENT: Head is normocephalic. NECK: Supple. HEART: Regular rate. LUNGS: Show diminished breath sounds at the base. ABDOMEN: Soft, nontender to palpation. No rebound or guarding. EXTREMITIES: Negative for clubbing, cyanosis, no edema. DERMATOLOGIC: No rashes. MUSCULOSKELETAL: No joint effusions. NEUROLOGIC: No change in exam. MEDICATIONS: The patient's medications have been reviewed. LABORATORY DATA: Shows white count 8.3, hemoglobin 7.8, platelet count 155. Sodium 135, BUN 15, cr eatinine 0.62. ASSESSMENT AND PLAN: 1. Severe hypermagnesemia. Etiology secondary to chronic alcohol abuse causing tubular dysfunction resulting in renal magnesium wasting. Other contributing factors may be IV fluids. At this point, continue magnesium repletion. Continue IV magnesium and low magnesium, monitor closely. 2. Hypokalemia. Continue to monitor and replete. 3. Hyponatremia, resolved. 4. Right pneumothorax status post chest tube. 5. EtOH abuse. Continue Librium and Ativan. 6. Status post respiratory failure. Dictated By: SLIME CHANG/VICKY Conf#: [id number] DID#: [id number]
[2017-09-25] MEDS ORDERED: MAGNESIUM SULFATE 2 GM/50 ML 50 ML IVPB ONE (09:00)
[2017-09-25] MEDS: ALBUTEROL/IPRATROPIUM (NEB) 3 ML AMP HHN SCH ×3 (09:06→20:10)
--- NOTE | 2017-09-25 10:25 | CONS ---
Date/Time of Note Date/Time of Note DATE: 09/25/17 TIME: 10:22 Assessment/Plan Assessment/Plan Additional Assessment/Plan Assessment and recommendations; 1. Patient admitted for shortness of breath with right-sided pleural effusion status post thoracentesis resulting in postop hydropneumothorax requiring chest tube. 2. 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 3. Right-sided chest tube draining copious amounts of fluid daily. Continue current supportive care. Prognosis is very guarded. Only viable option at this time would be to perform a TIPS procedure. Consultation Date/Type/Reason Admit Date/Time Sep 05, 2017 at 13:14 Type of Consultation: Pulmonary 24 HR Interval Summary Free Text/Dictation Patient's condition remains stable. Right-sided chest tube still draining copious amounts of pleural fluid/ascites fluid. General exam; middle-aged male, awake, currently in no distress. Exam/Review of Systems Vital Signs Vitals Vital Signs Date Time Temp Pulse Resp B/P Pulse Ox O2 Delivery O2 Flow Rate FiO2 09/25/17 09:06 81 20 92 21 09/25/17 07:41 99.0 100/66 09/23/17 08:59 Nasal Cannula 09/23/17 08:59 2.0 Intake and Output 09/24/17 09/24/17 09/25/17 14:59 22:59 06:59 Intake Total 2160 ml 770 ml Output Total 1990 ml 190 ml Balance 170 ml 580 ml Exam HEENT exam; supple neck, positive JVD. No lymphadenopathy. Midline trachea. No thyromegaly. No neck masses. Pharynx is clear. Chest exam; diminished breath sounds bilaterally. No added sounds. S1-S2 audible, no murmurs. Regular rhythm. Right-sided chest tube in place. Abdomen exam; soft, nontender. No organomegaly. Mildly protuberant. Bowel sounds audible. Extremity exam; no edema. [employer] exam; no focal deficit. Results Result Diagram: 09/25/17 0653 09/25/17 0653 Results 24 hrs Laboratory Tests Test 09/25/17 06:53 White Blood Count 8.3 Red Blood Count 3.50 L Hemoglobin 7.8 L Hematocrit 25.3 L Mean Corpuscular Volume 72.3 L Mean Corpuscular Hemoglobin 22.3 L Mean Corpuscular Hemoglobin Concent 30.8 L Red Cell Distribution Width 21.5 H Platelet Count 155 Mean Platelet Volume 10.6 H Neutrophils % 74.2 Lymphocytes % 15.8 Monocytes % 6.8 Eosinophils % 2.5 Basophils % 0.2 Nucleated Red Blood Cells % 0.0 Neutrophils # 6.1 Lymphocytes # 1.3 Monocytes # 0.6 Eosinophils # 0.2 Basophils # 0.0 Nucleated Red Blood Cells # 0.0 Sodium Level 135 Potassium Level 3.9 Chloride Level 101 Carbon Dioxide Level 26 Anion Gap 12 Blood Urea Nitrogen 15 Creatinine 0.62 Glucose Level 94 Calcium Level 8.6 Phosphorus Level 4.7 Magnesium Level 1.0 L Albumin 2.8 L Medications Medications Current Medications Lorazepam (Ativan) 2 mg Q10MIN PRN IV seizure Last administered on 09/06/17 09 :11; Admin Dose 2 MG; Start 09/05/17 at 16:00 Ondansetron HCl (Zofran Inj) 4 mg Q6H PRN IV NAUSEA AND/OR VOMITING; Start 09/05/17 at 16:30 Acetaminophen (Tylenol Tab) 650 mg Q6H PRN PO PAIN LEVEL 1-3 OR FEVER Last administered on 09/24/17 19:45; Admin Dose 650 MG; Start 09/05/17 at 16:30 Morphine Sulfate (morphine) 2 mg Q4H PRN IV PAIN LEVEL 7-10 Last administered on 09/20/17 06:15; Admin Dose 2 MG; Start 09/05/17 at 16:30 Bisacodyl (Dulcolax) 5 mg DAILY PRN PO CONSTIPATION; Start 09/05/17 at 16:30 Lorazepam (Ativan) 1 mg Q6H PRN IV agitation/anxiety Last administered on 09/08 09:30; Admin Dose 1 MG; Start 09/05/17 at 17:00 Nicotine (Nicoderm 21 Mg/ 24hr) 1 patch Q24H TRANSDERM Last administered on 17:04; Admin Dose 1 PATCH; Start 09/05/17 at 17:00 Folic Acid (Folic Acid) 1 mg DAILY PO Last administered on 09/25/17 08:32; Admin Dose 1 MG; Start 09/07/17 at 16:30 Magnesium Oxide (Mag-Ox 400) 400 mg BID PO Last administered on 09/25/17 08: 32; Admin Dose 400 MG; Start 09/09/17 at 12:00 Famotidine (Pepcid) 20 mg BID PO Last administered on 09/25/17 08:32; Admin Dose 20 MG; Start 09/09/17 at 21:00 Hydralazine HCl (Apresoline) 10 mg Q4H PRN IV ELEVATED BLOOD PRESSURE Last administered on 09/12/17 08:53; Admin Dose 10 MG; Start 09/10/17 at 04:55 Ferrous Sulfate (Ferrous Sulfate (Ec)) 325 mg DAILY PO Last administered on 08:32; Admin Dose 325 MG; Start 09/14/17 at 09:30 Lorazepam (Ativan) 1 mg Q6H PRN PO ANXIETY; Start 09/17/17 at 15:00 Spironolactone (Aldactone) 25 mg DAILY NGT Last administered on 09/25/17 08: 32; Admin Dose 25 MG; Start 09/18/17 at 11:30 Furosemide 10 mg 10 mg DAILY PO Last administered on 09/21/17 08:21; Admin Dose 10 MG; Start 09/19/17 at 09:00; Status Future Hold Sodium Chloride (NS) 1,000 ml @ 50 mls/hr Q20H IV Last administered on 03:04; Admin Dose 70 MLS/HR; Start 09/21/17 at 13:00 Lisinopril 5 mg 5 mg DAILY PO Last administered on 09/25/17 08:33; Admin Dose 5 MG; Start 09/22/17 at 09:00 Magnesium Sulfate (Magnesium Sulfate 2 Gm/50 ml) 50 ml @ 25 mls/hr ONCE ONCE IVPB Last administered on 09/25/17 08:32; Admin Dose 25 MLS/HR; Start at 09:00; Stop 09/25/17 at 10:59 KIRILL PEREZ Sep 25, 2017 10:25
--- NOTE | 2017-09-25 11:37 | PN ---
Date/Time of Note Date/Time of Note DATE: 09/25/17 TIME: 11:32 Assessment/Plan VTE Prophylaxis VTE Prophylaxis Intervention: SCD's Lines/Catheters IV Catheter Type (from Nrsg): Peripheral IV Urinary Cath still in place: No Assessment/Plan Assessment/Plan 1. 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 Believes TIPS will be only group home solution for effusion - On aldactone/lasix and will increase aldactone to 50mg 2. Pneumo/hydropneumothorax - s/p thoracentesis on 09/17 - chest tube placed 09/19, draining mod amount still - CT surgery recommendations appreciated 3. Cirrhosis of liver - LFT within normal limites - us gallbladder noted 4. Delirium tremens- resolved - Completed course of Librium - Ativan PRN for agitation/anxiety 5. bacteremia, gram neg - Completed course of antibiotics - remains afebrile - wbc stabilized 6. acute respiratory failure, 2/2 PNA- resolved - Pulmonology on board and recommendations appreciated - Respiratory status stable. Saturating well 7. Bilateral pneumonia, likely aspiration - completed course of antibiotics 8. Severe hyponatremia- resolved - Nephrology on board and recommendations appreciated 9. Alcoholism - thiamine and folic acid - Librium tapered off 10. Hypokalemia- stable - replete as needed 11. Severe Hypomagnesia - Nephrology on board assisting with electrolyte abnormalities 12. Disposition - continue in telemetry for chest tube management, poor prognosis given hepatic hydrothorax/pneumothorax Subjective 24 Hr Interval Summary Free Text/Dictation Patient resting comfortably with no new complaints. No acute over night events. Talking about how he is afraid of falling with walking and needs a FWW. Exam/Review of Systems Vital Signs Vitals Vital Signs Date Time Temp Pulse Resp B/P Pulse Ox O2 Delivery O2 Flow Rate FiO2 09/25/17 09:06 81 20 92 21 09/25/17 07:41 99.0 100/66 09/23/17 08:59 Nasal Cannula 09/23/17 08:59 2.0 Intake and Output 09/24/17 09/24/17 09/25/17 15:00 23:00 07:00 Intake Total 2160 ml 770 ml Output Total 1990 ml 190 ml Balance 170 ml 580 ml Exam General: Patient resting comfortably, in no acute distress Head: Normocephalic atraumatic Eyes: EOMI, pupils reactive to light Neck: Supple, nontender, midline Respiratory: diminished breath sounds on R, no crackles or wheezing Cardiovascular: regular rate and rhythm, no obvious murmurs Gastrointestinal: non-tender to palpation, bowel sounds heard. Neurological: Moves all extremities spontaneously Skin: No new skin lesions, chest tube placed on R with no discharge or drainage from site Results Result Diagram: 09/25/17 0653 09/25/17 0653 Results 24 hrs Laboratory Tests Test 09/25/17 06:53 White Blood Count 8.3 Red Blood Count 3.50 L Hemoglobin 7.8 L Hematocrit 25.3 L Mean Corpuscular Volume 72.3 L Mean Corpuscular Hemoglobin 22.3 L Mean Corpuscular Hemoglobin Concent 30.8 L Red Cell Distribution Width 21.5 H Platelet Count 155 Mean Platelet Volume 10.6 H Neutrophils % 74.2 Lymphocytes % 15.8 Monocytes % 6.8 Eosinophils % 2.5 Basophils % 0.2 Nucleated Red Blood Cells % 0.0 Neutrophils # 6.1 Lymphocytes # 1.3 Monocytes # 0.6 Eosinophils # 0.2 Basophils # 0.0 Nucleated Red Blood Cells # 0.0 Sodium Level 135 Potassium Level 3.9 Chloride Level 101 Carbon Dioxide Level 26 Anion Gap 12 Blood Urea Nitrogen 15 Creatinine 0.62 Glucose Level 94 Calcium Level 8.6 Phosphorus Level 4.7 Magnesium Level 1.0 L Albumin 2.8 L Medications Medications Current Medications Lorazepam (Ativan) 2 mg Q10MIN PRN IV seizure Last administered on 09/06/17 09 :11; Admin Dose 2 MG; Start 09/05/17 at 16:00 Ondansetron HCl (Zofran Inj) 4 mg Q6H PRN IV NAUSEA AND/OR VOMITING; Start 09/05/17 at 16:30 Acetaminophen (Tylenol Tab) 650 mg Q6H PRN PO PAIN LEVEL 1-3 OR FEVER Last administered on 09/24/17 19:45; Admin Dose 650 MG; Start 09/05/17 at 16:30 Morphine Sulfate (morphine) 2 mg Q4H PRN IV PAIN LEVEL 7-10 Last administered on 09/20/17 06:15; Admin Dose 2 MG; Start 09/05/17 at 16:30 Bisacodyl (Dulcolax) 5 mg DAILY PRN PO CONSTIPATION; Start 09/05/17 at 16:30 Lorazepam (Ativan) 1 mg Q6H PRN IV agitation/anxiety Last administered on 09/08 09:30; Admin Dose 1 MG; Start 09/05/17 at 17:00 Nicotine (Nicoderm 21 Mg/ 24hr) 1 patch Q24H TRANSDERM Last administered on 17:04; Admin Dose 1 PATCH; Start 09/05/17 at 17:00 Folic Acid (Folic Acid) 1 mg DAILY PO Last administered on 09/25/17 08:32; Admin Dose 1 MG; Start 09/07/17 at 16:30 Magnesium Oxide (Mag-Ox 400) 400 mg BID PO Last administered on 09/25/17 08: 32; Admin Dose 400 MG; Start 09/09/17 at 12:00 Famotidine (Pepcid) 20 mg BID PO Last administered on 09/25/17 08:32; Admin Dose 20 MG; Start 09/09/17 at 21:00 Hydralazine HCl (Apresoline) 10 mg Q4H PRN IV ELEVATED BLOOD PRESSURE Last administered on 09/12/17 08:53; Admin Dose 10 MG; Start 09/10/17 at 04:55 Ferrous Sulfate (Ferrous Sulfate (Ec)) 325 mg DAILY PO Last administered on 08:32; Admin Dose 325 MG; Start 09/14/17 at 09:30 Lorazepam (Ativan) 1 mg Q6H PRN PO ANXIETY; Start 09/17/17 at 15:00 Spironolactone (Aldactone) 25 mg DAILY NGT Last administered on 09/25/17 08: 32; Admin Dose 25 MG; Start 09/18/17 at 11:30 Furosemide 10 mg 10 mg DAILY PO Last administered on 09/21/17 08:21; Admin Dose 10 MG; Start 09/19/17 at 09:00; Status Future Hold Sodium Chloride (NS) 1,000 ml @ 50 mls/hr Q20H IV Last administered on 03:04; Admin Dose 70 MLS/HR; Start 09/21/17 at 13:00 Lisinopril (Zestril) 5 mg DAILY PO Last administered on 09/25/17 08:33; Admin Dose 5 MG; Start 09/22/17 at 09:00 THEO BUSH MD Sep 25, 2017 11:37
[2017-09-25] MEDS: NICOTINE (21 MG/24 HR) PATCH TRANSDERM SCH (17:05)
--- NOTE | 2017-09-25 19:31 | PN ---
Date/Time of Note Date/Time of Note DATE: 09/25/17 TIME: 19:30 Assessment/Plan Lines/Catheters IV Catheter Type (from Nrsg): Peripheral IV Lema in Place (from Nrsg): No Assessment/Plan Chief Complaint/Hosp Course IMPRESSION: Status post chest tube placement. CT with 550 cc RECOMMENDATIONS: Will continue chest tube suction until the drainage is less than 100 mL a date discussed with Dr. Richter. Problems: Subjective 24 Hr Interval Summary Constitutional: improved Pain Control: mild Exam/Review of Systems Vital Signs Vitals Vital Signs Date Time Temp Pulse Resp B/P Pulse Ox O2 Delivery O2 Flow Rate FiO2 09/25/17 16:06 106 09/25/17 15:48 98.1 20 94/57 100 09/25/17 14:29 21 09/23/17 08:59 Nasal Cannula 09/23/17 08:59 2.0 Intake and Output 09/24/17 09/24/17 09/25/17 14:59 22:59 06:59 Intake Total 2160 ml 770 ml Output Total 1990 ml 190 ml Balance 170 ml 580 ml Exam ENMT: mucosa pink and moist, nl external ears & nose, nl lips & teeth, nl nasal mucosa & septum Neck: non-tender, supple Respiratory: clear to auscultation, normal air movement Cardiovascular: nl pulses, regular rate and rhythm Gastrointestinal: nl liver, spleen, non-tender, soft Results Result Diagram: 09/25/17 0653 09/25/17 0653 CHET MONREAL MD Sep 25, 2017 19:31
[2017-09-26] VITALS (12 sets, daily range): BP systolic 107–129; BP diastolic 73–78; PULSE 75–110; RESP 17–20
[2017-09-26] MEDS: ALBUTEROL/IPRATROPIUM (NEB) 3 ML AMP HHN SCH ×3 (07:59→19:50)
[2017-09-26 08:25] LABS: BASOPHILS % 0.1 % (0.0-2.0); EOSINOPHILS # 0.2 10^3/ul (0.0-0.5); EOSINOPHILS % 2.6 % (0.0-7.0); HEMATOCRIT 26.6 % (42.0-52.0); HEMOGLOBIN 8.3 g/dl (14.0-18.0); LYMPHOCYTES # 1.3 10^3/ul (0.8-2.9); LYMPHOCYTES % 15.6 % (15.0-51.0); MEAN CORPUSCULAR HEMOGLOBIN 22.6 pg (29.0-33.0); MEAN CORPUSCULAR HGB CONC 31.2 g/dl (32.0-37.0); MEAN CORPUSCULAR VOLUME 72.3 fl (82.0-101.0); MEAN PLATELET VOLUME 10.6 fl (7.4-10.4); MONOCYTE # 0.5 10^3/ul (0.3-0.9); MONOCYTES % 6.3 % (0.0-11.0); NEUTROPHIL # 6.2 10^3/ul (1.6-7.5); NEUTROPHILS % 74.9 % (39.0-77.0); PLATELET COUNT 158 10^3/UL (140-415); RED BLOOD COUNT 3.68 10^6/ul (4.70-6.10); RED CELL DISTRIBUTION WIDTH 21.7 % (11.5-14.5); WHITE BLOOD COUNT 8.3 10^3/ul (4.8-10.8)
[2017-09-26 08:45] LABS: CALCIUM 8.4 mg/dl (8.4-10.2); CREATININE 0.64 mg/dl (0.61-1.24); MAGNESIUM 1.1 mg/dl (1.7-2.5); PHOSPHORUS 4.4 mg/dl (2.5-4.9); POTASSIUM 4.3 mmol/L (3.5-5.1)
[2017-09-26] MEDS ORDERED: MAGNESIUM SULFATE 2 GM/50 ML 50 ML IVPB ONE (09:00)
[2017-09-26] MEDS: FERROUS SULFATE (EC) 325 MG TAB PO SCH (09:09)
[2017-09-26] MEDS: FOLIC ACID 1 MG TAB PO SCH (09:09)
[2017-09-26] MEDS: LISINOPRIL 5 MG TAB PO SCH (09:09)
[2017-09-26] MEDS: FAMOTIDINE 20 MG TAB PO SCH ×2 (09:09→20:37)
[2017-09-26] MEDS: SPIRONOLACTONE 50 MG TAB PO SCH (09:09)
[2017-09-26] MEDS: MAGNESIUM OXIDE 400 MG TAB PO SCH ×2 (09:13→20:37)
--- NOTE | 2017-09-26 09:55 | PN ---
DATE: 09/26/2017 SUBJECTIVE: The patient is stable. No events overnight. No fevers, chills, nausea, vomiting. OBJECTIVE: VITAL SIGNS: Blood pressure is 107/74, pulse 82, respirations 17, pulse 97.9. HEENT: Head is normocephalic. NECK: Supple. HEART: Regular rate. LUNGS: Show diminished breath sounds at the base. ABDOMEN: Soft, nontender to palpation. No rebound or guarding. EXTREMITIES: Negative for clubbing, cyanosis. No edema. DERMATOLOGIC: No rashes. MUSCULOSKELETAL: No joint effusions. NEUROLOGIC: No change in exam. MEDICATIONS: The patient's medications have been reviewed. LABORATORY DATA: Sodium 133, potassium 4.3, BUN 13, creatinine 0.64. White count 8.3, hemoglobin 8 .3, hematocrit 26.6, platelet count is 158. ASSESSMENT AND PLAN: 1. Severe hypomagnesemia. Etiology secondary to chronic alcohol abuse causing tubular dysfunction, resulting in renal magnesium wasting. Continue to monitor. Continue repleting with oral and IV ma gnesium. 2. Hypokalemia. Continue to monitor and replete. 3. Hyponatremia. Continue to monitor. 4. Right pneumothorax status post chest tube. 5. Alcohol abuse. Continue current medical management. 6. Status post respiratory failure. Dictated By: SLIME CHANG/VICKY Conf#: [id number] DID#: [id number] CC: TANK MALHOTRA;*EndCC*
[2017-09-26] MEDS: NICOTINE (21 MG/24 HR) PATCH TRANSDERM SCH (17:14)
--- NOTE | 2017-09-26 17:47 | PN ---
Date/Time of Note Date/Time of Note DATE: 09/26/17 TIME: 17:44 Assessment/Plan VTE Prophylaxis VTE Prophylaxis Intervention: SCD's Lines/Catheters IV Catheter Type (from Nrs): Saline Lock Urinary Cath still in place: No Assessment/Plan Assessment/Plan 1. 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 Believes TIPS will be only joint terminal attack controller solution for effusion - On aldactone/lasix and will increase aldactone to 50mg - CT surgery on board and consultation appreciated. management of chest tube per CT surgery 2. Pneumo/hydropneumothorax - s/p thoracentesis on 09/17 - chest tube placed 09/19 and still draining moderate amount of serous fluid - CT surgery recommendations appreciated 3. Cirrhosis of liver - LFT within normal limites - us gallbladder noted 4. Delirium tremens- resolved - Completed course of Librium - Ativan PRN for agitation/anxiety 5. bacteremia, gram neg - Completed course of antibiotics - remains afebrile - wbc stabilized 6. acute respiratory failure, 2/2 PNA- resolved - Pulmonology on board and recommendations appreciated - Respiratory status stable. Saturating well 7. Bilateral pneumonia, likely aspiration - completed course of antibiotics 8. Alcoholism - thiamine and folic acid - Librium tapered off 9. Hypokalemia- stable - replete as needed 10. Severe Hypomagnesia - Nephrology on board assisting with electrolyte abnormalities 11. Disposition - continue in telemetry for chest tube management - poor prognosis given hepatic hydrothorax/pneumothorax Subjective 24 Hr Interval Summary Free Text/Dictation Patient resting comfortably in bed with no new complaints. No acute overnight events. Still has significant output from chest tube Exam/Review of Systems Vital Signs Vitals Vital Signs Date Time Temp Pulse Resp B/P Pulse Ox O2 Delivery O2 Flow Rate FiO2 09/26/17 17:04 98.8 90 17 114/73 100 09/26/17 13:25 21 09/23/17 08:59 Nasal Cannula 09/23/17 08:59 2.0 Intake and Output 09/25/17 09/25/17 09/26/17 15:00 23:00 07:00 Intake Total 1180 ml 750 ml Output Total 1000 ml 900 ml Balance 180 ml -150 ml Exam General: Patient resting comfortably, in no acute distress Head: Normocephalic atraumatic Eyes: EOMI, pupils reactive to light Neck: Supple, nontender, midline Respiratory: diminished breath sounds on R, no crackles or wheezing Cardiovascular: regular rate and rhythm, no obvious murmurs Gastrointestinal: non-tender to palpation, bowel sounds heard. Neurological: Moves all extremities spontaneously Skin: No new skin lesions, chest tube placed on R with no discharge or drainage from site Results Result Diagram: 09/26/17 0700 09/26/17 0700 Results 24 hrs Laboratory Tests Test 09/26/17 07:00 White Blood Count 8.3 Red Blood Count 3.68 L Hemoglobin 8.3 L Hematocrit 26.6 L Mean Corpuscular Volume 72.3 L Mean Corpuscular Hemoglobin 22.6 L Mean Corpuscular Hemoglobin Concent 31.2 L Red Cell Distribution Width 21.7 H Platelet Count 158 Mean Platelet Volume 10.6 H Neutrophils % 74.9 Lymphocytes % 15.6 Monocytes % 6.3 Eosinophils % 2.6 Basophils % 0.1 Nucleated Red Blood Cells % 0.0 Neutrophils # 6.2 Lymphocytes # 1.3 Monocytes # 0.5 Eosinophils # 0.2 Basophils # 0.0 Nucleated Red Blood Cells # 0.0 Sodium Level 133 L Potassium Level 4.3 Chloride Level 98 Carbon Dioxide Level 27 Anion Gap 12 Blood Urea Nitrogen 13 Creatinine 0.64 Glucose Level 80 Calcium Level 8.4 Phosphorus Level 4.4 Magnesium Level 1.1 L Albumin 3.0 L Medications Medications Current Medications Lorazepam (Ativan) 2 mg Q10MIN PRN IV seizure Last administered on 09/06/17 09 :11; Admin Dose 2 MG; Start 09/05/17 at 16:00 Ondansetron HCl (Zofran Inj) 4 mg Q6H PRN IV NAUSEA AND/OR VOMITING; Start 09/05/17 at 16:30 Acetaminophen (Tylenol Tab) 650 mg Q6H PRN PO PAIN LEVEL 1-3 OR FEVER Last administered on 09/24/17 19:45; Admin Dose 650 MG; Start 09/05/17 at 16:30 Morphine Sulfate (morphine) 2 mg Q4H PRN IV PAIN LEVEL 7-10 Last administered on 09/20/17 06:15; Admin Dose 2 MG; Start 09/05/17 at 16:30 Bisacodyl (Dulcolax) 5 mg DAILY PRN PO CONSTIPATION; Start 09/05/17 at 16:30 Lorazepam (Ativan) 1 mg Q6H PRN IV agitation/anxiety Last administered on 09/08 09:30; Admin Dose 1 MG; Start 09/05/17 at 17:00 Nicotine (Nicoderm 21 Mg/ 24hr) 1 patch Q24H TRANSDERM Last administered on 17:14; Admin Dose 1 PATCH; Start 09/05/17 at 17:00 Folic Acid (Folic Acid) 1 mg DAILY PO Last administered on 09/26/17 09:09; Admin Dose 1 MG; Start 09/07/17 at 16:30 Famotidine (Pepcid) 20 mg BID PO Last administered on 09/26/17 09:09; Admin Dose 20 MG; Start 09/09/17 at 21:00 Hydralazine HCl (Apresoline) 10 mg Q4H PRN IV ELEVATED BLOOD PRESSURE Last administered on 09/12/17 08:53; Admin Dose 10 MG; Start 09/10/17 at 04:55 Ferrous Sulfate (Ferrous Sulfate (Ec)) 325 mg DAILY PO Last administered on 09:09; Admin Dose 325 MG; Start 09/14/17 at 09:30 Lorazepam (Ativan) 1 mg Q6H PRN PO ANXIETY; Start 09/17/17 at 15:00 Furosemide (Lasix) 10 mg DAILY PO Last administered on 09/21/17 08:21; Admin Dose 10 MG; Start 09/19/17 at 09:00; Status Future Hold Lisinopril (Zestril) 5 mg DAILY PO Last administered on 09/26/17 09:09; Admin Dose 5 MG; Start 09/22/17 at 09:00 Spironolactone (Aldactone) 50 mg DAILY PO Last administered on 09/26/17 09:09 ; Admin Dose 50 MG; Start 09/26/17 at 09:00 Magnesium Oxide (Mag-Ox 400) 400 mg BID PO Last administered on 09/26/17 09: 13; Admin Dose 400 MG; Start 09/25/17 at 21:00 THEO BUSH MD Sep 26, 2017 17:47
--- NOTE | 2017-09-26 20:17 | PN ---
Date/Time of Note Date/Time of Note DATE: 09/26/17 TIME: 20:16 Assessment/Plan Lines/Catheters IV Catheter Type (from Nrsg): Saline Lock Lema in Place (from Nrsg): No Assessment/Plan Chief Complaint/Hosp Course IMPRESSION: Status post chest tube placement. 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 - Will Benefit from TIPS procedure -will continue CT sxn Problems: Subjective 24 Hr Interval Summary Constitutional: improved Pain Control: mild Exam/Review of Systems Vital Signs Vitals Vital Signs Date Time Temp Pulse Resp B/P Pulse Ox O2 Delivery O2 Flow Rate FiO2 09/26/17 19:54 78 18 97 21 09/26/17 19:32 98.1 116/74 09/23/17 08:59 Nasal Cannula 09/23/17 08:59 2.0 Intake and Output 09/25/17 09/25/17 09/26/17 14:59 22:59 06:59 Intake Total 1180 ml 750 ml Output Total 1000 ml 900 ml Balance 180 ml -150 ml Exam ENMT: mucosa pink and moist, nl external ears & nose, nl lips & teeth, nl nasal mucosa & septum Neck: non-tender, supple Respiratory: clear to auscultation, normal air movement Cardiovascular: nl pulses, regular rate and rhythm Gastrointestinal: nl liver, spleen, non-tender, soft Results Result Diagram: 09/26/17 0700 09/26/17 0700 CHET MONREAL MD Sep 26, 2017 20:17
[2017-09-27] VITALS (11 sets, daily range): BP systolic 101–123; BP diastolic 63–79; PULSE 81–121; RESP 16–21
[2017-09-27] MEDS: ACETAMINOPHEN 325 MG TAB PO PRN (05:47)
[2017-09-27] MEDS: ALBUTEROL/IPRATROPIUM (NEB) 3 ML AMP HHN SCH ×3 (07:50→19:25)
[2017-09-27] MEDS ORDERED: MAGNESIUM SULFATE 2 GM/50 ML 50 ML IVPB ONE (08:30)
[2017-09-27] MEDS: FERROUS SULFATE (EC) 325 MG TAB PO SCH (09:35)
[2017-09-27] MEDS: MAGNESIUM OXIDE 400 MG TAB PO SCH ×2 (09:35→20:38)
[2017-09-27] MEDS: LISINOPRIL 5 MG TAB PO SCH (09:35)
[2017-09-27] MEDS: FOLIC ACID 1 MG TAB PO SCH (09:35)
[2017-09-27] MEDS: FAMOTIDINE 20 MG TAB PO SCH ×2 (09:35→20:38)
[2017-09-27] MEDS: SPIRONOLACTONE 50 MG TAB PO SCH (09:35)
[2017-09-27 09:36] LABS: BASOPHILS % 0.1 % (0.0-2.0); EOSINOPHILS # 0.3 10^3/ul (0.0-0.5); EOSINOPHILS % 2.6 % (0.0-7.0); HEMATOCRIT 27.1 % (42.0-52.0); HEMOGLOBIN 8.5 g/dl (14.0-18.0); LYMPHOCYTES # 1.7 10^3/ul (0.8-2.9); LYMPHOCYTES % 17.3 % (15.0-51.0); MEAN CORPUSCULAR HEMOGLOBIN 22.6 pg (29.0-33.0); MEAN CORPUSCULAR HGB CONC 31.4 g/dl (32.0-37.0); MEAN CORPUSCULAR VOLUME 72.1 fl (82.0-101.0); MEAN PLATELET VOLUME 10.9 fl (7.4-10.4); MONOCYTE # 0.6 10^3/ul (0.3-0.9); MONOCYTES % 6.5 % (0.0-11.0); NEUTROPHIL # 7.1 10^3/ul (1.6-7.5); NEUTROPHILS % 73.1 % (39.0-77.0); PLATELET COUNT 181 10^3/UL (140-415); RED BLOOD COUNT 3.76 10^6/ul (4.70-6.10); RED CELL DISTRIBUTION WIDTH 21.8 % (11.5-14.5); WHITE BLOOD COUNT 9.7 10^3/ul (4.8-10.8)
--- NOTE | 2017-09-27 09:47 | CONS ---
Date/Time of Note Date/Time of Note DATE: 09/27/17 TIME: 09:45 Assessment/Plan Assessment/Plan Additional Assessment/Plan Assessment and recommendations; 1. Patient admitted with right-sided pleural effusion status post thoracentesis with resulting hydropneumothorax requiring chest tube insertion. 2. Hepatic hydrothorax however there is some decline in output through the chest tube. 3. Advanced cirrhosis of liver. 4. Mild anemia and thrombocytopenia. Continue current supportive care. Patient possibly may need to have a tips procedure performed. Consultation Date/Type/Reason Admit Date/Time Sep 05, 2017 at 13:14 Type of Consultation: Pulmonary 24 HR Interval Summary Free Text/Dictation Patient's condition is stable. Remains awake and alert. Denies any shortness of breath, chest pain. General exam; middle-aged male, awake and alert. Currently in no distress. Exam/Review of Systems Vital Signs Vitals Vital Signs Date Time Temp Pulse Resp B/P Pulse Ox O2 Delivery O2 Flow Rate FiO2 09/27/17 08:14 81 09/27/17 07:56 98.2 16 109/67 98 09/26/17 19:54 21 09/23/17 08:59 Nasal Cannula 09/23/17 08:59 2.0 Intake and Output 09/26/17 09/26/17 09/27/17 15:00 23:00 07:00 Intake Total 800 ml 700 ml Output Total 2050 ml 780 ml Balance -1250 ml -80 ml Exam HEENT exam; supple neck, no JVD. No lymphadenopathy. Midline trachea. No thyromegaly. Patient has multiple carious teeth. Chest exam; clear to auscultation. Right-sided chest tube in place. S1-S2 audible, no murmurs. Regular rhythm. Abdomen exam; soft, nontender. No organomegaly. Bowel sounds audible. Extremity exam; no edema. COMPOSITION MOLDER exam; no focal deficit. Results Result Diagram: 09/27/17 0857 09/26/17 0700 Results 24 hrs Laboratory Tests Test 09/27/17 08:57 White Blood Count 9.7 Red Blood Count 3.76 L Hemoglobin 8.5 L Hematocrit 27.1 L Mean Corpuscular Volume 72.1 L Mean Corpuscular Hemoglobin 22.6 L Mean Corpuscular Hemoglobin Concent 31.4 L Red Cell Distribution Width 21.8 H Platelet Count 181 Mean Platelet Volume 10.9 H Neutrophils % 73.1 Lymphocytes % 17.3 Monocytes % 6.5 Eosinophils % 2.6 Basophils % 0.1 Nucleated Red Blood Cells % 0.0 Neutrophils # 7.1 Lymphocytes # 1.7 Monocytes # 0.6 Eosinophils # 0.3 Basophils # 0.0 Nucleated Red Blood Cells # 0.0 Medications Medications Current Medications Lorazepam (Ativan) 2 mg Q10MIN PRN IV seizure Last administered on 09/06/17 09 :11; Admin Dose 2 MG; Start 09/05/17 at 16:00 Ondansetron HCl (Zofran Inj) 4 mg Q6H PRN IV NAUSEA AND/OR VOMITING; Start 09/05/17 at 16:30 Acetaminophen (Tylenol Tab) 650 mg Q6H PRN PO PAIN LEVEL 1-3 OR FEVER Last administered on 09/27/17 05:47; Admin Dose 650 MG; Start 09/05/17 at 16:30 Morphine Sulfate (morphine) 2 mg Q4H PRN IV PAIN LEVEL 7-10 Last administered on 09/20/17 06:15; Admin Dose 2 MG; Start 09/05/17 at 16:30 Bisacodyl (Dulcolax) 5 mg DAILY PRN PO CONSTIPATION; Start 09/05/17 at 16:30 Lorazepam (Ativan) 1 mg Q6H PRN IV agitation/anxiety Last administered on 09/08 09:30; Admin Dose 1 MG; Start 09/05/17 at 17:00 Nicotine (Nicoderm 21 Mg/ 24hr) 1 patch Q24H TRANSDERM Last administered on 17:14; Admin Dose 1 PATCH; Start 09/05/17 at 17:00 Folic Acid (Folic Acid) 1 mg DAILY PO Last administered on 09/27/17 09:35; Admin Dose 1 MG; Start 09/07/17 at 16:30 Famotidine (Pepcid) 20 mg BID PO Last administered on 09/27/17 09:35; Admin Dose 20 MG; Start 09/09/17 at 21:00 Hydralazine HCl (Apresoline) 10 mg Q4H PRN IV ELEVATED BLOOD PRESSURE Last administered on 09/12/17 08:53; Admin Dose 10 MG; Start 09/10/17 at 04:55 Ferrous Sulfate (Ferrous Sulfate (Ec)) 325 mg DAILY PO Last administered on 09:35; Admin Dose 325 MG; Start 09/14/17 at 09:30 Lorazepam (Ativan) 1 mg Q6H PRN PO ANXIETY; Start 09/17/17 at 15:00 Furosemide (Lasix) 10 mg DAILY PO Last administered on 09/21/17 08:21; Admin Dose 10 MG; Start 09/19/17 at 09:00; Status Future Hold Lisinopril (Zestril) 5 mg DAILY PO Last administered on 09/27/17 09:35; Admin Dose 5 MG; Start 09/22/17 at 09:00 Spironolactone (Aldactone) 50 mg DAILY PO Last administered on 09/27/17 09:35 ; Admin Dose 50 MG; Start 09/26/17 at 09:00 Magnesium Oxide 400 mg 400 mg BID PO Last administered on 09/27/17 09:35; Admin Dose 400 MG; Start 09/25/17 at 21:00 Magnesium Sulfate (Magnesium Sulfate 2 Gm/50 ml) 50 ml @ 25 mls/hr ONCE ONCE IVPB Last administered on 09/27/17 09:35; Admin Dose 25 MLS/HR; Start at 08:30; Stop 09/27/17 at 10:29 KIRILL PEREZ Sep 27, 2017 09:47
[2017-09-27 10:36] LABS: POTASSIUM 4.2 mmol/L (3.5-5.1)
[2017-09-27 10:37] LABS: ALBUMIN 3.3 g/dl (3.3-4.9); CALCIUM 8.5 mg/dl (8.4-10.2); CREATININE 0.74 mg/dl (0.61-1.24); MAGNESIUM 1.1 mg/dl (1.7-2.5); PHOSPHORUS 4.7 mg/dl (2.5-4.9)
--- NOTE | 2017-09-27 11:48 | PN ---
DATE: 09/27/2017 SUBJECTIVE: The patient is stable. No events overnight. OBJECTIVE: VITAL SIGNS: Blood pressure 109/67, respirations 16, pulse 83, temperature 98.2. HEENT: Head is normocephalic. NECK: Supple. HEART: Regular rate. LUNGS: Show diminished breath sounds at base. ABDOMEN: Soft, nontender to palpation. No rebound or guarding. EXTREMITIES: Negative for clubbing, cyanosis, no edema. DERMATOLOGIC: No rashes. MUSCULOSKELETAL: No joint effusions. NEUROLOGIC: No change in exam. MEDICATIONS: The patient's medications have been reviewed. LABORATORY DATA FOR 09/27/2017: Currently pending. ASSESSMENT AND PLAN: 1. Severe hypomagnesemia. Etiology secondary to chronic ETOH abuse causing renal tubular wasting. Continue to monitor and replete with oral and IV magnesium. 2. Hypokalemia, improved. Continue to monitor. 3. Hyponatremia. Continue to monitor. 4. Alcohol abuse. Continue current medical management. 5. Status post respiratory failure. 6. Right pneumothorax status post chest tube. Continue medical management and follow up with [facility]. Dictated By: SLIME CHANG/VICKY Conf#: [id number] DID#: [id number] CC: TANK MALHOTRA;*EndCC*
--- NOTE | 2017-09-27 15:35 | PN ---
Date/Time of Note Date/Time of Note DATE: 09/27/17 TIME: 15:30 Assessment/Plan VTE Prophylaxis VTE Prophylaxis Intervention: SCD's Lines/Catheters IV Catheter Type (from Nrs): Saline Lock Urinary Cath still in place: No Assessment/Plan Assessment/Plan 1. 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 Believes TIPS will be only parts counterman solution for effusion but did discuss possible pleurx catheter placement since patient not decompensated enough for TIPS procedure - On aldactone/lasix and will increase aldactone to 50mg - CT surgery on board and consultation appreciated. management of chest tube per CT surgery 2. Pneumo/hydropneumothorax - s/p thoracentesis on 09/17 - chest tube placed 09/19 and discussed with nursing to monitor output from chest tube so can have a more accurate idea of how much is being put out. per records only 80cc of output recorded for today - CT surgery recommendations appreciated 3. Cirrhosis of liver - LFT within normal limites - us gallbladder noted 4. Delirium tremens- resolved - Completed course of Librium - Ativan PRN for agitation/anxiety 5. bacteremia, gram neg - Completed course of antibiotics - remains afebrile - wbc stabilized 6. acute respiratory failure, 2/2 PNA- resolved - Pulmonology on board and recommendations appreciated - Respiratory status stable. Saturating well 7. Bilateral pneumonia, likely aspiration - completed course of antibiotics 8. Alcoholism - thiamine and folic acid - Librium tapered off 9. Hypokalemia- stable - replete as needed 10. Severe Hypomagnesia - Nephrology on board assisting with electrolyte abnormalities 11. Disposition - continue in telemetry for chest tube management - poor prognosis given hepatic hydrothorax/pneumothorax Subjective 24 Hr Interval Summary Free Text/Dictation Patient resting comfortably and ambulated around unit with no issues. No acute overnight events. Exam/Review of Systems Vital Signs Vitals Vital Signs Date Time Temp Pulse Resp B/P Pulse Ox O2 Delivery O2 Flow Rate FiO2 09/27/17 14:55 72 18 97 21 09/27/17 11:41 98.0 123/72 09/23/17 08:59 Nasal Cannula 09/23/17 08:59 2.0 Intake and Output 09/26/17 09/26/17 09/27/17 15:00 23:00 07:00 Intake Total 800 ml 700 ml Output Total 2050 ml 780 ml Balance -1250 ml -80 ml Exam General: Patient resting comfortably, in no acute distress Head: Normocephalic atraumatic Eyes: EOMI, pupils reactive to light Neck: Supple, nontender, midline Respiratory: diminished breath sounds on R, no crackles or wheezing Cardiovascular: regular rate and rhythm, no obvious murmurs Gastrointestinal: non-tender to palpation, bowel sounds heard. Neurological: Moves all extremities spontaneously Skin: No new skin lesions, chest tube placed on R with no discharge or drainage from site Results Result Diagram: 09/27/1757 09/27/17856 Results 24 hrs Laboratory Tests Test 09/27/17 08:57 White Blood Count 9.7 Red Blood Count 3.76 L Hemoglobin 8.5 L Hematocrit 27.1 L Mean Corpuscular Volume 72.1 L Mean Corpuscular Hemoglobin 22.6 L Mean Corpuscular Hemoglobin Concent 31.4 L Red Cell Distribution Width 21.8 H Platelet Count 181 Mean Platelet Volume 10.9 H Neutrophils % 73.1 Lymphocytes % 17.3 Monocytes % 6.5 Eosinophils % 2.6 Basophils % 0.1 Nucleated Red Blood Cells % 0.0 Neutrophils # 7.1 Lymphocytes # 1.7 Monocytes # 0.6 Eosinophils # 0.3 Basophils # 0.0 Nucleated Red Blood Cells # 0.0 Sodium Level 131 L Potassium Level 4.2 Chloride Level 97 Carbon Dioxide Level 25 Anion Gap 13 Blood Urea Nitrogen 13 Creatinine 0.74 Glucose Level 85 Calcium Level 8.5 Phosphorus Level 4.7 Magnesium Level 1.1 L Albumin 3.3 Medications Medications Current Medications Lorazepam (Ativan) 2 mg Q10MIN PRN IV seizure Last administered on 09/06/17 09 :11; Admin Dose 2 MG; Start 09/05/17 at 16:00 Ondansetron HCl (Zofran Inj) 4 mg Q6H PRN IV NAUSEA AND/OR VOMITING; Start 09/05/17 at 16:30 Acetaminophen (Tylenol Tab) 650 mg Q6H PRN PO PAIN LEVEL 1-3 OR FEVER Last administered on 09/27/17 05:47; Admin Dose 650 MG; Start 09/05/17 at 16:30 Morphine Sulfate (morphine) 2 mg Q4H PRN IV PAIN LEVEL 7-10 Last administered on 09/20/17 06:15; Admin Dose 2 MG; Start 09/05/17 at 16:30 Bisacodyl (Dulcolax) 5 mg DAILY PRN PO CONSTIPATION; Start 09/05/17 at 16:30 Lorazepam (Ativan) 1 mg Q6H PRN IV agitation/anxiety Last administered on 09/08 09:30; Admin Dose 1 MG; Start 09/05/17 at 17:00 Nicotine (Nicoderm 21 Mg/ 24hr) 1 patch Q24H TRANSDERM Last administered on 17:14; Admin Dose 1 PATCH; Start 09/05/17 at 17:00 Folic Acid (Folic Acid) 1 mg DAILY PO Last administered on 09/27/17 09:35; Admin Dose 1 MG; Start 09/07/17 at 16:30 Famotidine (Pepcid) 20 mg BID PO Last administered on 09/27/17 09:35; Admin Dose 20 MG; Start 09/09/17 at 21:00 Hydralazine HCl (Apresoline) 10 mg Q4H PRN IV ELEVATED BLOOD PRESSURE Last administered on 09/12/17 08:53; Admin Dose 10 MG; Start 09/10/17 at 04:55 Ferrous Sulfate (Ferrous Sulfate (Ec)) 325 mg DAILY PO Last administered on 09:35; Admin Dose 325 MG; Start 09/14/17 at 09:30 Lorazepam (Ativan) 1 mg Q6H PRN PO ANXIETY; Start 09/17/17 at 15:00 Furosemide (Lasix) 10 mg DAILY PO Last administered on 09/21/17 08:21; Admin Dose 10 MG; Start 09/19/17 at 09:00; Status Future Hold Lisinopril (Zestril) 5 mg DAILY PO Last administered on 09/27/17 09:35; Admin Dose 5 MG; Start 09/22/17 at 09:00 Spironolactone (Aldactone) 50 mg DAILY PO Last administered on 09/27/17 09:35 ; Admin Dose 50 MG; Start 09/26/17 at 09:00 Magnesium Oxide (Mag-Ox 400) 400 mg BID PO Last administered on 09/27/17 09: 35; Admin Dose 400 MG; Start 09/25/17 at 21:00 THEO BUSH MD Sep 27, 2017 15:35
[2017-09-27] MEDS: NICOTINE (21 MG/24 HR) PATCH TRANSDERM SCH (17:04)
--- NOTE | 2017-09-27 18:29 | PN ---
Date/Time of Note Date/Time of Note DATE: 09/27/17 TIME: 18:28 Assessment/Plan Lines/Catheters IV Catheter Type (from Nrsg): Saline Lock Lema in Place (from Nrsg): No Assessment/Plan Chief Complaint/Hosp Course IMPRESSION: Status post chest tube placement. 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 - Will Benefit from TIPS procedure -will continue CT sxn Problems: Subjective 24 Hr Interval Summary Constitutional: improved Pain Control: mild Exam/Review of Systems Vital Signs Vitals Vital Signs Date Time Temp Pulse Resp B/P Pulse Ox O2 Delivery O2 Flow Rate FiO2 09/27/17 16:34 98.2 98 17 101/63 98 09/27/17 14:55 21 09/23/17 08:59 Nasal Cannula 09/23/17 08:59 2.0 Intake and Output 09/26/17 09/26/17 09/27/17 15:00 23:00 07:00 Intake Total 800 ml 700 ml Output Total 2050 ml 780 ml Balance -1250 ml -80 ml Exam Neck: non-tender, supple Respiratory: clear to auscultation, normal air movement Cardiovascular: nl pulses, regular rate and rhythm Gastrointestinal: nl liver, spleen, non-tender, soft Results Result Diagram: 09/27/17 0857 09/27/17 0857 CHET MONREAL MD Sep 27, 2017 18:29
[2017-09-27] MEDS: morphine 2 MG INJ IV PRN (20:43)
[2017-09-28] VITALS (11 sets, daily range): BP systolic 98–161; BP diastolic 55–82; PULSE 88–108; RESP 20
[2017-09-28] MEDS: ALBUTEROL/IPRATROPIUM (NEB) 3 ML AMP HHN SCH ×3 (08:05→20:14)
[2017-09-28] MEDS ORDERED: MAGNESIUM SULFATE 2 GM/50 ML 50 ML IVPB ONE (08:30)
[2017-09-28] MEDS: LISINOPRIL 5 MG TAB PO SCH (08:31)
[2017-09-28] MEDS: SPIRONOLACTONE 50 MG TAB PO SCH (08:31)
[2017-09-28] MEDS: FERROUS SULFATE (EC) 325 MG TAB PO SCH (08:31)
[2017-09-28] MEDS: FAMOTIDINE 20 MG TAB PO SCH ×2 (08:31→20:42)
[2017-09-28] MEDS: FOLIC ACID 1 MG TAB PO SCH (08:31)
[2017-09-28] MEDS: MAGNESIUM OXIDE 400 MG TAB PO SCH ×2 (08:31→20:42)
--- NOTE | 2017-09-28 11:11 | PN ---
DATE: 09/28/2017 SUBJECTIVE: The patient is stable. No events overnight. OBJECTIVE: VITAL SIGNS: Blood pressure is 161/82, respirations 20, pulse 86, temperature 98.1. HEENT: Head is normocephalic. NECK: Supple. HEART: Regular rate. LUNGS: Show diminished breath sounds at base. ABDOMEN: Soft, nontender to palpation. No rebound or guarding. EXTREMITIES: Negative for clubbing, cyanosis. No edema. DERMATOLOGIC: No rashes. MUSCULOSKELETAL: No joint effusions. NEUROLOGIC: No change in exam. MEDICATIONS: The patient's medications have been reviewed. LABORATORY DATA: Shows sodium 131, potassium 4.2, magnesium is 1.1. White count 9.7, hemoglobin 8. 5, platelet count is 181. ASSESSMENT AND PLAN: 1. Severe hypomagnesemia. Etiology secondary to chronic ETOH abuse causing renal tubular dysfuncti on, resulting in magnesium wasting. Continue to monitor and replete with oral and IV magnesium. 2. Hyponatremia, etiology is likely multifactorial, possibly due to underlying cirrhosis, hemodynam ics. Continue to monitor. We will place the patient on free water restriction. 3. Hypokalemia, improved. 4. ETOH abuse. Continue medical management. 5. Cirrhosis. Continue medical management. 6. Right hydropneumothorax. The patient is status post chest tube. Will monitor closely for possi ble transjugular intrahepatic portosystemic shunt procedure recommended by CT surgery. 7. Status post respiratory failure. Dictated By: SLIME CHANG/VICKY Conf#: [id number] DID#: [id number]
--- NOTE | 2017-09-28 12:10 | CONS ---
Date/Time of Note Date/Time of Note DATE: 09/28/17 TIME: 12:08 Assessment/Plan Assessment/Plan Additional Assessment/Plan Assessment and recommendations; 1. Patient admitted with shortness of breath due to right-sided pleural effusion, status post thoracentesis with ensuing right hydropneumothorax requiring chest tube placement. 2. 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 3. Anemia and thrombocytopenia. Continue current supportive care. Once the drainage from the chest tube is less than 100 mL per 24 hours only then the chest tube can be removed. Prognosis is very guarded on account of what is appearing to be advanced cirrhosis of liver with hepatic hydrothorax which is almost always a very poor prognostic sign. Options at this time are to wait for the drainage to decrease versus a TIPS procedure versus placement of Pleurx catheter. Consultation Date/Type/Reason Admit Date/Time Sep 05, 2017 at 13:14 Type of Consultation: Pulmonary 24 HR Interval Summary Free Text/Dictation Patient's condition is stable. Remains awake and alert. Denies any shortness of breath or chest pain. General exam; young male, awake alert, currently in no distress. Exam/Review of Systems Vital Signs Vitals Vital Signs Date Time Temp Pulse Resp B/P Pulse Ox O2 Delivery O2 Flow Rate FiO2 09/28/17 08:36 88 09/28/17 08:05 20 98 21 09/28/17 07:59 98.1 161/82 Intake and Output 09/27/17 09/27/17 09/28/17 15:00 23:00 07:00 Intake Total 1200 ml 500 ml Output Total 80 ml 1000 ml 900 ml Balance -80 ml 200 ml -400 ml Exam HEENT exam; supple neck, no JVD. No lymphadenopathy. Midline trachea. No thyromegaly. Pharynx is clear. Patient has a multiple carious teeth. Chest exam; diminished but clear breath sounds. Right-sided chest tube in place. Still having copious drainage per 24 hours. S1-S2 audible, no murmurs. Regular rhythm. Abdomen exam; soft, nontender. No organomegaly. Bowel sounds audible. Extremity exam; no edema. HOME INSPECTOR exam; no focal deficit. Results Result Diagram: 09/27/1757 09/27/17856 Medications Medications Current Medications Lorazepam (Ativan) 2 mg Q10MIN PRN IV seizure Last administered on 09/06/17 09 :11; Admin Dose 2 MG; Start 09/05/17 at 16:00 Ondansetron HCl (Zofran Inj) 4 mg Q6H PRN IV NAUSEA AND/OR VOMITING; Start 09/05/17 at 16:30 Acetaminophen (Tylenol Tab) 650 mg Q6H PRN PO PAIN LEVEL 1-3 OR FEVER Last administered on 09/27/17 05:47; Admin Dose 650 MG; Start 09/05/17 at 16:30 Morphine Sulfate (morphine) 2 mg Q4H PRN IV PAIN LEVEL 7-10 Last administered on 09/27/17 20:43; Admin Dose 2 MG; Start 09/05/17 at 16:30 Bisacodyl (Dulcolax) 5 mg DAILY PRN PO CONSTIPATION; Start 09/05/17 at 16:30 Lorazepam (Ativan) 1 mg Q6H PRN IV agitation/anxiety Last administered on 09/08 09:30; Admin Dose 1 MG; Start 09/05/17 at 17:00 Nicotine (Nicoderm 21 Mg/ 24hr) 1 patch Q24H TRANSDERM Last administered on 17:04; Admin Dose 1 PATCH; Start 09/05/17 at 17:00 Folic Acid (Folic Acid) 1 mg DAILY PO Last administered on 09/28/17 08:31; Admin Dose 1 MG; Start 09/07/17 at 16:30 Famotidine (Pepcid) 20 mg BID PO Last administered on 09/28/17 08:31; Admin Dose 20 MG; Start 09/09/17 at 21:00 Hydralazine HCl (Apresoline) 10 mg Q4H PRN IV ELEVATED BLOOD PRESSURE Last administered on 09/12/17 08:53; Admin Dose 10 MG; Start 09/10/17 at 04:55 Ferrous Sulfate (Ferrous Sulfate (Ec)) 325 mg DAILY PO Last administered on 08:31; Admin Dose 325 MG; Start 09/14/17 at 09:30 Lorazepam (Ativan) 1 mg Q6H PRN PO ANXIETY; Start 09/17/17 at 15:00 Furosemide (Lasix) 10 mg DAILY PO Last administered on 09/21/17 08:21; Admin Dose 10 MG; Start 09/19/17 at 09:00; Status Future Hold Lisinopril (Zestril) 5 mg DAILY PO Last administered on 09/28/17 08:31; Admin Dose 5 MG; Start 09/22/17 at 09:00 Spironolactone (Aldactone) 50 mg DAILY PO Last administered on 09/28/17 08:31 ; Admin Dose 50 MG; Start 09/26/17 at 09:00 Magnesium Oxide (Mag-Ox 400) 400 mg BID PO Last administered on 09/28/17 08:31 ; Admin Dose 400 MG; Start 09/25/17 at 21:00 KIRILL PEREZ Sep 28, 2017 12:10
--- NOTE | 2017-09-28 14:50 | PN ---
Date/Time of Note Date/Time of Note DATE: 09/28/17 TIME: 14:45 Assessment/Plan VTE Prophylaxis VTE Prophylaxis Intervention: SCD's Lines/Catheters IV Catheter Type (from Nrsg): Mid Line Urinary Cath still in place: No Assessment/Plan Assessment/Plan 1. 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 Believes TIPS will be only fpc solution for effusion but did discuss possible pleurx catheter placement since patient not decompensated enough for TIPS procedure - On aldactone/lasix and will hold both to assess if contributing to hypoMg - CT surgery on board and consultation appreciated. management of chest tube per CT surgery 2. Pneumo/hydropneumothorax - s/p thoracentesis on 09/17 - chest tube placed 09/19 and appears to have 180cc drainage over past 24 hours. Not until <100 can chest tube be removed and may benefit from Pleurx catheter - CT surgery recommendations appreciated 3. Cirrhosis of liver - LFT within normal limites - us gallbladder noted 4. Delirium tremens- resolved - Completed course of Librium - Ativan PRN for agitation/anxiety 5. bacteremia, gram neg - Completed course of antibiotics - remains afebrile - wbc stabilized 6. acute respiratory failure, 2/2 PNA- resolved - Pulmonology on board and recommendations appreciated - Respiratory status stable. Saturating well 7. Bilateral pneumonia, likely aspiration - completed course of antibiotics 8. Alcoholism - thiamine and folic acid - Librium tapered off 9. Hypokalemia- stable - replete as needed 10. Severe Hypomagnesia - Nephrology on board assisting with electrolyte abnormalities 11. Disposition - continue in telemetry for chest tube management - poor prognosis given hepatic hydrothorax Subjective 24 Hr Interval Summary Free Text/Dictation Patient feeling weak today but no acute overnight events. No new complaints. Most lethargic this am and states did not sleep well overnight. Exam/Review of Systems Vital Signs Vitals Vital Signs Date Time Temp Pulse Resp B/P Pulse Ox O2 Delivery O2 Flow Rate FiO2 09/28/17 13:58 110 20 98 21 09/28/17 12:55 97.8 100/55 Intake and Output 09/27/17 09/27/17 09/28/17 15:00 23:00 07:00 Intake Total 1200 ml 500 ml Output Total 80 ml 1000 ml 900 ml Balance -80 ml 200 ml -400 ml Exam General: Patient resting comfortably, in no acute distress, lethargic Head: Normocephalic atraumatic Eyes: EOMI, pupils reactive to light Neck: Supple, nontender, midline Respiratory: diminished breath sounds on R, no crackles or wheezing Cardiovascular: regular rate and rhythm, no obvious murmurs Gastrointestinal: non-tender to palpation, bowel sounds heard. Neurological: Moves all extremities spontaneously Skin: No new skin lesions, chest tube placed on R with no discharge or drainage from site Results Result Diagram: 09/27/1757 09/27/1757 Medications Medications Current Medications Lorazepam (Ativan) 2 mg Q10MIN PRN IV seizure Last administered on 09/06/17 09 :11; Admin Dose 2 MG; Start 09/05/17 at 16:00 Ondansetron HCl (Zofran Inj) 4 mg Q6H PRN IV NAUSEA AND/OR VOMITING; Start 09/05/17 at 16:30 Acetaminophen (Tylenol Tab) 650 mg Q6H PRN PO PAIN LEVEL 1-3 OR FEVER Last administered on 09/27/17 05:47; Admin Dose 650 MG; Start 09/05/17 at 16:30 Morphine Sulfate (morphine) 2 mg Q4H PRN IV PAIN LEVEL 7-10 Last administered on 09/27/17 20:43; Admin Dose 2 MG; Start 09/05/17 at 16:30 Bisacodyl (Dulcolax) 5 mg DAILY PRN PO CONSTIPATION; Start 09/05/17 at 16:30 Lorazepam (Ativan) 1 mg Q6H PRN IV agitation/anxiety Last administered on 09/08 09:30; Admin Dose 1 MG; Start 09/05/17 at 17:00 Nicotine (Nicoderm 21 Mg/ 24hr) 1 patch Q24H TRANSDERM Last administered on 17:04; Admin Dose 1 PATCH; Start 09/05/17 at 17:00 Folic Acid (Folic Acid) 1 mg DAILY PO Last administered on 09/28/17 08:31; Admin Dose 1 MG; Start 09/07/17 at 16:30 Famotidine (Pepcid) 20 mg BID PO Last administered on 09/28/17 08:31; Admin Dose 20 MG; Start 09/09/17 at 21:00 Hydralazine HCl (Apresoline) 10 mg Q4H PRN IV ELEVATED BLOOD PRESSURE Last administered on 09/12/17 08:53; Admin Dose 10 MG; Start 09/10/17 at 04:55 Ferrous Sulfate (Ferrous Sulfate (Ec)) 325 mg DAILY PO Last administered on 08:31; Admin Dose 325 MG; Start 09/14/17 at 09:30 Lorazepam (Ativan) 1 mg Q6H PRN PO ANXIETY; Start 09/17/17 at 15:00 Furosemide (Lasix) 10 mg DAILY PO Last administered on 09/21/17 08:21; Admin Dose 10 MG; Start 09/19/17 at 09:00; Status Future Hold Lisinopril (Zestril) 5 mg DAILY PO Last administered on 09/28/17 08:31; Admin Dose 5 MG; Start 09/22/17 at 09:00 Spironolactone (Aldactone) 50 mg DAILY PO Last administered on 09/28/17 08:31 ; Admin Dose 50 MG; Start 09/26/17 at 09:00 Magnesium Oxide (Mag-Ox 400) 400 mg BID PO Last administered on 09/28/17 08:31 ; Admin Dose 400 MG; Start 09/25/17 at 21:00 THEO BUSH MD Sep 28, 2017 14:50
[2017-09-28] MEDS: NICOTINE (21 MG/24 HR) PATCH TRANSDERM SCH (16:56)
[2017-09-29] VITALS (13 sets, daily range): BP systolic 89–118; BP diastolic 52–80; PULSE 81–110; RESP 17–20
[2017-09-29 06:21] LABS: BASOPHILS % 0.2 % (0.0-2.0); EOSINOPHILS # 0.3 10^3/ul (0.0-0.5); HEMOGLOBIN 8.8 g/dl (14.0-18.0); LYMPHOCYTES # 1.7 10^3/ul (0.8-2.9); LYMPHOCYTES % 17.7 % (15.0-51.0); MEAN CORPUSCULAR HEMOGLOBIN 22.4 pg (29.0-33.0); MEAN CORPUSCULAR HGB CONC 31.4 g/dl (32.0-37.0); MEAN CORPUSCULAR VOLUME 71.4 fl (82.0-101.0); MEAN PLATELET VOLUME 10.5 fl (7.4-10.4); MONOCYTE # 0.6 10^3/ul (0.3-0.9); MONOCYTES % 6.2 % (0.0-11.0); NEUTROPHILS % 72.3 % (39.0-77.0); PLATELET COUNT 201 10^3/UL (140-415); RED BLOOD COUNT 3.92 10^6/ul (4.70-6.10); RED CELL DISTRIBUTION WIDTH 21.6 % (11.5-14.5); WHITE BLOOD COUNT 9.7 10^3/ul (4.8-10.8)
[2017-09-29 06:47] LABS: CALCIUM 8.7 mg/dl (8.4-10.2); CREATININE 0.71 mg/dl (0.61-1.24); MAGNESIUM 1.2 mg/dl (1.7-2.5); PHOSPHORUS 4.6 mg/dl (2.5-4.9); POTASSIUM 4.9 mmol/L (3.5-5.1)
[2017-09-29] MEDS: ALBUTEROL/IPRATROPIUM (NEB) 3 ML AMP HHN SCH ×3 (07:36→19:52)
[2017-09-29] MEDS ORDERED: SPIRONOLACTONE 50 MG TAB PO SCH (09:00)
[2017-09-29] MEDS: FOLIC ACID 1 MG TAB PO SCH (09:03)
[2017-09-29] MEDS: FAMOTIDINE 20 MG TAB PO SCH ×2 (09:04→20:19)
[2017-09-29] MEDS: FERROUS SULFATE (EC) 325 MG TAB PO SCH (09:04)
[2017-09-29] MEDS: LISINOPRIL 5 MG TAB PO SCH (09:04)
[2017-09-29] MEDS: MAGNESIUM OXIDE 400 MG TAB PO SCH ×2 (09:04→20:19)
[2017-09-29] MEDS ORDERED: MAGNESIUM SULFATE 4 GM/100 ML 100 ML IVPB ONE (10:00)
--- NOTE | 2017-09-29 10:43 | PN ---
Date/Time of Note Date/Time of Note DATE: 09/29/17 TIME: 10:42 Assessment/Plan Lines/Catheters IV Catheter Type (from Nrsg): Mid Line Lem[place] in Place (from Nrsg): No Assessment/Plan Chief Complaint/Hosp Course IMPRESSION: Status post chest tube placement. 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 - Will Benefit from TIPS procedure -will continue CT sxn Problems: Subjective 24 Hr Interval Summary Constitutional: improved Pain Control: mild Exam/Review of Systems Vital Signs Vitals Vital Signs Date Time Temp Pulse Resp B/P Pulse Ox O2 Delivery O2 Flow Rate FiO2 09/29/17 08:24 97.8 89 17 118/80 99 09/29/17 07:38 21 Intake and Output 09/28/17 09/28/17 09/29/17 15:00 23:00 07:00 Intake Total 500 ml 450 ml Output Total 400 ml 750 ml Balance 100 ml -300 ml Exam ENMT: mucosa pink and moist, nl external ears & nose, nl lips & teeth, nl nasal mucosa & septum Neck: non-tender, supple Respiratory: clear to auscultation, normal air movement Cardiovascular: nl pulses, regular rate and rhythm Gastrointestinal: nl liver, spleen, non-tender, soft Results Result Diagram: 09/29/17 0541 09/29/17 0541 CHET MONREAL MD Sep 29, 2017 10:43
--- NOTE | 2017-09-29 10:53 | CONS ---
Date/Time of Note Date/Time of Note DATE: 09/29/17 TIME: 10:52 Consult Date/Type/Reason Admit Date/Time Sep 05, 2017 at 13:14 Type of Consultation: neph Subjective being seen by surgery Objective Vital Signs Date Time Temp Pulse Resp B/P Pulse Ox O2 Delivery O2 Flow Rate FiO2 09/29/17 08:24 97.8 89 17 118/80 99 09/29/17 07:38 21 Intake and Output 09/28/17 09/28/17 09/29/17 15:00 23:00 07:00 Intake Total 500 ml 450 ml Output Total 400 ml 750 ml Balance 100 ml -300 ml Results/Medications Result Diagram: 09/29/17 0541 09/29/17 0541 Results 24 hrs Laboratory Tests Test 09/29/17 05:41 White Blood Count 9.7 Red Blood Count 3.92 L Hemoglobin 8.8 L Hematocrit 28.0 L Mean Corpuscular Volume 71.4 L Mean Corpuscular Hemoglobin 22.4 L Mean Corpuscular Hemoglobin Concent 31.4 L Red Cell Distribution Width 21.6 H Platelet Count 201 Mean Platelet Volume 10.5 H Neutrophils % 72.3 Lymphocytes % 17.7 Monocytes % 6.2 Eosinophils % 3.0 Basophils % 0.2 Nucleated Red Blood Cells % 0.0 Neutrophils # 7.0 Lymphocytes # 1.7 Monocytes # 0.6 Eosinophils # 0.3 Basophils # 0.0 Nucleated Red Blood Cells # 0.0 Sodium Level 131 L Potassium Level 4.9 Chloride Level 98 Carbon Dioxide Level 25 Anion Gap 13 Blood Urea Nitrogen 17 Creatinine 0.71 Glucose Level 89 Calcium Level 8.7 Phosphorus Level 4.6 Magnesium Level 1.2 L Albumin 3.0 L Medications Current Medications Lorazepam (Ativan) 2 mg Q10MIN PRN IV seizure Last administered on 09/06/17 09 :11; Admin Dose 2 MG; Start 09/05/17 at 16:00 Ondansetron HCl (Zofran Inj) 4 mg Q6H PRN IV NAUSEA AND/OR VOMITING; Start 09/05/17 at 16:30 Acetaminophen (Tylenol Tab) 650 mg Q6H PRN PO PAIN LEVEL 1-3 OR FEVER Last administered on 09/27/17 05:47; Admin Dose 650 MG; Start 09/05/17 at 16:30 Morphine Sulfate (morphine) 2 mg Q4H PRN IV PAIN LEVEL 7-10 Last administered on 09/27/17 20:43; Admin Dose 2 MG; Start 09/05/17 at 16:30 Bisacodyl (Dulcolax) 5 mg DAILY PRN PO CONSTIPATION; Start 09/05/17 at 16:30 Lorazepam (Ativan) 1 mg Q6H PRN IV agitation/anxiety Last administered on 09/08 09:30; Admin Dose 1 MG; Start 09/05/17 at 17:00 Nicotine (Nicoderm 21 Mg/ 24hr) 1 patch Q24H TRANSDERM Last administered on 16:56; Admin Dose 1 PATCH; Start 09/05/17 at 17:00 Folic Acid (Folic Acid) 1 mg DAILY PO Last administered on 09/29/17 09:03; Admin Dose 1 MG; Start 09/07/17 at 16:30 Famotidine (Pepcid) 20 mg BID PO Last administered on 09/29/17 09:04; Admin Dose 20 MG; Start 09/09/17 at 21:00 Hydralazine HCl (Apresoline) 10 mg Q4H PRN IV ELEVATED BLOOD PRESSURE Last administered on 09/12/17 08:53; Admin Dose 10 MG; Start 09/10/17 at 04:55 Ferrous Sulfate (Ferrous Sulfate (Ec)) 325 mg DAILY PO Last administered on 09:04; Admin Dose 325 MG; Start 09/14/17 at 09:30 Lorazepam (Ativan) 1 mg Q6H PRN PO ANXIETY; Start 09/17/17 at 15:00 Furosemide (Lasix) 10 mg DAILY PO Last administered on 09/21/17 08:21; Admin Dose 10 MG; Start 09/19/17 at 09:00; Status Future Hold Lisinopril (Zestril) 5 mg DAILY PO Last administered on 09/29/17 09:04; Admin Dose 5 MG; Start 09/22/17 at 09:00 Magnesium Oxide 400 mg 400 mg BID PO Last administered on 09/29/17 09:04; Admin Dose 400 MG; Start 09/25/17 at 21:00 Magnesium Sulfate (Magnesium Sulfate 4 Gm/100 ml) 100 ml @ 25 mls/hr ONCE ONCE IVPB Last administered on 12/2/17at 10:34; Admin Dose 25 MLS/HR; Start at 10:00; Stop 09/29/17 at 13:59 Assessment/Plan Chief Complaint/Hosp Course 1. Severe hypomagnesemia. Etiology secondary to chronic ETOH abuse causing renal tubular dysfunction, resulting in magnesium wasting. Continue to monitor and replete with oral and IV magnesium as necessary. 2. Hyponatremia, etiology is likely multifactorial, possibly due to underlying cirrhosis, hemodynamics. Continue to monitor. We will place the patient on free water restriction. 3. Hypokalemia, improved. 4. ETOH abuse. Continue medical management. 5. Cirrhosis. Continue medical management. 6. Right hydropneumothorax. The patient is status post chest tube. ct surg recs noted. 7. Status post respiratory failure. Problems: WICHO MARY MD Sep 29, 2017 10:53
--- NOTE | 2017-09-29 12:27 | PN ---
Date/Time of Note Date/Time of Note DATE: 09/29/17 TIME: 12:27 Assessment/Plan VTE Prophylaxis VTE Prophylaxis Intervention: SCD's Lines/Catheters IV Catheter Type (from Nrs): Mid Line Urinary Cath still in place: No Assessment/Plan Assessment/Plan 1. 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 Still has >100cc of drainage and may need pleurx catheter placement. Will discuss with pulmonology if they believe pleurx would be a good option at this point. Believes TIPS will be only intermediate accountant solution for effusion but patient very stable and will be a challenging getting TIPS placed - Holding aldactone/lasix for now to see if Magnesium level improves - CT surgery on board and consultation appreciated. management of chest tube per CT surgery 2. Pneumo/hydropneumothorax - s/p thoracentesis on 09/17 - chest tube placed 09/19 and appears to continue with >100 cc drainage over past 24 hours. Not until <100 can chest tube be removed and may benefit from Pleurx catheter - CT surgery recommendations appreciated 3. Cirrhosis of liver - LFT within normal limites - us gallbladder noted 4. Delirium tremens- resolved - Completed course of Librium - Ativan PRN for agitation/anxiety 5. bacteremia, gram neg - Completed course of antibiotics - remains afebrile - wbc stabilized 6. acute respiratory failure, 2/2 PNA- resolved - Pulmonology on board and recommendations appreciated - Respiratory status stable. Saturating well 7. Bilateral pneumonia, likely aspiration - completed course of antibiotics 8. Alcoholism - thiamine and folic acid - Librium tapered off 9. Hypokalemia- stable - replete as needed 10. Severe Hypomagnesia - Nephrology on board assisting with electrolyte abnormalities 11. Disposition - continue in telemetry for chest tube management - poor prognosis given hepatic hydrothorax - CM consult for placement Subjective 24 Hr Interval Summary Free Text/Dictation Patient has no new complaints and no acute overnight events. Resting comfortably. Still has steady drainage from chest tube. Exam/Review of Systems Vital Signs Vitals Vital Signs Date Time Temp Pulse Resp B/P Pulse Ox O2 Delivery O2 Flow Rate FiO2 09/29/17 12:09 101 09/29/17 11:54 98.3 17 104/61 99 09/29/17 07:38 21 Intake and Output 09/28/17 09/28/17 09/29/17 15:00 23:00 07:00 Intake Total 500 ml 450 ml Output Total 400 ml 750 ml Balance 100 ml -300 ml Exam General: Patient resting comfortably, in no acute distress, awake and alert. Head: Normocephalic atraumatic Eyes: EOMI, pupils reactive to light Neck: Supple, nontender, midline Respiratory: decreased breath sounds on right, clear on left, no crackles or wheezing Cardiovascular: regular rate and rhythm, no obvious murmurs Gastrointestinal: non-tender to palpation, bowel sounds heard. Neurological: Moves all extremities spontaneously Skin: No new skin lesions, chest tube placed on R with no discharge or drainage from site Results Result Diagram: 09/29/1754009/29/1741 Results 24 hrs Laboratory Tests Test 09/29/17 05:41 White Blood Count 9.7 Red Blood Count 3.92 L Hemoglobin 8.8 L Hematocrit 28.0 L Mean Corpuscular Volume 71.4 L Mean Corpuscular Hemoglobin 22.4 L Mean Corpuscular Hemoglobin Concent 31.4 L Red Cell Distribution Width 21.6 H Platelet Count 201 Mean Platelet Volume 10.5 H Neutrophils % 72.3 Lymphocytes % 17.7 Monocytes % 6.2 Eosinophils % 3.0 Basophils % 0.2 Nucleated Red Blood Cells % 0.0 Neutrophils # 7.0 Lymphocytes # 1.7 Monocytes # 0.6 Eosinophils # 0.3 Basophils # 0.0 Nucleated Red Blood Cells # 0.0 Sodium Level 131 L Potassium Level 4.9 Chloride Level 98 Carbon Dioxide Level 25 Anion Gap 13 Blood Urea Nitrogen 17 Creatinine 0.71 Glucose Level 89 Calcium Level 8.7 Phosphorus Level 4.6 Magnesium Level 1.2 L Albumin 3.0 L Medications Medications Current Medications Lorazepam (Ativan) 2 mg Q10MIN PRN IV seizure Last administered on 09/06/17 09 :11; Admin Dose 2 MG; Start 09/05/17 at 16:00 Ondansetron HCl (Zofran Inj) 4 mg Q6H PRN IV NAUSEA AND/OR VOMITING; Start 09/05/17 at 16:30 Acetaminophen (Tylenol Tab) 650 mg Q6H PRN PO PAIN LEVEL 1-3 OR FEVER Last administered on 09/27/17 05:47; Admin Dose 650 MG; Start 09/05/17 at 16:30 Morphine Sulfate (morphine) 2 mg Q4H PRN IV PAIN LEVEL 7-10 Last administered on 09/27/17 20:43; Admin Dose 2 MG; Start 09/05/17 at 16:30 Bisacodyl (Dulcolax) 5 mg DAILY PRN PO CONSTIPATION; Start 09/05/17 at 16:30 Lorazepam (Ativan) 1 mg Q6H PRN IV agitation/anxiety Last administered on 09/08 09:30; Admin Dose 1 MG; Start 09/05/17 at 17:00 Nicotine (Nicoderm 21 Mg/ 24hr) 1 patch Q24H TRANSDERM Last administered on 16:56; Admin Dose 1 PATCH; Start 09/05/17 at 17:00 Folic Acid (Folic Acid) 1 mg DAILY PO Last administered on 09/29/17 09:03; Admin Dose 1 MG; Start 09/07/17 at 16:30 Famotidine (Pepcid) 20 mg BID PO Last administered on 09/29/17 09:04; Admin Dose 20 MG; Start 09/09/17 at 21:00 Hydralazine HCl (Apresoline) 10 mg Q4H PRN IV ELEVATED BLOOD PRESSURE Last administered on 09/12/17 08:53; Admin Dose 10 MG; Start 09/10/17 at 04:55 Ferrous Sulfate (Ferrous Sulfate (Ec)) 325 mg DAILY PO Last administered on 09:04; Admin Dose 325 MG; Start 09/14/17 at 09:30 Lorazepam (Ativan) 1 mg Q6H PRN PO ANXIETY; Start 09/17/17 at 15:00 Furosemide (Lasix) 10 mg DAILY PO Last administered on 09/21/17 08:21; Admin Dose 10 MG; Start 09/19/17 at 09:00; Status Future Hold Lisinopril (Zestril) 5 mg DAILY PO Last administered on 09/29/17 09:04; Admin Dose 5 MG; Start 09/22/17 at 09:00 Magnesium Oxide 400 mg 400 mg BID PO Last administered on 09/29/17 09:04; Admin Dose 400 MG; Start 09/25/17 at 21:00 Magnesium Sulfate (Magnesium Sulfate 4 Gm/100 ml) 100 ml @ 25 mls/hr ONCE ONCE IVPB Last administered on 09/29/17t 10:34; Admin Dose 25 MLS/HR; Start at 10:00; Stop 09/29/17 at 13:59 THEO BUSH MD Sep 29, 2017 12:27
--- NOTE | 2017-09-29 14:14 | CONS ---
Date/Time of Note Date/Time of Note DATE: 09/29/17 TIME: 14:11 Consult Date/Type/Reason Admit Date/Time Sep 05, 2017 at 13:14 Initial Consult Date Type of Consultation: Pulm Subjective Doing well. c/o LE weakness Objective Vital Signs Date Time Temp Pulse Resp B/P Pulse Ox O2 Delivery O2 Flow Rate FiO2 09/29/17 13:33 96 18 98 21 09/29/17 11:54 98.3 104/61 Intake and Output 09/28/17 09/28/17 09/29/17 15:00 23:00 07:00 Intake Total 500 ml 450 ml Output Total 400 ml 750 ml Balance 100 ml -300 ml Exam HEENT: Neck supple; no JVD; no LAD CVS: RRR, S1 and S2 CHEST: Clear ABD: Soft, NT, + BS EXT: No c/c/e Results/Medications Result Diagram: 09/29/17 0541 09/29/17 0541 Results 24 hrs Laboratory Tests Test 09/29/17 05:41 White Blood Count 9.7 Red Blood Count 3.92 L Hemoglobin 8.8 L Hematocrit 28.0 L Mean Corpuscular Volume 71.4 L Mean Corpuscular Hemoglobin 22.4 L Mean Corpuscular Hemoglobin Concent 31.4 L Red Cell Distribution Width 21.6 H Platelet Count 201 Mean Platelet Volume 10.5 H Neutrophils % 72.3 Lymphocytes % 17.7 Monocytes % 6.2 Eosinophils % 3.0 Basophils % 0.2 Nucleated Red Blood Cells % 0.0 Neutrophils # 7.0 Lymphocytes # 1.7 Monocytes # 0.6 Eosinophils # 0.3 Basophils # 0.0 Nucleated Red Blood Cells # 0.0 Sodium Level 131 L Potassium Level 4.9 Chloride Level 98 Carbon Dioxide Level 25 Anion Gap 13 Blood Urea Nitrogen 17 Creatinine 0.71 Glucose Level 89 Calcium Level 8.7 Phosphorus Level 4.6 Magnesium Level 1.2 L Albumin 3.0 L Medications Current Medications Lorazepam (Ativan) 2 mg Q10MIN PRN IV seizure Last administered on 09/06/17t 09 :11; Admin Dose 2 MG; Start 09/05/17 at 16:00 Ondansetron HCl (Zofran Inj) 4 mg Q6H PRN IV NAUSEA AND/OR VOMITING; Start 09/05/17 at 16:30 Acetaminophen (Tylenol Tab) 650 mg Q6H PRN PO PAIN LEVEL 1-3 OR FEVER Last administered on 09/27/17 05:47; Admin Dose 650 MG; Start 09/05/17 at 16:30 Morphine Sulfate (morphine) 2 mg Q4H PRN IV PAIN LEVEL 7-10 Last administered on 09/27/17 20:43; Admin Dose 2 MG; Start 09/05/17 at 16:30 Bisacodyl (Dulcolax) 5 mg DAILY PRN PO CONSTIPATION; Start 09/05/17 at 16:30 Lorazepam (Ativan) 1 mg Q6H PRN IV agitation/anxiety Last administered on 09/08 09:30; Admin Dose 1 MG; Start 09/05/17 at 17:00 Nicotine (Nicoderm 21 Mg/ 24hr) 1 patch Q24H TRANSDERM Last administered on 16:56; Admin Dose 1 PATCH; Start 09/05/17 at 17:00 Folic Acid (Folic Acid) 1 mg DAILY PO Last administered on 09/29/17 09:03; Admin Dose 1 MG; Start 09/07/17 at 16:30 Famotidine (Pepcid) 20 mg BID PO Last administered on 09/29/17 09:04; Admin Dose 20 MG; Start 09/09/17 at 21:00 Hydralazine HCl (Apresoline) 10 mg Q4H PRN IV ELEVATED BLOOD PRESSURE Last administered on 09/12/17 08:53; Admin Dose 10 MG; Start 09/10/17 at 04:55 Ferrous Sulfate (Ferrous Sulfate (Ec)) 325 mg DAILY PO Last administered on 09:04; Admin Dose 325 MG; Start 09/14/17 at 09:30 Lorazepam (Ativan) 1 mg Q6H PRN PO ANXIETY; Start 09/17/17 at 15:00 Furosemide (Lasix) 10 mg DAILY PO Last administered on 09/21/17 08:21; Admin Dose 10 MG; Start 09/19/17 at 09:00; Status Future Hold Lisinopril (Zestril) 5 mg DAILY PO Last administered on 09/29/17 09:04; Admin Dose 5 MG; Start 09/22/17 at 09:00 Magnesium Oxide (Mag-Ox 400) 400 mg BID PO Last administered on 09/29/17 09:04 ; Admin Dose 400 MG; Start 09/25/17 at 21:00 Assessment/Plan Additional Assessment/Plan IMP: 1. 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 The cloudy nature and pleural fluid results raise concern for hepatic hydrochylothorax RECS: 1. Check pleural fluid triglyceride 2. Consider clamping tube and rechecking CXR 3. TIPS may be reasonable if diuretic resistance noted MOISES SHEPHERD MD Sep 29, 2017 14:14
[2017-09-29] MEDS: NICOTINE (21 MG/24 HR) PATCH TRANSDERM SCH (16:55)
[2017-09-30] VITALS (12 sets, daily range): BP systolic 100–145; BP diastolic 61–70; PULSE 85–97; RESP 16–20
[2017-09-30 06:03] LABS: BASOPHILS % 0.2 % (0.0-2.0); EOSINOPHILS # 0.4 10^3/ul (0.0-0.5); EOSINOPHILS % 4.9 % (0.0-7.0); HEMATOCRIT 26.2 % (42.0-52.0); HEMOGLOBIN 8.4 g/dl (14.0-18.0); LYMPHOCYTES # 1.9 10^3/ul (0.8-2.9); LYMPHOCYTES % 21.3 % (15.0-51.0); MEAN CORPUSCULAR HEMOGLOBIN 22.8 pg (29.0-33.0); MEAN CORPUSCULAR HGB CONC 32.1 g/dl (32.0-37.0); MEAN CORPUSCULAR VOLUME 71.2 fl (82.0-101.0); MEAN PLATELET VOLUME 10.6 fl (7.4-10.4); MONOCYTE # 0.6 10^3/ul (0.3-0.9); NEUTROPHIL # 5.8 10^3/ul (1.6-7.5); PLATELET COUNT 212 10^3/UL (140-415); RED BLOOD COUNT 3.68 10^6/ul (4.70-6.10); RED CELL DISTRIBUTION WIDTH 21.5 % (11.5-14.5); WHITE BLOOD COUNT 8.7 10^3/ul (4.8-10.8)
[2017-09-30 07:28] LABS: ALBUMIN 3.3 g/dl (3.3-4.9); CALCIUM 8.5 mg/dl (8.4-10.2); CREATININE 0.68 mg/dl (0.61-1.24); MAGNESIUM 1.5 mg/dl (1.7-2.5); PHOSPHORUS 4.6 mg/dl (2.5-4.9); POTASSIUM 4.3 mmol/L (3.5-5.1)
[2017-09-30] MEDS: ALBUTEROL/IPRATROPIUM (NEB) 3 ML AMP HHN SCH ×3 (07:31→19:15)
--- NOTE | 2017-09-30 08:08 | CONS ---
Date/Time of Note Date/Time of Note DATE: 09/30/17 TIME: 08:07 Consult Date/Type/Reason Admit Date/Time Sep 05, 2017 at 13:14 Type of Consultation: Pulm Subjective cont good uo. mag was replaced. HEENT: Head is normocephalic. NECK: Supple. HEART: Regular rate. LUNGS: Show diminished breath sounds at base. ABDOMEN: Soft, nontender to palpation. No rebound or guarding. EXTREMITIES: Negative for clubbing, cyanosis. No edema. DERMATOLOGIC: No rashes. MUSCULOSKELETAL: No joint effusions. NEUROLOGIC: No change in exam. Objective Vital Signs Date Time Temp Pulse Resp B/P Pulse Ox O2 Delivery O2 Flow Rate FiO2 09/30/17 07:52 97.9 89 16 107/69 100 09/30/17 07:41 21 Intake and Output 09/29/17 09/29/17 09/30/17 14:59 22:59 06:59 Intake Total 900 ml 200 ml Output Total 350 ml 300 ml Balance 550 ml -100 ml Results/Medications Result Diagram: 09/30/17 0512 09/30/17 0512 Results 24 hrs Laboratory Tests Test 09/30/17 05:12 White Blood Count 8.7 Red Blood Count 3.68 L Hemoglobin 8.4 L Hematocrit 26.2 L Mean Corpuscular Volume 71.2 L Mean Corpuscular Hemoglobin 22.8 L Mean Corpuscular Hemoglobin Concent 32.1 Red Cell Distribution Width 21.5 H Platelet Count 212 Mean Platelet Volume 10.6 H Neutrophils % 66.0 Lymphocytes % 21.3 Monocytes % 7.0 Eosinophils % 4.9 Basophils % 0.2 Nucleated Red Blood Cells % 0.0 Neutrophils # 5.8 Lymphocytes # 1.9 Monocytes # 0.6 Eosinophils # 0.4 Basophils # 0.0 Nucleated Red Blood Cells # 0.0 Sodium Level 130 L Potassium Level 4.3 Chloride Level 98 Carbon Dioxide Level 24 Anion Gap 12 Blood Urea Nitrogen 18 Creatinine 0.68 Glucose Level 89 Calcium Level 8.5 Phosphorus Level 4.6 Magnesium Level 1.5 L Albumin 3.3 Medications Current Medications Lorazepam (Ativan) 2 mg Q10MIN PRN IV seizure Last administered on 09/06/17t 09 :11; Admin Dose 2 MG; Start 09/05/17 at 16:00 Ondansetron HCl (Zofran Inj) 4 mg Q6H PRN IV NAUSEA AND/OR VOMITING; Start 09/05/17 at 16:30 Acetaminophen (Tylenol Tab) 650 mg Q6H PRN PO PAIN LEVEL 1-3 OR FEVER Last administered on 09/27/17 05:47; Admin Dose 650 MG; Start 09/05/17 at 16:30 Morphine Sulfate (morphine) 2 mg Q4H PRN IV PAIN LEVEL 7-10 Last administered on 09/27/17 20:43; Admin Dose 2 MG; Start 09/05/17 at 16:30 Bisacodyl (Dulcolax) 5 mg DAILY PRN PO CONSTIPATION; Start 09/05/17 at 16:30 Lorazepam (Ativan) 1 mg Q6H PRN IV agitation/anxiety Last administered on 09/08 09:30; Admin Dose 1 MG; Start 09/05/17 at 17:00 Nicotine (Nicoderm 21 Mg/ 24hr) 1 patch Q24H TRANSDERM Last administered on 16:55; Admin Dose 1 PATCH; Start 09/05/17 at 17:00 Folic Acid (Folic Acid) 1 mg DAILY PO Last administered on 09/29/17 09:03; Admin Dose 1 MG; Start 09/07/17 at 16:30 Famotidine (Pepcid) 20 mg BID PO Last administered on 09/29/17 20:19; Admin Dose 20 MG; Start 09/09/17 at 21:00 Hydralazine HCl (Apresoline) 10 mg Q4H PRN IV ELEVATED BLOOD PRESSURE Last administered on 09/12/17 08:53; Admin Dose 10 MG; Start 09/10/17 at 04:55 Ferrous Sulfate (Ferrous Sulfate (Ec)) 325 mg DAILY PO Last administered on 09:04; Admin Dose 325 MG; Start 09/14/17 at 09:30 Lorazepam (Ativan) 1 mg Q6H PRN PO ANXIETY Last administered on 09/29/17 20:19 ; Admin Dose 1 MG; Start 09/17/17 at 15:00 Furosemide (Lasix) 10 mg DAILY PO Last administered on 09/21/17 08:21; Admin Dose 10 MG; Start 09/19/17 at 09:00; Status Future Hold Lisinopril (Zestril) 5 mg DAILY PO Last administered on 09/29/17 09:04; Admin Dose 5 MG; Start 09/22/17 at 09:00 Magnesium Oxide (Mag-Ox 400) 400 mg BID PO Last administered on 09/29/17 20:19 ; Admin Dose 400 MG; Start 09/25/17 at 21:00 Assessment/Plan Chief Complaint/Hosp Course 1. Severe hypomagnesemia. Etiology secondary to chronic ETOH abuse causing renal tubular dysfunction, resulting in magnesium wasting. Continue to monitor and replete with oral and IV magnesium as necessary. 2. Hyponatremia, etiology is likely multifactorial, possibly due to underlying cirrhosis, hemodynamics. Continue to monitor. We will place the patient on free water restriction. 3. Hypokalemia, improved. 4. ETOH abuse. Continue medical management. 5. Cirrhosis. Continue medical management. 6. Right hydropneumothorax. The patient is status post chest tube. ct surg recs noted. 7. Status post respiratory failure. Problems: WICHO MARY MD Sep 30, 2017 08:08
[2017-09-30] MEDS: MAGNESIUM OXIDE 400 MG TAB PO SCH ×2 (08:36→20:14)
[2017-09-30] MEDS: LISINOPRIL 5 MG TAB PO SCH (08:36)
[2017-09-30] MEDS: FAMOTIDINE 20 MG TAB PO SCH ×2 (08:36→20:14)
[2017-09-30] MEDS: FERROUS SULFATE (EC) 325 MG TAB PO SCH (08:36)
[2017-09-30] MEDS: FOLIC ACID 1 MG TAB PO SCH (08:36)
--- NOTE | 2017-09-30 08:52 | RADRPT ---
PROCEDURE: XR Chest. CLINICAL INDICATION: Pleural effusion TECHNIQUE: A single AP view of the chest was obtained. COMPARISON: CHEST 09/20/2017; CHEST 09/19/2017; CHEST 09/18/2017; CHEST 09/17/2017 FINDINGS: There is a right pleural pigtail catheter in place. No focal airspace opacification, pleural effusion or pneumothorax is seen. The cardiomediastinal si lhouette is within normal limits for size. Calcifications are seen within the aortic arch. The osse ous structures are unremarkable. IMPRESSION: 1. No radiographic evidence of acute cardiopulmonary disease. No significant interval change. 2. Right pleural pigtail catheter in place. 3. Aortic atherosclerosis. RPTAT: HH .Claire Sofia MD, Date Time Electronically viewed and signed by .Claire Sofia MD, on 09/30/2017 08:52 .G/
[2017-09-30] MEDS: SPIRONOLACTONE 25 MG TAB PO SCH (09:00)
[2017-09-30] MEDS ORDERED: MAGNESIUM SULFATE 4 GM/100 ML 100 ML IVPB ONE (09:00)
--- NOTE | 2017-09-30 13:58 | CONS ---
Date/Time of Note Date/Time of Note DATE: 09/30/17 TIME: 13:57 Consult Date/Type/Reason Admit Date/Time Sep 05, 2017 at 13:14 Type of Consultation: Pulm Subjective No events/c/o Objective Vital Signs Date Time Temp Pulse Resp B/P Pulse Ox O2 Delivery O2 Flow Rate FiO2 09/30/17 13:19 92 18 98 21 09/30/17 12:12 98.4 103/68 Intake and Output 09/29/17 09/29/17 09/30/17 15:00 23:00 07:00 Intake Total 900 ml 200 ml Output Total 350 ml 300 ml Balance 550 ml -100 ml Exam HEENT: Neck supple; no JVD; no LAD CVS: RRR, S1 and S2 CHEST: Clear ABD: Soft, NT, + BS EXT: No c/c/e Results/Medications Result Diagram: 09/30/17 0512 09/30/17 0512 Results 24 hrs Laboratory Tests Test 09/30/17 05:12 White Blood Count 8.7 Red Blood Count 3.68 L Hemoglobin 8.4 L Hematocrit 26.2 L Mean Corpuscular Volume 71.2 L Mean Corpuscular Hemoglobin 22.8 L Mean Corpuscular Hemoglobin Concent 32.1 Red Cell Distribution Width 21.5 H Platelet Count 212 Mean Platelet Volume 10.6 H Neutrophils % 66.0 Lymphocytes % 21.3 Monocytes % 7.0 Eosinophils % 4.9 Basophils % 0.2 Nucleated Red Blood Cells % 0.0 Neutrophils # 5.8 Lymphocytes # 1.9 Monocytes # 0.6 Eosinophils # 0.4 Basophils # 0.0 Nucleated Red Blood Cells # 0.0 Sodium Level 130 L Potassium Level 4.3 Chloride Level 98 Carbon Dioxide Level 24 Anion Gap 12 Blood Urea Nitrogen 18 Creatinine 0.68 Glucose Level 89 Calcium Level 8.5 Phosphorus Level 4.6 Magnesium Level 1.5 L Albumin 3.3 Medications Current Medications Lorazepam (Ativan) 2 mg Q10MIN PRN IV seizure Last administered on 09/06/17t 09 :11; Admin Dose 2 MG; Start 09/05/17 at 16:00 Ondansetron HCl (Zofran Inj) 4 mg Q6H PRN IV NAUSEA AND/OR VOMITING; Start 09/05/17 at 16:30 Acetaminophen (Tylenol Tab) 650 mg Q6H PRN PO PAIN LEVEL 1-3 OR FEVER Last administered on 09/27/17 05:47; Admin Dose 650 MG; Start 09/05/17 at 16:30 Morphine Sulfate (morphine) 2 mg Q4H PRN IV PAIN LEVEL 7-10 Last administered on 09/27/17 20:43; Admin Dose 2 MG; Start 09/05/17 at 16:30 Bisacodyl (Dulcolax) 5 mg DAILY PRN PO CONSTIPATION; Start 09/05/17 at 16:30 Lorazepam (Ativan) 1 mg Q6H PRN IV agitation/anxiety Last administered on 09/08 09:30; Admin Dose 1 MG; Start 09/05/17 at 17:00 Nicotine (Nicoderm 21 Mg/ 24hr) 1 patch Q24H TRANSDERM Last administered on 16:55; Admin Dose 1 PATCH; Start 09/05/17 at 17:00 Folic Acid (Folic Acid) 1 mg DAILY PO Last administered on 09/30/17 08:36; Admin Dose 1 MG; Start 09/07/17 at 16:30 Famotidine (Pepcid) 20 mg BID PO Last administered on 09/30/17 08:36; Admin Dose 20 MG; Start 09/09/17 at 21:00 Hydralazine HCl (Apresoline) 10 mg Q4H PRN IV ELEVATED BLOOD PRESSURE Last administered on 09/12/17 08:53; Admin Dose 10 MG; Start 09/10/17 at 04:55 Ferrous Sulfate (Ferrous Sulfate (Ec)) 325 mg DAILY PO Last administered on 08:36; Admin Dose 325 MG; Start 09/14/17 at 09:30 Lorazepam (Ativan) 1 mg Q6H PRN PO ANXIETY Last administered on 09/29/17 20:19 ; Admin Dose 1 MG; Start 09/17/17 at 15:00 Furosemide (Lasix) 10 mg DAILY PO Last administered on 09/21/17 08:21; Admin Dose 10 MG; Start 09/19/17 at 09:00; Status Future Hold Lisinopril (Zestril) 5 mg DAILY PO Last administered on 09/30/17 08:36; Admin Dose 5 MG; Start 09/22/17 at 09:00 Magnesium Oxide (Mag-Ox 400) 400 mg BID PO Last administered on 09/30/17 08:36 ; Admin Dose 400 MG; Start 09/25/17 at 21:00 Spironolactone (Aldactone) 25 mg DAILY PO Last administered on 09/30/17 09:00 ; Admin Dose 25 MG; Start 09/30/17 at 09:00 Assessment/Plan Additional Assessment/Plan IMP: 1. 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 The cloudy nature and pleural fluid results raise concern for hepatic hydrochylothorax RECS: 1. Check pleural fluid triglyceride 2. Consider clamping tube and rechecking CXR--> then removing tube as it is a continuous source for loss of proteins 3. TIPS may be reasonable if diuretic resistance noted MOISES SHEPHERD MD Sep 30, 2017 13:58
--- NOTE | 2017-09-30 14:31 | PN ---
Date/Time of Note Date/Time of Note DATE: 09/30/17 TIME: 14:27 Assessment/Plan VTE Prophylaxis VTE Prophylaxis Intervention: SCD's Lines/Catheters IV Catheter Type (from Nrs): Mid Line Urinary Cath still in place: No Assessment/Plan Assessment/Plan 1. 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 Still has >100cc of drainage and may need pleurx catheter placement. Believe best to clamp chest tube and see if fluid accumulates. Believes TIPS will be only longterm solution for effusion but patient very stable and will be a challenging getting TIPS placed - Aldactone restarted with improvement in magnesium and will continue optimizing diuretics - CT surgery on board and consultation appreciated. management of chest tube per CT surgery 2. Pneumo/hydropneumothorax - s/p thoracentesis on 09/17 - chest tube placed 09/19 and appears to continue with >100 cc drainage over past 24 hours. Not until <100 can chest tube be removed and may benefit from Pleurx catheter - CT surgery recommendations appreciated 3. Cirrhosis of liver - LFT within normal limites - us gallbladder noted 4. Delirium tremens- resolved - Completed course of Librium - Ativan PRN for agitation/anxiety 5. bacteremia, gram neg - Completed course of antibiotics - remains afebrile - wbc stabilized 6. acute respiratory failure, 2/2 PNA- resolved - Pulmonology on board and recommendations appreciated - Respiratory status stable. Saturating well 7. Bilateral pneumonia, likely aspiration - completed course of antibiotics 8. Alcoholism - thiamine and folic acid - Librium tapered off 9. Hypokalemia- stable - replete as needed 10. Severe Hypomagnesia - Nephrology on board assisting with electrolyte abnormalities 11. Disposition - continue in telemetry for chest tube management - poor prognosis given hepatic hydrothorax - CM consult for placement Subjective 24 Hr Interval Summary Free Text/Dictation Patient in no acute distress. Discussed possibility of clamping tube to see how much fluid accumulates and then either removing tube or placing pleurx. No acute overnight events. Exam/Review of Systems Vital Signs Vitals Vital Signs Date Time Temp Pulse Resp B/P Pulse Ox O2 Delivery O2 Flow Rate FiO2 09/30/17 13:19 92 18 98 21 09/30/17 12:12 98.4 103/68 Intake and Output 09/29/17 09/29/1709/30/17 15:00 23:00 07:00 Intake Total 900 ml 200 ml Output Total 350 ml 300 ml Balance 550 ml -100 ml Exam General: Patient resting comfortably, in no acute distress, awake and alert. Head: Normocephalic atraumatic Eyes: EOMI, pupils reactive to light Neck: Supple, nontender, midline Respiratory: decreased breath sounds on right, clear on left, no crackles or wheezing Cardiovascular: regular rate and rhythm, no obvious murmurs Gastrointestinal: non-tender to palpation, bowel sounds heard. Neurological: Moves all extremities spontaneously Skin: No new skin lesions, chest tube placed on R Results Result Diagram: 09/30/1751109/30/17 05 Results 24 hrs Laboratory Tests Test 09/30/17 05:12 White Blood Count 8.7 Red Blood Count 3.68 L Hemoglobin 8.4 L Hematocrit 26.2 L Mean Corpuscular Volume 71.2 L Mean Corpuscular Hemoglobin 22.8 L Mean Corpuscular Hemoglobin Concent 32.1 Red Cell Distribution Width 21.5 H Platelet Count 212 Mean Platelet Volume 10.6 H Neutrophils % 66.0 Lymphocytes % 21.3 Monocytes % 7.0 Eosinophils % 4.9 Basophils % 0.2 Nucleated Red Blood Cells % 0.0 Neutrophils # 5.8 Lymphocytes # 1.9 Monocytes # 0.6 Eosinophils # 0.4 Basophils # 0.0 Nucleated Red Blood Cells # 0.0 Sodium Level 130 L Potassium Level 4.3 Chloride Level 98 Carbon Dioxide Level 24 Anion Gap 12 Blood Urea Nitrogen 18 Creatinine 0.68 Glucose Level 89 Calcium Level 8.5 Phosphorus Level 4.6 Magnesium Level 1.5 L Albumin 3.3 Medications Medications Current Medications Lorazepam (Ativan) 2 mg Q10MIN PRN IV seizure Last administered on 09/06/17 09 :11; Admin Dose 2 MG; Start 09/05/17 at 16:00 Ondansetron HCl (Zofran Inj) 4 mg Q6H PRN IV NAUSEA AND/OR VOMITING; Start 09/05/17 at 16:30 Acetaminophen (Tylenol Tab) 650 mg Q6H PRN PO PAIN LEVEL 1-3 OR FEVER Last administered on 09/27/17 05:47; Admin Dose 650 MG; Start 09/05/17 at 16:30 Morphine Sulfate (morphine) 2 mg Q4H PRN IV PAIN LEVEL 7-10 Last administered on 09/27/17 20:43; Admin Dose 2 MG; Start 09/05/17 at 16:30 Bisacodyl (Dulcolax) 5 mg DAILY PRN PO CONSTIPATION; Start 09/05/17 at 16:30 Lorazepam (Ativan) 1 mg Q6H PRN IV agitation/anxiety Last administered on 09/08 09:30; Admin Dose 1 MG; Start 09/05/17 at 17:00 Nicotine (Nicoderm 21 Mg/ 24hr) 1 patch Q24H TRANSDERM Last administered on 16:55; Admin Dose 1 PATCH; Start 09/05/17 at 17:00 Folic Acid (Folic Acid) 1 mg DAILY PO Last administered on 09/30/17 08:36; Admin Dose 1 MG; Start 09/07/17 at 16:30 Famotidine (Pepcid) 20 mg BID PO Last administered on 09/30/17 08:36; Admin Dose 20 MG; Start 09/09/17 at 21:00 Hydralazine HCl (Apresoline) 10 mg Q4H PRN IV ELEVATED BLOOD PRESSURE Last administered on 09/12/17 08:53; Admin Dose 10 MG; Start 09/10/17 at 04:55 Ferrous Sulfate (Ferrous Sulfate (Ec)) 325 mg DAILY PO Last administered on 08:36; Admin Dose 325 MG; Start 09/14/17 at 09:30 Lorazepam (Ativan) 1 mg Q6H PRN PO ANXIETY Last administered on 09/29/17 20:19 ; Admin Dose 1 MG; Start 09/17/17 at 15:00 Furosemide (Lasix) 10 mg DAILY PO Last administered on 09/21/17 08:21; Admin Dose 10 MG; Start 09/19/17 at 09:00; Status Future Hold Lisinopril (Zestril) 5 mg DAILY PO Last administered on 09/30/17 08:36; Admin Dose 5 MG; Start 09/22/17 at 09:00 Magnesium Oxide (Mag-Ox 400) 400 mg BID PO Last administered on 09/30/17 08:36 ; Admin Dose 400 MG; Start 09/25/17 at 21:00 Spironolactone (Aldactone) 25 mg DAILY PO Last administered on 09/30/17t 09:00 ; Admin Dose 25 MG; Start 09/30/17 at 09:00 THEO BUSH MD Sep 30, 2017 14:31
[2017-09-30] MEDS: NICOTINE (21 MG/24 HR) PATCH TRANSDERM SCH (17:21)
[2017-10-01] VITALS (11 sets, daily range): BP systolic 103–117; BP diastolic 60–68; PULSE 86–92; RESP 17–20
[2017-10-01] MEDS: ALBUTEROL/IPRATROPIUM (NEB) 3 ML AMP HHN SCH ×3 (08:00→19:55)
[2017-10-01] MEDS ORDERED: MAGNESIUM SULFATE 2 GM/50 ML 50 ML IVPB ONE (08:30)
[2017-10-01] MEDS: FERROUS SULFATE (EC) 325 MG TAB PO SCH (08:36)
[2017-10-01] MEDS: SPIRONOLACTONE 25 MG TAB PO SCH (08:36)
[2017-10-01] MEDS: MAGNESIUM OXIDE 400 MG TAB PO SCH ×2 (08:36→20:35)
[2017-10-01] MEDS: FOLIC ACID 1 MG TAB PO SCH (08:36)
[2017-10-01] MEDS: FAMOTIDINE 20 MG TAB PO SCH ×2 (08:36→20:35)
[2017-10-01] MEDS: LISINOPRIL 5 MG TAB PO SCH (08:37)
[2017-10-01 08:53] LABS: BASOPHILS % 0.1 % (0.0-2.0); EOSINOPHILS # 0.3 10^3/ul (0.0-0.5); EOSINOPHILS % 4.7 % (0.0-7.0); HEMATOCRIT 26.8 % (42.0-52.0); HEMOGLOBIN 8.5 g/dl (14.0-18.0); LYMPHOCYTES # 1.6 10^3/ul (0.8-2.9); LYMPHOCYTES % 23.9 % (15.0-51.0); MEAN CORPUSCULAR HGB CONC 31.7 g/dl (32.0-37.0); MEAN CORPUSCULAR VOLUME 72.4 fl (82.0-101.0); MEAN PLATELET VOLUME 11.3 fl (7.4-10.4); MONOCYTE # 0.6 10^3/ul (0.3-0.9); MONOCYTES % 8.1 % (0.0-11.0); NEUTROPHIL # 4.2 10^3/ul (1.6-7.5); NEUTROPHILS % 62.8 % (39.0-77.0); PLATELET COUNT 256 10^3/UL (140-415); WHITE BLOOD COUNT 6.8 10^3/ul (4.8-10.8)
[2017-10-01 09:13] LABS: ALBUMIN 3.2 g/dl (3.3-4.9); CALCIUM 8.8 mg/dl (8.4-10.2); CREATININE 0.75 mg/dl (0.61-1.24); MAGNESIUM 1.4 mg/dl (1.7-2.5); PHOSPHORUS 4.5 mg/dl (2.5-4.9); POTASSIUM 4.7 mmol/L (3.5-5.1)
--- NOTE | 2017-10-01 10:30 | CONS ---
Date/Time of Note Date/Time of Note DATE: 10/01/17 TIME: 10:28 Assessment/Plan Assessment/Plan Additional Assessment/Plan Assessment recommendations; next 1. Patient admitted with shortness of breath due to right hepatic hydrothorax, status post thoracentesis with ensuing right hydropneumothorax requiring chest tube. Patient's chest tube output is diminishing daily. Patient drained about 98 mL overnight. Without any prior discharge to the chest tube for several hours. 2. Advanced cirrhosis of liver. 3. Chronic anemia. Continue current treatment. Chest tube can be removed. Continue current diuretic regimen. Prognosis is poor. Consultation Date/Type/Reason Admit Date/Time Sep 05, 2017 at 13:14 Type of Consultation: Pulm 24 HR Interval Summary Free Text/Dictation Patient's condition is stable. Remains awake alert. Denies any shortness of breath, chest pain. General exam; middle-aged male, awake alert, currently in no distress. Exam/Review of Systems Vital Signs Vitals Vital Signs Date Time Temp Pulse Resp B/P Pulse Ox O2 Delivery O2 Flow Rate FiO2 10/01/17 08:03 98.2 95 19 117/60 100 09/30/17 19:15 21 Intake and Output 09/30/17 09/30/17 10/01/17 14:59 22:59 06:59 Intake Total 700 ml 350 ml Output Total 900 ml 978 ml Balance -200 ml -628 ml Exam HEENT exam; supple neck, positive JVD. No lymphadenopathy. Midline trachea. No thyromegaly. Patient has a multiple carious teeth. Chest exam; clear to auscultation. Right-sided chest tube in place. S1-S2 audible, no murmurs. Regular rhythm. Abdomen exam; soft, nontender. No organomegaly. Bowel sounds audible. Extremity exam; no edema. RESIDENTIAL DRIVER exam; no focal deficit. Results Result Diagram: 10/01/17 0725 10/01/17 0725 Results 24 hrs Laboratory Tests Test 10/01/17 07:25 White Blood Count 6.8 # Red Blood Count 3.70 L Hemoglobin 8.5 L Hematocrit 26.8 L Mean Corpuscular Volume 72.4 L Mean Corpuscular Hemoglobin 23.0 L Mean Corpuscular Hemoglobin Concent 31.7 L Red Cell Distribution Width 22.0 H Platelet Count 256 # Mean Platelet Volume 11.3 H Neutrophils % 62.8 Lymphocytes % 23.9 Monocytes % 8.1 Eosinophils % 4.7 Basophils % 0.1 Nucleated Red Blood Cells % 0.0 Neutrophils # 4.2 Lymphocytes # 1.6 Monocytes # 0.6 Eosinophils # 0.3 Basophils # 0.0 Nucleated Red Blood Cells # 0.0 Sodium Level 134 L Potassium Level 4.7 Chloride Level 98 Carbon Dioxide Level 26 Anion Gap 15 Blood Urea Nitrogen 20 Creatinine 0.75 Glucose Level 81 Calcium Level 8.8 Phosphorus Level 4.5 Magnesium Level 1.4 L Albumin 3.2 L Medications Medications Current Medications Lorazepam (Ativan) 2 mg Q10MIN PRN IV seizure Last administered on 09/06/17 09 :11; Admin Dose 2 MG; Start 09/05/17 at 16:00 Ondansetron HCl (Zofran Inj) 4 mg Q6H PRN IV NAUSEA AND/OR VOMITING; Start 09/05/17 at 16:30 Acetaminophen (Tylenol Tab) 650 mg Q6H PRN PO PAIN LEVEL 1-3 OR FEVER Last administered on 09/27/17 05:47; Admin Dose 650 MG; Start 09/05/17 at 16:30 Morphine Sulfate (morphine) 2 mg Q4H PRN IV PAIN LEVEL 7-10 Last administered on 09/27/17 20:43; Admin Dose 2 MG; Start 09/05/17 at 16:30 Bisacodyl (Dulcolax) 5 mg DAILY PRN PO CONSTIPATION; Start 09/05/17 at 16:30 Lorazepam (Ativan) 1 mg Q6H PRN IV agitation/anxiety Last administered on 09/08 09:30; Admin Dose 1 MG; Start 09/05/17 at 17:00 Nicotine (Nicoderm 21 Mg/ 24hr) 1 patch Q24H TRANSDERM Last administered on 17:21; Admin Dose 1 PATCH; Start 09/05/17 at 17:00 Folic Acid (Folic Acid) 1 mg DAILY PO Last administered on 10/01/17 08:36; Admin Dose 1 MG; Start 09/07/17 at 16:30 Famotidine (Pepcid) 20 mg BID PO Last administered on 10/01/17 08:36; Admin Dose 20 MG; Start 09/09/17 at 21:00 Hydralazine HCl (Apresoline) 10 mg Q4H PRN IV ELEVATED BLOOD PRESSURE Last administered on 09/12/17 08:53; Admin Dose 10 MG; Start 09/10/17 at 04:55 Ferrous Sulfate (Ferrous Sulfate (Ec)) 325 mg DAILY PO Last administered on 08:36; Admin Dose 325 MG; Start 09/14/17 at 09:30 Lorazepam (Ativan) 1 mg Q6H PRN PO ANXIETY Last administered on 09/29/17 20:19 ; Admin Dose 1 MG; Start 09/17/17 at 15:00 Furosemide (Lasix) 10 mg DAILY PO Last administered on 09/21/17 08:21; Admin Dose 10 MG; Start 09/19/17 at 09:00; Status Future Hold Lisinopril (Zestril) 5 mg DAILY PO Last administered on 10/01/17 08:37; Admin Dose 5 MG; Start 09/22/17 at 09:00 Magnesium Oxide (Mag-Ox 400) 400 mg BID PO Last administered on 10/01/17 08:36 ; Admin Dose 400 MG; Start 09/25/17 at 21:00 Spironolactone 25 mg 25 mg DAILY PO Last administered on 10/01/17 08:36; Admin Dose 25 MG; Start 09/30/17 at 09:00 Magnesium Sulfate (Magnesium Sulfate 2 Gm/50 ml) 50 ml @ 25 mls/hr ONCE ONCE IVPB Last administered on 10/01/17 09:38; Admin Dose 25 MLS/HR; Start at 08:30; Stop 10/01/17 at 10:29 KIRILL PEREZ Oct 01, 2017 10:30
--- NOTE | 2017-10-01 11:15 | PN ---
DATE: 10/01/2017 SUBJECTIVE: The patient is stable. No events overnight. OBJECTIVE: VITAL SIGNS: Blood pressure is 117/60, temperature 98.2, pulse 95, respirations 19. HEENT: Head is normocephalic. NECK: Supple. HEART: Regular rate. LUNGS: Show diminished breath sounds at base. ABDOMEN: Soft, nontender to palpation without rebound or guarding. EXTREMITIES: Negative for clubbing, cyanosis, no edema. DERMATOLOGIC: No rashes. MUSCULOSKELETAL: No joint effusions. NEUROLOGIC: No change in exam. MEDICATIONS: Reviewed. LABORATORY DATA: From 09/30/2017 was reviewed. ASSESSMENT AND PLAN: 1. Severe hypomagnesemia. Etiology secondary to chronic ETOH abuse causing renal tubular dysfuncti on, resulting in magnesium wasting. Will continue to monitor and replete. Will put on IV magnesium . 2. Hyponatremia. Etiology is multifactorial secondary to cirrhosis hemodynamics. Continue to xu tor. Continue free water restriction. 3. Hypokalemia, improved. Continue Aldactone. 4. Ethyl alcohol consumption abuse. Continue medical management. 5. Cirrhosis. Continue current treatment plan. 6. Right hepatic hydrothorax. The patient is status post chest tube. Continue to monitor. The pa tient may require possible TIPS, but will continue to monitor and defer to CT surgery. 7. Status post respiratory failure. Dictated By: SLIME AGUILAR DO NR/NTS Conf#: [id number] DID#: [id number] CC: TANK MALHOTRA; CHET MONREAL MD;*EndCC*
[2017-10-01] MEDS ORDERED: HYDROCODONE/APAP (5/325) TAB PO PRN (13:00)
--- NOTE | 2017-10-01 15:32 | PN ---
Date/Time of Note Date/Time of Note DATE: 10/01/17 TIME: 15:31 Assessment/Plan VTE Prophylaxis VTE Prophylaxis Intervention: ambulation, SCD's Lines/Catheters IV Catheter Type (from Nrsg): Peripheral IV Urinary Cath still in place: No Assessment/Plan Chief Complaint/Hosp Course s: .22:no sob, no acute change 11.23: s/p chest tube, chest discomfort at site of chest tube insertion .24: no acute complaints 11.25 chest tube still draining, no acute complaints 11.26 no acute complaints 12.4 no acute complaints o: General: Patient resting comfortably, in no acute distress. oriented to self and place Head: Normocephalic atraumatic Eyes: EOMI, pupils reactive to light Neck: Supple, nontender, midline Respiratory: diminished breath sounds on R, no crackles or wheezing Cardiovascular: regular rate and rhythm, no obvious murmurs Gastrointestinal: non-tender to palpation, bowel sounds heard. Neurological: Moves all extremities spontaneously Skin: No new skin lesions, chest tube placed R Patient is a 51-year-old homeless alcoholic who presents with right pleural effusion, pneumonia, and alcohol withdrawal induced seizure. #R pleural effusion -recurrent -?hepatic hydrothorax -will recur likely -aldactone/lasix started, low dose, will titrate as needed #pneumo/hydropneumothorax -s/p thoracentesis on 09/17 -chest tube placed 09/19, draining mod amount still -CT surgery recs appreciated -pleurx cath will be considered -needs TIPS, but patient is too stable for TIPS #tachycardia -resolving -prn metoprolol if BP permits #elevated AST/ALT -cirrhosis -us gallbladder noted #. Delirium tremens- resolved -librium tapered off - Ativan PRN for agitation/anxiety #. bacteremia, gram neg - continued on IV antibiotics for 10-14 days. stopped abx - remains afebrile -wbc stabilized #. acute respiratory failure, 2/2 PNA/pleural effusion- resolved - Pulmonology on board and recommendations appreciated - s/p 2 L drained on pleural effusion 1st time, 1 L drained 2nd time - Respiratory status stable. Saturating well #. Bilateral pneumonia, likely aspiration -abx finished #. Severe hyponatremia- resolved - Nephrology on board and recommendations appreciated #. Alcoholism - Banana bag stopped -thiamine and folic acid - Librium tapered #. Hypokalemia - replete as needed #. Hypomagnesia - Nephrology on board assisting with electrolyte abnormalities #. Disposition - chest tube management, poor prognosis given hepatic hydrothorax/pneumothorax Problems: Exam/Review of Systems Vital Signs Vitals Vital Signs Date Time Temp Pulse Resp B/P Pulse Ox O2 Delivery O2 Flow Rate FiO2 10/01/17 14:00 88 18 97 21 10/01/17 11:47 97.6 105/62 Intake and Output 09/30/17 09/30/17 10/01/17 15:00 23:00 07:00 Intake Total 700 ml 350 ml Output Total 900 ml 978 ml Balance -200 ml -628 ml Results Result Diagram: 10/01/1772410/01/1725 Results 24 hrs Laboratory Tests Test 10/01/17 07:25 White Blood Count 6.8 # Red Blood Count 3.70 L Hemoglobin 8.5 L Hematocrit 26.8 L Mean Corpuscular Volume 72.4 L Mean Corpuscular Hemoglobin 23.0 L Mean Corpuscular Hemoglobin Concent 31.7 L Red Cell Distribution Width 22.0 H Platelet Count 256 # Mean Platelet Volume 11.3 H Neutrophils % 62.8 Lymphocytes % 23.9 Monocytes % 8.1 Eosinophils % 4.7 Basophils % 0.1 Nucleated Red Blood Cells % 0.0 Neutrophils # 4.2 Lymphocytes # 1.6 Monocytes # 0.6 Eosinophils # 0.3 Basophils # 0.0 Nucleated Red Blood Cells # 0.0 Sodium Level 134 L Potassium Level 4.7 Chloride Level 98 Carbon Dioxide Level 26 Anion Gap 15 Blood Urea Nitrogen 20 Creatinine 0.75 Glucose Level 81 Calcium Level 8.8 Phosphorus Level 4.5 Magnesium Level 1.4 L Albumin 3.2 L Medications Medications Current Medications Lorazepam (Ativan) 2 mg Q10MIN PRN IV seizure Last administered on 09/06/17 09 :11; Admin Dose 2 MG; Start 09/05/17 at 16:00 Ondansetron HCl (Zofran Inj) 4 mg Q6H PRN IV NAUSEA AND/OR VOMITING; Start 09/05/17 at 16:30 Acetaminophen (Tylenol Tab) 650 mg Q6H PRN PO PAIN LEVEL 1-3 OR FEVER Last administered on 09/27/17 05:47; Admin Dose 650 MG; Start 09/05/17 at 16:30 Bisacodyl (Dulcolax) 5 mg DAILY PRN PO CONSTIPATION; Start 09/05/17 at 16:30 Lorazepam (Ativan) 1 mg Q6H PRN IV agitation/anxiety Last administered on 09/08 09:30; Admin Dose 1 MG; Start 09/05/17 at 17:00 Nicotine (Nicoderm 21 Mg/ 24hr) 1 patch Q24H TRANSDERM Last administered on 17:21; Admin Dose 1 PATCH; Start 09/05/17 at 17:00 Folic Acid (Folic Acid) 1 mg DAILY PO Last administered on 10/01/17 08:36; Admin Dose 1 MG; Start 09/07/17 at 16:30 Famotidine (Pepcid) 20 mg BID PO Last administered on 10/01/17 08:36; Admin Dose 20 MG; Start 09/09/17 at 21:00 Hydralazine HCl (Apresoline) 10 mg Q4H PRN IV ELEVATED BLOOD PRESSURE Last administered on 09/12/17 08:53; Admin Dose 10 MG; Start 09/10/17 at 04:55 Ferrous Sulfate (Ferrous Sulfate (Ec)) 325 mg DAILY PO Last administered on 08:36; Admin Dose 325 MG; Start 09/14/17 at 09:30 Lorazepam (Ativan) 1 mg Q6H PRN PO ANXIETY Last administered on 09/29/17 20:19 ; Admin Dose 1 MG; Start 09/17/17 at 15:00 Furosemide (Lasix) 10 mg DAILY PO Last administered on 09/21/17 08:21; Admin Dose 10 MG; Start 09/19/17 at 09:00; Status Future Hold Lisinopril (Zestril) 5 mg DAILY PO Last administered on 10/01/17 08:37; Admin Dose 5 MG; Start 09/22/17 at 09:00 Magnesium Oxide (Mag-Ox 400) 400 mg BID PO Last administered on 10/01/17 08:36 ; Admin Dose 400 MG; Start 09/25/17 at 21:00 Spironolactone (Aldactone) 25 mg DAILY PO Last administered on 10/01/17 08:36 ; Admin Dose 25 MG; Start 12/3/17 at 09:00 Acetaminophen/ Hydrocodone Bitart ([place] (5/325)) 1 tab Q6H PRN PO pain; Start 10/01/17 at 13:00 CATHERINE DUMONT Oct 01, 2017 15:32
[2017-10-01] MEDS: NICOTINE (21 MG/24 HR) PATCH TRANSDERM SCH (17:03)
[2017-10-02] VITALS (14 sets, daily range): BP systolic 93–122; BP diastolic 53–78; PULSE 80–104; RESP 17–19
[2017-10-02] MEDS: ALBUTEROL/IPRATROPIUM (NEB) 3 ML AMP HHN SCH ×3 (07:45→19:16)
[2017-10-02 08:29] LABS: BASOPHILS % 0.1 % (0.0-2.0); EOSINOPHILS # 0.4 10^3/ul (0.0-0.5); EOSINOPHILS % 5.2 % (0.0-7.0); HEMATOCRIT 27.1 % (42.0-52.0); HEMOGLOBIN 8.6 g/dl (14.0-18.0); LYMPHOCYTES # 1.8 10^3/ul (0.8-2.9); LYMPHOCYTES % 25.6 % (15.0-51.0); MEAN CORPUSCULAR HGB CONC 31.7 g/dl (32.0-37.0); MEAN CORPUSCULAR VOLUME 72.5 fl (82.0-101.0); MEAN PLATELET VOLUME 10.2 fl (7.4-10.4); MONOCYTE # 0.6 10^3/ul (0.3-0.9); MONOCYTES % 8.2 % (0.0-11.0); NEUTROPHIL # 4.2 10^3/ul (1.6-7.5); NEUTROPHILS % 60.5 % (39.0-77.0); PLATELET COUNT 238 10^3/UL (140-415); RED BLOOD COUNT 3.74 10^6/ul (4.70-6.10); RED CELL DISTRIBUTION WIDTH 21.9 % (11.5-14.5); WHITE BLOOD COUNT 6.9 10^3/ul (4.8-10.8)
[2017-10-02] MEDS: LISINOPRIL 5 MG TAB PO SCH (08:34)
[2017-10-02] MEDS: SPIRONOLACTONE 25 MG TAB PO SCH (08:34)
[2017-10-02] MEDS: FERROUS SULFATE (EC) 325 MG TAB PO SCH (08:34)
[2017-10-02] MEDS: FAMOTIDINE 20 MG TAB PO SCH ×2 (08:35→20:47)
[2017-10-02] MEDS: FOLIC ACID 1 MG TAB PO SCH (08:35)
[2017-10-02] MEDS: MAGNESIUM OXIDE 400 MG TAB PO SCH ×2 (08:35→20:47)
[2017-10-02] MEDS ORDERED: MAGNESIUM SULFATE 2 GM/50 ML 50 ML IVPB ONE (09:00)
[2017-10-02 09:15] LABS: CALCIUM 9.3 mg/dl (8.4-10.2); CREATININE 0.73 mg/dl (0.61-1.24); MAGNESIUM 1.3 mg/dl (1.7-2.5); PHOSPHORUS 4.7 mg/dl (2.5-4.9); POTASSIUM 4.2 mmol/L (3.5-5.1)
--- NOTE | 2017-10-02 10:37 | CONS ---
Date/Time of Note Date/Time of Note DATE: 10/02/17 TIME: 10:35 Assessment/Plan Assessment/Plan Additional Assessment/Plan Assessment and recommendations; 1. Patient admitted with shortness of breath due to very large right pleural effusion status post thoracentesis with ensuing the right hydropneumothorax requiring placement of chest tube. 2. Hepatic hydrothorax. 3. Advanced cirrhosis of liver. 4. Anemia. 5. Significant reduction in drainage through the chest tube over the last 48 hours. Chest tube can be removed. Continue current diuretic regimen. Long-term prognosis is guarded. Consultation Date/Type/Reason Admit Date/Time Sep 05, 2017 at 13:14 Type of Consultation: Pulm 24 HR Interval Summary Free Text/Dictation Patient's condition is stable. Denies any chest pain, shortness of breath. General exam; middle-aged male, awake alert, currently in no distress. Exam/Review of Systems Vital Signs Vitals Vital Signs Date Time Temp Pulse Resp B/P Pulse Ox O2 Delivery O2 Flow Rate FiO2 10/02/17 08:35 104 114/69 10/02/17 07:57 98.0 18 100 10/01/17 19:56 21 Intake and Output 10/01/17 10/01/17 10/02/17 15:00 23:00 07:00 Intake Total 530 ml 350 ml Output Total 500 ml 540 ml Balance 30 ml -190 ml Exam HEENT exam; supple neck, positive JVD. No lymphadenopathy. Midline trachea. No thyromegaly. Patient has a multiple carious teeth. Chest exam; clear to auscultation. Right-sided chest tube in place. S1-S2 audible, no murmurs. Regular rhythm. Abdomen exam; soft, nontender. No organomegaly. Bowel sounds audible. Extremity exam; no edema. TAX ANALYST exam; no focal deficit. Results Result Diagram: 10/02/17 0756 10/02/17 0756 Results 24 hrs Laboratory Tests Test 10/02/17 07:56 White Blood Count 6.9 Red Blood Count 3.74 L Hemoglobin 8.6 L Hematocrit 27.1 L Mean Corpuscular Volume 72.5 L Mean Corpuscular Hemoglobin 23.0 L Mean Corpuscular Hemoglobin Concent 31.7 L Red Cell Distribution Width 21.9 H Platelet Count 238 Mean Platelet Volume 10.2 Neutrophils % 60.5 Lymphocytes % 25.6 Monocytes % 8.2 Eosinophils % 5.2 Basophils % 0.1 Nucleated Red Blood Cells % 0.0 Neutrophils # 4.2 Lymphocytes # 1.8 Monocytes # 0.6 Eosinophils # 0.4 Basophils # 0.0 Nucleated Red Blood Cells # 0.0 Sodium Level 132 L Potassium Level 4.2 Chloride Level 98 Carbon Dioxide Level 27 Anion Gap 11 Blood Urea Nitrogen 17 Creatinine 0.73 Glucose Level 95 Calcium Level 9.3 Phosphorus Level 4.7 Magnesium Level 1.3 L Medications Medications Current Medications Lorazepam (Ativan) 2 mg Q10MIN PRN IV seizure Last administered on 09/06/17 09 :11; Admin Dose 2 MG; Start 09/05/17 at 16:00 Ondansetron HCl (Zofran Inj) 4 mg Q6H PRN IV NAUSEA AND/OR VOMITING; Start 09/05/17 at 16:30 Acetaminophen (Tylenol Tab) 650 mg Q6H PRN PO PAIN LEVEL 1-3 OR FEVER Last administered on 09/27/17 05:47; Admin Dose 650 MG; Start 09/05/17 at 16:30 Bisacodyl (Dulcolax) 5 mg DAILY PRN PO CONSTIPATION; Start 09/05/17 at 16:30 Lorazepam (Ativan) 1 mg Q6H PRN IV agitation/anxiety Last administered on 09/08 09:30; Admin Dose 1 MG; Start 09/05/17 at 17:00 Nicotine (Nicoderm 21 Mg/ 24hr) 1 patch Q24H TRANSDERM Last administered on 17:03; Admin Dose 1 PATCH; Start 09/05/17 at 17:00 Folic Acid (Folic Acid) 1 mg DAILY PO Last administered on 10/02/17 08:35; Admin Dose 1 MG; Start 09/07/17 at 16:30 Famotidine (Pepcid) 20 mg BID PO Last administered on 10/02/17 08:35; Admin Dose 20 MG; Start 09/09/17 at 21:00 Hydralazine HCl (Apresoline) 10 mg Q4H PRN IV ELEVATED BLOOD PRESSURE Last administered on 09/12/17 08:53; Admin Dose 10 MG; Start 09/10/17 at 04:55 Ferrous Sulfate (Ferrous Sulfate (Ec)) 325 mg DAILY PO Last administered on 08:34; Admin Dose 325 MG; Start 09/14/17 at 09:30 Lorazepam (Ativan) 1 mg Q6H PRN PO ANXIETY Last administered on 09/29/17 20:19 ; Admin Dose 1 MG; Start 09/17/17 at 15:00 Furosemide (Lasix) 10 mg DAILY PO Last administered on 09/21/17 08:21; Admin Dose 10 MG; Start 09/19/17 at 09:00; Status Future Hold Lisinopril (Zestril) 5 mg DAILY PO Last administered on 10/02/17 08:34; Admin Dose 5 MG; Start 09/22/17 at 09:00 Magnesium Oxide (Mag-Ox 400) 400 mg BID PO Last administered on 10/02/17 08:35 ; Admin Dose 400 MG; Start 09/25/17 at 21:00 Spironolactone (Aldactone) 25 mg DAILY PO Last administered on 10/02/17 08:34 ; Admin Dose 25 MG; Start 09/30/17 at 09:00 Acetaminophen/ Hydrocodone Bitart 1 tab 1 tab Q6H PRN PO pain; Start 10/01/17 at 13:00 Magnesium Sulfate (Magnesium Sulfate 2 Gm/50 ml) 50 ml @ 25 mls/hr ONCE ONCE IVPB Last administered on 10/02/17 10:02; Admin Dose 25 MLS/HR; Start at 09:00; Stop 10/02/17 at 10:59 KIRILL PEREZ Oct 02, 2017 10:37
--- NOTE | 2017-10-02 10:38 | PN ---
DATE: 10/02/2017 SUBJECTIVE: The patient is stable. No events overnight. OBJECTIVE: VITAL SIGNS: Blood pressure 94/64, pulse 101, temperature 98.0. HEENT: Head is normocephalic. NECK: Supple. HEART: Regular rate. LUNGS: Show diminished breath sounds at base. ABDOMEN: Soft, nontender to palpation. No rebound or guarding. EXTREMITIES: Negative for clubbing, cyanosis, no edema. DERMATOLOGIC: No rashes. MUSCULOSKELETAL: No joint effusions. NEUROLOGIC: No change in exam. MEDICATIONS: The patient's medications have been reviewed. LABORATORY DATA: From 10/01/2017 was reviewed. ASSESSMENT AND PLAN: 1. Hypomagnesemia, etiology secondary to chronic alcohol abuse causing renal tubular dysfunction re sulting in magnesium wasting. The patient's magnesium levels are slowly improving. Continue to mon itor. Continue to replace with p.o. and IV magnesium. 2. Hyponatremia secondary to underlying cirrhosis. Continue low-dose diuretic therapy, continue fr ee water restriction. 3. Hypokalemia, improved. Continue to monitor and replete. Continue Aldactone. 4. Cirrhosis. Continue current medical management. 5. Right hepatic hydrothorax. The patient is status post chest tube. Continue to monitor, conside r TIPS procedure. 6. Status post respiratory failure. 7. Hypertension secondary to underlying cirrhosis. Continue to monitor closely. Dictated By: SLIME CHANG/VICKY Conf#: [id number] DID#: [id number] CC: TANK MALHOTRA;*EndCC*
--- NOTE | 2017-10-02 15:43 | PN ---
Date/Time of Note Date/Time of Note DATE: 10/02/17 TIME: 15:42 Assessment/Plan VTE Prophylaxis VTE Prophylaxis Intervention: SCD's Lines/Catheters IV Catheter Type (from Nrs): [place] Urinary Cath still in place: No Assessment/Plan Chief Complaint/Hosp Course s: .22:no sob, no acute change .23: s/p chest tube, chest discomfort at site of chest tube insertion .24: no acute complaints 11.25 chest tube still draining, no acute complaints 11.26 no acute complaints 12.4 no acute complaints 12.5 no acute complaints, still draining on chest tube o: General: Patient resting comfortably, in no acute distress. oriented to self and place Head: Normocephalic atraumatic Eyes: EOMI, pupils reactive to light Neck: Supple, nontender, midline Respiratory: diminished breath sounds on R, no crackles or wheezing Cardiovascular: regular rate and rhythm, no obvious murmurs Gastrointestinal: non-tender to palpation, bowel sounds heard. Neurological: Moves all extremities spontaneously Skin: No new skin lesions, chest tube placed R Patient is a 51-year-old homeless alcoholic who presents with right pleural effusion, pneumonia, and alcohol withdrawal induced seizure. #R pleural effusion -recurrent -?hepatic hydrothorax -will recur likely -aldactone/lasix started, low dose, will titrate as needed #pneumo/hydropneumothorax -s/p thoracentesis on 09/17 -chest tube placed 09/19, draining mod amount still, pulm to order DC today -CT surgery recs appreciated -pleurx cath will be considered -needs TIPS, but patient is too stable for TIPS #tachycardia -resolving -prn metoprolol if BP permits #elevated AST/ALT -cirrhosis -us gallbladder noted #. Delirium tremens- resolved -librium tapered off - Ativan PRN for agitation/anxiety #. bacteremia, gram neg - continued on IV antibiotics for 10-14 days. stopped abx - remains afebrile -wbc stabilized #. acute respiratory failure, 2/2 PNA/pleural effusion- resolved - Pulmonology on board and recommendations appreciated - s/p 2 L drained on pleural effusion 1st time, 1 L drained 2nd time - Respiratory status stable. Saturating well #. Bilateral pneumonia, likely aspiration -abx finished #. Severe hyponatremia- resolved - Nephrology on board and recommendations appreciated #. Alcoholism - Banana bag stopped -thiamine and folic acid - Librium tapered #. Hypokalemia - replete as needed #. Hypomagnesia - Nephrology on board assisting with electrolyte abnormalities #. Disposition - chest tube management, poor prognosis given hepatic hydrothorax/pneumothorax -monitor when chest tube dc'd Problems: Exam/Review of Systems Vital Signs Vitals Vital Signs Date Time Temp Pulse Resp B/P Pulse Ox O2 Delivery O2 Flow Rate FiO2 10/02/17 15:38 98.2 105 19 105/65 99 10/02/17 14:10 21 Intake and Output 10/01/17 10/01/17 10/02/17 15:00 23:00 07:00 Intake Total 530 ml 350 ml Output Total 500 ml 540 ml Balance 30 ml -190 ml Results Result Diagram: 10/02/17 0756 10/02/17 0756 Results 24 hrs Laboratory Tests Test 10/02/17 07:56 White Blood Count 6.9 Red Blood Count 3.74 L Hemoglobin 8.6 L Hematocrit 27.1 L Mean Corpuscular Volume 72.5 L Mean Corpuscular Hemoglobin 23.0 L Mean Corpuscular Hemoglobin Concent 31.7 L Red Cell Distribution Width 21.9 H Platelet Count 238 Mean Platelet Volume 10.2 Neutrophils % 60.5 Lymphocytes % 25.6 Monocytes % 8.2 Eosinophils % 5.2 Basophils % 0.1 Nucleated Red Blood Cells % 0.0 Neutrophils # 4.2 Lymphocytes # 1.8 Monocytes # 0.6 Eosinophils # 0.4 Basophils # 0.0 Nucleated Red Blood Cells # 0.0 Sodium Level 132 L Potassium Level 4.2 Chloride Level 98 Carbon Dioxide Level 27 Anion Gap 11 Blood Urea Nitrogen 17 Creatinine 0.73 Glucose Level 95 Calcium Level 9.3 Phosphorus Level 4.7 Magnesium Level 1.3 L Medications Medications Current Medications Lorazepam (Ativan) 2 mg Q10MIN PRN IV seizure Last administered on 09/06/17 09 :11; Admin Dose 2 MG; Start 09/05/17 at 16:00 Ondansetron HCl (Zofran Inj) 4 mg Q6H PRN IV NAUSEA AND/OR VOMITING; Start 09/05/17 at 16:30 Acetaminophen (Tylenol Tab) 650 mg Q6H PRN PO PAIN LEVEL 1-3 OR FEVER Last administered on 09/27/17 05:47; Admin Dose 650 MG; Start 09/05/17 at 16:30 Bisacodyl (Dulcolax) 5 mg DAILY PRN PO CONSTIPATION; Start 09/05/17 at 16:30 Lorazepam (Ativan) 1 mg Q6H PRN IV agitation/anxiety Last administered on 09/08 09:30; Admin Dose 1 MG; Start 09/05/17 at 17:00 Nicotine (Nicoderm 21 Mg/ 24hr) 1 patch Q24H TRANSDERM Last administered on 17:03; Admin Dose 1 PATCH; Start 09/05/17 at 17:00 Folic Acid (Folic Acid) 1 mg DAILY PO Last administered on 10/02/17 08:35; Admin Dose 1 MG; Start 09/07/17 at 16:30 Famotidine (Pepcid) 20 mg BID PO Last administered on 10/02/17 08:35; Admin Dose 20 MG; Start 09/09/17 at 21:00 Hydralazine HCl (Apresoline) 10 mg Q4H PRN IV ELEVATED BLOOD PRESSURE Last administered on 09/12/17 08:53; Admin Dose 10 MG; Start 09/10/17 at 04:55 Ferrous Sulfate (Ferrous Sulfate (Ec)) 325 mg DAILY PO Last administered on 08:34; Admin Dose 325 MG; Start 09/14/17 at 09:30 Lorazepam (Ativan) 1 mg Q6H PRN PO ANXIETY Last administered on 09/29/17 20:19 ; Admin Dose 1 MG; Start 09/17/17 at 15:00 Furosemide (Lasix) 10 mg DAILY PO Last administered on 09/21/17 08:21; Admin Dose 10 MG; Start 09/19/17 at 09:00; Status Future Hold Lisinopril (Zestril) 5 mg DAILY PO Last administered on 10/02/17 08:34; Admin Dose 5 MG; Start 09/22/17 at 09:00 Magnesium Oxide (Mag-Ox 400) 400 mg BID PO Last administered on 10/02/17 08:35 ; Admin Dose 400 MG; Start 09/25/17 at 21:00 Spironolactone (Aldactone) 25 mg DAILY PO Last administered on 10/02/17 08:34 ; Admin Dose 25 MG; Start 09/30/17 at 09:00 Acetaminophen/ Hydrocodone Bitart ([place] (5325)) 1 tab Q6H PRN PO pain; Start 10/01/17 at 13:00 CATHERINE DUMONT Oct 02, 2017 15:43
[2017-10-02] MEDS: NICOTINE (21 MG/24 HR) PATCH TRANSDERM SCH (16:33)
[2017-10-03] VITALS (10 sets, daily range): BP systolic 90–121; BP diastolic 52–80; PULSE 82–101; RESP 18–19
[2017-10-03] MEDS: ALBUTEROL/IPRATROPIUM (NEB) 3 ML AMP HHN SCH ×3 (07:28→20:23)
[2017-10-03] MEDS: FAMOTIDINE 20 MG TAB PO SCH ×2 (08:07→21:04)
[2017-10-03] MEDS: MAGNESIUM OXIDE 400 MG TAB PO SCH ×2 (08:07→21:04)
[2017-10-03] MEDS: FOLIC ACID 1 MG TAB PO SCH (08:07)
[2017-10-03] MEDS: FERROUS SULFATE (EC) 325 MG TAB PO SCH (08:07)
[2017-10-03] MEDS: LISINOPRIL 5 MG TAB PO SCH (08:07)
[2017-10-03] MEDS: SPIRONOLACTONE 25 MG TAB PO SCH (08:07)
[2017-10-03 08:56] LABS: CALCIUM 9.1 mg/dl (8.4-10.2); CREATININE 0.71 mg/dl (0.61-1.24); MAGNESIUM 1.1 mg/dl (1.7-2.5); PHOSPHORUS 4.7 mg/dl (2.5-4.9); POTASSIUM 4.1 mmol/L (3.5-5.1)
[2017-10-03] MEDS ORDERED: MAGNESIUM SULFATE 2 GM/50 ML 50 ML IVPB ONE (09:00)
--- NOTE | 2017-10-03 10:34 | CONS ---
Date/Time of Note Date/Time of Note DATE: 10/03/17 TIME: 10:32 Assessment/Plan Assessment/Plan Additional Assessment/Plan Assessment and recommendations; 1. Patient admitted with shortness of breath due to right pleural effusion status post thoracentesis with resulting right pneumothorax requiring chest tube placement. Patient waiting more than 100 mL per day into the Pleur-evac chamber due to hepatic hydrothorax. 2. Advanced cirrhosis of liver. Continue current treatment. Chest tube to be removed once drainage is less than 100 mL per day. Prognosis is guarded. Consultation Date/Type/Reason Admit Date/Time Sep 05, 2017 at 13:14 Type of Consultation: Pulm 24 HR Interval Summary Free Text/Dictation Patient's condition is stable. Denies any shortness of breath or chest pain. About 170 mL of fluid was drained to the right chest tube into the Pleur-evac chamber. General exam; middle-aged male, awake alert, currently in no distress. Exam/Review of Systems Vital Signs Vitals Vital Signs Date Time Temp Pulse Resp B/P Pulse Ox O2 Delivery O2 Flow Rate FiO2 10/03/17 08:28 98.7 91 18 121/80 100 10/03/17 07:29 21 Intake and Output 10/02/17 10/02/17 10/03/17 15:00 23:00 07:00 Intake Total 650 ml 400 ml Output Total 800 ml 700 ml Balance -150 ml -300 ml Exam HEENT exam; supple neck, no JVD. No lymphadenopathy. Midline trachea. No thyromegaly. Pharynx is clear. Patient has a multiple carious teeth. Chest exam; diminished but clear breath sound. S1-S2 audible, no murmurs. Regular rhythm. Right-sided chest tube in place. Abdomen exam; soft, nontender. No organomegaly. Bowel sounds audible. Extremity exam; no edema. COMPARATIVE SOCIOLOGY PROFESSOR exam; no focal deficit. Results Result Diagram: 10/02/17 0756 10/03/17 0749 Results 24 hrs Laboratory Tests Test 10/03/17 07:49 10/03/17 07:54 Sodium Level 131 L Potassium Level 4.1 Chloride Level 97 Carbon Dioxide Level 28 Anion Gap 10 Blood Urea Nitrogen 17 Creatinine 0.71 Glucose Level 90 Calcium Level 9.1 Phosphorus Level 4.7 Magnesium Level 1.1 L Lab Scanned Report REFERENCE LAB Medications Medications Current Medications Lorazepam (Ativan) 2 mg Q10MIN PRN IV seizure Last administered on 09/06/17 09 :11; Admin Dose 2 MG; Start 09/05/17 at 16:00 Ondansetron HCl (Zofran Inj) 4 mg Q6H PRN IV NAUSEA AND/OR VOMITING; Start 09/05/17 at 16:30 Acetaminophen (Tylenol Tab) 650 mg Q6H PRN PO PAIN LEVEL 1-3 OR FEVER Last administered on 09/27/17 05:47; Admin Dose 650 MG; Start 09/05/17 at 16:30 Bisacodyl (Dulcolax) 5 mg DAILY PRN PO CONSTIPATION; Start 09/05/17 at 16:30 Lorazepam (Ativan) 1 mg Q6H PRN IV agitation/anxiety Last administered on 09/08 09:30; Admin Dose 1 MG; Start 09/05/17 at 17:00 Nicotine (Nicoderm 21 Mg/ 24hr) 1 patch Q24H TRANSDERM Last administered on 16:33; Admin Dose 1 PATCH; Start 09/05/17 at 17:00 Folic Acid (Folic Acid) 1 mg DAILY PO Last administered on 10/03/17 08:07; Admin Dose 1 MG; Start 09/07/17 at 16:30 Famotidine (Pepcid) 20 mg BID PO Last administered on 10/03/17 08:07; Admin Dose 20 MG; Start 09/09/17 at 21:00 Hydralazine HCl (Apresoline) 10 mg Q4H PRN IV ELEVATED BLOOD PRESSURE Last administered on 09/12/17 08:53; Admin Dose 10 MG; Start 09/10/17 at 04:55 Ferrous Sulfate (Ferrous Sulfate (Ec)) 325 mg DAILY PO Last administered on 08:07; Admin Dose 325 MG; Start 09/14/17 at 09:30 Lorazepam (Ativan) 1 mg Q6H PRN PO ANXIETY Last administered on 09/29/17 20:19 ; Admin Dose 1 MG; Start 09/17/17 at 15:00 Furosemide (Lasix) 10 mg DAILY PO Last administered on 09/21/17 08:21; Admin Dose 10 MG; Start 09/19/17 at 09:00; Status Future Hold Lisinopril (Zestril) 5 mg DAILY PO Last administered on 10/03/17 08:07; Admin Dose 5 MG; Start 09/22/17 at 09:00 Magnesium Oxide (Mag-Ox 400) 400 mg BID PO Last administered on 10/03/17 08:07 ; Admin Dose 400 MG; Start 09/25/17 at 21:00 Spironolactone (Aldactone) 25 mg DAILY PO Last administered on 10/03/17 08:07 ; Admin Dose 25 MG; Start 09/30/17 at 09:00 Acetaminophen/ Hydrocodone Bitart 1 tab 1 tab Q6H PRN PO pain Last administered on 10/03/17 08:07; Admin Dose 1 TAB; Start 10/01/17 at 13:00 Magnesium Sulfate (Magnesium Sulfate 2 Gm/50 ml) 50 ml @ 25 mls/hr ONCE ONCE IVPB ; Start 10/03/17 at 09:00; Stop 10/03/17 at 10:59 KIRILL PEREZ Oct 03, 2017 10:34
--- NOTE | 2017-10-03 10:46 | PN ---
DATE: 10/03/2017 SUBJECTIVE: The patient is stable. No events overnight. No fevers, chills, nausea, vomiting. The patient's chest tube remains in place. OBJECTIVE: VITAL SIGNS: Blood pressure is 121/80, respiration 18, pulse 91, temperature 98.7. HEENT: Head is normocephalic. NECK: Supple. HEART: Regular rate. LUNGS: Show diminished breath sounds at base. ABDOMEN: Soft, nontender to palpation. No rebound or guarding. EXTREMITIES: Negative for clubbing, cyanosis. No edema. DERMATOLOGIC: No rashes. MUSCULOSKELETAL: No joint effusions. NEUROLOGIC: No change in exam. MEDICATIONS: Have been reviewed. LABORATORY DATA: Has been reviewed. ASSESSMENT AND PLAN: 1. Hypomagnesemia. Etiology secondary to chronic alcohol abuse causing renal tubular dysfunction, resulting in magnesium wasting. The patient's magnesium levels are slowly improving. Continue curr ent treatment plan. Continue to replace with p.o. and IV magnesium. 2. Hyponatremia secondary to underlying cirrhosis. Continue low-dose diuretic therapy, Continue fr ee water restriction. 3. Hypokalemia, improved. 4. Cirrhosis. Continue medical management. 5. Right hepatic hydrothorax. The patient is status post chest tube. Continue to monitor. Consid er TIPS. 6. Status post respiratory failure. 7. Hypotension. Continue to monitor. Dictated By: SLIME CHANG/VICKY Conf#: [id number] DID#: [id number]
--- NOTE | 2017-10-03 15:01 | PN ---
Date/Time of Note Date/Time of Note DATE: 10/03/17 TIME: 14:59 Assessment/Plan VTE Prophylaxis VTE Prophylaxis Intervention: ambulation, SCD's Lines/Catheters IV Catheter Type (from Nrs): Saline Lock Urinary Cath still in place: No Assessment/Plan Chief Complaint/Hosp Course s: .22:no sob, no acute change 11.23: s/p chest tube, chest discomfort at site of chest tube insertion 11.24: no acute complaints 11.25 chest tube still draining, no acute complaints 11.26 no acute complaints 12.4 no acute complaints 12.5 no acute complaints, still draining on chest tube 12.6 no acute complaints o: General: Patient resting comfortably, in no acute distress. oriented to self and place Head: Normocephalic atraumatic Eyes: EOMI, pupils reactive to light Neck: Supple, nontender, midline Respiratory: diminished breath sounds on R, no crackles or wheezing Cardiovascular: regular rate and rhythm, no obvious murmurs Gastrointestinal: non-tender to palpation, bowel sounds heard. Neurological: Moves all extremities spontaneously Skin: No new skin lesions, chest tube placed R Patient is a 51-year-old homeless alcoholic who presents with right pleural effusion, pneumonia, and alcohol withdrawal induced seizure. #R pleural effusion -recurrent -?hepatic hydrothorax -will recur likely -aldactone/lasix started, low dose, will increase dose of both today in hopes of slowing down fluid drainage #pneumo/hydropneumothorax -s/p thoracentesis on 09/17 -chest tube placed 09/19, draining mod amount still, pulm to order DC today -CT surgery recs appreciated -pleurx cath will be considered -needs TIPS, but patient likely too stable for TIPS, will consider if diuretics are not effective #tachycardia -resolving -prn metoprolol if BP permits #elevated AST/ALT -cirrhosis -us gallbladder noted #. Delirium tremens- resolved -librium tapered off - Ativan PRN for agitation/anxiety #. bacteremia, gram neg - continued on IV antibiotics for 10-14 days. stopped abx - remains afebrile -wbc stabilized #. acute respiratory failure, 2/2 PNA/pleural effusion- resolved - Pulmonology on board and recommendations appreciated - s/p 2 L drained on pleural effusion 1st time, 1 L drained 2nd time - Respiratory status stable. Saturating well #. Bilateral pneumonia, likely aspiration -abx finished #. Severe hyponatremia- resolved - Nephrology on board and recommendations appreciated #. Alcoholism - Banana bag stopped -thiamine and folic acid - Librium tapered #. Hypokalemia - replete as needed #. Hypomagnesia - Nephrology on board assisting with electrolyte abnormalities #. Disposition - chest tube management, poor prognosis given hepatic hydrothorax/pneumothorax -monitor when chest tube dc'd Problems: Exam/Review of Systems Vital Signs Vitals Vital Signs Date Time Temp Pulse Resp B/P Pulse Ox O2 Delivery O2 Flow Rate FiO2 10/03/17 12:19 101 10/03/17 11:28 98.3 18 107/61 100 10/03/17 07:29 21 Intake and Output 10/02/17 10/02/17 10/03/17 15:00 23:00 07:00 Intake Total 650 ml 400 ml Output Total 800 ml 700 ml Balance -150 ml -300 ml Results Result Diagram: 10/02/17 0756 10/03/17 0749 Results 24 hrs Laboratory Tests Test 10/03/17 07:49 10/03/17 07:54 Sodium Level 131 L Potassium Level 4.1 Chloride Level 97 Carbon Dioxide Level 28 Anion Gap 10 Blood Urea Nitrogen 17 Creatinine 0.71 Glucose Level 90 Calcium Level 9.1 Phosphorus Level 4.7 Magnesium Level 1.1 L Lab Scanned Report REFERENCE LAB Medications Medications Current Medications Lorazepam (Ativan) 2 mg Q10MIN PRN IV seizure Last administered on 09/06/17 09 :11; Admin Dose 2 MG; Start 09/05/17 at 16:00 Ondansetron HCl (Zofran Inj) 4 mg Q6H PRN IV NAUSEA AND/OR VOMITING; Start 09/05/17 at 16:30 Acetaminophen (Tylenol Tab) 650 mg Q6H PRN PO PAIN LEVEL 1-3 OR FEVER Last administered on 09/27/17 05:47; Admin Dose 650 MG; Start 09/05/17 at 16:30 Bisacodyl (Dulcolax) 5 mg DAILY PRN PO CONSTIPATION; Start 09/05/17 at 16:30 Lorazepam (Ativan) 1 mg Q6H PRN IV agitation/anxiety Last administered on 09/08 09:30; Admin Dose 1 MG; Start 09/05/17 at 17:00 Nicotine (Nicoderm 21 Mg/ 24hr) 1 patch Q24H TRANSDERM Last administered on 16:33; Admin Dose 1 PATCH; Start 09/05/17 at 17:00 Folic Acid (Folic Acid) 1 mg DAILY PO Last administered on 10/03/17 08:07; Admin Dose 1 MG; Start 09/07/17 at 16:30 Famotidine (Pepcid) 20 mg BID PO Last administered on 10/03/17 08:07; Admin Dose 20 MG; Start 09/09/17 at 21:00 Hydralazine HCl (Apresoline) 10 mg Q4H PRN IV ELEVATED BLOOD PRESSURE Last administered on 09/12/17 08:53; Admin Dose 10 MG; Start 09/10/17 at 04:55 Ferrous Sulfate (Ferrous Sulfate (Ec)) 325 mg DAILY PO Last administered on 08:07; Admin Dose 325 MG; Start 09/14/17 at 09:30 Lorazepam (Ativan) 1 mg Q6H PRN PO ANXIETY Last administered on 09/29/17 20:19 ; Admin Dose 1 MG; Start 09/17/17 at 15:00 Lisinopril (Zestril) 5 mg DAILY PO Last administered on 10/03/17 08:07; Admin Dose 5 MG; Start 09/22/17 at 09:00 Magnesium Oxide (Mag-Ox 400) 400 mg BID PO Last administered on 10/03/17 08:07 ; Admin Dose 400 MG; Start 09/25/17 at 21:00 Acetaminophen/ Hydrocodone Bitart ([place] (5/325)) 1 tab Q6H PRN PO pain Last administered on 10/03/17 08:07; Admin Dose 1 TAB; Start 10/01/17 at 13:00 Furosemide (Lasix) 20 mg DAILY PO ; Start 10/04/17 at 09:00; Status UNV Spironolactone (Aldactone) 50 mg DAILY PO ; Start 10/04/17 at 09:00; Status UNV CATHERINE DUMONT Oct 03, 2017 15:01
[2017-10-03] MEDS: NICOTINE (21 MG/24 HR) PATCH TRANSDERM SCH (17:45)
[2017-10-04] VITALS (9 sets, daily range): BP systolic 105–132; BP diastolic 68–87; PULSE 63–102; RESP 18–21
[2017-10-04 07:35] LABS: BASOPHILS % 0.3 % (0.0-2.0); EOSINOPHILS # 0.3 10^3/ul (0.0-0.5); EOSINOPHILS % 4.2 % (0.0-7.0); HEMATOCRIT 29.2 % (42.0-52.0); HEMOGLOBIN 9.3 g/dl (14.0-18.0); LYMPHOCYTES # 1.7 10^3/ul (0.8-2.9); MEAN CORPUSCULAR HEMOGLOBIN 23.2 pg (29.0-33.0); MEAN CORPUSCULAR HGB CONC 31.8 g/dl (32.0-37.0); MEAN CORPUSCULAR VOLUME 72.8 fl (82.0-101.0); MEAN PLATELET VOLUME 10.2 fl (7.4-10.4); MONOCYTE # 0.6 10^3/ul (0.3-0.9); MONOCYTES % 9.7 % (0.0-11.0); NEUTROPHIL # 3.7 10^3/ul (1.6-7.5); NEUTROPHILS % 58.3 % (39.0-77.0); PLATELET COUNT 293 10^3/UL (140-415); RED BLOOD COUNT 4.01 10^6/ul (4.70-6.10); RED CELL DISTRIBUTION WIDTH 21.9 % (11.5-14.5); WHITE BLOOD COUNT 6.4 10^3/ul (4.8-10.8)
[2017-10-04 08:00] LABS: CALCIUM 9.1 mg/dl (8.4-10.2); CREATININE 0.73 mg/dl (0.61-1.24); MAGNESIUM 1.2 mg/dl (1.7-2.5); PHOSPHORUS 4.7 mg/dl (2.5-4.9); POTASSIUM 4.3 mmol/L (3.5-5.1)
[2017-10-04] MEDS: ALBUTEROL/IPRATROPIUM (NEB) 3 ML AMP HHN SCH ×3 (08:14→20:35)
[2017-10-04] MEDS: MAGNESIUM OXIDE 400 MG TAB PO SCH ×2 (08:27→20:14)
[2017-10-04] MEDS: FOLIC ACID 1 MG TAB PO SCH (08:28)
[2017-10-04] MEDS: SPIRONOLACTONE 25 MG TAB PO SCH (08:28)
[2017-10-04] MEDS: FAMOTIDINE 20 MG TAB PO SCH ×2 (08:28→20:14)
[2017-10-04] MEDS: FERROUS SULFATE (EC) 325 MG TAB PO SCH (08:28)
[2017-10-04] MEDS: LISINOPRIL 5 MG TAB PO SCH (08:28)
[2017-10-04] MEDS: FUROSEMIDE 20 MG TAB PO SCH (08:28)
[2017-10-04] MEDS ORDERED: MAGNESIUM SULFATE 2 GM/50 ML 50 ML IVPB ONE (09:30)
--- NOTE | 2017-10-04 11:50 | PN ---
DATE: 10/04/2017 SUBJECTIVE: The patient is stable. No events overnight. OBJECTIVE: VITAL SIGNS: Blood pressure 119/87, pulse 99, respiration 18, temperature 98.2. HEENT: Head is normocephalic. NECK: Supple. HEART: Regular rate. LUNGS: Show diminished breath sounds at the base. ABDOMEN: Soft, nontender to palpation. No rebound or guarding. EXTREMITIES: Negative for clubbing, cyanosis, no edema. DERMATOLOGIC: No rashes. MUSCULOSKELETAL: No joint effusions. NEUROLOGIC: No change in exam. MEDICATIONS: The patient's medications have been reviewed. LABORATORY DATA: Shows sodium 133, magnesium 1.2. White count 6.4, hemoglobin 9.3, hematocrit 29.2 , platelet count is 293. ASSESSMENT AND PLAN: 1. Hypomagnesemia. Etiology secondary to chronic alcohol abuse. Continue to monitor and replete. 2. Hyponatremia secondary to cirrhosis. Continue current medical management, free water restrictio n, low dose diuretic therapy. 3. Hypokalemia, improved. 4. Cirrhosis, currently decompensated. Continue medical management. 5. Right hepatic hydrothorax. The patient is status post chest tube. Continue to monitor. Consid er TIPS. 6. Status post respiratory failure. 7. Hypertension. Continue to monitor. Dictated By: SLIME CHANG/VICKY Conf#: [id number] DID#: [id number] CC: TANK MALHOTRA;*EndCC*
--- NOTE | 2017-10-04 12:04 | CONS ---
Date/Time of Note Date/Time of Note DATE: 10/04/17 TIME: 11:59 Assessment/Plan Assessment/Plan Additional Assessment/Plan Assessment and recommendations; 1. Patient admitted with shortness of breath due to right-sided hepatic hydrothorax, status post thoracentesis with resulting right hydropneumothorax requiring chest tube. Patient waiting more than 100 mL per day to the chest tube daily. 2. Advanced cirrhosis of liver. Continue current treatment. Obtain chest x-ray. If the x-ray is not showing any significant residual effusion I would recommend removing chest tube. Continue current diuretic regimen. On account of advanced cirrhosis and hepatic hydrothorax, output through chest tube will never decreased below 100 mL to remove chest tube in an optimal fashion. Consultation Date/Type/Reason Admit Date/Time Sep 05, 2017 at 13:14 Type of Consultation: Pulm 24 HR Interval Summary Free Text/Dictation Patient's condition is stable. Denies any shortness of breath, chest pain. General exam; middle-aged male, awake alert, currently in no distress. Exam/Review of Systems Vital Signs Vitals Vital Signs Date Time Temp Pulse Resp B/P Pulse Ox O2 Delivery O2 Flow Rate FiO2 10/04/17 11:45 98.5 99 20 105/70 99 10/04/17 08:16 21 Intake and Output 10/03/17 10/03/17 10/04/17 14:59 22:59 06:59 Intake Total 800 ml 250 ml Output Total 750 ml 670 ml Balance 50 ml -420 ml Exam HEENT exam; supple neck, no JVD. No lymphadenopathy. Midline trachea. No thyromegaly. Patient has a multiple carious teeth. Chest exam; clear to auscultation. Right-sided chest tube in place. S1-S2 audible, no murmurs. Regular rhythm. Abdomen exam; soft, nondistended. No organomegaly. Bowel sounds audible. Extremity exam; no edema. 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 Results Result Diagram: 10/04/17 0710 10/04/17 0711 Results 24 hrs Laboratory Tests Test 10/04/17 07:10 10/04/17 07:11 White Blood Count 6.4 Red Blood Count 4.01 L Hemoglobin 9.3 L Hematocrit 29.2 L Mean Corpuscular Volume 72.8 L Mean Corpuscular Hemoglobin 23.2 L Mean Corpuscular Hemoglobin Concent 31.8 L Red Cell Distribution Width 21.9 H Platelet Count 293 # Mean Platelet Volume 10.2 Neutrophils % 58.3 Lymphocytes % 27.0 Monocytes % 9.7 Eosinophils % 4.2 Basophils % 0.3 Nucleated Red Blood Cells % 0.0 Neutrophils # 3.7 Lymphocytes # 1.7 Monocytes # 0.6 Eosinophils # 0.3 Basophils # 0.0 Nucleated Red Blood Cells # 0.0 Sodium Level 133 L Potassium Level 4.3 Chloride Level 97 Carbon Dioxide Level 28 Anion Gap 12 Blood Urea Nitrogen 15 Creatinine 0.73 Glucose Level 86 Calcium Level 9.1 Phosphorus Level 4.7 Magnesium Level 1.2 L Medications Medications Current Medications Lorazepam (Ativan) 2 mg Q10MIN PRN IV seizure Last administered on 09/06/17 09 :11; Admin Dose 2 MG; Start 09/05/17 at 16:00 Ondansetron HCl (Zofran Inj) 4 mg Q6H PRN IV NAUSEA AND/OR VOMITING; Start 09/05/17 at 16:30 Acetaminophen (Tylenol Tab) 650 mg Q6H PRN PO PAIN LEVEL 1-3 OR FEVER Last administered on 09/27/17 05:47; Admin Dose 650 MG; Start 09/05/17 at 16:30 Bisacodyl (Dulcolax) 5 mg DAILY PRN PO CONSTIPATION; Start 09/05/17 at 16:30 Lorazepam (Ativan) 1 mg Q6H PRN IV agitation/anxiety Last administered on 09/08 09:30; Admin Dose 1 MG; Start 09/05/17 at 17:00 Nicotine (Nicoderm 21 Mg/ 24hr) 1 patch Q24H TRANSDERM Last administered on 17:45; Admin Dose 1 PATCH; Start 09/05/17 at 17:00 Folic Acid (Folic Acid) 1 mg DAILY PO Last administered on 10/04/17 08:28; Admin Dose 1 MG; Start 09/07/17 at 16:30 Famotidine (Pepcid) 20 mg BID PO Last administered on 10/04/17 08:28; Admin Dose 20 MG; Start 09/09/17 at 21:00 Hydralazine HCl (Apresoline) 10 mg Q4H PRN IV ELEVATED BLOOD PRESSURE Last administered on 09/12/17 08:53; Admin Dose 10 MG; Start 09/10/17 at 04:55 Ferrous Sulfate (Ferrous Sulfate (Ec)) 325 mg DAILY PO Last administered on 08:28; Admin Dose 325 MG; Start 09/14/17 at 09:30 Lorazepam (Ativan) 1 mg Q6H PRN PO ANXIETY Last administered on 09/29/17 20:19 ; Admin Dose 1 MG; Start 09/17/17 at 15:00 Lisinopril (Zestril) 5 mg DAILY PO Last administered on 10/04/17 08:28; Admin Dose 5 MG; Start 09/22/17 at 09:00 Magnesium Oxide (Mag-Ox 400) 400 mg BID PO Last administered on 10/04/17 08:27 ; Admin Dose 400 MG; Start 09/25/17 at 21:00 Acetaminophen/ Hydrocodone Bitart ([place] (5/325)) 1 tab Q6H PRN PO pain Last administered on 10/03/17 08:07; Admin Dose 1 TAB; Start 10/01/17 at 13:00 Furosemide (Lasix) 20 mg DAILY PO Last administered on 10/04/17 08:28; Admin Dose 20 MG; Start 10/04/17 at 09:00 Spironolactone (Aldactone) 50 mg DAILY PO Last administered on 10/04/17 08:28 ; Admin Dose 50 MG; Start 10/04/17 at 09:00 KIRILL PEREZ Oct 04, 2017 12:04
--- NOTE | 2017-10-04 13:10 | RADRPT ---
PROCEDURE: XR Chest. CLINICAL INDICATION: Pleural effusion TECHNIQUE: A single AP view of the chest was obtained. COMPARISON: CHEST 09/29/2017; CHEST 09/20/2017; CHEST 09/19/2017; CHEST 09/18/2017 FINDINGS: There is a right pleural pigtail catheter in place. No focal airspace opacification, pleural effusion or pneumothorax is seen. The cardiomediastinal si lhouette is within normal limits for size. Calcifications are seen within the aortic arch. The osse ous structures are unremarkable. IMPRESSION: 1. No radiographic evidence of acute cardiopulmonary disease. No significant interval change. 2. Right pleural pigtail catheter. 3. Aortic atherosclerosis. RPTAT: HH .Claire Sofia MD, MD Date Time Electronically viewed and signed by .Claire Sofia MD, on 10/04/2017 13:10 .Brianda/
--- NOTE | 2017-10-04 13:57 | PN ---
Date/Time of Note Date/Time of Note DATE: 10/04/17 TIME: 13:55 Assessment/Plan VTE Prophylaxis VTE Prophylaxis Intervention: ambulation, SCD's Lines/Catheters IV Catheter Type (from Nrs): Saline Lock Urinary Cath still in place: No Assessment/Plan Chief Complaint/Hosp Course s: .22:no sob, no acute change 11.23: s/p chest tube, chest discomfort at site of chest tube insertion 11.24: no acute complaints 11.25 chest tube still draining, no acute complaints 11.26 no acute complaints 12.4 no acute complaints 12.5 no acute complaints, still draining on chest tube 12.6 no acute complaints 12.7 doing well, no acute complaints o: General: Patient resting comfortably, in no acute distress. oriented to self and place Head: Normocephalic atraumatic Eyes: EOMI, pupils reactive to light Neck: Supple, nontender, midline Respiratory: diminished breath sounds on R, no crackles or wheezing Cardiovascular: regular rate and rhythm, no obvious murmurs Gastrointestinal: non-tender to palpation, bowel sounds heard. Neurological: Moves all extremities spontaneously Skin: No new skin lesions, chest tube placed R Patient is a 51-year-old homeless alcoholic who presents with right pleural effusion, pneumonia, and alcohol withdrawal induced seizure. #R pleural effusion -recurrent -likely hepatic hydrothorax -will recur likely -aldactone/lasix increased, with elevated dose today, if electrolytes WNL tomorrow, will continue to increase to optimal dosage of 40mg lasix and 100mg aldactone daily #pneumo/hydropneumothorax -s/p thoracentesis on 09/17 -chest tube placed 09/19, draining mod amount still, pulm to order DC today -CT surgery recs appreciated -pleurx cath will be considered -needs TIPS, but patient likely too stable for TIPS, will consider if diuretics are not effective #tachycardia -resolving -prn metoprolol if BP permits #elevated AST/ALT -cirrhosis -us gallbladder noted #. Delirium tremens- resolved -librium tapered off - Ativan PRN for agitation/anxiety #. bacteremia, gram neg - continued on IV antibiotics for 10-14 days. stopped abx - remains afebrile -wbc stabilized #. acute respiratory failure, 2/2 PNA/pleural effusion- resolved - Pulmonology on board and recommendations appreciated - s/p 2 L drained on pleural effusion 1st time, 1 L drained 2nd time - Respiratory status stable. Saturating well #. Bilateral pneumonia, likely aspiration -abx finished #. Severe hyponatremia- resolved - Nephrology on board and recommendations appreciated #. Alcoholism - Banana bag stopped -thiamine and folic acid - Librium tapered #. Hypokalemia - replete as needed #. Hypomagnesia - Nephrology on board assisting with electrolyte abnormalities #. Disposition - chest tube management, poor prognosis given hepatic hydrothorax/pneumothorax -monitor when chest tube dc'd -slowly increase diruetics Problems: Exam/Review of Systems Vital Signs Vitals Vital Signs Date Time Temp Pulse Resp B/P Pulse Ox O2 Delivery O2 Flow Rate FiO2 10/04/17 13:50 98 20 21 10/04/17 11:45 98.5 105/70 99 Intake and Output 10/03/17 10/03/17 10/04/17 15:00 23:00 07:00 Intake Total 800 ml 250 ml Output Total 750 ml 670 ml Balance 50 ml -420 ml Results Result Diagram: 10/04/17 0710 10/04/17 0711 Results 24 hrs Laboratory Tests Test 10/04/17 07:10 10/04/17 07:11 White Blood Count 6.4 Red Blood Count 4.01 L Hemoglobin 9.3 L Hematocrit 29.2 L Mean Corpuscular Volume 72.8 L Mean Corpuscular Hemoglobin 23.2 L Mean Corpuscular Hemoglobin Concent 31.8 L Red Cell Distribution Width 21.9 H Platelet Count 293 # Mean Platelet Volume 10.2 Neutrophils % 58.3 Lymphocytes % 27.0 Monocytes % 9.7 Eosinophils % 4.2 Basophils % 0.3 Nucleated Red Blood Cells % 0.0 Neutrophils # 3.7 Lymphocytes # 1.7 Monocytes # 0.6 Eosinophils # 0.3 Basophils # 0.0 Nucleated Red Blood Cells # 0.0 Sodium Level 133 L Potassium Level 4.3 Chloride Level 97 Carbon Dioxide Level 28 Anion Gap 12 Blood Urea Nitrogen 15 Creatinine 0.73 Glucose Level 86 Calcium Level 9.1 Phosphorus Level 4.7 Magnesium Level 1.2 L Medications Medications Current Medications Lorazepam (Ativan) 2 mg Q10MIN PRN IV seizure Last administered on 09/06/17t 09 :11; Admin Dose 2 MG; Start 09/05/17 at 16:00 Ondansetron HCl (Zofran Inj) 4 mg Q6H PRN IV NAUSEA AND/OR VOMITING; Start 09/05/17 at 16:30 Acetaminophen (Tylenol Tab) 650 mg Q6H PRN PO PAIN LEVEL 1-3 OR FEVER Last administered on 09/27/17 05:47; Admin Dose 650 MG; Start 09/05/17 at 16:30 Bisacodyl (Dulcolax) 5 mg DAILY PRN PO CONSTIPATION; Start 09/05/17 at 16:30 Lorazepam (Ativan) 1 mg Q6H PRN IV agitation/anxiety Last administered on 09/08 09:30; Admin Dose 1 MG; Start 09/05/17 at 17:00 Nicotine (Nicoderm 21 Mg/ 24hr) 1 patch Q24H TRANSDERM Last administered on 17:45; Admin Dose 1 PATCH; Start 09/05/17 at 17:00 Folic Acid (Folic Acid) 1 mg DAILY PO Last administered on 10/04/17 08:28; Admin Dose 1 MG; Start 09/07/17 at 16:30 Famotidine (Pepcid) 20 mg BID PO Last administered on 10/04/17 08:28; Admin Dose 20 MG; Start 09/09/17 at 21:00 Hydralazine HCl (Apresoline) 10 mg Q4H PRN IV ELEVATED BLOOD PRESSURE Last administered on 09/12/17 08:53; Admin Dose 10 MG; Start 09/10/17 at 04:55 Ferrous Sulfate (Ferrous Sulfate (Ec)) 325 mg DAILY PO Last administered on 08:28; Admin Dose 325 MG; Start 09/14/17 at 09:30 Lorazepam (Ativan) 1 mg Q6H PRN PO ANXIETY Last administered on 09/29/17 20:19 ; Admin Dose 1 MG; Start 09/17/17 at 15:00 Lisinopril (Zestril) 5 mg DAILY PO Last administered on 10/04/17 08:28; Admin Dose 5 MG; Start 09/22/17 at 09:00 Magnesium Oxide (Mag-Ox 400) 400 mg BID PO Last administered on 10/04/17 08:27 ; Admin Dose 400 MG; Start 09/25/17 at 21:00 Acetaminophen/ Hydrocodone Bitart ([place] (5/325)) 1 tab Q6H PRN PO pain Last administered on 10/03/17 08:07; Admin Dose 1 TAB; Start 10/01/17 at 13:00 Furosemide (Lasix) 20 mg DAILY PO Last administered on 10/04/17 08:28; Admin Dose 20 MG; Start 10/04/17 at 09:00 Spironolactone (Aldactone) 50 mg DAILY PO Last administered on 10/04/17 08:28 ; Admin Dose 50 MG; Start 10/04/17 at 09:00 CATHERINE DUMONT Oct 04, 2017 13:57
[2017-10-04] MEDS: NICOTINE (21 MG/24 HR) PATCH TRANSDERM SCH (16:19)
[2017-10-05] VITALS (12 sets, daily range): BP systolic 100–131; BP diastolic 55–79; PULSE 89–99; RESP 17–21
[2017-10-05] MEDS: ALBUTEROL/IPRATROPIUM (NEB) 3 ML AMP HHN SCH ×2 (08:27→20:12)
[2017-10-05] MEDS: FAMOTIDINE 20 MG TAB PO SCH ×2 (08:33→20:34)
[2017-10-05] MEDS: LISINOPRIL 5 MG TAB PO SCH (08:33)
[2017-10-05] MEDS: SPIRONOLACTONE 25 MG TAB PO SCH (08:33)
[2017-10-05] MEDS: FOLIC ACID 1 MG TAB PO SCH (08:34)
[2017-10-05] MEDS: FERROUS SULFATE (EC) 325 MG TAB PO SCH (08:34)
[2017-10-05] MEDS: MAGNESIUM OXIDE 400 MG TAB PO SCH ×2 (08:34→20:34)
[2017-10-05] MEDS: FUROSEMIDE 20 MG TAB PO SCH (08:34)
[2017-10-05 08:45] LABS: BASOPHILS % 0.3 % (0.0-2.0); EOSINOPHILS # 0.3 10^3/ul (0.0-0.5); EOSINOPHILS % 3.7 % (0.0-7.0); HEMATOCRIT 29.9 % (42.0-52.0); HEMOGLOBIN 9.4 g/dl (14.0-18.0); LYMPHOCYTES # 1.9 10^3/ul (0.8-2.9); LYMPHOCYTES % 28.6 % (15.0-51.0); MEAN CORPUSCULAR HGB CONC 31.4 g/dl (32.0-37.0); MEAN CORPUSCULAR VOLUME 73.1 fl (82.0-101.0); MEAN PLATELET VOLUME 9.9 fl (7.4-10.4); MONOCYTE # 0.6 10^3/ul (0.3-0.9); MONOCYTES % 9.3 % (0.0-11.0); NEUTROPHIL # 3.9 10^3/ul (1.6-7.5); NEUTROPHILS % 57.7 % (39.0-77.0); PLATELET COUNT 339 10^3/UL (140-415); RED BLOOD COUNT 4.09 10^6/ul (4.70-6.10); RED CELL DISTRIBUTION WIDTH 21.9 % (11.5-14.5); WHITE BLOOD COUNT 6.8 10^3/ul (4.8-10.8)
[2017-10-05] MEDS ORDERED: MAGNESIUM SULFATE 2 GM/50 ML 50 ML IVPB ONE (09:00)
[2017-10-05 09:12] LABS: ALBUMIN 3.4 g/dl (3.3-4.9); ALBUMIN/GLOBULIN RATIO 0.85; BILIRUBIN,INDIRECT 0.2 mg/dl (0-1.1); BILIRUBIN,TOTAL 0.2 mg/dl (0.2-1.3); CALCIUM 9.5 mg/dl (8.4-10.2); CREATININE 0.73 mg/dl (0.61-1.24); POTASSIUM 4.5 mmol/L (3.5-5.1); TOTAL PROTEIN 7.4 g/dl (6.1-8.1)
--- NOTE | 2017-10-05 09:19 | CONS ---
Date/Time of Note Date/Time of Note DATE: 10/05/17 TIME: 09:18 Assessment/Plan Assessment/Plan Additional Assessment/Plan Chest x-ray was reviewed from yesterday which is totally clear. Right-sided chest tube is in place. Assessment and recommendations; 1. Patient admitted with shortness of breath due to right pleural effusion from hepatic hydrothorax, status post thoracentesis with resulting right pneumothorax requiring chest tube. Chest tube is draining about 100-120 ml per day. 2. Mild anemia. 3. Advanced cirrhosis of liver. Chest tube can be removed. Continue current diuretic regimen. Consultation Date/Type/Reason Admit Date/Time Sep 05, 2017 at 13:14 Type of Consultation: Pulm 24 HR Interval Summary Free Text/Dictation Patient's condition is stable. Remains awake alert. Denies any shortness of breath. Any chest pain. General exam; middle-aged male, awake alert, currently in no distress. Exam/Review of Systems Vital Signs Vitals Vital Signs Date Time Temp Pulse Resp B/P Pulse Ox O2 Delivery O2 Flow Rate FiO2 10/05/17 08:28 90 16 97 21 10/05/17 08:00 98.2 111/73 Intake and Output 10/04/17 10/04/17 10/05/17 15:00 23:00 07:00 Intake Total 50 ml 1000 ml 50 ml Output Total 800 ml 1235 ml 650 ml Balance -750 ml -235 ml -600 ml Exam HEENT exam; supple neck, no JVD. No lymphadenopathy. Midline trachea. No thyromegaly. Chest exam; clear to auscultation. S1-S2 audible, no murmurs. Regular rhythm. Right-sided chest tube in place. Abdomen exam; soft, nontender. No organomegaly. Bowel sounds audible. Extremity exam; no edema. 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 Results Result Diagram: 10/05/17 0801 10/04/17 0711 Results 24 hrs Laboratory Tests Test 10/05/17 07:47 10/05/17 08:01 Lab Scanned Report REFERENCE LAB White Blood Count 6.8 Red Blood Count 4.09 L Hemoglobin 9.4 L Hematocrit 29.9 L Mean Corpuscular Volume 73.1 L Mean Corpuscular Hemoglobin 23.0 L Mean Corpuscular Hemoglobin Concent 31.4 L Red Cell Distribution Width 21.9 H Platelet Count 339 Mean Platelet Volume 9.9 Neutrophils % 57.7 Lymphocytes % 28.6 Monocytes % 9.3 Eosinophils % 3.7 Basophils % 0.3 Nucleated Red Blood Cells % 0.0 Neutrophils # 3.9 Lymphocytes # 1.9 Monocytes # 0.6 Eosinophils # 0.3 Basophils # 0.0 Nucleated Red Blood Cells # 0.0 Ammonia 23 Medications Medications Current Medications Lorazepam (Ativan) 2 mg Q10MIN PRN IV seizure Last administered on 09/06/17 09 :11; Admin Dose 2 MG; Start 09/05/17 at 16:00 Ondansetron HCl (Zofran Inj) 4 mg Q6H PRN IV NAUSEA AND/OR VOMITING; Start 09/05/17 at 16:30 Acetaminophen (Tylenol Tab) 650 mg Q6H PRN PO PAIN LEVEL 1-3 OR FEVER Last administered on 09/27/17 05:47; Admin Dose 650 MG; Start 09/05/17 at 16:30 Bisacodyl (Dulcolax) 5 mg DAILY PRN PO CONSTIPATION; Start 09/05/17 at 16:30 Lorazepam (Ativan) 1 mg Q6H PRN IV agitation/anxiety Last administered on 09/08 09:30; Admin Dose 1 MG; Start 09/05/17 at 17:00 Nicotine (Nicoderm 21 Mg/ 24hr) 1 patch Q24H TRANSDERM Last administered on 16:19; Admin Dose 1 PATCH; Start 09/05/17 at 17:00 Folic Acid (Folic Acid) 1 mg DAILY PO Last administered on 10/05/17 08:34; Admin Dose 1 MG; Start 09/07/17 at 16:30 Famotidine (Pepcid) 20 mg BID PO Last administered on 10/05/17 08:33; Admin Dose 20 MG; Start 09/09/17 at 21:00 Hydralazine HCl (Apresoline) 10 mg Q4H PRN IV ELEVATED BLOOD PRESSURE Last administered on 09/12/17 08:53; Admin Dose 10 MG; Start 09/10/17 at 04:55 Ferrous Sulfate (Ferrous Sulfate (Ec)) 325 mg DAILY PO Last administered on 08:34; Admin Dose 325 MG; Start 09/14/17 at 09:30 Lorazepam (Ativan) 1 mg Q6H PRN PO ANXIETY Last administered on 09/29/17 20:19 ; Admin Dose 1 MG; Start 09/17/17 at 15:00 Lisinopril (Zestril) 5 mg DAILY PO Last administered on 10/05/17 08:33; Admin Dose 5 MG; Start 09/22/17 at 09:00 Magnesium Oxide (Mag-Ox 400) 400 mg BID PO Last administered on 10/05/17 08:34 ; Admin Dose 400 MG; Start 09/25/17 at 21:00 Acetaminophen/ Hydrocodone Bitart ([place] (5/325)) 1 tab Q6H PRN PO pain Last administered on 10/03/17 08:07; Admin Dose 1 TAB; Start 10/01/17 at 13:00 Furosemide (Lasix) 20 mg DAILY PO Last administered on 10/05/17 08:34; Admin Dose 20 MG; Start 10/04/17 at 09:00 Spironolactone 50 mg 50 mg DAILY PO Last administered on 10/05/17 08:33; Admin Dose 50 MG; Start 10/04/17 at 09:00 Magnesium Sulfate (Magnesium Sulfate 2 Gm/50 ml) 50 ml @ 25 mls/hr ONCE ONCE IVPB ; Start 10/05/17 at 09:00; Stop 10/05/17 at 10:59 KIRILL PEREZ Oct 05, 2017 09:19
--- NOTE | 2017-10-05 11:36 | PN ---
DATE: 10/05/2017 SUBJECTIVE: The patient is stable. No events overnight. OBJECTIVE: VITAL SIGNS: Blood pressure is 111/73, pulse 90, respirations 16, temperature 98.2. HEENT: Head is normocephalic. NECK: Supple. HEART: Regular rate. LUNGS: Show diminished breath sounds at base. ABDOMEN: Soft, nontender to palpation. No rebound or guarding. EXTREMITIES: Negative for clubbing, cyanosis, no edema. DERMATOLOGIC: No rashes. MUSCULOSKELETAL: No joint effusions. NEUROLOGIC: No change in exam. MEDICATIONS: Have been reviewed. LABORATORY DATA: Has been reviewed. ASSESSMENT AND PLAN: 1. Hypermagnesemia secondary to chronic alcohol abuse. Continue to monitor and replete. 2. Hyponatremia secondary to cirrhosis. Continue medical management free water restriction on diur etic therapy. 3. Hyperkalemia, improved. 4. Cirrhosis, currently decompensated. Continue medical management. 5. Right hepatic hydrothorax. The patient is status post chest tube. Continue to monitor. Consid er transjugular intrahepatic portosystemic shunt. 6. Status post respiratory failure. 7. Hypertension. Continue to monitor. Dictated By: SLIME CHANG/NTS Conf#: [id number] DID#: [id number]
--- NOTE | 2017-10-05 14:59 | PN ---
Date/Time of Note Date/Time of Note DATE: 10/05/17 TIME: 14:56 Assessment/Plan VTE Prophylaxis VTE Prophylaxis Intervention: SCD's Lines/Catheters IV Catheter Type (from Nrs): Saline Lock Urinary Cath still in place: No Assessment/Plan Chief Complaint/Hosp Course s: 11.22:no sob, no acute change 11.23: s/p chest tube, chest discomfort at site of chest tube insertion 11.24: no acute complaints 11.25 chest tube still draining, no acute complaints 11.26 no acute complaints 12.4 no acute complaints 12.5 no acute complaints, still draining on chest tube 12.6 no acute complaints 12.7 doing well, no acute complaints 12.8 walking around the unit easily o: General: Patient resting comfortably, in no acute distress. oriented to self and place Head: Normocephalic atraumatic Eyes: EOMI, pupils reactive to light Neck: Supple, nontender, midline Respiratory: diminished breath sounds on R, no crackles or wheezing Cardiovascular: regular rate and rhythm, no obvious murmurs Gastrointestinal: non-tender to palpation, bowel sounds heard. Neurological: Moves all extremities spontaneously Skin: No new skin lesions, chest tube placed R Patient is a 51-year-old homeless alcoholic who presents with right pleural effusion, pneumonia, and alcohol withdrawal induced seizure. #R pleural effusion -recurrent -likely hepatic hydrothorax -will recur likely -aldactone/lasix increased, with elevated dose today, if electrolytes WNL tomorrow, will continue to increase to optimal dosage of 40mg lasix and 100mg aldactone daily #pneumo/hydropneumothorax -s/p thoracentesis on 09/17 -chest tube placed 09/19, draining mod amount still, pulm to order DC today -CT surgery recs appreciated -pleurx cath will be considered -needs TIPS, but patient likely too stable for TIPS, will consider if diuretics are not effective #tachycardia -resolving -prn metoprolol if BP permits #elevated AST/ALT -cirrhosis -us gallbladder noted #. Delirium tremens- resolved -librium tapered off - Ativan PRN for agitation/anxiety #. bacteremia, gram neg - continued on IV antibiotics for 10-14 days. stopped abx - remains afebrile -wbc stabilized #. acute respiratory failure, 2/2 PNA/pleural effusion- resolved - Pulmonology on board and recommendations appreciated - s/p 2 L drained on pleural effusion 1st time, 1 L drained 2nd time - Respiratory status stable. Saturating well #. Bilateral pneumonia, likely aspiration -abx finished #. Severe hyponatremia- resolved - Nephrology on board and recommendations appreciated #. Alcoholism - Banana bag stopped -thiamine and folic acid - Librium tapered #. Hypokalemia - replete as needed #. Hypomagnesia - Nephrology on board assisting with electrolyte abnormalities #. Disposition - chest tube management, poor prognosis given hepatic hydrothorax/pneumothorax -monitor when chest tube dc'd -slowly increase diruetics Problems: Exam/Review of Systems Vital Signs Vitals Vital Signs Date Time Temp Pulse Resp B/P Pulse Ox O2 Delivery O2 Flow Rate FiO2 10/05/17 13:32 88 18 21 10/05/17 12:04 98.1 103/66 100 Intake and Output 10/04/17 10/04/17 10/05/17 15:00 23:00 07:00 Intake Total 50 ml 1000 ml 50 ml Output Total 800 ml 1235 ml 650 ml Balance -750 ml -235 ml -600 ml Results Result Diagram: 10/05/17 0801 10/05/17 0801 Results 24 hrs Laboratory Tests Test 10/05/17 07:47 10/05/17 08:01 Lab Scanned Report REFERENCE LAB White Blood Count 6.8 Red Blood Count 4.09 L Hemoglobin 9.4 L Hematocrit 29.9 L Mean Corpuscular Volume 73.1 L Mean Corpuscular Hemoglobin 23.0 L Mean Corpuscular Hemoglobin Concent 31.4 L Red Cell Distribution Width 21.9 H Platelet Count 339 Mean Platelet Volume 9.9 Neutrophils % 57.7 Lymphocytes % 28.6 Monocytes % 9.3 Eosinophils % 3.7 Basophils % 0.3 Nucleated Red Blood Cells % 0.0 Neutrophils # 3.9 Lymphocytes # 1.9 Monocytes # 0.6 Eosinophils # 0.3 Basophils # 0.0 Nucleated Red Blood Cells # 0.0 Sodium Level 135 Potassium Level 4.5 Chloride Level 96 L Carbon Dioxide Level 30 Anion Gap 14 Blood Urea Nitrogen 21 H Creatinine 0.73 Glucose Level 87 Calcium Level 9.5 Magnesium Level 1.4 L Total Bilirubin 0.2 Direct Bilirubin 0.00 Indirect Bilirubin 0.2 Aspartate Amino Transf (AST/SGOT) 42 Alanine Aminotransferase (ALT/SGPT) 49 Alkaline Phosphatase 193 H Ammonia 23 Total Protein 7.4 Albumin 3.4 Globulin 4.00 H Albumin/Globulin Ratio 0.85 Medications Medications Current Medications Lorazepam (Ativan) 2 mg Q10MIN PRN IV seizure Last administered on 09/06/17 09 :11; Admin Dose 2 MG; Start 09/05/17 at 16:00 Ondansetron HCl (Zofran Inj) 4 mg Q6H PRN IV NAUSEA AND/OR VOMITING; Start 09/05/17 at 16:30 Acetaminophen (Tylenol Tab) 650 mg Q6H PRN PO PAIN LEVEL 1-3 OR FEVER Last administered on 09/27/17 05:47; Admin Dose 650 MG; Start 09/05/17 at 16:30 Bisacodyl (Dulcolax) 5 mg DAILY PRN PO CONSTIPATION; Start 09/05/17 at 16:30 Lorazepam (Ativan) 1 mg Q6H PRN IV agitation/anxiety Last administered on 09/08 09:30; Admin Dose 1 MG; Start 09/05/17 at 17:00 Nicotine (Nicoderm 21 Mg/ 24hr) 1 patch Q24H TRANSDERM Last administered on 16:19; Admin Dose 1 PATCH; Start 09/05/17 at 17:00 Folic Acid (Folic Acid) 1 mg DAILY PO Last administered on 10/05/17 08:34; Admin Dose 1 MG; Start 09/07/17 at 16:30 Famotidine (Pepcid) 20 mg BID PO Last administered on 10/05/17 08:33; Admin Dose 20 MG; Start 09/09/17 at 21:00 Hydralazine HCl (Apresoline) 10 mg Q4H PRN IV ELEVATED BLOOD PRESSURE Last administered on 09/12/17 08:53; Admin Dose 10 MG; Start 09/10/17 at 04:55 Ferrous Sulfate (Ferrous Sulfate (Ec)) 325 mg DAILY PO Last administered on 08:34; Admin Dose 325 MG; Start 09/14/17 at 09:30 Lorazepam (Ativan) 1 mg Q6H PRN PO ANXIETY Last administered on 09/29/17 20:19 ; Admin Dose 1 MG; Start 09/17/17 at 15:00 Lisinopril (Zestril) 5 mg DAILY PO Last administered on 10/05/17 08:33; Admin Dose 5 MG; Start 09/22/17 at 09:00 Magnesium Oxide (Mag-Ox 400) 400 mg BID PO Last administered on 10/05/17 08:34 ; Admin Dose 400 MG; Start 09/25/17 at 21:00 Acetaminophen/ Hydrocodone Bitart ([place] (5/325)) 1 tab Q6H PRN PO pain Last administered on 10/03/17 08:07; Admin Dose 1 TAB; Start 10/01/17 at 13:00 Furosemide (Lasix) 30 mg DAILY@06 PO ; Start 10/06/17 at 06:00 Spironolactone (Aldactone) 75 mg DAILY@06 PO ; Start 10/06/17 at 06:00 CATHERINE DUMONT Oct 05, 2017 14:59
[2017-10-05] MEDS: NICOTINE (21 MG/24 HR) PATCH TRANSDERM SCH (16:56)
[2017-10-06] VITALS (11 sets, daily range): BP systolic 104–136; BP diastolic 67–78; PULSE 82–90; RESP 18–22
[2017-10-06] MEDS: SPIRONOLACTONE 25 MG TAB PO SCH (05:22)
[2017-10-06] MEDS: FUROSEMIDE 20 MG TAB PO SCH (05:22)
[2017-10-06 07:22] LABS: ABNORMAL IP MESSAGE 1; BASOPHILS % 0.3 % (0.0-2.0); EOSINOPHILS # 0.2 10^3/ul (0.0-0.5); EOSINOPHILS % 3.2 % (0.0-7.0); HEMATOCRIT 29.4 % (42.0-52.0); HEMOGLOBIN 9.4 g/dl (14.0-18.0); LYMPHOCYTES # 2.3 10^3/ul (0.8-2.9); LYMPHOCYTES % 31.9 % (15.0-51.0); MEAN CORPUSCULAR HEMOGLOBIN 23.3 pg (29.0-33.0); MEAN CORPUSCULAR VOLUME 72.8 fl (82.0-101.0); MEAN PLATELET VOLUME 9.2 fl (7.4-10.4); MONOCYTE # 0.8 10^3/ul (0.3-0.9); MONOCYTES % 10.3 % (0.0-11.0); NEUTROPHIL # 3.9 10^3/ul (1.6-7.5); NEUTROPHILS % 53.9 % (39.0-77.0); PLATELET COUNT 327 10^3/UL (140-415); POSITIVE DIFF @See below; RED BLOOD COUNT 4.04 10^6/ul (4.70-6.10); RED CELL DISTRIBUTION WIDTH 22.2 % (11.5-14.5); WHITE BLOOD COUNT 7.3 10^3/ul (4.8-10.8)
[2017-10-06 07:53] LABS: CALCIUM 9.9 mg/dl (8.4-10.2); CREATININE 0.94 mg/dl (0.61-1.24); MAGNESIUM 1.4 mg/dl (1.7-2.5); PHOSPHORUS 5.7 mg/dl (2.5-4.9); POTASSIUM 4.5 mmol/L (3.5-5.1)
[2017-10-06] MEDS: ALBUTEROL/IPRATROPIUM (NEB) 3 ML AMP HHN SCH ×3 (08:40→20:53)
[2017-10-06] MEDS: MAGNESIUM OXIDE 400 MG TAB PO SCH ×2 (09:06→20:02)
[2017-10-06] MEDS: LISINOPRIL 5 MG TAB PO SCH (09:07)
[2017-10-06] MEDS: FOLIC ACID 1 MG TAB PO SCH (09:07)
[2017-10-06] MEDS: FAMOTIDINE 20 MG TAB PO SCH ×2 (09:07→20:02)
[2017-10-06] MEDS: FERROUS SULFATE (EC) 325 MG TAB PO SCH (09:07)
--- NOTE | 2017-10-06 09:18 | PN ---
Date/Time of Note Date/Time of Note DATE: 10/06/17 TIME: 09:15 Assessment/Plan Lines/Catheters IV Catheter Type (from Nrs): Saline Lock Lema in Place (from Nrsg): No Assessment/Plan Chief Complaint/Hosp Course IMPRESSION: Status post chest tube placement. 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 -Will DC CT in next few days Problems: Subjective 24 Hr Interval Summary Constitutional: improved Pain Control: mild Exam/Review of Systems Vital Signs Vitals Vital Signs Date Time Temp Pulse Resp B/P Pulse Ox O2 Delivery O2 Flow Rate FiO2 10/06/17 08:40 95 20 98 21 10/06/17 08:18 98.0 110/78 Intake and Output 10/05/17 10/05/17 10/06/17 15:00 23:00 07:00 Intake Total 50 ml 1020 ml 250 ml Output Total 930 ml 580 ml Balance 50 ml 90 ml -330 ml Exam Neck: non-tender, supple Respiratory: clear to auscultation, normal air movement Cardiovascular: nl pulses, regular rate and rhythm Gastrointestinal: nl liver, spleen, non-tender, soft Results Result Diagram: 10/06/17 0707 10/06/17 0707 CHET MONREAL MD Oct 06, 2017 09:18
--- NOTE | 2017-10-06 09:58 | CONS ---
Date/Time of Note Date/Time of Note DATE: 10/06/17 TIME: 09:58 Consult Date/Type/Reason Admit Date/Time Sep 05, 2017 at 13:14 Initial Consult Date Type of Consultation: nephrology Subjective good uop d/w dr Laney [place]: Head is normocephalic. NECK: Supple. HEART: Regular rate. LUNGS: Show diminished breath sounds at base. ABDOMEN: Soft, nontender to palpation. No rebound or guarding. EXTREMITIES: Negative for clubbing, cyanosis, no edema. DERMATOLOGIC: No rashes. MUSCULOSKELETAL: No joint effusions. NEUROLOGIC: No change in exam. Objective Vital Signs Date Time Temp Pulse Resp B/P Pulse Ox O2 Delivery O2 Flow Rate FiO2 10/06/17 08:40 95 20 98 21 10/06/17 08:18 98.0 110/78 Intake and Output 10/05/17 10/05/17 10/06/17 15:00 23:00 07:00 Intake Total 50 ml 1020 ml 250 ml Output Total 930 ml 580 ml Balance 50 ml 90 ml -330 ml Results/Medications Result Diagram: 10/06/17 0707 10/06/17 0707 Results 24 hrs Laboratory Tests Test 10/06/17 07:07 White Blood Count 7.3 Red Blood Count 4.04 L Hemoglobin 9.4 L Hematocrit 29.4 L Mean Corpuscular Volume 72.8 L Mean Corpuscular Hemoglobin 23.3 L Mean Corpuscular Hemoglobin Concent 32.0 Red Cell Distribution Width 22.2 H Platelet Count 327 Mean Platelet Volume 9.2 Neutrophils % 53.9 Lymphocytes % 31.9 Monocytes % 10.3 Eosinophils % 3.2 Basophils % 0.3 Nucleated Red Blood Cells % 0.0 Neutrophils # 3.9 Lymphocytes # 2.3 Monocytes # 0.8 Eosinophils # 0.2 Basophils # 0.0 Nucleated Red Blood Cells # 0.0 Sodium Level 135 Potassium Level 4.5 Chloride Level 95 L Carbon Dioxide Level 30 Anion Gap 15 Blood Urea Nitrogen 24 H Creatinine 0.94 Glucose Level 91 Calcium Level 9.9 Phosphorus Level 5.7 H Magnesium Level 1.4 L Medications Current Medications Lorazepam (Ativan) 2 mg Q10MIN PRN IV seizure Last administered on 09/06/17t 09 :11; Admin Dose 2 MG; Start 09/05/17 at 16:00 Ondansetron HCl (Zofran Inj) 4 mg Q6H PRN IV NAUSEA AND/OR VOMITING; Start 09/05/17 at 16:30 Acetaminophen (Tylenol Tab) 650 mg Q6H PRN PO PAIN LEVEL 1-3 OR FEVER Last administered on 09/27/17 05:47; Admin Dose 650 MG; Start 09/05/17 at 16:30 Bisacodyl (Dulcolax) 5 mg DAILY PRN PO CONSTIPATION; Start 09/05/17 at 16:30 Lorazepam (Ativan) 1 mg Q6H PRN IV agitation/anxiety Last administered on 09/08 09:30; Admin Dose 1 MG; Start 09/05/17 at 17:00 Nicotine (Nicoderm 21 Mg/ 24hr) 1 patch Q24H TRANSDERM Last administered on 16:56; Admin Dose 1 PATCH; Start 09/05/17 at 17:00 Folic Acid (Folic Acid) 1 mg DAILY PO Last administered on 10/06/17 09:07; Admin Dose 1 MG; Start 09/07/17 at 16:30 Famotidine (Pepcid) 20 mg BID PO Last administered on 10/06/17 09:07; Admin Dose 20 MG; Start 09/09/17 at 21:00 Hydralazine HCl (Apresoline) 10 mg Q4H PRN IV ELEVATED BLOOD PRESSURE Last administered on 09/12/17 08:53; Admin Dose 10 MG; Start 09/10/17 at 04:55 Ferrous Sulfate (Ferrous Sulfate (Ec)) 325 mg DAILY PO Last administered on 09:07; Admin Dose 325 MG; Start 09/14/17 at 09:30 Lorazepam (Ativan) 1 mg Q6H PRN PO ANXIETY Last administered on 09/29/17 20:19 ; Admin Dose 1 MG; Start 09/17/17 at 15:00 Lisinopril (Zestril) 5 mg DAILY PO Last administered on 10/06/17 09:07; Admin Dose 5 MG; Start 09/22/17 at 09:00 Magnesium Oxide (Mag-Ox 400) 400 mg BID PO Last administered on 10/06/17 09:06 ; Admin Dose 400 MG; Start 09/25/17 at 21:00 Acetaminophen/ Hydrocodone Bitart ([place] (5/325)) 1 tab Q6H PRN PO pain Last administered on 10/03/17 08:07; Admin Dose 1 TAB; Start 10/01/17 at 13:00 Furosemide (Lasix) 30 mg DAILY@06 PO Last administered on 10/06/17 05:22; Admin Dose 30 MG; Start 10/06/17 at 06:00 Spironolactone (Aldactone) 75 mg DAILY@06 PO Last administered on 10/06/17 05: 22; Admin Dose 75 MG; Start 10/06/17 at 06:00 Assessment/Plan Chief Complaint/Hosp Course 1. Hypermagnesemia secondary to chronic alcohol abuse. Continue to monitor and replete. 2. Hyponatremia secondary to cirrhosis. Continue medical management free water restriction on diuretic therapy. 3. Hyperkalemia, improved. 4. Cirrhosis, currently decompensated. Continue medical management. 5. Right hepatic hydrothorax. The patient is status post chest tube. Continue to monitor. Consider transjugular intrahepatic portosystemic shunt. 6. Status post respiratory failure. 7. Hypertension. Continue to monitor. Problems: RADHA OLSON MD Oct 06, 2017 09:58
[2017-10-06] MEDS ORDERED: MAGNESIUM SULFATE 2 GM/50 ML 50 ML IVPB ONE (11:30)
--- NOTE | 2017-10-06 14:01 | PN ---
Date/Time of Note Date/Time of Note DATE: 10/06/17 TIME: 14:00 Assessment/Plan VTE Prophylaxis VTE Prophylaxis Intervention: ambulation, SCD's Lines/Catheters IV Catheter Type (from Nrs): Saline Lock Urinary Cath still in place: No Assessment/Plan Chief Complaint/Hosp Course s: 12.5 no acute complaints, still draining on chest tube 12.6 no acute complaints 12.7 doing well, no acute complaints 12.8 walking around the unit easily 12.9 no new complaints o: General: Patient resting comfortably, in no acute distress. oriented to self and place Head: Normocephalic atraumatic Eyes: EOMI, pupils reactive to light Neck: Supple, nontender, midline Respiratory: diminished breath sounds on R, no crackles or wheezing Cardiovascular: regular rate and rhythm, no obvious murmurs Gastrointestinal: non-tender to palpation, bowel sounds heard. Neurological: Moves all extremities spontaneously Skin: No new skin lesions, chest tube placed R Patient is a 51-year-old homeless alcoholic who presents with right pleural effusion, pneumonia, and alcohol withdrawal induced seizure. #R pleural effusion -recurrent -likely hepatic hydrothorax -will recur likely -aldactone/lasix increased, with elevated dose today, if electrolytes WNL tomorrow, will continue to increase to optimal dosage of 40mg lasix and 100mg aldactone daily #pneumo/hydropneumothorax -s/p thoracentesis on 09/17 -chest tube placed 09/19, draining mod amount still, pulm to order DC today -CT surgery recs appreciated -pleurx cath will be considered -needs TIPS, but patient likely too stable for TIPS, will consider if diuretics are not effective #tachycardia -resolving -prn metoprolol if BP permits #elevated AST/ALT -cirrhosis -us gallbladder noted #. Delirium tremens- resolved -librium tapered off - Ativan PRN for agitation/anxiety #. bacteremia, gram neg - continued on IV antibiotics for 10-14 days. stopped abx - remains afebrile -wbc stabilized #. acute respiratory failure, 2/2 PNA/pleural effusion- resolved - Pulmonology on board and recommendations appreciated - s/p 2 L drained on pleural effusion 1st time, 1 L drained 2nd time - Respiratory status stable. Saturating well #. Bilateral pneumonia, likely aspiration -abx finished #. Severe hyponatremia- resolved - Nephrology on board and recommendations appreciated #. Alcoholism - Banana bag stopped -thiamine and folic acid - Librium tapered #. Hypokalemia - replete as needed #. Hypomagnesia - Nephrology on board assisting with electrolyte abnormalities #. Disposition - chest tube management, poor prognosis given hepatic hydrothorax/pneumothorax -monitor when chest tube dc'd, CT surgery plans removal in a few days -slowly increase diruetics Problems: Exam/Review of Systems Vital Signs Vitals Vital Signs Date Time Temp Pulse Resp B/P Pulse Ox O2 Delivery O2 Flow Rate FiO2 10/06/17 12:10 98.0 87 18 112/68 98 10/06/17 08:40 21 Intake and Output 10/05/17 10/05/17 10/06/17 14:59 22:59 06:59 Intake Total 50 ml 1020 ml 250 ml Output Total 930 ml 580 ml Balance 50 ml 90 ml -330 ml Results Result Diagram: 10/06/17 0707 10/06/17 0707 Results 24 hrs Laboratory Tests Test 10/06/17 07:07 White Blood Count 7.3 Red Blood Count 4.04 L Hemoglobin 9.4 L Hematocrit 29.4 L Mean Corpuscular Volume 72.8 L Mean Corpuscular Hemoglobin 23.3 L Mean Corpuscular Hemoglobin Concent 32.0 Red Cell Distribution Width 22.2 H Platelet Count 327 Mean Platelet Volume 9.2 Neutrophils % 53.9 Lymphocytes % 31.9 Monocytes % 10.3 Eosinophils % 3.2 Basophils % 0.3 Nucleated Red Blood Cells % 0.0 Neutrophils # 3.9 Lymphocytes # 2.3 Monocytes # 0.8 Eosinophils # 0.2 Basophils # 0.0 Nucleated Red Blood Cells # 0.0 Sodium Level 135 Potassium Level 4.5 Chloride Level 95 L Carbon Dioxide Level 30 Anion Gap 15 Blood Urea Nitrogen 24 H Creatinine 0.94 Glucose Level 91 Calcium Level 9.9 Phosphorus Level 5.7 H Magnesium Level 1.4 L Medications Medications Current Medications Lorazepam (Ativan) 2 mg Q10MIN PRN IV seizure Last administered on 09/06/17t 09 :11; Admin Dose 2 MG; Start 09/05/17 at 16:00 Ondansetron HCl (Zofran Inj) 4 mg Q6H PRN IV NAUSEA AND/OR VOMITING; Start 09/05/17 at 16:30 Acetaminophen (Tylenol Tab) 650 mg Q6H PRN PO PAIN LEVEL 1-3 OR FEVER Last administered on 09/27/17 05:47; Admin Dose 650 MG; Start 09/05/17 at 16:30 Bisacodyl (Dulcolax) 5 mg DAILY PRN PO CONSTIPATION; Start 09/05/17 at 16:30 Lorazepam (Ativan) 1 mg Q6H PRN IV agitation/anxiety Last administered on 09/08 09:30; Admin Dose 1 MG; Start 09/05/17 at 17:00 Nicotine (Nicoderm 21 Mg/ 24hr) 1 patch Q24H TRANSDERM Last administered on 16:56; Admin Dose 1 PATCH; Start 09/05/17 at 17:00 Folic Acid (Folic Acid) 1 mg DAILY PO Last administered on 10/06/17 09:07; Admin Dose 1 MG; Start 09/07/17 at 16:30 Famotidine (Pepcid) 20 mg BID PO Last administered on 10/06/17 09:07; Admin Dose 20 MG; Start 09/09/17 at 21:00 Hydralazine HCl (Apresoline) 10 mg Q4H PRN IV ELEVATED BLOOD PRESSURE Last administered on 09/12/17 08:53; Admin Dose 10 MG; Start 09/10/17 at 04:55 Ferrous Sulfate (Ferrous Sulfate (Ec)) 325 mg DAILY PO Last administered on 09:07; Admin Dose 325 MG; Start 09/14/17 at 09:30 Lorazepam (Ativan) 1 mg Q6H PRN PO ANXIETY Last administered on 09/29/17 20:19 ; Admin Dose 1 MG; Start 09/17/17 at 15:00 Lisinopril (Zestril) 5 mg DAILY PO Last administered on 10/06/17 09:07; Admin Dose 5 MG; Start 09/22/17 at 09:00 Magnesium Oxide (Mag-Ox 400) 400 mg BID PO Last administered on 10/06/17 09:06 ; Admin Dose 400 MG; Start 09/25/17 at 21:00 Acetaminophen/ Hydrocodone Bitart ([place] (5/325)) 1 tab Q6H PRN PO pain Last administered on 10/03/17 08:07; Admin Dose 1 TAB; Start 10/01/17 at 13:00 Furosemide (Lasix) 30 mg DAILY@06 PO Last administered on 10/06/17 05:22; Admin Dose 30 MG; Start 10/06/17 at 06:00 Spironolactone (Aldactone) 75 mg DAILY@06 PO Last administered on 10/06/17 05: 22; Admin Dose 75 MG; Start 10/06/17 at 06:00 CATHERINE DUMONT Oct 06, 2017 14:01
--- NOTE | 2017-10-06 16:33 | CONS ---
Date/Time of Note Date/Time of Note DATE: 10/06/17 TIME: 16:31 Consult Date/Type/Reason Admit Date/Time Sep 05, 2017 at 13:14 Type of Consultation: Pulm/CCM Subjective No events. Objective Vital Signs Date Time Temp Pulse Resp B/P Pulse Ox O2 Delivery O2 Flow Rate FiO2 10/06/17 16:07 98.0 73 18 115/72 98 10/06/17 13:40 21 Intake and Output 10/05/17 10/05/17 10/06/17 15:00 23:00 07:00 Intake Total 50 ml 1020 ml 250 ml Output Total 930 ml 580 ml Balance 50 ml 90 ml -330 ml Exam HEENT: Neck supple; no JVD; no LAD CVS: RRR, S1 and S2 CHEST: Clear ABD: Soft, NT, + BS EXT: No c/c/e Results/Medications Result Diagram: 10/06/17 0707 10/06/17 0707 Results 24 hrs Laboratory Tests Test 10/06/17 07:07 White Blood Count 7.3 Red Blood Count 4.04 L Hemoglobin 9.4 L Hematocrit 29.4 L Mean Corpuscular Volume 72.8 L Mean Corpuscular Hemoglobin 23.3 L Mean Corpuscular Hemoglobin Concent 32.0 Red Cell Distribution Width 22.2 H Platelet Count 327 Mean Platelet Volume 9.2 Neutrophils % 53.9 Lymphocytes % 31.9 Monocytes % 10.3 Eosinophils % 3.2 Basophils % 0.3 Nucleated Red Blood Cells % 0.0 Neutrophils # 3.9 Lymphocytes # 2.3 Monocytes # 0.8 Eosinophils # 0.2 Basophils # 0.0 Nucleated Red Blood Cells # 0.0 Sodium Level 135 Potassium Level 4.5 Chloride Level 95 L Carbon Dioxide Level 30 Anion Gap 15 Blood Urea Nitrogen 24 H Creatinine 0.94 Glucose Level 91 Calcium Level 9.9 Phosphorus Level 5.7 H Magnesium Level 1.4 L Medications Current Medications Lorazepam (Ativan) 2 mg Q10MIN PRN IV seizure Last administered on 09/06/17t 09 :11; Admin Dose 2 MG; Start 09/05/17 at 16:00 Ondansetron HCl (Zofran Inj) 4 mg Q6H PRN IV NAUSEA AND/OR VOMITING; Start 09/05/17 at 16:30 Acetaminophen (Tylenol Tab) 650 mg Q6H PRN PO PAIN LEVEL 1-3 OR FEVER Last administered on 09/27/17 05:47; Admin Dose 650 MG; Start 09/05/17 at 16:30 Bisacodyl (Dulcolax) 5 mg DAILY PRN PO CONSTIPATION; Start 09/05/17 at 16:30 Lorazepam (Ativan) 1 mg Q6H PRN IV agitation/anxiety Last administered on 09/08 09:30; Admin Dose 1 MG; Start 09/05/17 at 17:00 Nicotine (Nicoderm 21 Mg/ 24hr) 1 patch Q24H TRANSDERM Last administered on 16:56; Admin Dose 1 PATCH; Start 09/05/17 at 17:00 Folic Acid (Folic Acid) 1 mg DAILY PO Last administered on 10/06/17 09:07; Admin Dose 1 MG; Start 09/07/17 at 16:30 Famotidine (Pepcid) 20 mg BID PO Last administered on 10/06/17 09:07; Admin Dose 20 MG; Start 09/09/17 at 21:00 Hydralazine HCl (Apresoline) 10 mg Q4H PRN IV ELEVATED BLOOD PRESSURE Last administered on 09/12/17 08:53; Admin Dose 10 MG; Start 09/10/17 at 04:55 Ferrous Sulfate (Ferrous Sulfate (Ec)) 325 mg DAILY PO Last administered on 09:07; Admin Dose 325 MG; Start 09/14/17 at 09:30 Lorazepam (Ativan) 1 mg Q6H PRN PO ANXIETY Last administered on 09/29/17 20:19 ; Admin Dose 1 MG; Start 09/17/17 at 15:00 Lisinopril (Zestril) 5 mg DAILY PO Last administered on 10/06/17 09:07; Admin Dose 5 MG; Start 09/22/17 at 09:00 Magnesium Oxide (Mag-Ox 400) 400 mg BID PO Last administered on 10/06/17 09:06 ; Admin Dose 400 MG; Start 09/25/17 at 21:00 Acetaminophen/ Hydrocodone Bitart ([place] (5/325)) 1 tab Q6H PRN PO pain Last administered on 10/03/17 08:07; Admin Dose 1 TAB; Start 10/01/17 at 13:00 Furosemide (Lasix) 30 mg DAILY@06 PO Last administered on 10/06/17 05:22; Admin Dose 30 MG; Start 10/06/17 at 06:00 Spironolactone (Aldactone) 75 mg DAILY@06 PO Last administered on 10/06/17 05: 22; Admin Dose 75 MG; Start 10/06/17 at 06:00 Assessment/Plan Additional Assessment/Plan IMP: 1. Hepatic Hydrothorax complicated by a PTX s/p small-bore chest tube RECS: 1. Remove small bore CT MOISES SHEPHERD MD Oct 06, 2017 16:33
[2017-10-06] MEDS: NICOTINE (21 MG/24 HR) PATCH TRANSDERM SCH (18:37)
[2017-10-07] VITALS (12 sets, daily range): BP systolic 97–128; BP diastolic 61–80; PULSE 83–100; RESP 17–18
[2017-10-07] MEDS: SPIRONOLACTONE 25 MG TAB PO SCH (05:16)
[2017-10-07] MEDS: FUROSEMIDE 20 MG TAB PO SCH (05:17)
[2017-10-07 06:40] LABS: BASOPHILS % 0.1 % (0.0-2.0); EOSINOPHILS # 0.2 10^3/ul (0.0-0.5); EOSINOPHILS % 2.6 % (0.0-7.0); HEMATOCRIT 27.5 % (42.0-52.0); HEMOGLOBIN 8.6 g/dl (14.0-18.0); LYMPHOCYTES # 2.2 10^3/ul (0.8-2.9); LYMPHOCYTES % 30.7 % (15.0-51.0); MEAN CORPUSCULAR HEMOGLOBIN 22.9 pg (29.0-33.0); MEAN CORPUSCULAR HGB CONC 31.3 g/dl (32.0-37.0); MEAN CORPUSCULAR VOLUME 73.3 fl (82.0-101.0); MEAN PLATELET VOLUME 9.8 fl (7.4-10.4); MONOCYTE # 0.8 10^3/ul (0.3-0.9); MONOCYTES % 11.6 % (0.0-11.0); NEUTROPHIL # 3.9 10^3/ul (1.6-7.5); NEUTROPHILS % 54.7 % (39.0-77.0); PLATELET COUNT 281 10^3/UL (140-415); RED BLOOD COUNT 3.75 10^6/ul (4.70-6.10); WHITE BLOOD COUNT 7.2 10^3/ul (4.8-10.8)
[2017-10-07 07:10] LABS: CALCIUM 9.5 mg/dl (8.4-10.2); CREATININE 0.94 mg/dl (0.61-1.24); MAGNESIUM 1.5 mg/dl (1.7-2.5); PHOSPHORUS 5.4 mg/dl (2.5-4.9); POTASSIUM 4.1 mmol/L (3.5-5.1)
[2017-10-07] MEDS: ALBUTEROL/IPRATROPIUM (NEB) 3 ML AMP HHN SCH ×3 (08:15→19:39)
[2017-10-07] MEDS: FOLIC ACID 1 MG TAB PO SCH (08:54)
[2017-10-07] MEDS: FAMOTIDINE 20 MG TAB PO SCH ×2 (08:55→20:06)
[2017-10-07] MEDS: MAGNESIUM OXIDE 400 MG TAB PO SCH ×2 (08:55→20:07)
[2017-10-07] MEDS: FERROUS SULFATE (EC) 325 MG TAB PO SCH (08:55)
[2017-10-07] MEDS: LISINOPRIL 5 MG TAB PO SCH (08:56)
[2017-10-07] MEDS ORDERED: MAGNESIUM SULFATE 1 GM/D5W 100 ML IVPB ONE (09:30)
--- NOTE | 2017-10-07 09:30 | CONS ---
Date/Time of Note Date/Time of Note DATE: 10/07/17 TIME: 09:29 Consult Date/Type/Reason Admit Date/Time Sep 05, 2017 at 13:14 Type of Consultation: nephrology Subjective all noted good uop Objective Vital Signs Date Time Temp Pulse Resp B/P Pulse Ox O2 Delivery O2 Flow Rate FiO2 10/07/17 08:15 74 20 96 21 10/07/17 08:08 98.0 107/64 Intake and Output 10/06/17 10/06/17 10/07/17 15:00 23:00 07:00 Intake Total 870 ml 220 ml Output Total 1030 ml 540 ml Balance -160 ml -320 ml Results/Medications Result Diagram: 10/07/1710 10/07/17 0610 Results 24 hrs Laboratory Tests Test 10/07/17 06:10 White Blood Count 7.2 Red Blood Count 3.75 L Hemoglobin 8.6 L Hematocrit 27.5 L Mean Corpuscular Volume 73.3 L Mean Corpuscular Hemoglobin 22.9 L Mean Corpuscular Hemoglobin Concent 31.3 L Red Cell Distribution Width 22.0 H Platelet Count 281 Mean Platelet Volume 9.8 Neutrophils % 54.7 Lymphocytes % 30.7 Monocytes % 11.6 H Eosinophils % 2.6 Basophils % 0.1 Nucleated Red Blood Cells % 0.0 Neutrophils # 3.9 Lymphocytes # 2.2 Monocytes # 0.8 Eosinophils # 0.2 Basophils # 0.0 Nucleated Red Blood Cells # 0.0 Sodium Level 135 Potassium Level 4.1 Chloride Level 97 Carbon Dioxide Level 29 Anion Gap 13 Blood Urea Nitrogen 23 H Creatinine 0.94 Glucose Level 104 Calcium Level 9.5 Phosphorus Level 5.4 H Magnesium Level 1.5 L Medications Current Medications Lorazepam (Ativan) 2 mg Q10MIN PRN IV seizure Last administered on 09/06/17 09 :11; Admin Dose 2 MG; Start 09/05/17 at 16:00 Ondansetron HCl (Zofran Inj) 4 mg Q6H PRN IV NAUSEA AND/OR VOMITING; Start 09/05/17 at 16:30 Acetaminophen (Tylenol Tab) 650 mg Q6H PRN PO PAIN LEVEL 1-3 OR FEVER Last administered on 09/27/17 05:47; Admin Dose 650 MG; Start 09/05/17 at 16:30 Bisacodyl (Dulcolax) 5 mg DAILY PRN PO CONSTIPATION; Start 09/05/17 at 16:30 Lorazepam (Ativan) 1 mg Q6H PRN IV agitation/anxiety Last administered on 09/08 09:30; Admin Dose 1 MG; Start 09/05/17 at 17:00 Nicotine (Nicoderm 21 Mg/ 24hr) 1 patch Q24H TRANSDERM Last administered on 18:37; Admin Dose 1 PATCH; Start 09/05/17 at 17:00 Folic Acid (Folic Acid) 1 mg DAILY PO Last administered on 10/07/17 08:54; Admin Dose 1 MG; Start 09/07/17 at 16:30 Famotidine (Pepcid) 20 mg BID PO Last administered on 10/07/17 08:55; Admin Dose 20 MG; Start 09/09/17 at 21:00 Hydralazine HCl (Apresoline) 10 mg Q4H PRN IV ELEVATED BLOOD PRESSURE Last administered on 09/12/17 08:53; Admin Dose 10 MG; Start 09/10/17 at 04:55 Ferrous Sulfate (Ferrous Sulfate (Ec)) 325 mg DAILY PO Last administered on 08:55; Admin Dose 325 MG; Start 09/14/17 at 09:30 Lorazepam (Ativan) 1 mg Q6H PRN PO ANXIETY Last administered on 09/29/17 20:19 ; Admin Dose 1 MG; Start 09/17/17 at 15:00 Lisinopril (Zestril) 5 mg DAILY PO Last administered on 10/07/17 08:56; Admin Dose 5 MG; Start 09/22/17 at 09:00 Magnesium Oxide (Mag-Ox 400) 400 mg BID PO Last administered on 10/07/17 08: 55; Admin Dose 400 MG; Start 09/25/17 at 21:00 Acetaminophen/ Hydrocodone Bitart ([place] (5/325)) 1 tab Q6H PRN PO pain Last administered on 10/03/17 08:07; Admin Dose 1 TAB; Start 10/01/17 at 13:00 Furosemide (Lasix) 30 mg DAILY@06 PO Last administered on 10/07/17 05:17; Admin Dose 30 MG; Start 10/06/17 at 06:00 Spironolactone (Aldactone) 75 mg DAILY@06 PO Last administered on 10/07/17 05 :16; Admin Dose 75 MG; Start 10/06/17 at 06:00 Assessment/Plan Chief Complaint/Hosp Course 1. Hypomagnesemia secondary to chronic alcohol abuse. Continue to monitor and replete. 2. Hyponatremia secondary to cirrhosis. Continue medical management free water restriction on diuretic therapy. 3. Hyperkalemia, improved. 4. Cirrhosis, currently decompensated. Continue medical management. 5. Right hepatic hydrothorax. The patient is status post chest tube. Continue to monitor. Consider transjugular intrahepatic portosystemic shunt. 6. Status post respiratory failure. 7. Hypertension. Continue to monitor. Problems: RADHA OLSON MD Oct 07, 2017 09:30
--- NOTE | 2017-10-07 12:14 | PN ---
Date/Time of Note Date/Time of Note DATE: 10/07/17 TIME: 12:13 Assessment/Plan VTE Prophylaxis VTE Prophylaxis Intervention: ambulation, SCD's Lines/Catheters IV Catheter Type (from Nrs): Saline Lock Urinary Cath still in place: No Assessment/Plan Chief Complaint/Hosp Course s: 12.5 no acute complaints, still draining on chest tube 12.6 no acute complaints 12.7 doing well, no acute complaints 12.8 walking around the unit easily 12.9 no new complaints 12.10 no new complaints o: General: Patient resting comfortably, in no acute distress. oriented to self and place Head: Normocephalic atraumatic Eyes: EOMI, pupils reactive to light Neck: Supple, nontender, midline Respiratory: diminished breath sounds on R, no crackles or wheezing Cardiovascular: regular rate and rhythm, no obvious murmurs Gastrointestinal: non-tender to palpation, bowel sounds heard. Neurological: Moves all extremities spontaneously Skin: No new skin lesions, chest tube placed R Patient is a 51-year-old homeless alcoholic who presents with right pleural effusion, pneumonia, and alcohol withdrawal induced seizure. #R pleural effusion -recurrent -likely hepatic hydrothorax -will recur likely -aldactone/lasix increased, with elevated dose today, now at optimal dose of lasix/aldactone, monitor tomorrow #pneumo/hydropneumothorax -s/p thoracentesis on 09/17 -chest tube placed 09/19, draining mod amount still, pulm to order DC today -CT surgery recs appreciated -needs TIPS, but patient likely too stable for TIPS, will consider if diuretics are not effective #tachycardia -resolving -prn metoprolol if BP permits #elevated AST/ALT -cirrhosis -us gallbladder noted #. Delirium tremens- resolved -librium tapered off - Ativan PRN for agitation/anxiety #. bacteremia, gram neg - continued on IV antibiotics for 10-14 days. stopped abx - remains afebrile -wbc stabilized #. acute respiratory failure, 2/2 PNA/pleural effusion- resolved - Pulmonology on board and recommendations appreciated - s/p 2 L drained on pleural effusion 1st time, 1 L drained 2nd time - Respiratory status stable. Saturating well #. Bilateral pneumonia, likely aspiration -abx finished #. Severe hyponatremia- resolved - Nephrology on board and recommendations appreciated #. Alcoholism - Banana bag stopped -thiamine and folic acid - Librium tapered #. Hypokalemia - replete as needed #. Hypomagnesia - Nephrology on board assisting with electrolyte abnormalities #. Disposition - chest tube management, poor prognosis given hepatic hydrothorax/pneumothorax -monitor when chest tube dc'd, CT surgery plans removal in a few days -diuretics at optimal level, adjust as appropriate. Problems: Exam/Review of Systems Vital Signs Vitals Vital Signs Date Time Temp Pulse Resp B/P Pulse Ox O2 Delivery O2 Flow Rate FiO2 10/07/17 08:15 74 20 96 21 10/07/17 08:08 98.0 107/64 Intake and Output 10/06/17 10/06/17 10/07/17 15:00 23:00 07:00 Intake Total 870 ml 220 ml Output Total 1030 ml 540 ml Balance -160 ml -320 ml Results Result Diagram: 10/07/17 0610 10/07/17 0610 Results 24 hrs Laboratory Tests Test 10/07/17 06:10 White Blood Count 7.2 Red Blood Count 3.75 L Hemoglobin 8.6 L Hematocrit 27.5 L Mean Corpuscular Volume 73.3 L Mean Corpuscular Hemoglobin 22.9 L Mean Corpuscular Hemoglobin Concent 31.3 L Red Cell Distribution Width 22.0 H Platelet Count 281 Mean Platelet Volume 9.8 Neutrophils % 54.7 Lymphocytes % 30.7 Monocytes % 11.6 H Eosinophils % 2.6 Basophils % 0.1 Nucleated Red Blood Cells % 0.0 Neutrophils # 3.9 Lymphocytes # 2.2 Monocytes # 0.8 Eosinophils # 0.2 Basophils # 0.0 Nucleated Red Blood Cells # 0.0 Sodium Level 135 Potassium Level 4.1 Chloride Level 97 Carbon Dioxide Level 29 Anion Gap 13 Blood Urea Nitrogen 23 H Creatinine 0.94 Glucose Level 104 Calcium Level 9.5 Phosphorus Level 5.4 H Magnesium Level 1.5 L Medications Medications Current Medications Lorazepam (Ativan) 2 mg Q10MIN PRN IV seizure Last administered on 09/06/17t 09 :11; Admin Dose 2 MG; Start 09/05/17 at 16:00 Ondansetron HCl (Zofran Inj) 4 mg Q6H PRN IV NAUSEA AND/OR VOMITING; Start 09/05/17 at 16:30 Acetaminophen (Tylenol Tab) 650 mg Q6H PRN PO PAIN LEVEL 1-3 OR FEVER Last administered on 09/27/17 05:47; Admin Dose 650 MG; Start 09/05/17 at 16:30 Bisacodyl (Dulcolax) 5 mg DAILY PRN PO CONSTIPATION; Start 09/05/17 at 16:30 Lorazepam (Ativan) 1 mg Q6H PRN IV agitation/anxiety Last administered on 09/08 09:30; Admin Dose 1 MG; Start 09/05/17 at 17:00 Nicotine (Nicoderm 21 Mg/ 24hr) 1 patch Q24H TRANSDERM Last administered on 18:37; Admin Dose 1 PATCH; Start 09/05/17 at 17:00 Folic Acid (Folic Acid) 1 mg DAILY PO Last administered on 10/07/17 08:54; Admin Dose 1 MG; Start 09/07/17 at 16:30 Famotidine (Pepcid) 20 mg BID PO Last administered on 10/07/17 08:55; Admin Dose 20 MG; Start 09/09/17 at 21:00 Hydralazine HCl (Apresoline) 10 mg Q4H PRN IV ELEVATED BLOOD PRESSURE Last administered on 09/12/17 08:53; Admin Dose 10 MG; Start 09/10/17 at 04:55 Ferrous Sulfate (Ferrous Sulfate (Ec)) 325 mg DAILY PO Last administered on 08:55; Admin Dose 325 MG; Start 09/14/17 at 09:30 Lorazepam (Ativan) 1 mg Q6H PRN PO ANXIETY Last administered on 09/29/17 20:19 ; Admin Dose 1 MG; Start 09/17/17 at 15:00 Lisinopril (Zestril) 5 mg DAILY PO Last administered on 10/07/17 08:56; Admin Dose 5 MG; Start 09/22/17 at 09:00 Magnesium Oxide (Mag-Ox 400) 400 mg BID PO Last administered on 10/07/17 08: 55; Admin Dose 400 MG; Start 09/25/17 at 21:00 Acetaminophen/ Hydrocodone Bitart ([place] (5/325)) 1 tab Q6H PRN PO pain Last administered on 10/03/17 08:07; Admin Dose 1 TAB; Start 10/01/17 at 13:00 Furosemide (Lasix) 40 mg DAILY@06 PO ; Start 10/08/17 at 06:00 Spironolactone (Aldactone) 100 mg DAILY@06 PO ; Start 10/08/17 at 06:00 CATHERINE DUMONT Oct 07, 2017 12:14
--- NOTE | 2017-10-07 12:37 | PN ---
Date/Time of Note Date/Time of Note DATE: 10/07/17 TIME: 12:36 Assessment/Plan Lines/Catheters IV Catheter Type (from Nrsg): Saline Lock Lem[place] in Place (from Nrsg): No Assessment/Plan Chief Complaint/Hosp Course IMPRESSION: Status post chest tube placement. 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 -Will DC CT in next few days Problems: Subjective 24 Hr Interval Summary Constitutional: improved Pain Control: mild Exam/Review of Systems Vital Signs Vitals Vital Signs Date Time Temp Pulse Resp B/P Pulse Ox O2 Delivery O2 Flow Rate FiO2 10/07/17 12:28 98.0 79 18 97/64 98 10/07/17 08:15 21 Intake and Output 10/06/17 10/06/17 10/07/17 14:59 22:59 06:59 Intake Total 870 ml 220 ml Output Total 1030 ml 540 ml Balance -160 ml -320 ml Exam ENMT: mucosa pink and moist, nl external ears & nose, nl lips & teeth, nl nasal mucosa & septum Neck: non-tender, supple Respiratory: clear to auscultation, normal air movement Cardiovascular: nl pulses, regular rate and rhythm Gastrointestinal: nl liver, spleen, non-tender, soft Results Result Diagram: 10/07/1710 10/07/1710 CHET MONREAL MD Oct 07, 2017 12:36
--- NOTE | 2017-10-07 15:43 | CONS ---
Date/Time of Note Date/Time of Note DATE: 10/07/17 TIME: 15:42 Consult Date/Type/Reason Admit Date/Time Sep 05, 2017 at 13:14 Type of Consultation: Pulm Subjective CT still with notable output. Objective Vital Signs Date Time Temp Pulse Resp B/P Pulse Ox O2 Delivery O2 Flow Rate FiO2 10/07/17 14:37 72 20 96 21 10/07/17 12:28 98.0 97/64 Intake and Output 10/06/17 10/06/17 10/07/17 15:00 23:00 07:00 Intake Total 870 ml 220 ml Output Total 1030 ml 540 ml Balance -160 ml -320 ml Exam HEENT: Neck supple; no JVD; no LAD CVS: RRR, S1 and S2 CHEST: Clear ABD: Soft, NT, + BS EXT: No c/c/e Results/Medications Result Diagram: 10/07/17 0610 10/07/17 0610 Results 24 hrs Laboratory Tests Test 10/07/17 06:10 White Blood Count 7.2 Red Blood Count 3.75 L Hemoglobin 8.6 L Hematocrit 27.5 L Mean Corpuscular Volume 73.3 L Mean Corpuscular Hemoglobin 22.9 L Mean Corpuscular Hemoglobin Concent 31.3 L Red Cell Distribution Width 22.0 H Platelet Count 281 Mean Platelet Volume 9.8 Neutrophils % 54.7 Lymphocytes % 30.7 Monocytes % 11.6 H Eosinophils % 2.6 Basophils % 0.1 Nucleated Red Blood Cells % 0.0 Neutrophils # 3.9 Lymphocytes # 2.2 Monocytes # 0.8 Eosinophils # 0.2 Basophils # 0.0 Nucleated Red Blood Cells # 0.0 Sodium Level 135 Potassium Level 4.1 Chloride Level 97 Carbon Dioxide Level 29 Anion Gap 13 Blood Urea Nitrogen 23 H Creatinine 0.94 Glucose Level 104 Calcium Level 9.5 Phosphorus Level 5.4 H Magnesium Level 1.5 L Medications Current Medications Lorazepam (Ativan) 2 mg Q10MIN PRN IV seizure Last administered on 09/06/17t 09 :11; Admin Dose 2 MG; Start 09/05/17 at 16:00 Ondansetron HCl (Zofran Inj) 4 mg Q6H PRN IV NAUSEA AND/OR VOMITING; Start 09/05/17 at 16:30 Acetaminophen (Tylenol Tab) 650 mg Q6H PRN PO PAIN LEVEL 1-3 OR FEVER Last administered on 09/27/17 05:47; Admin Dose 650 MG; Start 09/05/17 at 16:30 Bisacodyl (Dulcolax) 5 mg DAILY PRN PO CONSTIPATION; Start 09/05/17 at 16:30 Lorazepam (Ativan) 1 mg Q6H PRN IV agitation/anxiety Last administered on 09/08 09:30; Admin Dose 1 MG; Start 09/05/17 at 17:00 Nicotine (Nicoderm 21 Mg/ 24hr) 1 patch Q24H TRANSDERM Last administered on 18:37; Admin Dose 1 PATCH; Start 09/05/17 at 17:00 Folic Acid (Folic Acid) 1 mg DAILY PO Last administered on 10/07/17 08:54; Admin Dose 1 MG; Start 09/07/17 at 16:30 Famotidine (Pepcid) 20 mg BID PO Last administered on 10/07/17 08:55; Admin Dose 20 MG; Start 09/09/17 at 21:00 Hydralazine HCl (Apresoline) 10 mg Q4H PRN IV ELEVATED BLOOD PRESSURE Last administered on 09/12/17 08:53; Admin Dose 10 MG; Start 09/10/17 at 04:55 Ferrous Sulfate (Ferrous Sulfate (Ec)) 325 mg DAILY PO Last administered on 08:55; Admin Dose 325 MG; Start 09/14/17 at 09:30 Lorazepam (Ativan) 1 mg Q6H PRN PO ANXIETY Last administered on 09/29/17 20:19 ; Admin Dose 1 MG; Start 09/17/17 at 15:00 Lisinopril (Zestril) 5 mg DAILY PO Last administered on 10/07/17 08:56; Admin Dose 5 MG; Start 09/22/17 at 09:00 Magnesium Oxide (Mag-Ox 400) 400 mg BID PO Last administered on 10/07/17 08: 55; Admin Dose 400 MG; Start 09/25/17 at 21:00 Acetaminophen/ Hydrocodone Bitart ([place] (5/325)) 1 tab Q6H PRN PO pain Last administered on 10/03/17 08:07; Admin Dose 1 TAB; Start 10/01/17 at 13:00 Furosemide (Lasix) 40 mg DAILY@06 PO ; Start 10/08/17 at 06:00 Spironolactone (Aldactone) 100 mg DAILY@06 PO ; Start 10/08/17 at 06:00 Assessment/Plan Additional Assessment/Plan IMP: 1. Hepatic Hydrothorax complicated by a PTX s/p small-bore chest tube RECS: 1. Remove small bore CT 2. Nutritional optimization MOISES SHEPHERD MD Oct 07, 2017 15:43
[2017-10-07] MEDS: NICOTINE (21 MG/24 HR) PATCH TRANSDERM SCH (17:47)
[2017-10-08] VITALS (12 sets, daily range): BP systolic 103–117; BP diastolic 70–82; PULSE 76–100; RESP 16–17
[2017-10-08] MEDS: FUROSEMIDE 20 MG TAB PO SCH (05:19)
[2017-10-08] MEDS: SPIRONOLACTONE 50 MG TAB PO SCH (05:20)
[2017-10-08] MEDS: ALBUTEROL/IPRATROPIUM (NEB) 3 ML AMP HHN SCH ×3 (07:36→19:44)
[2017-10-08 08:22] LABS: BASOPHILS % 0.3 % (0.0-2.0); EOSINOPHILS # 0.1 10^3/ul (0.0-0.5); EOSINOPHILS % 1.7 % (0.0-7.0); HEMATOCRIT 28.2 % (42.0-52.0); LYMPHOCYTES # 2.3 10^3/ul (0.8-2.9); LYMPHOCYTES % 30.2 % (15.0-51.0); MEAN CORPUSCULAR HEMOGLOBIN 23.3 pg (29.0-33.0); MEAN CORPUSCULAR HGB CONC 31.9 g/dl (32.0-37.0); MEAN CORPUSCULAR VOLUME 72.9 fl (82.0-101.0); MONOCYTE # 0.9 10^3/ul (0.3-0.9); MONOCYTES % 12.3 % (0.0-11.0); NEUTROPHIL # 4.1 10^3/ul (1.6-7.5); PLATELET COUNT 283 10^3/UL (140-415); RED BLOOD COUNT 3.87 10^6/ul (4.70-6.10); RED CELL DISTRIBUTION WIDTH 21.7 % (11.5-14.5); WHITE BLOOD COUNT 7.5 10^3/ul (4.8-10.8)
[2017-10-08] MEDS ORDERED: MAGNESIUM SULFATE 2 GM/50 ML 50 ML IVPB ONE (08:30)
[2017-10-08 08:45] LABS: CALCIUM 9.5 mg/dl (8.4-10.2); CREATININE 0.89 mg/dl (0.61-1.24); MAGNESIUM 1.5 mg/dl (1.7-2.5); PHOSPHORUS 5.1 mg/dl (2.5-4.9); POTASSIUM 4.5 mmol/L (3.5-5.1)
[2017-10-08] MEDS: FERROUS SULFATE (EC) 325 MG TAB PO SCH (09:34)
[2017-10-08] MEDS: FOLIC ACID 1 MG TAB PO SCH (09:34)
[2017-10-08] MEDS: FAMOTIDINE 20 MG TAB PO SCH ×2 (09:34→22:33)
[2017-10-08] MEDS: MAGNESIUM OXIDE 400 MG TAB PO SCH ×2 (09:34→22:33)
[2017-10-08] MEDS: LISINOPRIL 5 MG TAB PO SCH (09:34)
--- NOTE | 2017-10-08 10:46 | PN ---
Date/Time of Note Date/Time of Note DATE: 10/08/17 TIME: 10:46 Assessment/Plan VTE Prophylaxis VTE Prophylaxis Intervention: SCD's Lines/Catheters IV Catheter Type (from Nrs): Peripheral IV Urinary Cath still in place: No Assessment/Plan Assessment/Plan 1. Right pleural effusion, recurrent -likely hepatic hydrothorax - Currently on lasix 40mg PO daily and spironolactone 100mg PO daily. Hopefully will help with decreasing rate pleural fluid reaccumulates 2. pneumo/hydropneumothorax -s/p thoracentesis on 09/17 -chest tube placed 09/19, draining mod amount still -CT surgery recs appreciated and plans to take out chest tube soon - Pulm on board and agree with removing chest tube and reevaluating to see if pleurx needed -needs TIPS, but patient likely too stable for TIPS 3. tachycardia -resolving -prn metoprolol if BP permits 4. elevated AST/ALT- resolved -cirrhosis -us gallbladder noted 5. Delirium tremens- resolved - librium tapered off - Ativan PRN for agitation/anxiety 6. bacteremia, gram neg - Completed course of antibiotics - remains afebrile - wbc stabilized 7. acute respiratory failure, 2/2 PNA/pleural effusion- resolved - Pulmonology on board and recommendations appreciated - s/p 2 L drained on pleural effusion 1st time, 1 L drained 2nd time - Respiratory status stable. Saturating well 8. Bilateral pneumonia, likely aspiration - abx course completed 7. Severe hyponatremia- resolved - Nephrology on board and recommendations appreciated 8. Alcoholism - thiamine and folic acid - Librium taper completed 9. Hypokalemia - replete as needed 10. Hypomagnesia - Nephrology on board assisting with electrolyte abnormalities 11. Disposition - chest tube management, poor prognosis given hepatic hydrothorax/pneumothorax - will need to evaluate need for pleurx once chest tube removed Subjective 24 Hr Interval Summary Free Text/Dictation Patient doing well and no new complaints. No respiratory issues and no acute overnight events. Patient voiced concerns about being annoyed with the amount of telephone calls he has been receiving about his financial situation and hospital stay. Exam/Review of Systems Vital Signs Vitals Vital Signs Date Time Temp Pulse Resp B/P Pulse Ox O2 Delivery O2 Flow Rate FiO2 10/08/17 08:12 76 10/08/17 07:53 97.6 17 103/72 98 10/08/17 07:39 21 Intake and Output 10/07/17 10/07/17 10/08/17 15:00 23:00 07:00 Intake Total 920 ml 240 ml Output Total 1650 ml 20 ml Balance -730 ml 220 ml Exam General: Patient resting comfortably, in no acute distress. answering questions appropriately Head: Normocephalic atraumatic Eyes: EOMI, pupils reactive to light Neck: Supple, nontender, midline Respiratory: diminished breath sounds on R, no crackles or wheezing Cardiovascular: regular rate and rhythm, no obvious murmurs Gastrointestinal: non-tender to palpation, bowel sounds heard. non distended, no rebound or guarding Neurological: Moves all extremities spontaneously Skin: No new skin lesions, chest tube placed R Results Result Diagram: 10/08/1770510/08/17 07 Results 24 hrs Laboratory Tests Test 10/08/17 07:06 White Blood Count 7.5 Red Blood Count 3.87 L Hemoglobin 9.0 L Hematocrit 28.2 L Mean Corpuscular Volume 72.9 L Mean Corpuscular Hemoglobin 23.3 L Mean Corpuscular Hemoglobin Concent 31.9 L Red Cell Distribution Width 21.7 H Platelet Count 283 Mean Platelet Volume 10.0 Neutrophils % 55.0 Lymphocytes % 30.2 Monocytes % 12.3 H Eosinophils % 1.7 Basophils % 0.3 Nucleated Red Blood Cells % 0.0 Neutrophils # 4.1 Lymphocytes # 2.3 Monocytes # 0.9 Eosinophils # 0.1 Basophils # 0.0 Nucleated Red Blood Cells # 0.0 Sodium Level 134 L Potassium Level 4.5 Chloride Level 97 Carbon Dioxide Level 28 Anion Gap 14 Blood Urea Nitrogen 26 H Creatinine 0.89 Glucose Level 88 Calcium Level 9.5 Phosphorus Level 5.1 H Magnesium Level 1.5 L Medications Medications Current Medications Lorazepam (Ativan) 2 mg Q10MIN PRN IV seizure Last administered on 09/06/17 09 :11; Admin Dose 2 MG; Start 09/05/17 at 16:00 Ondansetron HCl (Zofran Inj) 4 mg Q6H PRN IV NAUSEA AND/OR VOMITING; Start 09/05/17 at 16:30 Acetaminophen (Tylenol Tab) 650 mg Q6H PRN PO PAIN LEVEL 1-3 OR FEVER Last administered on 09/27/17 05:47; Admin Dose 650 MG; Start 09/05/17 at 16:30 Bisacodyl (Dulcolax) 5 mg DAILY PRN PO CONSTIPATION; Start 09/05/17 at 16:30 Lorazepam (Ativan) 1 mg Q6H PRN IV agitation/anxiety Last administered on 09/08 09:30; Admin Dose 1 MG; Start 09/05/17 at 17:00 Nicotine (Nicoderm 21 Mg/ 24hr) 1 patch Q24H TRANSDERM Last administered on 17:47; Admin Dose 1 PATCH; Start 09/05/17 at 17:00 Folic Acid (Folic Acid) 1 mg DAILY PO Last administered on 10/08/17 09:34; Admin Dose 1 MG; Start 09/07/17 at 16:30 Famotidine (Pepcid) 20 mg BID PO Last administered on 10/08/17 09:34; Admin Dose 20 MG; Start 09/09/17 at 21:00 Hydralazine HCl (Apresoline) 10 mg Q4H PRN IV ELEVATED BLOOD PRESSURE Last administered on 09/12/17 08:53; Admin Dose 10 MG; Start 09/10/17 at 04:55 Ferrous Sulfate (Ferrous Sulfate (Ec)) 325 mg DAILY PO Last administered on 09:34; Admin Dose 325 MG; Start 09/14/17 at 09:30 Lorazepam (Ativan) 1 mg Q6H PRN PO ANXIETY Last administered on 09/29/17 20:19 ; Admin Dose 1 MG; Start 09/17/17 at 15:00 Lisinopril (Zestril) 5 mg DAILY PO Last administered on 10/08/17 09:34; Admin Dose 5 MG; Start 09/22/17 at 09:00 Magnesium Oxide (Mag-Ox 400) 400 mg BID PO Last administered on 10/08/17 09: 34; Admin Dose 400 MG; Start 09/25/17 at 21:00 Acetaminophen/ Hydrocodone Bitart ([place] (5/325)) 1 tab Q6H PRN PO pain Last administered on 10/03/17 08:07; Admin Dose 1 TAB; Start 10/01/17 at 13:00 Furosemide (Lasix) 40 mg DAILY@06 PO Last administered on 10/08/17 05:19; Admin Dose 40 MG; Start 10/08/17 at 06:00 Spironolactone (Aldactone) 100 mg DAILY@06 PO Last administered on 10/08/17 05:20; Admin Dose 100 MG; Start 10/08/17 at 06:00 THEO BUSH MD Oct 08, 2017 10:46
--- NOTE | 2017-10-08 11:01 | CONS ---
Date/Time of Note Date/Time of Note DATE: 10/08/17 TIME: 10:59 Assessment/Plan Assessment/Plan Additional Assessment/Plan Assessment and recommendations; 1. Patient admitted with shortness of breath due to right pleural effusion from hepatic hydrothorax, status post thoracentesis with ensuing right pneumothorax requiring chest tube has been. Patient still having significant discharge from the chest tube on account of underlying advanced cirrhosis of liver. 2. Mild anemia. Chest tube can be removed. Followed by placement of Pleurx catheter if indicated in a few days time. Prognosis is guarded. Consultation Date/Type/Reason Admit Date/Time Sep 05, 2017 at 13:14 Type of Consultation: Pulm 24 HR Interval Summary Free Text/Dictation Patient's condition is stable. Denies any shortness of breath, chest pain. General exam; middle-aged male, awake alert, currently in no distress. Exam/Review of Systems Vital Signs Vitals Vital Signs Date Time Temp Pulse Resp B/P Pulse Ox O2 Delivery O2 Flow Rate FiO2 10/08/17 08:12 76 10/08/17 07:53 97.6 17 103/72 98 10/08/17 07:39 21 Intake and Output 10/07/17 10/07/17 10/08/17 14:59 22:59 06:59 Intake Total 920 ml 240 ml Output Total 1650 ml 20 ml Balance -730 ml 220 ml Exam HEENT exam; supple neck, no JVD. No lymphadenopathy. Midline trachea. No thyromegaly. Patient has multiple carious teeth. Chest exam; clear to auscultation. Right-sided chest tube in place. Abdomen exam; soft, nontender. No organomegaly. Bowel sounds audible. Extremity exam; no edema. No clubbing. 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 Results Result Diagram: 10/08/17 0706 10/08/17 0706 Results 24 hrs Laboratory Tests Test 10/08/17 07:06 White Blood Count 7.5 Red Blood Count 3.87 L Hemoglobin 9.0 L Hematocrit 28.2 L Mean Corpuscular Volume 72.9 L Mean Corpuscular Hemoglobin 23.3 L Mean Corpuscular Hemoglobin Concent 31.9 L Red Cell Distribution Width 21.7 H Platelet Count 283 Mean Platelet Volume 10.0 Neutrophils % 55.0 Lymphocytes % 30.2 Monocytes % 12.3 H Eosinophils % 1.7 Basophils % 0.3 Nucleated Red Blood Cells % 0.0 Neutrophils # 4.1 Lymphocytes # 2.3 Monocytes # 0.9 Eosinophils # 0.1 Basophils # 0.0 Nucleated Red Blood Cells # 0.0 Sodium Level 134 L Potassium Level 4.5 Chloride Level 97 Carbon Dioxide Level 28 Anion Gap 14 Blood Urea Nitrogen 26 H Creatinine 0.89 Glucose Level 88 Calcium Level 9.5 Phosphorus Level 5.1 H Magnesium Level 1.5 L Medications Medications Current Medications Lorazepam (Ativan) 2 mg Q10MIN PRN IV seizure Last administered on 09/06/17 09 :11; Admin Dose 2 MG; Start 09/05/17 at 16:00 Ondansetron HCl (Zofran Inj) 4 mg Q6H PRN IV NAUSEA AND/OR VOMITING; Start 09/05/17 at 16:30 Acetaminophen (Tylenol Tab) 650 mg Q6H PRN PO PAIN LEVEL 1-3 OR FEVER Last administered on 09/27/17 05:47; Admin Dose 650 MG; Start 09/05/17 at 16:30 Bisacodyl (Dulcolax) 5 mg DAILY PRN PO CONSTIPATION; Start 09/05/17 at 16:30 Lorazepam (Ativan) 1 mg Q6H PRN IV agitation/anxiety Last administered on 09/08 09:30; Admin Dose 1 MG; Start 09/05/17 at 17:00 Nicotine (Nicoderm 21 Mg/ 24hr) 1 patch Q24H TRANSDERM Last administered on 17:47; Admin Dose 1 PATCH; Start 09/05/17 at 17:00 Folic Acid (Folic Acid) 1 mg DAILY PO Last administered on 10/08/17 09:34; Admin Dose 1 MG; Start 09/07/17 at 16:30 Famotidine (Pepcid) 20 mg BID PO Last administered on 10/08/17 09:34; Admin Dose 20 MG; Start 09/09/17 at 21:00 Hydralazine HCl (Apresoline) 10 mg Q4H PRN IV ELEVATED BLOOD PRESSURE Last administered on 09/12/17 08:53; Admin Dose 10 MG; Start 09/10/17 at 04:55 Ferrous Sulfate (Ferrous Sulfate (Ec)) 325 mg DAILY PO Last administered on 09:34; Admin Dose 325 MG; Start 09/14/17 at 09:30 Lorazepam (Ativan) 1 mg Q6H PRN PO ANXIETY Last administered on 09/29/17 20:19 ; Admin Dose 1 MG; Start 09/17/17 at 15:00 Lisinopril (Zestril) 5 mg DAILY PO Last administered on 10/08/17 09:34; Admin Dose 5 MG; Start 09/22/17 at 09:00 Magnesium Oxide (Mag-Ox 400) 400 mg BID PO Last administered on 10/08/17 09: 34; Admin Dose 400 MG; Start 09/25/17 at 21:00 Acetaminophen/ Hydrocodone Bitart ([place] (5/325)) 1 tab Q6H PRN PO pain Last administered on 10/03/17 08:07; Admin Dose 1 TAB; Start 10/01/17 at 13:00 Furosemide (Lasix) 40 mg DAILY@06 PO Last administered on 10/08/17 05:19; Admin Dose 40 MG; Start 10/08/17 at 06:00 Spironolactone (Aldactone) 100 mg DAILY@06 PO Last administered on 10/08/17 05:20; Admin Dose 100 MG; Start 10/08/17 at 06:00 KIRILL PEREZ Oct 08, 2017 11:00
--- NOTE | 2017-10-08 11:15 | PN ---
DATE: 10/08/2017 SUBJECTIVE: The patient is stable. No events overnight. OBJECTIVE: VITAL SIGNS: Blood pressure is 103/72, pulse 87, respirations 17, temperature 97.6. HEENT: Head is normocephalic. NECK: Supple. HEART: Regular rate. LUNGS: Show diminished breath sounds at base. ABDOMEN: Soft, nontender to palpation without rebound or guarding. EXTREMITIES: Negative for clubbing, cyanosis, no edema. DERMATOLOGIC: No rashes. MUSCULOSKELETAL: No joint effusions. NEUROLOGIC: No change in exam. MEDICATIONS: The patient's medications have been reviewed. LABORATORY DATA: Shows white count 7.5, hemoglobin 9.0, hematocrit 28.2, platelet count is 283. BM P is currently pending. ASSESSMENT AND PLAN: 1. Hypomagnesemia, etiology secondary to chronic alcohol abuse, diuretic therapy. Continue to xu tor and repeat with IV and p.o. magnesium. 2. Hyponatremia secondary to cirrhosis, improved. Continue medical management. 3. Hypokalemia, improved. 4. Cirrhosis, currently decompensated. Continue current medical management. 5. Right hepatic hydrothorax. The patient is status post chest tube. Continue to monitor. Consid er TIPS. 6. Status post respiratory failure. 7. Hypertension. Continue to monitor. Dictated By: SLIME CHANG/VICKY Conf#: [id number] DID#: [id number] CC: TANK MALHOTRA;*EndCC*
--- NOTE | 2017-10-08 17:25 | PN ---
Date/Time of Note Date/Time of Note DATE: 10/08/17 TIME: 17:24 Assessment/Plan Lines/Catheters IV Catheter Type (from Nrsg): Peripheral IV Lema in Place (from Nrsg): No Assessment/Plan Chief Complaint/Hosp Course IMPRESSION: Status post chest tube placement. 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 -Will DC CT Tomorrow Problems: Subjective 24 Hr Interval Summary Constitutional: improved Pain Control: mild Exam/Review of Systems Vital Signs Vitals Vital Signs Date Time Temp Pulse Resp B/P Pulse Ox O2 Delivery O2 Flow Rate FiO2 10/08/17 16:10 100 10/08/17 15:43 98.1 17 105/70 95 10/08/17 14:02 21 Intake and Output 10/07/17 10/07/17 10/08/17 15:00 23:00 07:00 Intake Total 920 ml 240 ml Output Total 1650 ml 20 ml Balance -730 ml 220 ml Results Result Diagram: 10/08/17 0706 10/08/17 0706 CHET MONREAL MD Oct 08, 2017 17:25
[2017-10-08] MEDS: NICOTINE (21 MG/24 HR) PATCH TRANSDERM SCH (17:37)
[2017-10-09] VITALS (21 sets, daily range): BP systolic 68–136; BP diastolic 42–93; PULSE 84–111; RESP 18–20
[2017-10-09] MEDS: FUROSEMIDE 20 MG TAB PO SCH (05:20)
[2017-10-09] MEDS: SPIRONOLACTONE 50 MG TAB PO SCH (05:21)
[2017-10-09] MEDS: ALBUTEROL/IPRATROPIUM (NEB) 3 ML AMP HHN SCH ×3 (07:51→19:30)
[2017-10-09] MEDS: MAGNESIUM OXIDE 400 MG TAB PO SCH ×2 (08:31→21:44)
[2017-10-09] MEDS: FOLIC ACID 1 MG TAB PO SCH (08:31)
[2017-10-09] MEDS: FERROUS SULFATE (EC) 325 MG TAB PO SCH (08:31)
[2017-10-09] MEDS: FAMOTIDINE 20 MG TAB PO SCH ×2 (08:31→21:44)
[2017-10-09] MEDS: LISINOPRIL 5 MG TAB PO SCH (09:15)
--- NOTE | 2017-10-09 10:32 | CONS ---
Date/Time of Note Date/Time of Note DATE: 10/09/17 TIME: 10:30 Assessment/Plan Assessment/Plan Additional Assessment/Plan Assessment and recommendations; 1. Patient admitted with shortness of breath due to right pleural effusion from hepatic hydrothorax. Status post thoracentesis with ensuing right pneumothorax requiring chest tube placement. Chest tube breathing more than 150 mL per day. But less than 200 cc. 2. Advanced cirrhosis of liver. Chest tube to be removed today. Patient possibly may benefit from a TIPS procedure. Consultation Date/Type/Reason Admit Date/Time Sep 05, 2017 at 13:14 Type of Consultation: Pulm 24 HR Interval Summary Free Text/Dictation Patient's condition is stable. Denies any shortness of breath. Any coughing. Or chest pain. General exam; middle-aged male, awake alert, currently no distress. Exam/Review of Systems Vital Signs Vitals Vital Signs Date Time Temp Pulse Resp B/P Pulse Ox O2 Delivery O2 Flow Rate FiO2 10/09/17 08:06 89 10/09/17 07:52 20 97 21 10/09/17 07:21 97.8 136/93 Intake and Output 10/08/17 10/08/17 10/09/17 15:00 23:00 07:00 Output Total 200 ml Balance -200 ml Exam HEENT exam; supple neck, no JVD. No lymphadenopathy. Midline trachea. No thyromegaly. No neck masses. Patient has fair dentition. Chest exam; clear to auscultation. Right-sided chest tube in place. S1-S2 audible, no murmurs. Regular rhythm. Abdomen exam; soft, nondistended. Nontender. No organomegaly. Bowel sounds audible. Extremity exam; no edema. 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 Results Result Diagram: 10/08/1770510/08/17 0706 Medications Medications Current Medications Lorazepam (Ativan) 2 mg Q10MIN PRN IV seizure Last administered on 09/06/17 09 :11; Admin Dose 2 MG; Start 09/05/17 at 16:00 Ondansetron HCl (Zofran Inj) 4 mg Q6H PRN IV NAUSEA AND/OR VOMITING; Start 09/05/17 at 16:30 Acetaminophen (Tylenol Tab) 650 mg Q6H PRN PO PAIN LEVEL 1-3 OR FEVER Last administered on 09/27/17 05:47; Admin Dose 650 MG; Start 09/05/17 at 16:30 Bisacodyl (Dulcolax) 5 mg DAILY PRN PO CONSTIPATION; Start 09/05/17 at 16:30 Lorazepam (Ativan) 1 mg Q6H PRN IV agitation/anxiety Last administered on 09/08 09:30; Admin Dose 1 MG; Start 09/05/17 at 17:00 Nicotine (Nicoderm 21 Mg/ 24hr) 1 patch Q24H TRANSDERM Last administered on 17:37; Admin Dose 1 PATCH; Start 09/05/17 at 17:00 Folic Acid (Folic Acid) 1 mg DAILY PO Last administered on 10/09/17 08:31; Admin Dose 1 MG; Start 09/07/17 at 16:30 Famotidine (Pepcid) 20 mg BID PO Last administered on 10/09/17 08:31; Admin Dose 20 MG; Start 09/09/17 at 21:00 Hydralazine HCl (Apresoline) 10 mg Q4H PRN IV ELEVATED BLOOD PRESSURE Last administered on 09/12/17 08:53; Admin Dose 10 MG; Start 09/10/17 at 04:55 Ferrous Sulfate (Ferrous Sulfate (Ec)) 325 mg DAILY PO Last administered on 08:31; Admin Dose 325 MG; Start 09/14/17 at 09:30 Lorazepam (Ativan) 1 mg Q6H PRN PO ANXIETY Last administered on 09/29/17 20:19 ; Admin Dose 1 MG; Start 09/17/17 at 15:00 Lisinopril (Zestril) 5 mg DAILY PO Last administered on 10/09/17 09:15; Admin Dose 5 MG; Start 09/22/17 at 09:00 Magnesium Oxide (Mag-Ox 400) 400 mg BID PO Last administered on 10/09/17 08: 31; Admin Dose 400 MG; Start 09/25/17 at 21:00 Acetaminophen/ Hydrocodone Bitart ([place] (5/325)) 1 tab Q6H PRN PO pain Last administered on 10/03/17 08:07; Admin Dose 1 TAB; Start 10/01/17 at 13:00 Furosemide (Lasix) 40 mg DAILY@06 PO Last administered on 10/09/17 05:20; Admin Dose 40 MG; Start 10/08/17 at 06:00 Spironolactone (Aldactone) 100 mg DAILY@06 PO Last administered on 10/09/17 05:21; Admin Dose 100 MG; Start 10/08/17 at 06:00 KIRILL PEREZ Oct 09, 2017 10:32
--- NOTE | 2017-10-09 11:17 | PN ---
Date/Time of Note Date/Time of Note DATE: 10/09/17 TIME: : Assessment/Plan VTE Prophylaxis VTE Prophylaxis Intervention: SCD's Lines/Catheters IV Catheter Type (from Nrs): Saline Lock Urinary Cath still in place: No Assessment/Plan Assessment/Plan 1. Right pleural effusion, recurrent - likely hepatic hydrothorax - Currently on lasix 40mg PO daily and spironolactone 100mg PO daily as blood pressure allows 2. pneumo/hydropneumothorax - s/p thoracentesis on 09/17 - chest tube placed 09/19, draining mod amount still - CT surgery recs appreciated and plans to take out chest tube today - Pulm on board and agree with removing chest tube and reevaluating to see if pleurx needed - needs TIPS, but patient likely too stable for TIPS 3. tachycardia - resolving - prn metoprolol if BP permits 4. elevated AST/ALT- resolved - cirrhosis - us gallbladder noted 5. Delirium tremens- resolved - librium tapered off - Ativan PRN for agitation/anxiety 6. bacteremia, gram neg - Completed course of antibiotics - remains afebrile - wbc stabilized 7. acute respiratory failure, 2/2 PNA/pleural effusion- resolved - Pulmonology on board and recommendations appreciated. fluid will continue to reaccumulate without TIPS. - s/p 2 L drained on pleural effusion 1st time, 1 L drained 2nd time - Respiratory status stable. Saturating well 8. Bilateral pneumonia, likely aspiration - abx course completed 7. Severe hyponatremia- resolved - Nephrology on board and recommendations appreciated 8. Alcoholism - thiamine and folic acid - Librium taper completed 9. Hypokalemia - replete as needed 10. Hypomagnesia - Nephrology on board assisting with electrolyte abnormalities 11. Disposition - poor prognosis given hepatic hydrothorax/pneumothorax - Chest tube removal planned for later today and if remains stable, discharge in next 24 hours Subjective 24 Hr Interval Summary Free Text/Dictation Patient was upset this am since did not eat anything between 5pm and 10am. He woke up at 2am hungry and agreed to boost with meals and allowed snacks. No acute overnight events. Plans for chest tube removal at some point today. Exam/Review of Systems Vital Signs Vitals Vital Signs Date Time Temp Pulse Resp B/P Pulse Ox O2 Delivery O2 Flow Rate FiO2 10/09/17 08:06 89 10/09/17 07:52 20 97 21 10/09/17 07:21 97.8 136/93 Intake and Output 10/08/17 10/08/17 10/09/17 15:00 23:00 07:00 Output Total 200 ml Balance -200 ml Exam General: Patient resting comfortably, in no acute distress. answering questions appropriately Head: Normocephalic atraumatic Eyes: EOMI, pupils reactive to light Neck: Supple, nontender, midline Respiratory: diminished breath sounds on R, no crackles or wheezing Cardiovascular: regular rate and rhythm, no obvious murmurs Gastrointestinal: non-tender to palpation, bowel sounds heard. non distended, no rebound or guarding Neurological: Moves all extremities spontaneously Skin: No new skin lesions, chest tube placed R Results Result Diagram: 10/08/1770510/08/17 0706 Medications Medications Current Medications Lorazepam (Ativan) 2 mg Q10MIN PRN IV seizure Last administered on 09/06/17 09 :11; Admin Dose 2 MG; Start 09/05/17 at 16:00 Ondansetron HCl (Zofran Inj) 4 mg Q6H PRN IV NAUSEA AND/OR VOMITING; Start 09/05/17 at 16:30 Acetaminophen (Tylenol Tab) 650 mg Q6H PRN PO PAIN LEVEL 1-3 OR FEVER Last administered on 09/27/17 05:47; Admin Dose 650 MG; Start 09/05/17 at 16:30 Bisacodyl (Dulcolax) 5 mg DAILY PRN PO CONSTIPATION; Start 09/05/17 at 16:30 Lorazepam (Ativan) 1 mg Q6H PRN IV agitation/anxiety Last administered on 09/08 09:30; Admin Dose 1 MG; Start 09/05/17 at 17:00 Nicotine (Nicoderm 21 Mg/ 24hr) 1 patch Q24H TRANSDERM Last administered on 17:37; Admin Dose 1 PATCH; Start 09/05/17 at 17:00 Folic Acid (Folic Acid) 1 mg DAILY PO Last administered on 10/09/17 08:31; Admin Dose 1 MG; Start 09/07/17 at 16:30 Famotidine (Pepcid) 20 mg BID PO Last administered on 10/09/17 08:31; Admin Dose 20 MG; Start 09/09/17 at 21:00 Hydralazine HCl (Apresoline) 10 mg Q4H PRN IV ELEVATED BLOOD PRESSURE Last administered on 09/12/17 08:53; Admin Dose 10 MG; Start 09/10/17 at 04:55 Ferrous Sulfate (Ferrous Sulfate (Ec)) 325 mg DAILY PO Last administered on 08:31; Admin Dose 325 MG; Start 09/14/17 at 09:30 Lorazepam (Ativan) 1 mg Q6H PRN PO ANXIETY Last administered on 09/29/17 20:19 ; Admin Dose 1 MG; Start 09/17/17 at 15:00 Lisinopril (Zestril) 5 mg DAILY PO Last administered on 10/09/17 09:15; Admin Dose 5 MG; Start 09/22/17 at 09:00 Magnesium Oxide (Mag-Ox 400) 400 mg BID PO Last administered on 10/09/17 08: 31; Admin Dose 400 MG; Start 09/25/17 at 21:00 Acetaminophen/ Hydrocodone Bitart ([place] (5/325)) 1 tab Q6H PRN PO pain Last administered on 10/03/17 08:07; Admin Dose 1 TAB; Start 10/01/17 at 13:00 Furosemide (Lasix) 40 mg DAILY@06 PO Last administered on 10/09/17 05:20; Admin Dose 40 MG; Start 10/08/17 at 06:00 Spironolactone (Aldactone) 100 mg DAILY@06 PO Last administered on 10/09/17 05:21; Admin Dose 100 MG; Start 10/08/17 at 06:00 THEO BUSH MD Oct 09, 2017 11:17
[2017-10-09] MEDS ORDERED: SOD CHLORIDE 0.9% 250 ML IV ONE ×2 (15:30→17:00)
[2017-10-09] MEDS: NICOTINE (21 MG/24 HR) PATCH TRANSDERM SCH (17:31)
--- NOTE | 2017-10-09 23:50 | PN ---
Date/Time of Note Date/Time of Note DATE: 10/09/17 TIME: 23:49 Assessment/Plan Lines/Catheters IV Catheter Type (from Nrsg): Saline Lock Lema in Place (from Nrsg): No Assessment/Plan Chief Complaint/Hosp Course IMPRESSION: Status post chest tube placement. CT with 180 cc RECOMMENDATIONS: R pleural effusion - Most likely secondary to hepTomorrow Problems: Subjective 24 Hr Interval Summary Constitutional: improved Pain Control: mild Exam/Review of Systems Vital Signs Vitals Vital Signs Date Time Temp Pulse Resp B/P Pulse Ox O2 Delivery O2 Flow Rate FiO2 10/09/17 20:11 98.2 94 20 78/47 99 10/09/17 19:30 21 Intake and Output 10/08/17 10/08/17 10/09/17 15:00 23:00 07:00 Output Total 200 ml Balance -200 ml Exam ENMT: mucosa pink and moist, nl external ears & nose, nl lips & teeth, nl nasal mucosa & septum Neck: non-tender, supple Respiratory: clear to auscultation, normal air movement Cardiovascular: nl pulses, regular rate and rhythm Gastrointestinal: nl liver, spleen, non-tender, soft Results Result Diagram: 10/08/17 0710/08/1706 CHET MONREAL MD Oct 09, 2017 23:50
[2017-10-10] VITALS (12 sets, daily range): BP systolic 90–118; BP diastolic 55–67; PULSE 76–93; RESP 16–20
--- NOTE | 2017-10-10 01:37 | RADRPT ---
PROCEDURE: XR Chest. CLINICAL INDICATION: Chest tube removal. TECHNIQUE: Single frontal chest x-ray. COMPARISON: 10/04/2017 FINDINGS: Right-sided chest tube present prior study has been removed. The cardiomediastinal silhouette is unr emarkable. There is no congestive heart failure.. No focal infiltrate is seen. There is no pleural effusion. There is no pneumothorax. The osseous structures are unremarkable. IMPRESSION: Status post removal of previously demonstrated right-sided chest tube. No pneumothorax. RPTAT: [facility] .Dhruv Simms MD, MD Date Time Electronically viewed and signed by .Dhruv Simms MD, MD on 10/10/2017 01:37 .K/
[2017-10-10] MEDS ORDERED: SOD CHLORIDE 0.9% 250 ML IV ONE (05:30)
--- NOTE | 2017-10-10 06:34 | PN ---
DATE: 10/09/2017 SUBJECTIVE: The patient is stable. No events overnight. OBJECTIVE: VITAL SIGNS: Blood pressure is 136/93, pulse 89, respiration 18, temperature 97.8. HEENT: Head is normocephalic. NECK: Supple. HEART: Regular rate. LUNGS: Show diminished breath sounds at the base. ABDOMEN: Soft, nontender to palpation. No rebound or guarding. EXTREMITIES: Negative for clubbing, cyanosis, no edema. DERMATOLOGIC: No rashes. MUSCULOSKELETAL: No joint effusions. NEUROLOGIC: No change in exam. MEDICATIONS: The patient's medications have been reviewed. LABORATORY DATA: Has been reviewed. No new labs. ASSESSMENT AND PLAN: 1. Hypomagnesemia. Etiology is multifactorial secondary to chronic alcohol abuse, diuretic therapy . Continue to monitor and replete with magnesium sulfate. 2. Hyponatremia secondary to cirrhosis, improved. Continue medical management. 3. Hypokalemia, improved. 4. Cirrhosis, currently decompensated. Continue medical management. 5. Right hepatic hemothorax. The patient is currently status post chest tube. Continue to monitor . Consider TIPS. 6. Status post respiratory failure. 7. Hypertension. Continue to monitor. Dictated By: SLIME CHANG/VICKY Conf#: [id number] DID#: [id number]
[2017-10-10] MEDS: FUROSEMIDE 20 MG TAB PO SCH (07:00)
[2017-10-10] MEDS: SPIRONOLACTONE 50 MG TAB PO SCH (07:00)
[2017-10-10 08:09] LABS: BASOPHILS % 0.3 % (0.0-2.0); EOSINOPHILS # 0.1 10^3/ul (0.0-0.5); EOSINOPHILS % 1.3 % (0.0-7.0); HEMATOCRIT 27.5 % (42.0-52.0); HEMOGLOBIN 8.9 g/dl (14.0-18.0); LYMPHOCYTES # 2.3 10^3/ul (0.8-2.9); LYMPHOCYTES % 30.1 % (15.0-51.0); MEAN CORPUSCULAR HEMOGLOBIN 23.4 pg (29.0-33.0); MEAN CORPUSCULAR HGB CONC 32.4 g/dl (32.0-37.0); MEAN CORPUSCULAR VOLUME 72.2 fl (82.0-101.0); MEAN PLATELET VOLUME 9.7 fl (7.4-10.4); MONOCYTE # 0.7 10^3/ul (0.3-0.9); MONOCYTES % 9.6 % (0.0-11.0); NEUTROPHIL # 4.5 10^3/ul (1.6-7.5); NEUTROPHILS % 58.2 % (39.0-77.0); PLATELET COUNT 240 10^3/UL (140-415); RED BLOOD COUNT 3.81 10^6/ul (4.70-6.10); RED CELL DISTRIBUTION WIDTH 21.6 % (11.5-14.5); WHITE BLOOD COUNT 7.6 10^3/ul (4.8-10.8)
[2017-10-10] MEDS: ALBUTEROL/IPRATROPIUM (NEB) 3 ML AMP HHN SCH ×3 (08:10→19:36)
[2017-10-10 08:30] LABS: ALBUMIN 3.2 g/dl (3.3-4.9); CALCIUM 9.3 mg/dl (8.4-10.2); CREATININE 1.26 mg/dl (0.61-1.24); PHOSPHORUS 5.6 mg/dl (2.5-4.9); POTASSIUM 5.2 mmol/L (3.5-5.1)
[2017-10-10] MEDS: FERROUS SULFATE (EC) 325 MG TAB PO SCH (08:30)
[2017-10-10] MEDS: MAGNESIUM OXIDE 400 MG TAB PO SCH ×2 (08:30→21:13)
[2017-10-10] MEDS: FAMOTIDINE 20 MG TAB PO SCH ×2 (08:30→21:13)
[2017-10-10] MEDS: FOLIC ACID 1 MG TAB PO SCH (08:30)
[2017-10-10] MEDS: LISINOPRIL 5 MG TAB PO SCH (08:31)
[2017-10-10] MEDS: ALBUMIN HUMAN 25% 100 ML IV SCH ×2 (09:42→17:30)
--- NOTE | 2017-10-10 11:29 | CONS ---
Date/Time of Note Date/Time of Note DATE: 10/10/17 TIME: 11:26 Assessment/Plan Assessment/Plan Additional Assessment/Plan Chest x-ray was reviewed from today which is totally clear. Assessment and recommendations; 1. Patient admitted with shortness of breath due to large right pleural effusion from hepatic hydrothorax, status post thoracentesis with resulting right hydropneumothorax requiring chest tube with interval removal yesterday. 2. Advanced cirrhosis of liver. 3. No evidence of any recommendation of pleural fluid based upon examination as well as today's chest x-ray. Consider discharge. Obtain follow-up chest x-ray on an outpatient basis in about a week's time. Patient is a candidate for a TIPS procedure if there is recurrence of pleural effusion. Placement of a Pleurx catheter is noted commended owing to significant protein depletion. Consultation Date/Type/Reason Admit Date/Time Sep 05, 2017 at 13:14 Type of Consultation: Pulm 24 HR Interval Summary Free Text/Dictation Patient's condition is stable. Denies any chest pain, shortness of breath. General exam; young male, awake alert, currently in no distress. Exam/Review of Systems Vital Signs Vitals Vital Signs Date Time Temp Pulse Resp B/P Pulse Ox O2 Delivery O2 Flow Rate FiO2 10/10/17 11:25 98.2 97 16 96/56 98 10/10/17 08:00 Nasal Cannula 2.0 10/09/17 19:30 21 Intake and Output 10/09/17 10/09/17 10/10/17 14:59 22:59 06:59 Intake Total 210 ml 1000 ml Output Total 300 ml 900 ml Balance -90 ml 100 ml Exam HEENT exam; supple neck, no JVD. No lymphadenopathy. Midline trachea. No thyromegaly. Patient has fair dentition. Chest exam; clear to auscultation. S1-S2 audible, no murmurs. Regular rhythm. Abdomen exam; soft, nontender. No organomegaly. Bowel sounds audible. Extremity exam; no edema. No clubbing. 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 Results Result Diagram: 10/10/17 0752 10/10/17 0753 Results 24 hrs Laboratory Tests Test 10/10/17 07:52 10/10/17 07:53 White Blood Count 7.6 Red Blood Count 3.81 L Hemoglobin 8.9 L Hematocrit 27.5 L Mean Corpuscular Volume 72.2 L Mean Corpuscular Hemoglobin 23.4 L Mean Corpuscular Hemoglobin Concent 32.4 Red Cell Distribution Width 21.6 H Platelet Count 240 Mean Platelet Volume 9.7 Neutrophils % 58.2 Lymphocytes % 30.1 Monocytes % 9.6 Eosinophils % 1.3 Basophils % 0.3 Nucleated Red Blood Cells % 0.0 Neutrophils # 4.5 Lymphocytes # 2.3 Monocytes # 0.7 Eosinophils # 0.1 Basophils # 0.0 Nucleated Red Blood Cells # 0.0 Magnesium Level 1.8 Sodium Level 132 L Potassium Level 5.2 H Chloride Level 98 Carbon Dioxide Level 24 Anion Gap 15 Blood Urea Nitrogen 35 H Creatinine 1.26 H Glucose Level 89 Calcium Level 9.3 Phosphorus Level 5.6 H Albumin 3.2 L Medications Medications Current Medications Lorazepam (Ativan) 2 mg Q10MIN PRN IV seizure Last administered on 09/06/17 09 :11; Admin Dose 2 MG; Start 09/05/17 at 16:00 Ondansetron HCl (Zofran Inj) 4 mg Q6H PRN IV NAUSEA AND/OR VOMITING; Start 09/05/17 at 16:30 Acetaminophen (Tylenol Tab) 650 mg Q6H PRN PO PAIN LEVEL 1-3 OR FEVER Last administered on 09/27/17 05:47; Admin Dose 650 MG; Start 09/05/17 at 16:30 Bisacodyl (Dulcolax) 5 mg DAILY PRN PO CONSTIPATION; Start 09/05/17 at 16:30 Lorazepam (Ativan) 1 mg Q6H PRN IV agitation/anxiety Last administered on 09/08 09:30; Admin Dose 1 MG; Start 09/05/17 at 17:00 Nicotine (Nicoderm 21 Mg/ 24hr) 1 patch Q24H TRANSDERM Last administered on 17:31; Admin Dose 1 PATCH; Start 09/05/17 at 17:00 Folic Acid (Folic Acid) 1 mg DAILY PO Last administered on 10/10/17 08:30; Admin Dose 1 MG; Start 09/07/17 at 16:30 Famotidine (Pepcid) 20 mg BID PO Last administered on 10/10/17 08:30; Admin Dose 20 MG; Start 09/09/17 at 21:00 Hydralazine HCl (Apresoline) 10 mg Q4H PRN IV ELEVATED BLOOD PRESSURE Last administered on 09/12/17 08:53; Admin Dose 10 MG; Start 09/10/17 at 04:55 Ferrous Sulfate (Ferrous Sulfate (Ec)) 325 mg DAILY PO Last administered on 08:30; Admin Dose 325 MG; Start 09/14/17 at 09:30 Lorazepam (Ativan) 1 mg Q6H PRN PO ANXIETY Last administered on 09/29/17 20:19 ; Admin Dose 1 MG; Start 09/17/17 at 15:00 Magnesium Oxide (Mag-Ox 400) 400 mg BID PO Last administered on 10/10/17 08: 30; Admin Dose 400 MG; Start 09/25/17 at 21:00 Acetaminophen/ Hydrocodone Bitart ([place] (5/325)) 1 tab Q6H PRN PO pain Last administered on 10/03/17 08:07; Admin Dose 1 TAB; Start 10/01/17 at 13:00 Furosemide (Lasix) 40 mg DAILY@06 PO Last administered on 10/09/17 05:20; Admin Dose 40 MG; Start 10/08/17 at 06:00; Status Future Hold Spironolactone 100 mg 100 mg DAILY@06 PO Last administered on 10/09/17 05:21 ; Admin Dose 100 MG; Start 10/08/17 at 06:00; Status Future Hold Albumin Human (Albumin Human 25%) 100 ml @ 100 mls/hr Q8H IV Last administered on 10/10/17 09:42; Admin Dose 100 MLS/HR; Start 10/10/17 at 09: 00; Stop 10/11/17 at 01:59 KIRILL PEREZ Oct 10, 2017 11:28
--- NOTE | 2017-10-10 11:37 | PN ---
DATE: 10/10/2017 SUBJECTIVE: The patient is stable. No events overnight. OBJECTIVE: VITAL SIGNS: Blood pressure is 102/55, temperature 97.8, pulse 77, respirations 16. HEENT: Head is normocephalic. NECK: Supple. HEART: Regular rate. LUNGS: Show diminished breath sounds at base. ABDOMEN: Soft, nontender to palpation. No rebound or guarding. EXTREMITIES: Negative for clubbing, cyanosis, no edema. DERMATOLOGIC: No rashes. MUSCULOSKELETAL: No joint effusions. NEUROLOGIC: No change in exam. MEDICATIONS: The patient's medications have been reviewed. LABORATORY DATA: Shows sodium 132, potassium 5.2, BUN 35, creatinine 1.26. White count 7.6, hemogl obin 8.9, platelet count is 240. ASSESSMENT AND PLAN: 1. Nonoliguric acute kidney injury with previously normal baseline creatinine. Etiology is likely secondary to hemodynamics, possible volume depletion. Plan at this point is to hold diuretic therap y. We will hold Lasix. Will hold Aldactone. Will check UA with microanalysis, check urine electro lytes. We will give the patient gentle volume expansion with IV albumin and monitor closely. 2. Hyperkalemia. Etiology is multifactorial secondary to acute kidney injury and Aldactone effect. Plan is to discontinue Aldactone. We will give gentle IV hydration and monitor. 3. Hyponatremia secondary to acute kidney injury in conjunction with cirrhosis. Will limit free wa ter intake and monitor. 4. Cirrhosis, currently decompensated. Continue medical management. Holding diuretic therapy in t he setting of acute kidney injury. 5. Right hepatic hemothorax. Patient's chest tube was removed. Continue to monitor. 6. Status post respiratory failure. 7. Hypertension. We will continue to monitor, holding diuretic therapy. Dictated By: SLIME CHANG/NTS Conf#: [id number] DID#: [id number]
--- NOTE | 2017-10-10 16:14 | PN ---
Date/Time of Note Date/Time of Note DATE: 10/10/17 TIME: 16:06 Assessment/Plan VTE Prophylaxis VTE Prophylaxis Intervention: SCD's Lines/Catheters IV Catheter Type (from Nrs): Saline Lock Urinary Cath still in place: No Assessment/Plan Assessment/Plan 1. Right pleural effusion s/p chest tube - likely hepatic hydrothorax - BP was running low this am and diuretics held 2. Hypotension - Most likely secondary to volume depletion given diuretics - Albumin given this am and diuretics held. 3. pneumo/hydropneumothorax - s/p thoracentesis on 09/17 - chest tube placed 09/19 and removed 10/10 - CT surgery recs appreciated and repeat CXR shows no pleural effusion - Pulm on board and recommending TIPS to prevent further reaccumulation 4. TRACIE - most likely prerenal - continue to monitor 5. elevated AST/ALT- resolved - cirrhosis - us gallbladder noted 6. Delirium tremens- resolved - librium tapered off - Ativan PRN for agitation/anxiety 7. bacteremia, gram neg - Completed course of antibiotics - remains afebrile - wbc stabilized 8. acute respiratory failure, 2/2 PNA/pleural effusion- resolved - Pulmonology on board and recommendations appreciated. fluid will continue to reaccumulate without TIPS. - s/p 2 L drained on pleural effusion 1st time, 1 L drained 2nd time - Respiratory status stable. Saturating well 9. Bilateral pneumonia, likely aspiration- resolved - abx course completed 10. Severe hyponatremia- resolved - Nephrology on board and recommendations appreciated 11. Alcoholism - thiamine and folic acid - Librium taper completed 12. Hypokalemia - replete as needed 13. Hypomagnesia - Nephrology on board assisting with electrolyte abnormalities 14. Disposition - Hypotensive this am with TRACIE. Once TRACIE resolves and BP remains stable, will be safe for discharge Subjective 24 Hr Interval Summary Free Text/Dictation Patient is resting comfortably. Chest tube removed and denies any respiratory issues. No acute overnight events. BP was low this am and given albumin and diuretics held as well. Exam/Review of Systems Vital Signs Vitals Vital Signs Date Time Temp Pulse Resp B/P Pulse Ox O2 Delivery O2 Flow Rate FiO2 10/10/17 15:26 98.3 83 16 101/60 99 10/10/17 08:10 21 10/10/17 08:00 Nasal Cannula 2.0 Intake and Output 10/09/17 10/09/17 10/10/17 15:00 23:00 07:00 Intake Total 210 ml 1000 ml Output Total 300 ml 900 ml Balance -90 ml 100 ml Exam General: Patient resting comfortably, in no acute distress. answering questions appropriately Head: Normocephalic atraumatic Eyes: EOMI, pupils reactive to light Neck: Supple, nontender, midline Respiratory: diminished breath sounds at bases, no crackles or wheezing Cardiovascular: regular rate and rhythm, no obvious murmurs Gastrointestinal: non-tender to palpation, bowel sounds heard. non distended, no rebound or guarding Neurological: Moves all extremities spontaneously Skin: No new skin lesions Results Result Diagram: 10/10/17 0752 10/10/17 0753 Results 24 hrs Laboratory Tests Test 10/10/17 07:52 10/10/17 07:53 White Blood Count 7.6 Red Blood Count 3.81 L Hemoglobin 8.9 L Hematocrit 27.5 L Mean Corpuscular Volume 72.2 L Mean Corpuscular Hemoglobin 23.4 L Mean Corpuscular Hemoglobin Concent 32.4 Red Cell Distribution Width 21.6 H Platelet Count 240 Mean Platelet Volume 9.7 Neutrophils % 58.2 Lymphocytes % 30.1 Monocytes % 9.6 Eosinophils % 1.3 Basophils % 0.3 Nucleated Red Blood Cells % 0.0 Neutrophils # 4.5 Lymphocytes # 2.3 Monocytes # 0.7 Eosinophils # 0.1 Basophils # 0.0 Nucleated Red Blood Cells # 0.0 Magnesium Level 1.8 Sodium Level 132 L Potassium Level 5.2 H Chloride Level 98 Carbon Dioxide Level 24 Anion Gap 15 Blood Urea Nitrogen 35 H Creatinine 1.26 H Glucose Level 89 Calcium Level 9.3 Phosphorus Level 5.6 H Albumin 3.2 L Medications Medications Current Medications Lorazepam (Ativan) 2 mg Q10MIN PRN IV seizure Last administered on 09/06/17 09 :11; Admin Dose 2 MG; Start 09/05/17 at 16:00 Ondansetron HCl (Zofran Inj) 4 mg Q6H PRN IV NAUSEA AND/OR VOMITING; Start 09/05/17 at 16:30 Acetaminophen (Tylenol Tab) 650 mg Q6H PRN PO PAIN LEVEL 1-3 OR FEVER Last administered on 09/27/17 05:47; Admin Dose 650 MG; Start 09/05/17 at 16:30 Bisacodyl (Dulcolax) 5 mg DAILY PRN PO CONSTIPATION; Start 09/05/17 at 16:30 Lorazepam (Ativan) 1 mg Q6H PRN IV agitation/anxiety Last administered on 09/08 09:30; Admin Dose 1 MG; Start 09/05/17 at 17:00 Nicotine (Nicoderm 21 Mg/ 24hr) 1 patch Q24H TRANSDERM Last administered on 17:31; Admin Dose 1 PATCH; Start 09/05/17 at 17:00 Folic Acid (Folic Acid) 1 mg DAILY PO Last administered on 10/10/17 08:30; Admin Dose 1 MG; Start 09/07/17 at 16:30 Famotidine (Pepcid) 20 mg BID PO Last administered on 10/10/17 08:30; Admin Dose 20 MG; Start 09/09/17 at 21:00 Hydralazine HCl (Apresoline) 10 mg Q4H PRN IV ELEVATED BLOOD PRESSURE Last administered on 09/12/17 08:53; Admin Dose 10 MG; Start 09/10/17 at 04:55 Ferrous Sulfate (Ferrous Sulfate (Ec)) 325 mg DAILY PO Last administered on 08:30; Admin Dose 325 MG; Start 09/14/17 at 09:30 Lorazepam (Ativan) 1 mg Q6H PRN PO ANXIETY Last administered on 09/29/17 20:19 ; Admin Dose 1 MG; Start 09/17/17 at 15:00 Magnesium Oxide (Mag-Ox 400) 400 mg BID PO Last administered on 10/10/17 08: 30; Admin Dose 400 MG; Start 09/25/17 at 21:00 Acetaminophen/ Hydrocodone Bitart ([place] (5/325)) 1 tab Q6H PRN PO pain Last administered on 10/03/17 08:07; Admin Dose 1 TAB; Start 10/01/17 at 13:00 Furosemide (Lasix) 40 mg DAILY@06 PO Last administered on 10/09/17 05:20; Admin Dose 40 MG; Start 10/08/17 at 06:00; Status Future Hold Spironolactone 100 mg 100 mg DAILY@06 PO Last administered on 10/09/17 05:21 ; Admin Dose 100 MG; Start 10/08/17 at 06:00; Status Future Hold Albumin Human (Albumin Human 25%) 100 ml @ 100 mls/hr Q8H IV Last administered on 10/10/17t 09:42; Admin Dose 100 MLS/HR; Start 10/10/17 at 09: 00; Stop 10/11/17 at 01:59 THEO BUSH MD Oct 10, 2017 16:14
[2017-10-10] MEDS: NICOTINE (21 MG/24 HR) PATCH TRANSDERM SCH (17:29)
[2017-10-11] VITALS (12 sets, daily range): BP systolic 107–127; BP diastolic 60–77; PULSE 75–91; RESP 18–20
[2017-10-11] MEDS: ALBUMIN HUMAN 25% 100 ML IV SCH (00:44)
[2017-10-11 01:24] LABS: ADD UMIC NO; UR ASCORBIC ACID 20 mg/dL (NEGATIVE); UR BILIRUBIN (Dip) NEGATIVE (NEGATIVE); UR BLOOD (Dip) NEGATIVE (NEGATIVE); UR CLARITY CLEAR (CLEAR); UR COLOR STRAW (YELLOW); UR GLUCOSE (Dip) NEGATIVE (NEGATIVE); UR KETONES (Dip) NEGATIVE (NEGATIVE); UR LEUKOCYTE ESTERASE (Dip) NEGATIVE Leu/ul (NEGATIVE); UR NITRITE (Dip) NEGATIVE (NEGATIVE); UR SPECIFIC GRAVITY (Dip) 1.011 (1.003-1.030); UR TOTAL PROTEIN (Dip) NEGATIVE (NEGATIVE); UR UROBILINOGEN (Dip) NEGATIVE (NEGATIVE)
[2017-10-11] MEDS: MAGNESIUM OXIDE 400 MG TAB PO SCH ×2 (08:12→20:38)
[2017-10-11] MEDS: FOLIC ACID 1 MG TAB PO SCH (08:12)
[2017-10-11] MEDS: FERROUS SULFATE (EC) 325 MG TAB PO SCH (08:13)
[2017-10-11] MEDS: FAMOTIDINE 20 MG TAB PO SCH ×2 (08:13→20:38)
[2017-10-11] MEDS: ALBUTEROL/IPRATROPIUM (NEB) 3 ML AMP HHN SCH ×3 (08:21→20:28)
[2017-10-11 09:07] LABS: BASOPHILS % 0.1 % (0.0-2.0); EOSINOPHILS # 0.1 10^3/ul (0.0-0.5); EOSINOPHILS % 1.1 % (0.0-7.0); HEMATOCRIT 28.3 % (42.0-52.0); LYMPHOCYTES % 26.8 % (15.0-51.0); MEAN CORPUSCULAR HEMOGLOBIN 23.6 pg (29.0-33.0); MEAN CORPUSCULAR HGB CONC 31.8 g/dl (32.0-37.0); MEAN CORPUSCULAR VOLUME 74.1 fl (82.0-101.0); MONOCYTE # 0.8 10^3/ul (0.3-0.9); NEUTROPHIL # 4.5 10^3/ul (1.6-7.5); NEUTROPHILS % 60.6 % (39.0-77.0); PLATELET COUNT 229 10^3/UL (140-415); RED BLOOD COUNT 3.82 10^6/ul (4.70-6.10); RED CELL DISTRIBUTION WIDTH 21.5 % (11.5-14.5); WHITE BLOOD COUNT 7.5 10^3/ul (4.8-10.8)
[2017-10-11 09:30] LABS: ALBUMIN 4.4 g/dl (3.3-4.9); CALCIUM 10.5 mg/dl (8.4-10.2); CREATININE 1.03 mg/dl (0.61-1.24); PHOSPHORUS 5.3 mg/dl (2.5-4.9); POTASSIUM 4.9 mmol/L (3.5-5.1)
--- NOTE | 2017-10-11 12:12 | PN ---
Date/Time of Note Date/Time of Note DATE: 10/11/17 TIME: 12:12 Assessment/Plan VTE Prophylaxis VTE Prophylaxis Intervention: SCD's Lines/Catheters IV Catheter Type (from Nrs): Saline Lock Urinary Cath still in place: No Assessment/Plan Assessment/Plan 1. Right pleural effusion s/p chest tube- resolved - likely hepatic hydrothorax - BP improved and will restart Lasix to see if BP will tolerate 2. Hypotension- improving - Most likely secondary to volume depletion given diuretics 3. pneumo/hydropneumothorax - s/p thoracentesis on 09/17 - chest tube placed 09/19 and removed 10/10 - CT surgery recs appreciated and repeat CXR shows no pleural effusion - Pulm on board and recommending TIPS to prevent further reaccumulation 4. TRACIE- resolved - most likely prerenal - continue to monitor 5. elevated AST/ALT- resolved - cirrhosis - us gallbladder noted 6. Delirium tremens- resolved - librium tapered off - Ativan PRN for agitation/anxiety 7. bacteremia, gram neg - Completed course of antibiotics - remains afebrile - wbc stabilized 8. acute respiratory failure, 2/2 PNA/pleural effusion- resolved - Pulmonology on board and recommendations appreciated. fluid will continue to reaccumulate without TIPS. - s/p 2 L drained on pleural effusion 1st time, 1 L drained 2nd time - Respiratory status stable. Saturating well 9. Bilateral pneumonia, likely aspiration- resolved - abx course completed 10. Severe hyponatremia- resolved - Nephrology on board and recommendations appreciated 11. Alcoholism - thiamine and folic acid - Librium taper completed 12. Hypokalemia- resolved - continue to monitor 13. Hypomagnesia- improving - Nephrology on board assisting with electrolyte abnormalities 14. Disposition - Restarting on Lasix and if BP and renal function remains stable can d/c in next 24-48hrs Subjective 24 Hr Interval Summary Free Text/Dictation Patient doing well and no new complaints. No acute overnight events. Denies any dizziness, chest pain, shortness of breath, or abdominal issues. Exam/Review of Systems Vital Signs Vitals Vital Signs Date Time Temp Pulse Resp B/P Pulse Ox O2 Delivery O2 Flow Rate FiO2 10/11/17 11:43 98.2 95 20 111/72 99 10/11/17 08:24 21 10/11/17 08:00 Nasal Cannula 2.0 Intake and Output 10/10/17 10/10/17 10/11/17 15:00 23:00 07:00 Intake Total 200 ml 100 ml 500 ml Output Total 900 ml 800 ml Balance -700 ml 100 ml -300 ml Exam General: Patient resting comfortably, in no acute distress. answering questions appropriately Head: Normocephalic atraumatic Eyes: EOMI, pupils reactive to light Neck: Supple, nontender, midline Respiratory: diminished breath sounds at bases, no crackles or wheezing Cardiovascular: regular rate and rhythm, no obvious murmurs Gastrointestinal: non-tender to palpation, bowel sounds heard. non distended, no rebound or guarding Neurological: Moves all extremities spontaneously Skin: No new skin lesions Results Result Diagram: 10/11/17 0759 10/11/17 0759 Results 24 hrs Laboratory Tests Test 10/11/17 00:50 10/11/17 07:59 Urine Color STRAW Urine Clarity CLEAR Urine pH 7.0 Urine Specific [place] 1.011 Urine Ketones NEGATIVE Urine Nitrite NEGATIVE Urine Bilirubin NEGATIVE Urine Urobilinogen NEGATIVE Urine Leukocyte Esterase NEGATIVE Urine Hemoglobin NEGATIVE Urine Random Creatinine 38.08 Urine Random Sodium 99 H Urine Glucose NEGATIVE Urine Total Protein 11.0 White Blood Count 7.5 Red Blood Count 3.82 L Hemoglobin 9.0 L Hematocrit 28.3 L Mean Corpuscular Volume 74.1 L Mean Corpuscular Hemoglobin 23.6 L Mean Corpuscular Hemoglobin Concent 31.8 L Red Cell Distribution Width 21.5 H Platelet Count 229 Mean Platelet Volume 10.0 Neutrophils % 60.6 Lymphocytes % 26.8 Monocytes % 11.0 Eosinophils % 1.1 Basophils % 0.1 Nucleated Red Blood Cells % 0.0 Neutrophils # 4.5 Lymphocytes # 2.0 Monocytes # 0.8 Eosinophils # 0.1 Basophils # 0.0 Nucleated Red Blood Cells # 0.0 Sodium Level 137 Potassium Level 4.9 Chloride Level 98 Carbon Dioxide Level 27 Anion Gap 17 H Blood Urea Nitrogen 28 H Creatinine 1.03 Glucose Level 87 Calcium Level 10.5 H Phosphorus Level 5.3 H Albumin 4.4 # Medications Medications Current Medications Lorazepam (Ativan) 2 mg Q10MIN PRN IV seizure Last administered on 09/06/17t 09 :11; Admin Dose 2 MG; Start 09/05/17 at 16:00 Ondansetron HCl (Zofran Inj) 4 mg Q6H PRN IV NAUSEA AND/OR VOMITING; Start 09/05/17 at 16:30 Acetaminophen (Tylenol Tab) 650 mg Q6H PRN PO PAIN LEVEL 1-3 OR FEVER Last administered on 09/27/17 05:47; Admin Dose 650 MG; Start 09/05/17 at 16:30 Bisacodyl (Dulcolax) 5 mg DAILY PRN PO CONSTIPATION; Start 09/05/17 at 16:30 Lorazepam (Ativan) 1 mg Q6H PRN IV agitation/anxiety Last administered on 09/08 09:30; Admin Dose 1 MG; Start 09/05/17 at 17:00 Nicotine (Nicoderm 21 Mg/ 24hr) 1 patch Q24H TRANSDERM Last administered on 17:29; Admin Dose 1 PATCH; Start 09/05/17 at 17:00 Folic Acid (Folic Acid) 1 mg DAILY PO Last administered on 10/11/17 08:12; Admin Dose 1 MG; Start 09/07/17 at 16:30 Famotidine (Pepcid) 20 mg BID PO Last administered on 10/11/17 08:13; Admin Dose 20 MG; Start 09/09/17 at 21:00 Hydralazine HCl (Apresoline) 10 mg Q4H PRN IV ELEVATED BLOOD PRESSURE Last administered on 09/12/17 08:53; Admin Dose 10 MG; Start 09/10/17 at 04:55 Ferrous Sulfate (Ferrous Sulfate (Ec)) 325 mg DAILY PO Last administered on 08:13; Admin Dose 325 MG; Start 09/14/17 at 09:30 Lorazepam (Ativan) 1 mg Q6H PRN PO ANXIETY Last administered on 09/29/17 20:19 ; Admin Dose 1 MG; Start 09/17/17 at 15:00 Magnesium Oxide (Mag-Ox 400) 400 mg BID PO Last administered on 10/11/17 08: 12; Admin Dose 400 MG; Start 09/25/17 at 21:00 Acetaminophen/ Hydrocodone Bitart ([place] (5/325)) 1 tab Q6H PRN PO pain Last administered on 10/03/17 08:07; Admin Dose 1 TAB; Start 10/01/17 at 13:00 Furosemide (Lasix) 40 mg DAILY@06 PO Last administered on 10/09/17 05:20; Admin Dose 40 MG; Start 10/08/17 at 06:00; Status Future Hold Spironolactone (Aldactone) 100 mg DAILY@06 PO Last administered on 10/09/17 05:21; Admin Dose 100 MG; Start 10/08/17 at 06:00; Status Future Hold THEO BUSH MD Oct 11, 2017 12:12
[2017-10-11] MEDS ORDERED: FUROSEMIDE 20 MG TAB PO ONE (15:30)
--- NOTE | 2017-10-11 16:55 | PN ---
DATE: 10/11/2017 SUBJECTIVE: The patient is stable. No events overnight. OBJECTIVE: VITAL SIGNS: Blood pressure is 107/72, respirations 20, pulse 73, temperature 98.0. HEENT: Head is normocephalic. NECK: Supple. HEART: Regular rate. LUNGS: Show diminished breath sounds at the base. ABDOMEN: Soft, nontender to palpation. No rebound or guarding. EXTREMITIES: Negative for clubbing, cyanosis. No edema. DERMATOLOGIC: No rashes. MUSCULOSKELETAL: No joint effusions. NEUROLOGIC: No change in exam. MEDICATIONS: The patient's medications have been reviewed. LABORATORY DATA: From 10/11/2017 is pending. Repeat urinalysis on 10/11/2017 shows a FENa greater than 1%. Urinalysis is otherwise bland. ASSESSMENT AND PLAN: 1. Nonoliguric acute kidney injury with previously normal baseline creatinine. Etiology is likely multifactorial secondary to diuretics, Lasix and KEENAN inhibitor, hemodynamics. The patient's diureti cs, KEENAN inhibitor has been held. The patient received IV fluids yesterday. Repeat urinalysis is bl and. We will follow up renal panel this morning, monitor closely. 2. Hypokalemia. Likely due to Aldactone effect, KEENAN inhibitor in conjunction with acute kidney inj ury. The patient's medications were held. We will follow up. The patient was given gentle IV hydr ation. Follow up renal panel this morning. 3. Hyponatremia secondary to acute kidney injury, cirrhosis. Continue to monitor. 4. Cirrhosis, currently decompensated. Continue medical management holding diuretic therapy in the setting of acute kidney injury. 5. Right hepatic hemothorax. The patient's chest tube was removed. Continue to monitor. 5. Hypotension, improved. Continue to observe. Patient is status post IV fluids. Dictated By: SLIME CHANG/VICKY Conf#: [id number] DID#: [id number]
[2017-10-11] MEDS: NICOTINE (21 MG/24 HR) PATCH TRANSDERM SCH (17:26)
[2017-10-12] VITALS: BP 117/78; RESP 19
[2017-10-12 01:30] VITALS: BP 14/89; PULSE 91; RESP 18
[2017-10-12 05:21] LABS: BASOPHILS % 0.2 % (0.0-2.0); EOSINOPHILS % 0.4 % (0.0-7.0); HEMATOCRIT 31.1 % (42.0-52.0); HEMOGLOBIN 9.8 g/dl (14.0-18.0); LYMPHOCYTES # 2.3 10^3/ul (0.8-2.9); MEAN CORPUSCULAR HEMOGLOBIN 23.1 pg (29.0-33.0); MEAN CORPUSCULAR HGB CONC 31.5 g/dl (32.0-37.0); MEAN CORPUSCULAR VOLUME 73.2 fl (82.0-101.0); MONOCYTE # 0.9 10^3/ul (0.3-0.9); MONOCYTES % 9.5 % (0.0-11.0); NEUTROPHIL # 5.7 10^3/ul (1.6-7.5); NEUTROPHILS % 63.3 % (39.0-77.0); PLATELET COUNT 238 10^3/UL (140-415); RED BLOOD COUNT 4.25 10^6/ul (4.70-6.10); RED CELL DISTRIBUTION WIDTH 21.6 % (11.5-14.5)
[2017-10-12 05:58] LABS: ALBUMIN 4.4 g/dl (3.3-4.9); CALCIUM 10.6 mg/dl (8.4-10.2); CREATININE 1.18 mg/dl (0.61-1.24); PHOSPHORUS 5.9 mg/dl (2.5-4.9)
[2017-10-12 06:38] LABS: CALCIUM 10.4 mg/dl (8.4-10.2); CREATININE 1.16 mg/dl (0.61-1.24); MAGNESIUM 1.3 mg/dl (1.7-2.5); PHOSPHORUS 5.9 mg/dl (2.5-4.9); POTASSIUM 3.9 mmol/L (3.5-5.1)
[2017-10-12 08:11] VITALS: BP 127/83; RESP 18
[2017-10-12] MEDS: ALBUTEROL/IPRATROPIUM (NEB) 3 ML AMP HHN SCH ×3 (08:44→19:03)
--- NOTE | 2017-10-12 10:09 | PN ---
DATE: 10/12/2017 SUBJECTIVE: The patient is stable. No events overnight. No fevers, chills, nausea, vomiting. OBJECTIVE: VITAL SIGNS: Blood pressure is 127/83, respirations 18, pulse 90, temperature 98.7. HEENT: Head is normocephalic. NECK: Supple. HEART: Regular rate. LUNGS: Show diminished breath sounds at base. ABDOMEN: Soft, nontender to palpation. No rebound or guarding. EXTREMITIES: Negative for clubbing, cyanosis, no edema. DERMATOLOGIC: No rashes. MUSCULOSKELETAL: No joint effusions. NEUROLOGIC: No change in exam. MEDICATIONS: The patient's medications have been reviewed. LABORATORY DATA: Shows sodium 138, potassium 4.0, chloride 96, BUN 34, creatinine 1.18, calcium 10. 6, phosphorus 5.9, magnesium 1.3. ASSESSMENT AND PLAN: 1. Nonoliguric acute kidney injury with previously normal baseline creatinine. Etiology secondary to hemodynamics, volume depletion, diuretic effect, KEENAN inhibitor effect. The patient's renal funct ion has improved after holding diuretics, KEENAN inhibitor, and giving gentle volume repletion. At thi s point, continue to monitor. Continue current treatment plan. 2. Hyperkalemia, resolved. Continue to monitor. Continue to hold Aldactone. 3. Hyponatremia, resolved. Continue to monitor. 4. Cirrhosis. Continue current medical management. 5. Right hepatic hemothorax. The patient is status post chest tube removal. Continue to monitor. 6. Hypertension. Continue to monitor. 7. Mineral bone disorder. The patient is hyperphosphatemic and hypercalcemic. This is possibly in conjunction to recent acute kidney injury and immobilized state. We will continue to monitor calci um levels closely. If remains elevated, we will check a PTH level. Dictated By: SLIME AGUILAR DO NR/NTS Conf#: [id number] DID#: [id number] CC: TANK MALHOTRA;*EndCC*
[2017-10-12] MEDS: FAMOTIDINE 20 MG TAB PO SCH ×2 (10:48→21:16)
[2017-10-12] MEDS: FOLIC ACID 1 MG TAB PO SCH (10:48)
[2017-10-12] MEDS: MAGNESIUM OXIDE 400 MG TAB PO SCH ×2 (10:48→21:17)
[2017-10-12] MEDS: FERROUS SULFATE (EC) 325 MG TAB PO SCH (10:49)
[2017-10-12 14:01] LABS: MICROALBUMIN 1.1 mg/dL
--- NOTE | 2017-10-12 14:42 | PN ---
Date/Time of Note Date/Time of Note DATE: 10/12/17 TIME: 14:42 Assessment/Plan VTE Prophylaxis VTE Prophylaxis Intervention: SCD's Lines/Catheters IV [facility]from [facility] Saline Lock Urinary Cath still in place: No Assessment/Plan Assessment/Plan 1. 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 Hypotension-resolved - Most likely secondary to volume depletion given diuretics 3. pneumo/hydropneumothorax - s/p thoracentesis on 09/17 - chest tube placed 09/19 and removed 10/10 - CT surgery recs appreciated and repeat CXR shows no pleural effusion - Pulm on board and recommending TIPS to prevent further reaccumulation 4. TRACIE- improved off diuretics - most likely prerenal - continue to monitor 5. elevated AST/ALT- resolved - cirrhosis - us gallbladder noted 6. Delirium tremens- resolved - librium tapered off - Ativan PRN for agitation/anxiety 7. bacteremia, gram neg - Completed course of antibiotics - remains afebrile - wbc stabilized 8. acute respiratory failure, 2/2 PNA/pleural effusion- resolved - Pulmonology on board and recommendations appreciated. fluid will continue to reaccumulate without TIPS. - s/p 2 L drained on pleural effusion 1st time, 1 L drained 2nd time - Respiratory status stable. Saturating well 9. Bilateral pneumonia, likely aspiration- resolved - abx course completed 10. Severe hyponatremia- resolved - Nephrology on board and recommendations appreciated 11. Alcoholism - thiamine and folic acid - Librium taper completed 12. Hypokalemia- resolved - continue to monitor 13. Hypomagnesia- improving - Nephrology on board assisting with electrolyte abnormalities 14. Disposition - Once BP and kidney function remain stable, will discharge home Subjective 24 Hr Interval Summary Free Text/Dictation Patient upset because he is not getting the food he has been ordering and still hungry. Denies any new issues or acute overnight events. Exam/Review of Systems Vital Signs Vitals Vital Signs Date Time Temp Pulse Resp B/P Pulse Ox O2 Delivery O2 Flow Rate FiO2 10/12/17 14:35 89 18 98 21 10/12/17 08:11 98.7 127/83 10/12/17 01:30 Room Air 10/11/17 08:00 2.0 Intake and Output 1210/11/17 10/12/17 15:00 23:00 07:00 Intake Total 700 ml 500 ml Output Total 1100 ml 1400 ml Balance -400 ml -900 ml Exam General: Patient resting comfortably, in no acute distress. answering questions appropriately Head: Normocephalic atraumatic Eyes: EOMI, pupils reactive to light Neck: Supple, nontender, midline Respiratory: diminished breath sounds at bases, no crackles or wheezing Cardiovascular: regular rate and rhythm, no obvious murmurs Gastrointestinal: non-tender to palpation, bowel sounds heard. non distended, no rebound or guarding Neurological: Moves all extremities spontaneously Skin: No new skin lesions Results Result Diagram: 10/12/17 0446 10/12/17 0446 Results 24 hrs Laboratory Tests Test 10/12/17 04:46 White Blood Count 9.0 Red Blood Count 4.25 L Hemoglobin 9.8 L Hematocrit 31.1 L Mean Corpuscular Volume 73.2 L Mean Corpuscular Hemoglobin 23.1 L Mean Corpuscular Hemoglobin Concent 31.5 L Red Cell Distribution Width 21.6 H Platelet Count 238 Mean Platelet Volume 10.0 Neutrophils % 63.3 Lymphocytes % 26.0 Monocytes % 9.5 Eosinophils % 0.4 Basophils % 0.2 Nucleated Red Blood Cells % 0.0 Neutrophils # 5.7 Lymphocytes # 2.3 Monocytes # 0.9 Eosinophils # 0.0 Basophils # 0.0 Nucleated Red Blood Cells # 0.0 Sodium Level 138 Potassium Level 4.0 Chloride Level 96 L Carbon Dioxide Level 27 Anion Gap 19 H Blood Urea Nitrogen 34 H Creatinine 1.18 Glucose Level 119 Calcium Level 10.6 H Phosphorus Level 5.9 H Magnesium Level 1.3 L Albumin 4.4 Medications Medications Current Medications Lorazepam (Ativan) 2 mg Q10MIN PRN IV seizure Last administered on 09/06/17 09 :11; Admin Dose 2 MG; Start 09/05/17 at 16:00 Ondansetron HCl (Zofran Inj) 4 mg Q6H PRN IV NAUSEA AND/OR VOMITING; Start 09/05/17 at 16:30 Acetaminophen (Tylenol Tab) 650 mg Q6H PRN PO PAIN LEVEL 1-3 OR FEVER Last administered on 09/27/17 05:47; Admin Dose 650 MG; Start 09/05/17 at 16:30 Bisacodyl (Dulcolax) 5 mg DAILY PRN PO CONSTIPATION; Start 09/05/17 at 16:30 Lorazepam (Ativan) 1 mg Q6H PRN IV agitation/anxiety Last administered on 09/08 09:30; Admin Dose 1 MG; Start 09/05/17 at 17:00 Nicotine (Nicoderm 21 Mg/ 24hr) 1 patch Q24H TRANSDERM Last administered on 17:26; Admin Dose 1 PATCH; Start 09/05/17 at 17:00 Folic Acid (Folic Acid) 1 mg DAILY PO Last administered on 10/12/17 10:48; Admin Dose 1 MG; Start 09/07/17 at 16:30 Famotidine (Pepcid) 20 mg BID PO Last administered on 10/12/17 10:48; Admin Dose 20 MG; Start 09/09/17 at 21:00 Hydralazine HCl (Apresoline) 10 mg Q4H PRN IV ELEVATED BLOOD PRESSURE Last administered on 09/12/17 08:53; Admin Dose 10 MG; Start 09/10/17 at 04:55 Ferrous Sulfate (Ferrous Sulfate (Ec)) 325 mg DAILY PO Last administered on 10:49; Admin Dose 325 MG; Start 09/14/17 at 09:30 Lorazepam (Ativan) 1 mg Q6H PRN PO ANXIETY Last administered on 09/29/17 20:19 ; Admin Dose 1 MG; Start 09/17/17 at 15:00 Magnesium Oxide (Mag-Ox 400) 400 mg BID PO Last administered on 10/12/17 10: 48; Admin Dose 400 MG; Start 09/25/17 at 21:00 Acetaminophen/ Hydrocodone Bitart ([place] (5/325)) 1 tab Q6H PRN PO pain Last administered on 10/03/17 08:07; Admin Dose 1 TAB; Start 10/01/17 at 13:00 Furosemide (Lasix) 40 mg DAILY@06 PO Last administered on 10/09/17 05:20; Admin Dose 40 MG; Start 10/08/17 at 06:00; Status Future hold Spironolactone (Aldactone) 100 mg DAILY@06 PO Last administered on 10/09/17 05:21; Admin Dose 100 MG; Start 10/08/17 at 06:00; Status Future Hold THEO BUSH MD Oct 12, 2017 14:42
[2017-10-12] MEDS: NICOTINE (21 MG/24 HR) PATCH TRANSDERM SCH (17:00)
[2017-10-12 19:25] VITALS: BP 115/76; RESP 18
[2017-10-13 01:25] VITALS: BP 121/80; RESP 18
[2017-10-13 06:22] LABS: CALCIUM 10.1 mg/dl (8.4-10.2); CREATININE 0.99 mg/dl (0.61-1.24); MAGNESIUM 1.4 mg/dl (1.7-2.5); PHOSPHORUS 4.7 mg/dl (2.5-4.9)
[2017-10-13] MEDS: FUROSEMIDE 20 MG TAB PO SCH (06:25)
[2017-10-13 08:05] VITALS: BP 113/76; RESP 16
[2017-10-13] MEDS ORDERED: MAGNESIUM SULFATE 2 GM/50 ML 50 ML IVPB ONE ×2 (08:30→10:00)
--- NOTE | 2017-10-13 08:53 | PN ---
Date/Time of Note Date/Time of Note DATE: 10/13/17 TIME: 08:53 Assessment/Plan VTE Prophylaxis VTE Prophylaxis Intervention: SCD's Lines/Catheters IV [facility]ter Type (from [facility] Saline Lock Urinary Cath still in place: No Assessment/Plan Assessment/Plan 1. Right pleural effusion s/p chest tube- resolved - likely hepatic hydrothorax - Patient has not acute respiratory issues. albumin has improved as well - holding diuretics at this time 2. Hypotension-resolved - Most likely secondary to volume depletion given diuretics 3. pneumo/hydropneumothorax - s/p thoracentesis on 09/17 - chest tube placed 09/19 and removed 10/10 - CT surgery recs appreciated and repeat CXR shows no pleural effusion - Pulm on board and recommending TIPS to prevent further reaccumulation 4. TRACIE- resolved - most likely prerenal - continue to monitor 5. elevated AST/ALT- resolved - cirrhosis - us gallbladder noted 6. Delirium tremens- resolved - librium tapered off - Ativan PRN for agitation/anxiety 7. bacteremia, gram neg - Completed course of antibiotics - remains afebrile - wbc stabilized 8. acute respiratory failure, 2/2 PNA/pleural effusion- resolved - Pulmonology on board and recommendations appreciated. fluid will continue to reaccumulate without TIPS. - s/p 2 L drained on pleural effusion 1st time, 1 L drained 2nd time - Respiratory status stable. Saturating well 9. Bilateral pneumonia, likely aspiration- resolved - abx course completed 10. Severe hyponatremia- resolved - Nephrology on board and recommendations appreciated 11. Alcoholism - thiamine and folic acid - Librium taper completed 12. Hypokalemia- resolved - continue to monitor 13. Hypomagnesia- improving - Replaced this am - Nephrology on board assisting with electrolyte abnormalities 14. Disposition - Okay for patient to ambulate in hallway and shower - Will touch base with consultants for discharge planning since labs and BP stabilizing Subjective 24 Hr Interval Summary Free Text/Dictation Patient doing well and concerned that he has not been walking around much lately. Would also like to take a shower. Asking the purpose of SCDs and explained which he understood. Denies any new complaints and no acute overnight events. Exam/Review of Systems Vital Signs Vitals Vital Signs Date Time Temp Pulse Resp B/P Pulse Ox O2 Delivery O2 Flow Rate FiO2 10/13/17 08:05 98.3 82 16 113/76 100 10/12/17 19:03 21 10/12/17 01:30 Room Air 10/11/17 08:00 2.0 Intake and Output 10/12/17 10/12/17 10/13/17 15:00 23:00 07:00 Intake Total 650 ml 600 ml Output Total 500 ml 600 ml Balance 150 ml 0 ml Exam General: Patient resting comfortably, in no acute distress. answering questions appropriately Head: Normocephalic atraumatic Eyes: EOMI, pupils reactive to light Neck: Supple, nontender, midline Respiratory: diminished breath sounds at bases, no crackles or wheezing Cardiovascular: regular rate and rhythm, no obvious murmurs Gastrointestinal: non-tender to palpation, bowel sounds heard. non distended, no rebound or guarding Neurological: Moves all extremities spontaneously Skin: No new skin lesions Results Result Diagram: 10/12/17 0446 10/13/17 0454 Results 24 hrs Laboratory Tests Test 10/13/17 04:54 Sodium Level 139 Potassium Level 4.0 Chloride Level 97 Carbon Dioxide Level 28 Anion Gap 18 H Blood Urea Nitrogen 35 H Creatinine 0.99 Glucose Level 106 Calcium Level 10.1 Phosphorus Level 4.7 Magnesium Level 1.4 L Medications Medications Current Medications Lorazepam (Ativan) 2 mg Q10MIN PRN IV seizure Last administered on 09/06/17 09 :11; Admin Dose 2 MG; Start 09/05/17 at 16:00 Ondansetron HCl (Zofran Inj) 4 mg Q6H PRN IV NAUSEA AND/OR VOMITING; Start 09/05/17 at 16:30 Acetaminophen (Tylenol Tab) 650 mg Q6H PRN PO PAIN LEVEL 1-3 OR FEVER Last administered on 09/27/17 05:47; Admin Dose 650 MG; Start 09/05/17 at 16:30 Bisacodyl (Dulcolax) 5 mg DAILY PRN PO CONSTIPATION; Start 09/05/17 at 16:30 Lorazepam (Ativan) 1 mg Q6H PRN IV agitation/anxiety Last administered on 09/08 09:30; Admin Dose 1 MG; Start 09/05/17 at 17:00 Nicotine (Nicoderm 21 Mg/ 24hr) 1 patch Q24H TRANSDERM Last administered on 17:26; Admin Dose 1 PATCH; Start 09/05/17 at 17:00 Folic Acid (Folic Acid) 1 mg DAILY PO Last administered on 10/12/17 10:48; Admin Dose 1 MG; Start 09/07/17 at 16:30 Famotidine (Pepcid) 20 mg BID PO Last administered on 10/12/17 21:16; Admin Dose 20 MG; Start 09/09/17 at 21:00 Hydralazine HCl (Apresoline) 10 mg Q4H PRN IV ELEVATED BLOOD PRESSURE Last administered on 09/12/17 08:53; Admin Dose 10 MG; Start 09/10/17 at 04:55 Ferrous Sulfate (Ferrous Sulfate (Ec)) 325 mg DAILY PO Last administered on 10:49; Admin Dose 325 MG; Start 09/14/17 at 09:30 Lorazepam (Ativan) 1 mg Q6H PRN PO ANXIETY Last administered on 09/29/17 20:19 ; Admin Dose 1 MG; Start 09/17/17 at 15:00 Magnesium Oxide (Mag-Ox 400) 400 mg BID PO Last administered on 10/12/17 21: 17; Admin Dose 400 MG; Start 09/25/17 at 21:00 Acetaminophen/ Hydrocodone Bitart ([place] (5/325)) 1 tab Q6H PRN PO pain Last administered on 10/03/17 08:07; Admin Dose 1 TAB; Start 10/01/17 at 13:00 Furosemide (Lasix) 40 mg DAILY@06 PO Last administered on 10/13/17 06:25; Admin Dose 40 MG; Start 10/08/17 at 06:00; Status Future hold Spironolactone 100 mg 100 mg DAILY@06 PO Last administered on 10/09/17 05:21 ; Admin Dose 100 MG; Start 10/08/17 at 06:00; Status Future Hold Magnesium Sulfate 50 ml @ 25 mls/hr ONCE ONCE IVPB ; Start 10/13/17 at 08:30; Stop 10/13/17 at 10:29 Magnesium Sulfate (Magnesium Sulfate 2 Gm/50 ml) 50 ml @ 25 mls/hr ONCE ONCE IVPB ; Start 10/13/17 at 09:00; Stop 10/13/17 at 10:59; Status THEO HAMMONDS MD Oct 13, 2017 08:53
[2017-10-13] MEDS: ALBUTEROL/IPRATROPIUM (NEB) 3 ML AMP HHN SCH ×3 (09:13→19:29)
[2017-10-13] MEDS: FAMOTIDINE 20 MG TAB PO SCH ×2 (09:21→21:37)
[2017-10-13] MEDS: FERROUS SULFATE (EC) 325 MG TAB PO SCH (09:21)
[2017-10-13] MEDS: FOLIC ACID 1 MG TAB PO SCH (09:21)
[2017-10-13] MEDS: MAGNESIUM OXIDE 400 MG TAB PO SCH ×2 (09:21→21:37)
[2017-10-13 13:45] VITALS: BP 120/78; RESP 16
--- NOTE | 2017-10-13 14:45 | PN ---
DATE: 10/13/2017 SUBJECTIVE: The patient is stable. No events overnight. No fevers, chills, nausea, vomiting. OBJECTIVE: VITAL SIGNS: Blood pressure is 113/76, pulse 82, respiration is 16, temperature is 98.3. HEENT: Head is normocephalic. NECK: Supple. HEART: Regular rate. LUNGS: Show diminished breath sounds at base. ABDOMEN: Soft, nontender to palpation. No rebound or guarding. EXTREMITIES: Negative for clubbing, cyanosis. No edema. DERMATOLOGIC: No rashes. MUSCULOSKELETAL: No joint effusions. NEUROLOGIC: No change in exam. MEDICATIONS: The patient's medications are reviewed. LABORATORY DATA: Shows sodium 139, BUN 35, creatinine 0.99, phosphorus 4.7, magnesium 1.4. ASSESSMENT AND PLAN: 1. Nonoliguric acute kidney injury with previously normal baseline creatinine. Etiology of acute ki dney injury is multifactorial secondary to medications, hemodynamics. Renal function has improved. Continue to monitor. 2. Hypomagnesemia. Etiology is multifactorial. Continue to monitor and replete. 3. Cirrhosis. Continue medical management. 4. Right hepatic hemothorax. The patient is status post chest tube removal. Continue to monitor. 5. Mineral bone disorder. The patient's hypercalcemia and hyperphosphatemia have resolved. 6. Hypotension, resolved. Dictated By: SLIME CHANG/VICKY Conf#: [id number] DID#: [id number]
[2017-10-13] MEDS: NICOTINE (21 MG/24 HR) PATCH TRANSDERM SCH (17:17)
[2017-10-13 19:25] VITALS: BP 120/87; RESP 18
[2017-10-14 02:00] VITALS: BP 128/82; RESP 18
[2017-10-14] MEDS: FUROSEMIDE 20 MG TAB PO SCH (05:46)
[2017-10-14 06:55] LABS: CREATININE 0.9 mg/dl (0.61-1.24); MAGNESIUM 1.5 mg/dl (1.7-2.5); PHOSPHORUS 4.9 mg/dl (2.5-4.9); POTASSIUM 4.2 mmol/L (3.5-5.1)
[2017-10-14 08:01] VITALS: BP 131/84; RESP 18
--- NOTE | 2017-10-14 08:23 | PN ---
Date/Time of Note Date/Time of Note DATE: 10/14/17 TIME: 08:23 Assessment/Plan VTE Prophylaxis VTE Prophylaxis Intervention: SCD's Lines/Catheters IV Catheter Type (from Nrs): Saline Lock Urinary Cath still in place: No Assessment/Plan Assessment/Plan 1. Right pleural effusion s/p chest tube, removed 10/10- resolved - likely hepatic hydrothorax - Albumin levels improved which may facilitate preventing reaccumulation of fluid - Patient has no acute respiratory issues - holding diuretics at this time secondary to hypotension and electrolyte abnormalities 2. Hypotension-resolved - Most likely secondary to volume depletion given diuretics 3. pneumo/hydropneumothorax - s/p thoracentesis on 09/17 - chest tube placed 09/19 and removed 10/10 with no issues - CT surgery recs appreciated and repeat CXR shows no pleural effusion - Pulm on board and recommending TIPS to prevent further reaccumulation 4. TRACIE- resolved - most likely prerenal - continue to monitor 5. elevated AST/ALT- resolved - cirrhosis - us gallbladder noted 6. Delirium tremens- resolved - librium tapered off - Ativan PRN for agitation/anxiety 7. bacteremia, gram neg - Completed course of antibiotics - remains afebrile - wbc stabilized 8. acute respiratory failure, 2/2 PNA/pleural effusion- resolved - Pulmonology on board and recommendations appreciated. fluid will continue to reaccumulate without TIPS. - s/p 2 L drained on pleural effusion 1st time, 1 L drained 2nd time - Respiratory status stable. Saturating well 9. Bilateral pneumonia, likely aspiration- resolved - abx course completed 10. Severe hyponatremia- resolved - Nephrology on board and recommendations appreciated 11. Alcoholism - thiamine and folic acid - Librium taper completed 12. Hypokalemia- resolved - continue to monitor 13. Hypomagnesia- improving - Replaced this am - Nephrology on board assisting with electrolyte abnormalities 14. Disposition - s/p chest tube removal on 10/10, diuretics on hold secondary to intolerance with hypotension, TRACIE and electrolyte imbalances developing while on medications - Okay for patient to ambulate in hallway and to shower - Awaiting PT recommendations as per nursing is not steady on feet. Will need to assess if safe for discharge to nursing home - CM on board Subjective 24 Hr Interval Summary Free Text/Dictation Patient currently receiving a breathing treatment and in no acute distress. Eager to get out of bed and walk around. Denies any new complaints and no acute overnight events. Still frustrated with meals since not receiving what he orders. Exam/Review of Systems Vital Signs Vitals Vital Signs Date Time Temp Pulse Resp B/P Pulse Ox O2 Delivery O2 Flow Rate FiO2 10/14/17 08:01 97.8 74 18 131/84 94 10/13/17 19:29 21 10/12/17 01:30 Room Air 10/11/17 08:00 2.0 Intake and Output 10/13/17 10/13/17 10/14/17 14:59 22:59 06:59 Intake Total 50 ml 1280 ml 720 ml Output Total 800 ml 1000 ml Balance 50 ml 480 ml -280 ml Results Result Diagram: 10/12/17 0446 10/14/17 0504 Results 24 hrs Laboratory Tests Test 10/14/17 05:04 Sodium Level 137 Potassium Level 4.2 Chloride Level 97 Carbon Dioxide Level 27 Anion Gap 17 H Blood Urea Nitrogen 32 H Creatinine 0.90 Glucose Level 88 Calcium Level 10.0 Phosphorus Level 4.9 Magnesium Level 1.5 L Medications Medications Current Medications Lorazepam (Ativan) 2 mg Q10MIN PRN IV seizure Last administered on 09/06/17 09 :11; Admin Dose 2 MG; Start 09/05/17 at 16:00 Ondansetron HCl (Zofran Inj) 4 mg Q6H PRN IV NAUSEA AND/OR VOMITING; Start 09/05/17 at 16:30 Acetaminophen (Tylenol Tab) 650 mg Q6H PRN PO PAIN LEVEL 1-3 OR FEVER Last administered on 09/27/17 05:47; Admin Dose 650 MG; Start 09/05/17 at 16:30 Bisacodyl (Dulcolax) 5 mg DAILY PRN PO CONSTIPATION; Start 09/05/17 at 16:30 Lorazepam (Ativan) 1 mg Q6H PRN IV agitation/anxiety Last administered on 09/08 09:30; Admin Dose 1 MG; Start 09/05/17 at 17:00 Nicotine (Nicoderm 21 Mg/ 24hr) 1 patch Q24H TRANSDERM Last administered on 17:17; Admin Dose 1 PATCH; Start 09/05/17 at 17:00 Folic Acid (Folic Acid) 1 mg DAILY PO Last administered on 10/13/17 09:21; Admin Dose 1 MG; Start 09/07/17 at 16:30 Famotidine (Pepcid) 20 mg BID PO Last administered on 10/13/17 21:37; Admin Dose 20 MG; Start 09/09/17 at 21:00 Hydralazine HCl (Apresoline) 10 mg Q4H PRN IV ELEVATED BLOOD PRESSURE Last administered on 09/12/17 08:53; Admin Dose 10 MG; Start 09/10/17 at 04:55 Ferrous Sulfate (Ferrous Sulfate (Ec)) 325 mg DAILY PO Last administered on 09:21; Admin Dose 325 MG; Start 09/14/17 at 09:30 Lorazepam (Ativan) 1 mg Q6H PRN PO ANXIETY Last administered on 09/29/17 20:19 ; Admin Dose 1 MG; Start 09/17/17 at 15:00 Magnesium Oxide (Mag-Ox 400) 400 mg BID PO Last administered on 10/13/17 21: 37; Admin Dose 400 MG; Start 09/25/17 at 21:00 Acetaminophen/ Hydrocodone Bitart ([place] (5/325)) 1 tab Q6H PRN PO pain Last administered on 10/03/17 08:07; Admin Dose 1 TAB; Start 10/01/17 at 13:00 Furosemide (Lasix) 40 mg DAILY@06 PO Last administered on 10/14/17 05:46; Admin Dose 40 MG; Start 10/08/17 at 06:00; Status Future hold Spironolactone 100 mg 100 mg DAILY@06 PO Last administered on 10/09/17 05:21 ; Admin Dose 100 MG; Start 10/08/17 at 06:00; Status Future Hold Magnesium Sulfate (Magnesium Sulfate 2 Gm/50 ml) 50 ml @ 25 mls/hr ONCE ONCE IVPB ; Start 10/14/17 at 09:00; Stop 10/14/17 at 10:59 THEO BUSH MD Oct 14, 2017 08:23
[2017-10-14] MEDS: ALBUTEROL/IPRATROPIUM (NEB) 3 ML AMP HHN SCH ×3 (08:27→20:01)
[2017-10-14] MEDS: FAMOTIDINE 20 MG TAB PO SCH ×2 (08:59→20:11)
[2017-10-14] MEDS: FOLIC ACID 1 MG TAB PO SCH (08:59)
[2017-10-14] MEDS: MAGNESIUM OXIDE 400 MG TAB PO SCH ×2 (08:59→20:11)
[2017-10-14] MEDS: FERROUS SULFATE (EC) 325 MG TAB PO SCH (08:59)
[2017-10-14] MEDS ORDERED: MAGNESIUM SULFATE 2 GM/50 ML 50 ML IVPB ONE (09:00)
--- NOTE | 2017-10-14 10:41 | PN ---
DATE: 10/14/2017 SUBJECTIVE: The patient is stable. No events overnight. OBJECTIVE: VITAL SIGNS: Blood pressure is 122/82, respiration 18, pulse 91, temperature 98.8. HEENT: Head is normocephalic. NECK: Supple. HEART: Regular rate. LUNGS: Show diminished breath sounds at the base. ABDOMEN: Soft, nontender to palpation. No rebound or guarding. EXTREMITIES: Negative for clubbing, cyanosis. No edema. DERMATOLOGIC: No rashes. MUSCULOSKELETAL: No joint effusions. NEUROLOGIC: No change in exam. MEDICATIONS: The patient's medications have been reviewed. LABORATORY DATA: Shows a sodium 137, potassium 4.2, BUN 32, creatinine 0.90, and magnesium 1.5. ASSESSMENT AND PLAN: 1. Nonoliguric acute kidney injury with previously normal baseline creatinine. Etiology is seconda ry to hemodynamics. Renal function has improved. Monitor closely as diuretics were reintroduced. 2. Hypomagnesemia. Etiology is multifactorial secondary to chronic ETOH abuse, diuretic therapy, c ontinue to monitor and replete. 3. Decompensated cirrhosis. Continue medical management. 4. Mineral bone disorder. Continue to monitor calcium and phosphorus levels. 5. Right hepatic hemothorax. The patient is status post chest tube removal. Dictated By: SLIME AGUILAR DO NR/NTS Conf#: [id number] DID#: [id number] CC: TANK MALHOTRA;*EndCC*
[2017-10-14 15:25] VITALS: BP 130/90; RESP 18
[2017-10-14] MEDS: NICOTINE (21 MG/24 HR) PATCH TRANSDERM SCH (16:59)
[2017-10-14 20:05] VITALS: BP 127/84; RESP 18
[2017-10-15 02:45] VITALS: BP 119/78; RESP 18
[2017-10-15] MEDS: FUROSEMIDE 20 MG TAB PO SCH (05:30)
[2017-10-15 06:07] LABS: ALBUMIN 4.1 g/dl (3.3-4.9); CALCIUM 10.3 mg/dl (8.4-10.2); CREATININE 0.88 mg/dl (0.61-1.24); MAGNESIUM 1.7 mg/dl (1.7-2.5); PHOSPHORUS 4.4 mg/dl (2.5-4.9); POTASSIUM 4.1 mmol/L (3.5-5.1)
[2017-10-15] MEDS: ALBUTEROL/IPRATROPIUM (NEB) 3 ML AMP HHN SCH ×3 (07:47→19:38)
[2017-10-15 08:27] VITALS: BP 133/93; RESP 18
[2017-10-15] MEDS: MAGNESIUM OXIDE 400 MG TAB PO SCH ×2 (08:37→22:09)
[2017-10-15] MEDS: FERROUS SULFATE (EC) 325 MG TAB PO SCH (08:37)
[2017-10-15] MEDS: FOLIC ACID 1 MG TAB PO SCH (08:38)
[2017-10-15] MEDS: FAMOTIDINE 20 MG TAB PO SCH ×2 (08:38→22:09)
--- NOTE | 2017-10-15 10:26 | PN ---
DATE: 10/15/2017 SUBJECTIVE: The patient is stable. No events overnight. OBJECTIVE: VITAL SIGNS: Blood pressure is 119/78, respiration 19, pulse 90, temperature 98.1. HEENT: Head is normocephalic. NECK: Supple. HEART: Regular rate. LUNGS: Show diminished breath sounds at the base. ABDOMEN: Soft, nontender to palpation without rebound or guarding. EXTREMITIES: Negative for clubbing, cyanosis. No edema. DERMATOLOGIC: No rashes. MUSCULOSKELETAL: No joint effusions. NEUROLOGIC: No change in exam. MEDICATIONS: The patient's medications have been reviewed. LABORATORY DATA: Shows sodium 139, BUN 30, creatinine 0.88, calcium 10.3, magnesium is 1.7. ASSESSMENT AND PLAN: 1. Nonoliguric acute kidney injury with previously normal baseline creatinine. Etiology is seconda ry to hemodynamics. Renal function has improved. Continue current treatment plan. Monitor closely and diuretic therapy. 2. Hypomagnesemia. Etiology is multifactorial, secondary to chronic alcohol abuse, diuretic therap y. Renal magnesium levels have been improving. Continue to monitor and replete. 3. Cirrhosis. Continue current medical management. 4. Mineral bone disorder. Continue to monitor calcium and phosphorus levels. 5. Right hepatic hemothorax. The patient is status post chest removal. 6. Status post sepsis. 7. Status post respiratory failure. Dictated By: SLIME CHANG/VICKY Conf#: [id number] DID#: [id number]
--- NOTE | 2017-10-15 11:03 | CONS ---
Date/Time of Note Date/Time of Note DATE: 10/15/17 TIME: 11:01 Assessment/Plan Assessment/Plan Additional Assessment/Plan Assessment and recommendations; next 1. Patient admitted with right hepatic hydrothorax, status post thoracentesis with ensuing pneumothorax requiring chest tube. Status post removal of chest tube more than 96 hours ago. Patient's lung examination is totally clear indicative of no recurrence of pleural effusion. 2. Generalized deconditioning. 3. History of cirrhosis of liver. Continue current treatment. Will sign off. Please reconsult if needed. Consultation Date/Type/Reason Admit Date/Time Sep 05, 2017 at 13:14 Type of Consultation: Pulm 24 HR Interval Summary Free Text/Dictation Patient's condition is stable. Remains completely awake and alert. Denies any shortness of breath. But complains of weakness more pronounced in lower extremities. General exam; middle-aged male, awake alert, currently in no distress. Exam/Review of Systems Vital Signs Vitals Vital Signs Date Time Temp Pulse Resp B/P Pulse Ox O2 Delivery O2 Flow Rate FiO2 10/15/17 08:27 97.8 94 18 133/93 100 10/15/17 07:47 21 10/12/17 01:30 Room Air 10/11/17 08:00 2.0 Intake and Output 10/14/17 10/14/17 10/15/17 15:00 23:00 07:00 Intake Total 650 ml 550 ml Output Total 1150 ml 650 ml Balance -500 ml -100 ml Exam HEENT exam; supple neck, no JVD. No lymphadenopathy. Midline trachea. No thyromegaly. Patient has fair dentition. Chest exam; clear to auscultation bilaterally. S1-S2 audible, no murmurs. Regular rhythm. Abdomen exam; soft, nontender. No organomegaly. Bowel sounds audible. Extremity exam; no edema. Pulses 1+ bilaterally. [employer] exam; no focal deficit. Results Result Diagram: 10/12/17 0446 10/15/17 0444 Results 24 hrs Laboratory Tests Test 10/15/17 04:44 Sodium Level 139 Potassium Level 4.1 Chloride Level 96 L Carbon Dioxide Level 30 Anion Gap 17 H Blood Urea Nitrogen 30 H Creatinine 0.88 Glucose Level 103 Calcium Level 10.3 H Phosphorus Level 4.4 Magnesium Level 1.7 Albumin 4.1 Medications Medications Current Medications Lorazepam (Ativan) 2 mg Q10MIN PRN IV seizure Last administered on 09/06/17 09 :11; Admin Dose 2 MG; Start 09/05/17 at 16:00 Ondansetron HCl (Zofran Inj) 4 mg Q6H PRN IV NAUSEA AND/OR VOMITING; Start 09/05/17 at 16:30 Acetaminophen (Tylenol Tab) 650 mg Q6H PRN PO PAIN LEVEL 1-3 OR FEVER Last administered on 09/27/17 05:47; Admin Dose 650 MG; Start 09/05/17 at 16:30 Bisacodyl (Dulcolax) 5 mg DAILY PRN PO CONSTIPATION; Start 09/05/17 at 16:30 Lorazepam (Ativan) 1 mg Q6H PRN IV agitation/anxiety Last administered on 09/08 09:30; Admin Dose 1 MG; Start 09/05/17 at 17:00 Nicotine (Nicoderm 21 Mg/ 24hr) 1 patch Q24H TRANSDERM Last administered on 16:59; Admin Dose 1 PATCH; Start 09/05/17 at 17:00 Folic Acid (Folic Acid) 1 mg DAILY PO Last administered on 10/15/17 08:38; Admin Dose 1 MG; Start 09/07/17 at 16:30 Famotidine (Pepcid) 20 mg BID PO Last administered on 10/15/17 08:38; Admin Dose 20 MG; Start 09/09/17 at 21:00 Hydralazine HCl (Apresoline) 10 mg Q4H PRN IV ELEVATED BLOOD PRESSURE Last administered on 09/12/17 08:53; Admin Dose 10 MG; Start 09/10/17 at 04:55 Ferrous Sulfate (Ferrous Sulfate (Ec)) 325 mg DAILY PO Last administered on 08:37; Admin Dose 325 MG; Start 09/14/17 at 09:30 Lorazepam (Ativan) 1 mg Q6H PRN PO ANXIETY Last administered on 09/29/17 20:19 ; Admin Dose 1 MG; Start 09/17/17 at 15:00 Magnesium Oxide (Mag-Ox 400) 400 mg BID PO Last administered on 10/15/17 08: 37; Admin Dose 400 MG; Start 09/25/17 at 21:00 Acetaminophen/ Hydrocodone Bitart ([place] (5/325)) 1 tab Q6H PRN PO pain Last administered on 10/03/17 08:07; Admin Dose 1 TAB; Start 10/01/17 at 13:00 Furosemide (Lasix) 40 mg DAILY@06 PO Last administered on 10/15/17 05:30; Admin Dose 40 MG; Start 10/08/17 at 06:00; Status Future hold Spironolactone (Aldactone) 100 mg DAILY@06 PO Last administered on 10/09/17 05:21; Admin Dose 100 MG; Start 10/08/17 at 06:00; Status Future Hold KIRILL PEREZ Oct 15, 2017 11:03
[2017-10-15 15:03] VITALS: BP 130/89; RESP 18
--- NOTE | 2017-10-15 15:23 | PN ---
Date/Time of Note Date/Time of Note DATE: 10/15/17 TIME: 15:19 Assessment/Plan VTE Prophylaxis VTE Prophylaxis Intervention: ambulation, SCD's Lines/Catheters IV Catheter Type (from Nrs): Saline Lock Urinary Cath still in place: No Assessment/Plan Chief Complaint/Hosp Course s: 10.15.17 no acute changes o: General: Patient resting comfortably, in no acute distress. oriented to self and place Head: Normocephalic atraumatic Eyes: EOMI, pupils reactive to light Neck: Supple, nontender, midline Respiratory: diminished breath sounds on R, no crackles or wheezing Cardiovascular: regular rate and rhythm, no obvious murmurs Gastrointestinal: non-tender to palpation, bowel sounds heard. Neurological: Moves all extremities spontaneously Skin: No new skin lesions, chest tube placed R Patient is a 51-year-old homeless alcoholic who presents with right pleural effusion, pneumonia, and alcohol withdrawal induced seizure. #R pleural effusion -recurrent -likely hepatic hydrothorax -will recur likely -aldactone/lasix stopped given TRACIE, will need to restart outpatient #pneumo/hydropneumothorax -s/p thoracentesis on 09/17 -chest tube placed 09/19, now removed. -CT surgery recs appreciated -needs TIPS, but patient likely too stable for TIPS, will consider if diuretics are not effective #tachycardia -resolving -prn metoprolol if BP permits #elevated AST/ALT -cirrhosis -us gallbladder noted #. Delirium tremens- resolved -librium tapered off - Ativan PRN for agitation/anxiety #. bacteremia, gram neg - continued on IV antibiotics for 10-14 days. stopped abx - remains afebrile -wbc stabilized #. acute respiratory failure, 2/2 PNA/pleural effusion- resolved - Pulmonology on board and recommendations appreciated - s/p 2 L drained on pleural effusion 1st time, 1 L drained 2nd time - Respiratory status stable. Saturating well #. Bilateral pneumonia, likely aspiration -abx finished #. Severe hyponatremia- resolved - Nephrology on board and recommendations appreciated #. Alcoholism - Banana bag stopped -thiamine and folic acid - Librium tapered #. Hypokalemia - replete as needed #. Hypomagnesia - Nephrology on board assisting with electrolyte abnormalities #. Disposition - chest tube removed, patient stable, main factor is unstable gait before DC -pending PT re-eval -will need resources and follow up outpatient, needs help with medicaid. Problems: Exam/Review of Systems Vital Signs Vitals Vital Signs Date Time Temp Pulse Resp B/P Pulse Ox O2 Delivery O2 Flow Rate FiO2 10/15/17 15:03 98.0 92 18 130/89 98 10/15/17 13:14 21 10/12/17 01:30 Room Air 10/11/17 08:00 2.0 Intake and Output 10/14/17 10/14/17 10/15/17 14:59 22:59 06:59 Intake Total 650 ml 550 ml Output Total 1150 ml 650 ml Balance -500 ml -100 ml Results Result Diagram: 10/12/17 0446 10/15/17 0444 Results 24 hrs Laboratory Tests Test 10/15/17 04:44 Sodium Level 139 Potassium Level 4.1 Chloride Level 96 L Carbon Dioxide Level 30 Anion Gap 17 H Blood Urea Nitrogen 30 H Creatinine 0.88 Glucose Level 103 Calcium Level 10.3 H Phosphorus Level 4.4 Magnesium Level 1.7 Albumin 4.1 Medications Medications Current Medications Lorazepam (Ativan) 2 mg Q10MIN PRN IV seizure Last administered on 09/06/17 09 :11; Admin Dose 2 MG; Start 09/05/17 at 16:00 Ondansetron HCl (Zofran Inj) 4 mg Q6H PRN IV NAUSEA AND/OR VOMITING; Start 09/05/17 at 16:30 Acetaminophen (Tylenol Tab) 650 mg Q6H PRN PO PAIN LEVEL 1-3 OR FEVER Last administered on 09/27/17 05:47; Admin Dose 650 MG; Start 09/05/17 at 16:30 Bisacodyl (Dulcolax) 5 mg DAILY PRN PO CONSTIPATION; Start 09/05/17 at 16:30 Lorazepam (Ativan) 1 mg Q6H PRN IV agitation/anxiety Last administered on 09/08 09:30; Admin Dose 1 MG; Start 09/05/17 at 17:00 Nicotine (Nicoderm 21 Mg/ 24hr) 1 patch Q24H TRANSDERM Last administered on 16:59; Admin Dose 1 PATCH; Start 09/05/17 at 17:00 Folic Acid (Folic Acid) 1 mg DAILY PO Last administered on 10/15/17 08:38; Admin Dose 1 MG; Start 09/07/17 at 16:30 Famotidine (Pepcid) 20 mg BID PO Last administered on 10/15/17 08:38; Admin Dose 20 MG; Start 09/09/17 at 21:00 Hydralazine HCl (Apresoline) 10 mg Q4H PRN IV ELEVATED BLOOD PRESSURE Last administered on 09/12/17 08:53; Admin Dose 10 MG; Start 09/10/17 at 04:55 Ferrous Sulfate (Ferrous Sulfate (Ec)) 325 mg DAILY PO Last administered on 08:37; Admin Dose 325 MG; Start 09/14/17 at 09:30 Lorazepam (Ativan) 1 mg Q6H PRN PO ANXIETY Last administered on 09/29/17 20:19 ; Admin Dose 1 MG; Start 09/17/17 at 15:00 Magnesium Oxide (Mag-Ox 400) 400 mg BID PO Last administered on 10/15/17 08: 37; Admin Dose 400 MG; Start 09/25/17 at 21:00 Acetaminophen/ Hydrocodone Bitart ([place] (5/325)) 1 tab Q6H PRN PO pain Last administered on 10/03/17 08:07; Admin Dose 1 TAB; Start 10/01/17 at 13:00 Furosemide (Lasix) 40 mg DAILY@06 PO Last administered on 10/15/17 05:30; Admin Dose 40 MG; Start 10/08/17 at 06:00; Status Future hold Spironolactone (Aldactone) 100 mg DAILY@06 PO Last administered on 10/09/17 05:21; Admin Dose 100 MG; Start 10/08/17 at 06:00; Status Future Hold CATHERINE DUMONT Oct 15, 2017 15:23
[2017-10-15] MEDS: NICOTINE (21 MG/24 HR) PATCH TRANSDERM SCH (17:01)
[2017-10-15] MEDS ORDERED: SPIRONOLACTONE 25 MG TAB PO ONE (18:00)
[2017-10-15 20:15] VITALS: BP 121/78; RESP 18
[2017-10-16 02:11] VITALS: BP 96/61; RESP 18
[2017-10-16] MEDS ORDERED: FUROSEMIDE 20 MG TAB PO SCH (06:00)
[2017-10-16 06:29] LABS: CALCIUM 9.7 mg/dl (8.4-10.2); CREATININE 0.87 mg/dl (0.61-1.24); MAGNESIUM 1.4 mg/dl (1.7-2.5); PHOSPHORUS 5.1 mg/dl (2.5-4.9); POTASSIUM 3.5 mmol/L (3.5-5.1)
[2017-10-16 08:08] VITALS: BP 120/70; RESP 18
[2017-10-16] MEDS: ALBUTEROL/IPRATROPIUM (NEB) 3 ML AMP HHN SCH (08:30)
[2017-10-16] MEDS: FOLIC ACID 1 MG TAB PO SCH (08:38)
[2017-10-16] MEDS: MAGNESIUM OXIDE 400 MG TAB PO SCH (08:39)
[2017-10-16] MEDS: FAMOTIDINE 20 MG TAB PO SCH (08:39)
[2017-10-16] MEDS: FERROUS SULFATE (EC) 325 MG TAB PO SCH (08:39)
[2017-10-16] MEDS ORDERED: MAGNESIUM SULFATE 2 GM/50 ML 50 ML IVPB ONE (09:00)
[2017-10-16] MEDS ORDERED: SPIRONOLACTONE 25 MG TAB PO SCH (09:00)
[2017-10-16] MEDS ORDERED: POTASSIUM CHLORIDE 20 MEQ POWDER FOR ORAL SOLN PO ONE (09:30)
--- NOTE | 2017-10-16 09:37 | DS ---
Date/Time of Note Date/Time of Note DATE: 10/16/17 TIME: 09:37 Discharge Summary Admission/Discharge Info Admit Date/Time Sep 05, 2017 at 13:14 Discharge Date/Time Patient Condition: Stable Hx of Present Illness Patient is a homeless 51-year-old male with a past medical history of alcohol abuse and alcohol induced seizure who presents to [facility] with witnessed seizure in the field and brought in by EMT. Patient has not experienced seizure during this admission so far. Upon evaluation patient is lethargic, however was given Ativan in the ED, is able to respond to most questions with good recall and states that his last drink was 2 days ago, states that he wants to quit drinking. Patient also states that this has happened before when asked about the shakes or seizure. Patient's mental state is the main barrier to a extensive HPI at this time, patient denies any shortness of breath or chest pain at this time. Patient denies nausea, however is found to be dry heaving. PMH: Alcohol abuse PSH: Left shoulder surgery questionable, left wrist surgery, foot surgery Social: Alcoholic, smoker, denies drugs Meds: None Hospital Course The patient is a 51-year-old male who originally presented to [facility] for acute onset of delirium tremens secondary to abrupt discontinuation of alcohol and subsequently found to have likely aspiration pneumonia and pleural effusion. Patient's delirium tremens and aspiration pneumonia were treated effectively with antibiotics however over the course of multiple weeks patient's liver was found to be cirrhotic and patient continued to have a long recovery course due to recurrent pleural effusion on the right side very likely secondary to liver failure. Patient was seen by multiple specialists including pulmonology and thoracic surgery. Multiple interventions were done including thoracentesis as well as chest tube placement secondary to hydropneumothorax. Patient however did not have much respiratory distress despite recurrent pleural effusion and was eventually started on low-dose Lasix and spironolactone as tolerated as patient's blood pressure is low at times. For this homeless patient with a past medical history of alcoholism it was explained to him very thoroughly that he would need follow-up with pulmonology and a liver specialist to help manage his chronic conditions. Patient has stated that he would like to quit drinking and has been stable for more than a month while being inpatient at this facility given his insurance status and gait instability. Patient's mobility has also been improving significantly with rehab and physical therapy and it was determined that the best course of action would be a stay at a detention facility for continued rehab in order for patient to get back on his feet. At the rehab facility it is recommended that there be a repeat CBC and BMP with magnesium as patient is chronically low magnesium secondary to alcoholism and to monitor potassium levels given his initiation of Lasix and spironolactone for his cirrhosis. Case management will also need to be involved as patient states that he will lose his [employer] insurance if not re-upped by the beginning of next year. 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 Cirrhosis Pneumothorax, secondary to trauma, resolved Tachycardia, resolved Elevated AST and ALT, history of cirrhosis Delirium tremens, secondary to alcoholism, resolved Bacteremia, gram-negative, resolved Acute respiratory failure, secondary to pneumonia and pleural effusion, resolved Electrolyte derangement, secondary to severe alcoholism, resolving Alcoholism, resolving Hypomagnesemia, on supplement, secondary to alcoholism Home Meds No Active Prescriptions or Reported Meds Primary Care Provider Care Physician No Primary Time spent on discharge: > 30 minutes Pending Labs Laboratory Tests Test 10/16/17 04:35 Sodium Level 137mmol/L (135-144) Potassium Level 3.5mmol/L (3.5-5.1) Chloride Level 93mmol/L (97-110) Carbon Dioxide Level 30mmol/L (21-31) Anion Gap 18 (8-16) Blood Urea Nitrogen 27mg/dl (7-20) Creatinine 0.87mg/dl (0.61-1.24) Glucose Level 90mg/dl (70-220) Calcium Level 9.7mg/dl (8.4-10.2) Phosphorus Level 5.1mg/dl (2.5-4.9) Magnesium Level 1.4mg/dl (1.7-2.5) Albumin 4.0g/dl (3.3-4.9) CATHERINE DUMONT Oct 16, 2017 09:37
[2017-10-16] MEDS ORDERED: SPIR25TA PO (09:39)
[2017-10-16] MEDS ORDERED: FOLI-49 PO (09:39)
[2017-10-16] MEDS ORDERED: FER325 PO (09:39)
[2017-10-16] MEDS ORDERED: MAGN400T27 PO (09:39)
[2017-10-16] MEDS ORDERED: LAS20 PO (09:39)
[2017-10-16] MEDS ORDERED: FAMO20TA18 PO (09:39)
--- NOTE | 2017-10-16 14:28 | PN ---
DATE: 10/16/2017 SUBJECTIVE: The patient is stable. No events overnight. No fevers, chills, nausea, vomiting. OBJECTIVE: VITAL SIGNS: Blood pressure is 120/70, respirations 18, pulse 82, temperature 97.8. HEENT: Head is normocephalic. NECK: Supple. HEART: Regular rate. LUNGS: Show diminished breath sounds at the base. ABDOMEN: Soft, nontender to palpation. No rebound or guarding. EXTREMITIES: Negative for clubbing, cyanosis. No edema. DERMATOLOGIC: No rashes. MUSCULOSKELETAL: No joint effusions. NEUROLOGIC: No change in exam. MEDICATIONS: The patient's medications have been reviewed. LABORATORY DATA: Shows sodium 137, potassium 3.5, BUN 27, creatinine 0.87, and magnesium 1.5. ASSESSMENT AND PLAN: 1. Nonoliguric acute kidney injury with previously normal baseline creatinine. Etiology was second nadir to hemodynamics. Renal function has improved. Continue current treatment plan. Continue suppo rtive care. Renally dose all medicines. 2. Hypomagnesemia. Etiology is multifactorial secondary to chronic alcohol abuse, diuretic therapy . Magnesium levels have been improving. Continue to monitor and replete. 3. Cirrhosis. Continue medical management. 4. Mineral bone disorder. Monitor calcium and phosphorus levels. 5. Right hepatic hemothorax. The patient's chest tube was removed. Continue to monitor. 6. Status post sepsis. 7. Status post respiratory failure. Dictated By: SLIME CHANG/NTS Conf#: [id number] DID#: [id number] CC: TANK MALHOTRA;*EndCC*
[2017-10-17] MEDS ORDERED: FUROSEMIDE 20 MG TAB PO SCH (06:00)
== END 2017-10-16 11:38 | DRG 853 ==
LOC: E/R 08:03 → TEL 13:14 → MS2 09-08 14:04 → MS4 09-18 12:10 → MS2 09-19 15:40 → MS4 09-19 15:58 → MS1 10-12 01:15
PROVIDERS: ADMIT Hospitalist; ATTEND Hospitalist
PROC: 0W993ZX Drainage of Right Pleural Cavity, Percutaneous Approach, Diagnostic (ICD-10-PCS; 2017-09-06)
PROC: 0W993ZX Drainage of Right Pleural Cavity, Percutaneous Approach, Diagnostic (ICD-10-PCS; 2017-09-17)
PROC: 0W9940Z Drainage of Right Pleural Cavity with Drainage Device, Percutaneous Endoscopic Approach (ICD-10-PCS; principal; 2017-09-19)
DX: A41.9 Sepsis, unspecified organism (principal); G93.41 Metabolic encephalopathy; J96.00 Acute respiratory failure, unspecified whether with hypoxia or hypercapnia; J69.0 Pneumonitis due to inhalation of food and vomit; G93.49 Other encephalopathy; J90 Pleural effusion, not elsewhere classified; S27.0XXA Traumatic pneumothorax, initial encounter; F10.231 Alcohol dependence with withdrawal delirium; E87.1 Hypo-osmolality and hyponatremia; J94.8 Other specified pleural conditions; G40.509 Epileptic seizures related to external causes, not intractable, without status epilepticus; N17.9 Acute kidney failure, unspecified; A04.8 Other specified bacterial intestinal infections; R65.20 Severe sepsis without septic shock; E83.42 Hypomagnesemia; E86.0 Dehydration; D69.6 Thrombocytopenia, unspecified; T17.918A Gastric contents in respiratory tract, part unspecified causing other injury, initial encounter; E03.9 Hypothyroidism, unspecified; E87.6 Hypokalemia; D64.9 Anemia, unspecified; K74.60 Unspecified cirrhosis of liver; F17.200 Nicotine dependence, unspecified, uncomplicated; R74.0 Nonspecific elevation of levels of transaminase and lactic acid dehydrogenase [LDH]; I95.9 Hypotension, unspecified; X58.XXXA Exposure to other specified factors, initial encounter; Z59.0 Homelessness
CPT/HCPCS: 32555; 36415; 36600; 71010; 71250; 75989; 76705; 76942; 80048; 80053; 80061; 80069; 80076; 80307; 81001; 81003; 82042; 82043; 82140; 82150; 82550; 82728; 82803; 82945; 83540; 83605; 83615; 83690; 83735; 83935; 83986; 84100; 84155; 84157; 84300; 84443; 84484; 85025; 85610; 85730; 87040; 87070; 87086; 87102; 87116; 88104; 88305; 88313; 89051; 90686; 92526; 92610; 93005; 93306; 94640; 94664; 96374; 96375; 97110; 97116; 97162; 97164; 97530; J1940; C9113; J0360; J0610; J1956; J2060; J2270; J2543; J2920; J3360; J3370; J3411; J3475; J3480; J7030; J7040; J7042; J7050; J7070; J7512; P9047

== ENCOUNTER 2019-06-07 09:21 | Inpatient (IN) | payer OTHER ==
[2019-06-07] VITALS (33 sets, daily range): BP systolic 99–155; BP diastolic 55–98; PULSE 98–124; RESP 14–31; Ht 172.7 cm; Wt 66.0 kg
[~2019-06-07] VITALS: Ht 172.7 cm; Wt 66.0 kg
[~2019-06-07 09:21] MED LIST: DEC1 PO; DEC2 PO; DEXA0.5T PO; FAMO20TA18 PO; FER325 PO; FOLI-49 PO; FURO20TA3 PO; LAS20 PO; MAGN400T27 PO; MULTI PO; Magnesium Chloride PO; PANT40TA3 PO; SPIR25TA PO; THIA100T56 PO
[2019-06-07] MEDS ORDERED: SOD CHLORIDE 0.9% 1,000 ML IV STA (09:32)
[2019-06-07] MEDS ORDERED: LORAZEPAM 2 MG INJ IV ONE (10:00)
[2019-06-07] MEDS ORDERED: ONDANSETRON 4 MG INJ IV STA (10:13)
[2019-06-07] MEDS ORDERED: PANTOPRAZOLE 40 MG INJ IV ONE (10:30)
[2019-06-07] MEDS ORDERED: CALCIUM GLUCONATE 10% 1 GM in DEXTROSE 5% 100 ML IVPB ONE (11:30)
[2019-06-07] MEDS ORDERED: OCTREOTIDE 500 MCG in SOD CHLORIDE 0.9% 49 ML IV STA (11:58)
[2019-06-07] MEDS ORDERED: OCTREOTIDE 50 MCG in SOD CHLORIDE 0.9% 25 ML IVPB STA (11:58)
[2019-06-07] MEDS ORDERED: PANTOPRAZOLE IV 80 MG in SOD CHLORIDE 0.9% 100 ML IV STA (11:58)
[2019-06-07] MEDS ORDERED: CEFTRIAXONE 1 GM/50 ML (PMX) 50 ML IVPB ONE (13:00)
[2019-06-07] MEDS ORDERED: ALBUTEROL 0.083% (NEB) 2.5 MG/3 ML AMP NEB PRN (13:30)
[2019-06-07] MEDS ORDERED: ACETAMINOPHEN 650 MG SUPP PR PRN (13:30)
[2019-06-07] MEDS: PANTOPRAZOLE IV 80 MG in SOD CHLORIDE 0.9% 100 ML IV SCH (14:00)
[2019-06-07] MEDS: OCTREOTIDE 1 MG in DEXTROSE 5% 95 ML IV SCH ×2 (14:00→20:44)
[2019-06-07] MEDS: D5W-0.45 NACL + KCL 20 MEQ 1,000 ML IV SCH (15:51)
[2019-06-07] MEDS: ONDANSETRON 4 MG INJ IV PRN (16:02)
[2019-06-07] MEDS: LORAZEPAM 2 MG INJ IV PRN (19:45)
[2019-06-07] MEDS ORDERED: FUROSEMIDE 20 MG INJ IV ONE (21:00)
[2019-06-08] VITALS (19 sets, daily range): BP systolic 112–181; BP diastolic 70–148; PULSE 82–116; RESP 17–27
[2019-06-08] MEDS: PANTOPRAZOLE IV 80 MG in SOD CHLORIDE 0.9% 100 ML IV SCH ×3 (00:22→20:55)
[2019-06-08] MEDS ORDERED: MAGNESIUM SULFATE 4 GM/100 ML 100 ML IVPB ONE (06:30)
[2019-06-08] MEDS: POTASSIUM CHLORIDE 100 ML IVPB SCH ×3 (08:30→10:59)
[2019-06-08] MEDS ORDERED: ENALAPRILAT 1.25 MG INJ IV ONE (08:30)
[2019-06-08] MEDS: FUROSEMIDE 20 MG INJ IV SCH (08:32)
[2019-06-08] MEDS: D5W-0.45 NACL + KCL 20 MEQ 1,000 ML IV SCH (08:33)
[2019-06-08] MEDS ORDERED: MAGNESIUM CITRATE 300 ML BTL PO ONE ×2 (15:00→18:00)
[2019-06-08] MEDS ORDERED: MAGNESIUM SULFATE 2 GM/50 ML 50 ML IVPB ONE (15:00)
[2019-06-08] MEDS: OCTREOTIDE 1 MG in DEXTROSE 5% 95 ML IV SCH (15:55)
[2019-06-08] MEDS ORDERED: POLYETHYLENE GLYCOL 3350 119 GM POWDER PO ONE ×2 (17:20→18:00)
[2019-06-09 04:00] VITALS: BP 173/90; PULSE 89; RESP 20
[2019-06-09] MEDS: PANTOPRAZOLE IV 80 MG in SOD CHLORIDE 0.9% 100 ML IV SCH ×2 (05:45→16:25)
[2019-06-09] MEDS: hydrALAzine 20 MG INJ IV PRN ×2 (05:46→12:40)
[2019-06-09 06:29] VITALS: BP 160/79; PULSE 89
[2019-06-09 07:49] VITALS: BP 159/92; PULSE 99; RESP 19
[2019-06-09] MEDS ORDERED: POTASSIUM CHLORIDE (SR) 20 MEQ TAB PO ONE (08:00)
[2019-06-09] MEDS ORDERED: SOD CHLORIDE 0.9% 250 ML IV* ONE (08:58)
[2019-06-09] MEDS: FUROSEMIDE 20 MG INJ IV SCH (10:05)
[2019-06-09] MEDS: D5W-0.45 NACL + KCL 20 MEQ 1,000 ML IV SCH (10:07)
[2019-06-09] MEDS: POTASSIUM CHLORIDE 100 ML IVPB SCH ×3 (12:09→16:57)
[2019-06-09 12:13] VITALS: BP 160/78; PULSE 89; RESP 18
[2019-06-09 15:48] VITALS: BP 144/79; PULSE 77; RESP 19
[2019-06-09 20:03] VITALS: BP 145/105; PULSE 80; RESP 18
[2019-06-10] VITALS (12 sets, daily range): BP systolic 116–171; BP diastolic 75–95; PULSE 66–90; RESP 11–20
[2019-06-10] MEDS: OCTREOTIDE 1 MG in DEXTROSE 5% 95 ML IV SCH ×2 (03:29→21:19)
[2019-06-10] MEDS: PANTOPRAZOLE IV 80 MG in SOD CHLORIDE 0.9% 100 ML IV SCH ×3 (03:29→21:31)
[2019-06-10] MEDS: hydrALAzine 20 MG INJ IV PRN (04:22)
[2019-06-10] MEDS: FUROSEMIDE 20 MG INJ IV SCH (08:53)
[2019-06-10] MEDS: ONDANSETRON 4 MG INJ IV PRN (09:04)
[2019-06-10] MEDS: D5W-0.45 NACL + KCL 20 MEQ 1,000 ML IV SCH (09:04)
[2019-06-10] MEDS: POTASSIUM CHLORIDE 100 ML IVPB SCH ×3 (10:03→13:59)
[2019-06-10] MEDS ORDERED: MAGNESIUM SULFATE 3 GM in DEXTROSE 5% 100 ML IVPB ONE (11:30)
[2019-06-10] MEDS ORDERED: FUROSEMIDE 20 MG INJ IV ONE (11:30)
[2019-06-10] MEDS ORDERED: MAGNESIUM CITRATE 300 ML BTL PO ONE (17:30)
[2019-06-10] MEDS ORDERED: PROPOFOL 40 ML ONE (18:25)
[2019-06-10] MEDS ORDERED: LIDOCAINE 2% (SDV) 5 ML INJ ONE (18:25)
[2019-06-10] MEDS ORDERED: POLYETHYLENE GLYCOL 3350 119 GM POWDER PO ONE (18:30)
[2019-06-10] MEDS ORDERED: EPHEDrine 25 MG/5 ML SYG IV PRN (19:00)
[2019-06-10] MEDS ORDERED: ALBUTEROL 0.083% (NEB) 2.5 MG/3 ML AMP HHN PRN (19:00)
[2019-06-10] MEDS ORDERED: LABETALOL HCL 20MG INJ IV PRN (19:00)
[2019-06-10] MEDS ORDERED: hydrALAzine 20 MG INJ IV PRN (19:00)
[2019-06-10] MEDS ORDERED: FENTAnyl 50 MCG/ML VIAL IV PRN (19:00)
[2019-06-10] MEDS ORDERED: ONDANSETRON 4 MG INJ IV PRN (19:00)
[2019-06-10] MEDS ORDERED: BISACODYL (EC) 5 MG TAB PO ONE (19:00)
[2019-06-11 00:20] VITALS: BP 124/74; PULSE 78; RESP 18
[2019-06-11] MEDS ORDERED: DIPHENHYDRAMINE 25 MG CAP PO PRN (01:00)
[2019-06-11 04:16] VITALS: BP 165/75; PULSE 70; RESP 18
[2019-06-11] MEDS ORDERED: POLYETHYLENE GLYCOL 3350 119 GM POWDER PO ONE (06:00)
[2019-06-11] MEDS ORDERED: MAGNESIUM SULFATE 2 GM/50 ML 50 ML IVPB ONE (07:00)
[2019-06-11 07:30] VITALS: BP 160/71; PULSE 76; RESP 18
[2019-06-11] MEDS ORDERED: BISACODYL (EC) 5 MG TAB PO ONE (08:00)
[2019-06-11] MEDS: FUROSEMIDE 20 MG INJ IV SCH (08:40)
[2019-06-11] MEDS: D5W-0.45 NACL + KCL 20 MEQ 1,000 ML IV SCH (09:51)
[2019-06-11] MEDS: PANTOPRAZOLE IV 80 MG in SOD CHLORIDE 0.9% 100 ML IV SCH (10:01)
[2019-06-11] MEDS: SPIRONOLACTONE 25 MG TAB PO SCH (11:00)
[2019-06-11 11:10] VITALS: BP 138/79; PULSE 78; RESP 18
[2019-06-11] MEDS ORDERED: LIDOCAINE 1% (MPF) 5 ML VIAL ONE (13:33)
[2019-06-11 15:15] VITALS: BP 136/64; PULSE 78; RESP 18
[2019-06-11] MEDS ORDERED: MIDAZOLAM 1 MG/ML 2 ML INJ ONE (16:18)
[2019-06-11] MEDS ORDERED: LORAZEPAM 2 MG INJ IV PRN ×2 (16:30)
[2019-06-11] MEDS ORDERED: LIDOCAINE 2% (SDV) 5 ML INJ ONE (16:51)
[2019-06-11] MEDS: PANTOPRAZOLE (EC) 40 MG TAB PO SCH (17:48)
[2019-06-11] MEDS ORDERED: MIDAZOLAM 1 MG/ML 2 ML INJ IV ONE (18:00)
[2019-06-11] MEDS: LORAZEPAM 2 MG INJ IV SCH (19:08)
[2019-06-11 20:00] VITALS: BP 128/92; PULSE 97; RESP 18
[2019-06-12] VITALS (8 sets, daily range): BP systolic 120–188; BP diastolic 71–103; PULSE 61–91; RESP 17–22
[2019-06-12] MEDS: LORAZEPAM 2 MG INJ IV SCH ×2 (00:28→06:01)
[2019-06-12] MEDS: D5W-0.45 NACL + KCL 20 MEQ 1,000 ML IV SCH (00:37)
[2019-06-12] MEDS: LORAZEPAM 2 MG INJ IV PRN ×4 (02:44→20:53)
[2019-06-12] MEDS: hydrALAzine 20 MG INJ IV PRN (05:08)
[2019-06-12] MEDS: PANTOPRAZOLE (EC) 40 MG TAB PO SCH ×2 (05:33→18:12)
[2019-06-12] MEDS ORDERED: MAGNESIUM SULFATE 2 GM/50 ML 50 ML IVPB ONE (08:00)
[2019-06-12] MEDS: FUROSEMIDE 20 MG INJ IV SCH (08:44)
[2019-06-12] MEDS: SPIRONOLACTONE 25 MG TAB PO SCH (08:47)
[2019-06-12] MEDS: DEXTROSE 5%-0.45% NACL 1,000 ML IV SCH (10:34)
[2019-06-12] MEDS ORDERED: MULTIVITAMINS 10 ML, THIAMINE 100 MG, FOLIC ACID 1 MG in SOD CHLORIDE 0.9% 1,000 ML IVPB SCH (12:00)
[2019-06-12] MEDS: CHLORDIAZEPOXIDE 25 MG CAP PO SCH ×2 (13:41→20:06)
[2019-06-13] MEDS: DEXTROSE 5%-0.45% NACL 1,000 ML IV SCH (00:23)
[2019-06-13] MEDS: LORAZEPAM 2 MG INJ IV PRN ×2 (03:04→16:45)
[2019-06-13 03:23] VITALS: BP 130/81; PULSE 75; RESP 18
[2019-06-13] MEDS: PANTOPRAZOLE (EC) 40 MG TAB PO SCH ×2 (05:36→17:48)
[2019-06-13 07:31] VITALS: BP 144/94; PULSE 77; RESP 18
[2019-06-13] MEDS ORDERED: MAGNESIUM SULFATE 2 GM/50 ML 50 ML IVPB ONE ×2 (08:00→10:00)
[2019-06-13] MEDS: FUROSEMIDE 20 MG INJ IV SCH (08:21)
[2019-06-13] MEDS: SPIRONOLACTONE 25 MG TAB PO SCH (08:21)
[2019-06-13] MEDS ORDERED: POTASSIUM CHLORIDE (SR) 20 MEQ TAB PO ONE (09:00)
[2019-06-13] MEDS: FOLIC ACID 1 MG TAB PO SCH (10:20)
[2019-06-13] MEDS: THIAMINE 100 MG TAB PO SCH (10:20)
[2019-06-13 11:35] VITALS: BP 165/80; PULSE 73; RESP 19
[2019-06-13] MEDS: CYANOCOBALAMIN 100 MCG TAB PO SCH (13:40)
[2019-06-13] MEDS: CHLORDIAZEPOXIDE 25 MG CAP PO SCH ×2 (15:00→21:47)
[2019-06-13 15:30] VITALS: BP 167/92; PULSE 82; RESP 17
[2019-06-13 18:17] VITALS: BP 121/75; PULSE 108
[2019-06-13 20:00] VITALS: BP 121/73; PULSE 70; RESP 20
[2019-06-14] VITALS (7 sets, daily range): BP systolic 100–166; BP diastolic 64–84; PULSE 74–105; RESP 18–20
[2019-06-14] MEDS: PANTOPRAZOLE (EC) 40 MG TAB PO SCH ×2 (05:48→17:57)
[2019-06-14] MEDS: FUROSEMIDE 40 MG TAB PO SCH (05:51)
[2019-06-14] MEDS ORDERED: MAGNESIUM OXIDE 400 MG TAB PO ONE (08:30)
[2019-06-14] MEDS ORDERED: MAGNESIUM SULFATE 2 GM/50 ML 50 ML IVPB ONE (09:00)
[2019-06-14] MEDS: THIAMINE 100 MG TAB PO SCH (09:54)
[2019-06-14] MEDS: FOLIC ACID 1 MG TAB PO SCH (09:54)
[2019-06-14] MEDS: CYANOCOBALAMIN 100 MCG TAB PO SCH (09:54)
[2019-06-14] MEDS: SPIRONOLACTONE 25 MG TAB PO SCH (09:54)
[2019-06-14] MEDS: CHLORDIAZEPOXIDE 25 MG CAP PO SCH (09:54)
[2019-06-14] MEDS: CHLORDIAZEPOXIDE 5 MG CAP PO SCH ×2 (14:25→21:57)
[2019-06-15 04:00] VITALS: BP 136/75; PULSE 96; RESP 20
[2019-06-15] MEDS: FUROSEMIDE 40 MG TAB PO SCH (06:07)
[2019-06-15] MEDS: PANTOPRAZOLE (EC) 40 MG TAB PO SCH ×2 (06:07→18:39)
[2019-06-15 07:17] VITALS: BP 135/77; PULSE 92; RESP 20
[2019-06-15] MEDS ORDERED: MAGNESIUM SULFATE 2 GM/50 ML 50 ML IVPB ONE (08:00)
[2019-06-15] MEDS: SPIRONOLACTONE 25 MG TAB PO SCH (08:27)
[2019-06-15] MEDS: FOLIC ACID 1 MG TAB PO SCH (08:27)
[2019-06-15] MEDS: CYANOCOBALAMIN 100 MCG TAB PO SCH (08:27)
[2019-06-15] MEDS: CHLORDIAZEPOXIDE 5 MG CAP PO SCH ×3 (08:29→21:37)
[2019-06-15] MEDS: THIAMINE 100 MG TAB PO SCH (08:29)
[2019-06-15 11:21] VITALS: BP 144/83; PULSE 84; RESP 20
[2019-06-15 15:15] VITALS: BP 143/89; PULSE 86; RESP 20
[2019-06-15] MEDS: ERYTHROMYCIN 1 GM OPH OINT BOTH EYES SCH ×3 (15:28→21:37)
[2019-06-15 20:00] VITALS: BP 116/74; PULSE 76; RESP 19
[2019-06-16] VITALS: BP 124/80; PULSE 93; RESP 18
[2019-06-16 04:00] VITALS: BP 111/74; PULSE 89; RESP 18
[2019-06-16] MEDS: FUROSEMIDE 40 MG TAB PO SCH (06:57)
[2019-06-16 08:02] VITALS: BP 111/72; PULSE 96; RESP 18
[2019-06-16] MEDS ORDERED: POTASSIUM CHLORIDE (SR) 20 MEQ TAB PO STA (08:04)
[2019-06-16] MEDS ORDERED: MAGNESIUM SULFATE 2 GM/50 ML 50 ML IVPB ONE ×2 (08:30→13:00)
[2019-06-16] MEDS ORDERED: MAGNESIUM SULFATE 4 GM/100 ML 100 ML IVPB ONE (09:00)
[2019-06-16] MEDS: THIAMINE 100 MG TAB PO SCH (09:37)
[2019-06-16] MEDS: CHLORDIAZEPOXIDE 5 MG CAP PO SCH (09:37)
[2019-06-16] MEDS: CYANOCOBALAMIN 100 MCG TAB PO SCH (09:37)
[2019-06-16] MEDS: ERYTHROMYCIN 1 GM OPH OINT BOTH EYES SCH ×4 (09:38→21:06)
[2019-06-16] MEDS: FOLIC ACID 1 MG TAB PO SCH (09:38)
[2019-06-16] MEDS: SPIRONOLACTONE 25 MG TAB PO SCH (09:38)
[2019-06-16] MEDS: PANTOPRAZOLE (EC) 40 MG TAB PO SCH ×2 (09:41→18:01)
[2019-06-16 12:18] VITALS: BP 109/76; PULSE 89; RESP 18
[2019-06-16 14:51] VITALS: BP 135/79; PULSE 80; RESP 18
[2019-06-16 20:00] VITALS: BP 131/76; PULSE 82; RESP 19
[2019-06-16] MEDS ORDERED: CHLORDIAZEPOXIDE 5 MG CAP PO SCH (21:00)
[2019-06-17] VITALS: BP 128/78; PULSE 86; RESP 19
[2019-06-17 04:00] VITALS: BP 129/78; PULSE 98; RESP 20
[2019-06-17] MEDS: PANTOPRAZOLE (EC) 40 MG TAB PO SCH ×2 (06:18→17:47)
[2019-06-17] MEDS: FUROSEMIDE 40 MG TAB PO SCH (06:18)
[2019-06-17 07:25] VITALS: BP 135/78; PULSE 88; RESP 18
[2019-06-17] MEDS ORDERED: MAGNESIUM SULFATE 2 GM/50 ML 50 ML IVPB ONE (08:00)
[2019-06-17] MEDS ORDERED: MAGNESIUM OXIDE 400 MG TAB PO SCH (09:00)
[2019-06-17] MEDS: SPIRONOLACTONE 25 MG TAB PO SCH (09:54)
[2019-06-17] MEDS: CYANOCOBALAMIN 100 MCG TAB PO SCH (09:54)
[2019-06-17] MEDS: ERYTHROMYCIN 1 GM OPH OINT BOTH EYES SCH ×4 (09:54→20:33)
[2019-06-17] MEDS: CHLORDIAZEPOXIDE 5 MG CAP PO SCH (09:54)
[2019-06-17] MEDS: THIAMINE 100 MG TAB PO SCH (09:54)
[2019-06-17] MEDS: FOLIC ACID 1 MG TAB PO SCH (09:54)
[2019-06-17 12:12] VITALS: BP 133/75; PULSE 87; RESP 18
[2019-06-17 16:27] VITALS: BP 138/73; PULSE 78; RESP 18
[2019-06-17 20:23] VITALS: BP 134/89; PULSE 92; RESP 20
[2019-06-18] VITALS (8 sets, daily range): BP systolic 94–129; BP diastolic 61–77; PULSE 87–111; RESP 18–19
[2019-06-18] MEDS: PANTOPRAZOLE (EC) 40 MG TAB PO SCH ×2 (05:56→18:34)
[2019-06-18] MEDS: FUROSEMIDE 40 MG TAB PO SCH (05:56)
[2019-06-18] MEDS ORDERED: MAGNESIUM SULFATE 4 GM/100 ML 100 ML IVPB ONE (08:00)
[2019-06-18] MEDS ORDERED: MAGNESIUM SULFATE 2 GM/50 ML 50 ML IVPB ONE (08:30)
[2019-06-18] MEDS: FOLIC ACID 1 MG TAB PO SCH (10:44)
[2019-06-18] MEDS: CHLORDIAZEPOXIDE 5 MG CAP PO SCH (10:45)
[2019-06-18] MEDS: THIAMINE 100 MG TAB PO SCH (10:45)
[2019-06-18] MEDS: MAGNESIUM OXIDE 400 MG TAB PO SCH ×2 (10:45→21:49)
[2019-06-18] MEDS: SPIRONOLACTONE 25 MG TAB PO SCH (10:45)
[2019-06-18] MEDS: CYANOCOBALAMIN 100 MCG TAB PO SCH (10:45)
[2019-06-18] MEDS: ERYTHROMYCIN 1 GM OPH OINT BOTH EYES SCH ×5 (10:46→23:31)
[2019-06-19] VITALS: BP 125/72; PULSE 81; RESP 18
[2019-06-19 04:00] VITALS: BP 121/81; PULSE 102; RESP 18
[2019-06-19] MEDS: PANTOPRAZOLE (EC) 40 MG TAB PO SCH ×2 (06:23→17:22)
[2019-06-19] MEDS: FUROSEMIDE 40 MG TAB PO SCH (06:24)
[2019-06-19] MEDS ORDERED: MAGNESIUM SULFATE 2 GM/50 ML 50 ML IVPB ONE (08:00)
[2019-06-19 08:01] VITALS: BP 121/78; PULSE 79; RESP 18
[2019-06-19] MEDS ORDERED: MAGNESIUM SULFATE 3 GM in DEXTROSE 5% 100 ML IVPB ONE (08:30)
[2019-06-19] MEDS: SPIRONOLACTONE 25 MG TAB PO SCH (09:03)
[2019-06-19] MEDS: CYANOCOBALAMIN 100 MCG TAB PO SCH (09:04)
[2019-06-19] MEDS: FOLIC ACID 1 MG TAB PO SCH (09:04)
[2019-06-19] MEDS: THIAMINE 100 MG TAB PO SCH (09:04)
[2019-06-19] MEDS: MAGNESIUM OXIDE 400 MG TAB PO SCH ×2 (09:04→21:40)
[2019-06-19] MEDS: ERYTHROMYCIN 1 GM OPH OINT BOTH EYES SCH ×4 (09:04→21:40)
[2019-06-19 11:26] VITALS: BP 123/69; PULSE 88; RESP 19
[2019-06-19 15:00] VITALS: BP 122/77; PULSE 92; RESP 18
[2019-06-19] MEDS ORDERED: MELATONIN 3 MG TABLET PO PRN (16:30)
[2019-06-19 20:00] VITALS: BP 137/84; PULSE 95; RESP 18
[2019-06-20 00:35] VITALS: BP 113/64; PULSE 102; RESP 20
[2019-06-20] MEDS: PANTOPRAZOLE (EC) 40 MG TAB PO SCH ×2 (06:05→18:30)
[2019-06-20] MEDS: FUROSEMIDE 40 MG TAB PO SCH (06:06)
[2019-06-20] MEDS ORDERED: POTASSIUM CHLORIDE (SR) 20 MEQ TAB PO STA (07:53)
[2019-06-20] MEDS ORDERED: MAGNESIUM SULFATE 2 GM/50 ML 50 ML IVPB ONE (08:00)
[2019-06-20 08:14] VITALS: BP 117/77; PULSE 88; RESP 18
[2019-06-20] MEDS: ERYTHROMYCIN 1 GM OPH OINT BOTH EYES SCH ×4 (09:00→22:00)
[2019-06-20] MEDS: CYANOCOBALAMIN 100 MCG TAB PO SCH (09:00)
[2019-06-20] MEDS: MAGNESIUM OXIDE 400 MG TAB PO SCH ×2 (09:14→22:00)
[2019-06-20] MEDS: THIAMINE 100 MG TAB PO SCH (09:15)
[2019-06-20] MEDS: FOLIC ACID 1 MG TAB PO SCH (09:15)
[2019-06-20] MEDS: SPIRONOLACTONE 25 MG TAB PO SCH (09:15)
[2019-06-20 14:51] VITALS: BP 139/87; PULSE 83; RESP 18
[2019-06-20 19:35] VITALS: BP 113/77; PULSE 102; RESP 20
[2019-06-21 02:25] VITALS: BP 130/87; PULSE 82; RESP 20
[2019-06-21] MEDS: PANTOPRAZOLE (EC) 40 MG TAB PO SCH ×2 (06:46→17:25)
[2019-06-21] MEDS: FUROSEMIDE 40 MG TAB PO SCH (06:47)
[2019-06-21 08:21] VITALS: BP 111/72; PULSE 88; RESP 18
[2019-06-21] MEDS: FOLIC ACID 1 MG TAB PO SCH (09:58)
[2019-06-21] MEDS: CYANOCOBALAMIN 100 MCG TAB PO SCH (09:58)
[2019-06-21] MEDS: THIAMINE 100 MG TAB PO SCH (09:58)
[2019-06-21] MEDS: DOCUSATE SODIUM 100 MG CAP PO SCH ×2 (09:58→21:06)
[2019-06-21] MEDS: MAGNESIUM OXIDE 400 MG TAB PO SCH (09:58)
[2019-06-21] MEDS: SPIRONOLACTONE 25 MG TAB PO SCH (09:58)
[2019-06-21] MEDS: ERYTHROMYCIN 1 GM OPH OINT BOTH EYES SCH ×4 (09:59→21:07)
[2019-06-21] MEDS: POLYETHYLENE GLYCOL 17 GM PACKET GTB SCH (09:59)
[2019-06-21] MEDS: MAGNESIUM CHLORIDE (SR) 64 MG TAB PO SCH ×2 (12:28→21:06)
[2019-06-21 14:00] VITALS: BP 125/60; PULSE 90; RESP 18
[2019-06-21 20:24] VITALS: BP 118/75; PULSE 88; RESP 20
[2019-06-22 02:57] VITALS: BP 106/70; PULSE 90; RESP 18
[2019-06-22] MEDS: FUROSEMIDE 40 MG TAB PO SCH (06:14)
[2019-06-22] MEDS: PANTOPRAZOLE (EC) 40 MG TAB PO SCH ×2 (06:14→17:57)
[2019-06-22 08:23] VITALS: BP 113/75; PULSE 91; RESP 18
[2019-06-22] MEDS: SPIRONOLACTONE 25 MG TAB PO SCH (09:49)
[2019-06-22] MEDS: MAGNESIUM CHLORIDE (SR) 64 MG TAB PO SCH ×2 (09:49→20:43)
[2019-06-22] MEDS: DOCUSATE SODIUM 100 MG CAP PO SCH ×2 (09:49→20:43)
[2019-06-22] MEDS: THIAMINE 100 MG TAB PO SCH (09:49)
[2019-06-22] MEDS: FOLIC ACID 1 MG TAB PO SCH (09:49)
[2019-06-22] MEDS: CYANOCOBALAMIN 100 MCG TAB PO SCH (09:50)
[2019-06-22] MEDS: POLYETHYLENE GLYCOL 17 GM PACKET GTB SCH (09:50)
[2019-06-22] MEDS: ERYTHROMYCIN 1 GM OPH OINT BOTH EYES SCH ×2 (09:54→12:33)
[2019-06-22] MEDS ORDERED: MAGNESIUM SULFATE 3 GM in DEXTROSE 5% 100 ML IVPB ONE (11:00)
[2019-06-22 16:04] VITALS: BP 119/72; PULSE 89; RESP 18
[2019-06-22 19:50] VITALS: BP 125/74; PULSE 100; RESP 20
[2019-06-23 02:31] VITALS: BP 138/84; PULSE 95; RESP 16
[2019-06-23] MEDS: PANTOPRAZOLE (EC) 40 MG TAB PO SCH ×2 (05:59→18:45)
[2019-06-23] MEDS: FUROSEMIDE 40 MG TAB PO SCH (06:00)
[2019-06-23 06:04] VITALS: BP 108/72; PULSE 88
[2019-06-23 08:13] VITALS: BP 121/74; PULSE 78; RESP 19
[2019-06-23] MEDS: SPIRONOLACTONE 25 MG TAB PO SCH (09:12)
[2019-06-23] MEDS: FOLIC ACID 1 MG TAB PO SCH (09:12)
[2019-06-23] MEDS: MAGNESIUM CHLORIDE (SR) 64 MG TAB PO SCH ×2 (09:12→21:02)
[2019-06-23] MEDS: THIAMINE 100 MG TAB PO SCH (09:12)
[2019-06-23] MEDS: DOCUSATE SODIUM 100 MG CAP PO SCH ×2 (09:12→21:02)
[2019-06-23] MEDS: CYANOCOBALAMIN 100 MCG TAB PO SCH (09:13)
[2019-06-23] MEDS: POLYETHYLENE GLYCOL 17 GM PACKET GTB SCH (09:13)
[2019-06-23] MEDS ORDERED: MAGNESIUM SULFATE 2 GM/50 ML 50 ML IVPB ONE (12:30)
[2019-06-23 19:56] VITALS: BP 136/80; PULSE 92; RESP 18
[2019-06-24 01:40] VITALS: BP 117/76; PULSE 94; RESP 18
[2019-06-24 05:40] VITALS: BP 121/76; PULSE 92; RESP 18
[2019-06-24] MEDS: PANTOPRAZOLE (EC) 40 MG TAB PO SCH ×2 (05:40→18:43)
[2019-06-24] MEDS: FUROSEMIDE 40 MG TAB PO SCH (05:40)
[2019-06-24 08:00] VITALS: BP 116/79; PULSE 90; RESP 18
[2019-06-24] MEDS: POLYETHYLENE GLYCOL 17 GM PACKET GTB SCH (09:00)
[2019-06-24] MEDS: DOCUSATE SODIUM 100 MG CAP PO SCH ×2 (09:03→20:58)
[2019-06-24] MEDS: THIAMINE 100 MG TAB PO SCH (09:04)
[2019-06-24] MEDS: SPIRONOLACTONE 25 MG TAB PO SCH (09:04)
[2019-06-24] MEDS: CYANOCOBALAMIN 100 MCG TAB PO SCH (09:04)
[2019-06-24] MEDS: FOLIC ACID 1 MG TAB PO SCH (09:04)
[2019-06-24] MEDS: MAGNESIUM CHLORIDE (SR) 64 MG TAB PO SCH ×2 (09:04→20:58)
[2019-06-24 15:29] VITALS: BP 129/84; PULSE 82; RESP 18
[2019-06-24 20:42] VITALS: BP 123/80; PULSE 95; RESP 19
[2019-06-25 02:30] VITALS: BP 117/74; PULSE 101; RESP 20
[2019-06-25] MEDS: PANTOPRAZOLE (EC) 40 MG TAB PO SCH ×2 (06:07→18:27)
[2019-06-25 06:08] VITALS: BP 121/73; PULSE 83; RESP 18
[2019-06-25] MEDS: FUROSEMIDE 40 MG TAB PO SCH (06:08)
[2019-06-25 08:34] VITALS: BP 111/79; PULSE 96; RESP 18
[2019-06-25] MEDS: DOCUSATE SODIUM 100 MG CAP PO SCH ×2 (09:27→21:15)
[2019-06-25] MEDS: MAGNESIUM CHLORIDE (SR) 64 MG TAB PO SCH ×2 (09:27→21:15)
[2019-06-25] MEDS: THIAMINE 100 MG TAB PO SCH (09:27)
[2019-06-25] MEDS: CYANOCOBALAMIN 100 MCG TAB PO SCH (09:27)
[2019-06-25] MEDS: FOLIC ACID 1 MG TAB PO SCH (09:28)
[2019-06-25] MEDS: SPIRONOLACTONE 25 MG TAB PO SCH (09:28)
[2019-06-25] MEDS: POLYETHYLENE GLYCOL 17 GM PACKET GTB SCH (09:28)
[2019-06-25 15:23] VITALS: BP 126/79; PULSE 94; RESP 18
[2019-06-25 19:40] VITALS: BP 103/64; PULSE 101; RESP 18
[2019-06-26 02:15] VITALS: BP 124/85; PULSE 93; RESP 20
[2019-06-26] MEDS: PANTOPRAZOLE (EC) 40 MG TAB PO SCH ×2 (05:41→17:33)
[2019-06-26] MEDS: FUROSEMIDE 40 MG TAB PO SCH (05:43)
[2019-06-26 07:51] VITALS: BP 113/70; PULSE 97; RESP 18
[2019-06-26] MEDS ORDERED: MAGNESIUM SULFATE 2 GM/50 ML 50 ML IVPB ONE (08:00)
[2019-06-26] MEDS: FOLIC ACID 1 MG TAB PO SCH (08:34)
[2019-06-26] MEDS: THIAMINE 100 MG TAB PO SCH (08:35)
[2019-06-26] MEDS: MAGNESIUM CHLORIDE (SR) 64 MG TAB PO SCH ×2 (08:35→20:28)
[2019-06-26] MEDS: DOCUSATE SODIUM 100 MG CAP PO SCH ×2 (08:35→20:28)
[2019-06-26] MEDS: CYANOCOBALAMIN 100 MCG TAB PO SCH (08:35)
[2019-06-26] MEDS: SPIRONOLACTONE 25 MG TAB PO SCH (08:36)
[2019-06-26] MEDS: POLYETHYLENE GLYCOL 17 GM PACKET GTB SCH (08:36)
[2019-06-26 14:05] VITALS: BP 110/75; PULSE 93; RESP 18
[2019-06-26] MEDS ORDERED: MAGNESIUM SULFATE 3 GM in DEXTROSE 5% 100 ML IVPB ONE (16:30)
[2019-06-26 20:00] VITALS: BP 118/77; PULSE 89; RESP 18
[2019-06-27 02:28] VITALS: BP 122/73; PULSE 91; RESP 18
[2019-06-27] MEDS: PANTOPRAZOLE (EC) 40 MG TAB PO SCH ×2 (05:27→18:18)
[2019-06-27] MEDS: FUROSEMIDE 40 MG TAB PO SCH (05:28)
[2019-06-27 08:17] VITALS: BP 135/79; PULSE 100; RESP 18
[2019-06-27] MEDS ORDERED: MAGNESIUM SULFATE 2 GM/50 ML 50 ML IVPB ONE (08:30)
[2019-06-27] MEDS: CYANOCOBALAMIN 100 MCG TAB PO SCH (09:24)
[2019-06-27] MEDS: POLYETHYLENE GLYCOL 17 GM PACKET GTB SCH (09:24)
[2019-06-27] MEDS: SPIRONOLACTONE 25 MG TAB PO SCH (09:24)
[2019-06-27] MEDS: MAGNESIUM CHLORIDE (SR) 64 MG TAB PO SCH ×2 (09:24→21:09)
[2019-06-27] MEDS: THIAMINE 100 MG TAB PO SCH (09:24)
[2019-06-27] MEDS: FOLIC ACID 1 MG TAB PO SCH (09:25)
[2019-06-27] MEDS: DOCUSATE SODIUM 100 MG CAP PO SCH ×2 (09:25→21:09)
[2019-06-27 14:32] VITALS: BP 110/73; PULSE 102; RESP 18
[2019-06-27 19:10] VITALS: BP 125/76; PULSE 104; RESP 18
[2019-06-28 02:35] VITALS: BP 114/71; PULSE 99; RESP 18
[2019-06-28] MEDS: FUROSEMIDE 40 MG TAB PO SCH (06:01)
[2019-06-28] MEDS: PANTOPRAZOLE (EC) 40 MG TAB PO SCH ×2 (06:01→18:09)
[2019-06-28 07:58] VITALS: BP 114/72; PULSE 99; RESP 15
[2019-06-28] MEDS: FOLIC ACID 1 MG TAB PO SCH (08:38)
[2019-06-28] MEDS: MAGNESIUM CHLORIDE (SR) 64 MG TAB PO SCH ×2 (08:38→20:58)
[2019-06-28] MEDS: CYANOCOBALAMIN 100 MCG TAB PO SCH (08:38)
[2019-06-28] MEDS: DOCUSATE SODIUM 100 MG CAP PO SCH ×2 (08:39→20:58)
[2019-06-28] MEDS: POLYETHYLENE GLYCOL 17 GM PACKET GTB SCH (08:39)
[2019-06-28] MEDS: SPIRONOLACTONE 25 MG TAB PO SCH (08:39)
[2019-06-28] MEDS: THIAMINE 100 MG TAB PO SCH (08:39)
[2019-06-28 16:23] VITALS: BP 110/69; PULSE 100; RESP 18
[2019-06-28 20:10] VITALS: BP 124/74; PULSE 104; RESP 18
[2019-06-29 01:38] VITALS: BP 114/71; PULSE 102; RESP 18
[2019-06-29 02:08] VITALS: BP 121/60; PULSE 66; RESP 18
[2019-06-29] MEDS: PANTOPRAZOLE (EC) 40 MG TAB PO SCH ×2 (05:04→17:00)
[2019-06-29] MEDS: FUROSEMIDE 40 MG TAB PO SCH (05:04)
[2019-06-29 07:34] VITALS: BP 128/78; PULSE 86; RESP 18
[2019-06-29] MEDS: DOCUSATE SODIUM 100 MG CAP PO SCH ×2 (08:14→20:22)
[2019-06-29] MEDS: SPIRONOLACTONE 25 MG TAB PO SCH (08:14)
[2019-06-29] MEDS: POLYETHYLENE GLYCOL 17 GM PACKET GTB SCH (08:15)
[2019-06-29] MEDS: FOLIC ACID 1 MG TAB PO SCH (08:15)
[2019-06-29] MEDS: MAGNESIUM CHLORIDE (SR) 64 MG TAB PO SCH ×2 (08:15→20:20)
[2019-06-29] MEDS: THIAMINE 100 MG TAB PO SCH (08:15)
[2019-06-29] MEDS ORDERED: MAGNESIUM SULFATE 2 GM/50 ML 50 ML IVPB ONE (09:00)
[2019-06-29] MEDS: CYANOCOBALAMIN 100 MCG TAB PO SCH (10:02)
[2019-06-29 14:39] VITALS: BP 122/77; PULSE 97; RESP 18
[2019-06-29 18:48] VITALS: BP 129/87; PULSE 88; RESP 18
[2019-06-29 20:13] VITALS: BP 114/71; PULSE 100; RESP 18
[2019-06-30 02:33] VITALS: BP 132/76; PULSE 98; RESP 18
[2019-06-30 07:32] VITALS: BP 113/69; PULSE 80; RESP 18
[2019-06-30] MEDS: PANTOPRAZOLE (EC) 40 MG TAB PO SCH ×2 (07:40→18:23)
[2019-06-30] MEDS: FUROSEMIDE 40 MG TAB PO SCH (07:40)
[2019-06-30] MEDS: SPIRONOLACTONE 25 MG TAB PO SCH (09:21)
[2019-06-30] MEDS: CYANOCOBALAMIN 100 MCG TAB PO SCH (09:21)
[2019-06-30] MEDS: MAGNESIUM CHLORIDE (SR) 64 MG TAB PO SCH ×2 (09:21→19:57)
[2019-06-30] MEDS: FOLIC ACID 1 MG TAB PO SCH (09:21)
[2019-06-30] MEDS: DOCUSATE SODIUM 100 MG CAP PO SCH (09:21)
[2019-06-30] MEDS: POLYETHYLENE GLYCOL 17 GM PACKET GTB SCH (09:21)
[2019-06-30] MEDS: THIAMINE 100 MG TAB PO SCH (09:21)
[2019-06-30 14:41] VITALS: BP 132/85; PULSE 89; RESP 18
[2019-06-30 19:35] VITALS: BP 125/84; PULSE 85; RESP 18
[2019-07-01 02:10] VITALS: BP 126/79; PULSE 101; RESP 18
[2019-07-01] MEDS: FUROSEMIDE 40 MG TAB PO SCH (05:31)
[2019-07-01] MEDS: PANTOPRAZOLE (EC) 40 MG TAB PO SCH ×2 (05:31→17:56)
[2019-07-01 07:06] VITALS: BP 121/78; PULSE 103; RESP 18
[2019-07-01] MEDS ORDERED: MAGNESIUM SULFATE 2 GM/50 ML 50 ML IVPB ONE (08:30)
[2019-07-01] MEDS: SPIRONOLACTONE 25 MG TAB PO SCH (09:13)
[2019-07-01] MEDS: MAGNESIUM CHLORIDE (SR) 64 MG TAB PO SCH ×2 (09:13→20:39)
[2019-07-01] MEDS: CYANOCOBALAMIN 100 MCG TAB PO SCH (09:13)
[2019-07-01] MEDS: THIAMINE 100 MG TAB PO SCH (09:13)
[2019-07-01] MEDS: POLYETHYLENE GLYCOL 17 GM PACKET GTB SCH (09:13)
[2019-07-01] MEDS: FOLIC ACID 1 MG TAB PO SCH (09:13)
[2019-07-01 14:00] VITALS: BP 125/81; PULSE 99; RESP 18
[2019-07-01] MEDS: DOCUSATE SODIUM 100 MG CAP PO PRN (17:58)
[2019-07-01 19:46] VITALS: BP 142/82; PULSE 84; RESP 18
[2019-07-02 02:04] VITALS: BP 131/88; PULSE 101; RESP 18
[2019-07-02 05:44] VITALS: BP 118/78; PULSE 86; RESP 18
[2019-07-02] MEDS: FUROSEMIDE 40 MG TAB PO SCH (05:46)
[2019-07-02] MEDS: PANTOPRAZOLE (EC) 40 MG TAB PO SCH ×2 (05:46→18:09)
[2019-07-02] MEDS: DOCUSATE SODIUM 100 MG CAP PO PRN (05:50)
[2019-07-02 08:38] VITALS: BP 128/82; PULSE 99; RESP 18
[2019-07-02] MEDS: CYANOCOBALAMIN 100 MCG TAB PO SCH (08:58)
[2019-07-02] MEDS: SPIRONOLACTONE 25 MG TAB PO SCH (08:58)
[2019-07-02] MEDS: MAGNESIUM CHLORIDE (SR) 64 MG TAB PO SCH ×2 (08:58→20:12)
[2019-07-02] MEDS: FOLIC ACID 1 MG TAB PO SCH (08:58)
[2019-07-02] MEDS: POLYETHYLENE GLYCOL 17 GM PACKET GTB SCH (08:58)
[2019-07-02] MEDS: THIAMINE 100 MG TAB PO SCH (08:58)
[2019-07-02] MEDS ORDERED: LACTULOSE 30ML CUP PO ONE (09:30)
[2019-07-02] MEDS ORDERED: MAGNESIUM SULFATE 2 GM/50 ML 50 ML IVPB ONE (11:00)
[2019-07-02 13:17] VITALS: BP 127/79; PULSE 94; RESP 18
[2019-07-02 19:10] VITALS: BP 117/70; PULSE 101; RESP 20
[2019-07-03 02:50] VITALS: BP 114/20; PULSE 106; RESP 20
[2019-07-03] MEDS: FUROSEMIDE 40 MG TAB PO SCH (05:32)
[2019-07-03] MEDS: PANTOPRAZOLE (EC) 40 MG TAB PO SCH ×2 (05:32→17:43)
[2019-07-03 08:25] VITALS: BP 118/76; PULSE 97; RESP 18
[2019-07-03] MEDS ORDERED: MAGNESIUM SULFATE 2 GM/50 ML 50 ML IVPB ONE (08:30)
[2019-07-03] MEDS: SPIRONOLACTONE 25 MG TAB PO SCH (09:41)
[2019-07-03] MEDS: POLYETHYLENE GLYCOL 17 GM PACKET GTB SCH (09:41)
[2019-07-03] MEDS: THIAMINE 100 MG TAB PO SCH (09:41)
[2019-07-03] MEDS: FOLIC ACID 1 MG TAB PO SCH (09:41)
[2019-07-03] MEDS: MAGNESIUM CHLORIDE (SR) 64 MG TAB PO SCH ×2 (09:41→20:19)
[2019-07-03] MEDS: CYANOCOBALAMIN 100 MCG TAB PO SCH (09:41)
[2019-07-03 19:55] VITALS: BP 118/65; PULSE 90; RESP 20
[2019-07-04 02:00] VITALS: BP 101/71; PULSE 103; RESP 20
[2019-07-04] MEDS: PANTOPRAZOLE (EC) 40 MG TAB PO SCH ×2 (06:15→17:49)
[2019-07-04] MEDS: FUROSEMIDE 40 MG TAB PO SCH (06:15)
[2019-07-04 07:08] VITALS: BP 117/70; PULSE 101; RESP 18
[2019-07-04] MEDS ORDERED: MAGNESIUM SULFATE 2 GM/50 ML 50 ML IVPB ONE (08:30)
[2019-07-04] MEDS: SPIRONOLACTONE 25 MG TAB PO SCH (08:42)
[2019-07-04] MEDS: THIAMINE 100 MG TAB PO SCH (08:42)
[2019-07-04] MEDS: FOLIC ACID 1 MG TAB PO SCH (08:42)
[2019-07-04] MEDS: POLYETHYLENE GLYCOL 17 GM PACKET GTB SCH (08:42)
[2019-07-04] MEDS: MAGNESIUM CHLORIDE (SR) 64 MG TAB PO SCH ×2 (08:42→22:13)
[2019-07-04] MEDS: CYANOCOBALAMIN 100 MCG TAB PO SCH (08:42)
[2019-07-04 19:15] VITALS: BP 127/78; PULSE 103; RESP 20
[2019-07-05 02:35] VITALS: BP 116/66; PULSE 107; RESP 20
[2019-07-05] MEDS: FUROSEMIDE 40 MG TAB PO SCH (06:32)
[2019-07-05] MEDS: PANTOPRAZOLE (EC) 40 MG TAB PO SCH ×2 (06:32→17:39)
[2019-07-05 07:58] VITALS: BP 113/69; PULSE 86; RESP 18
[2019-07-05] MEDS ORDERED: MAGNESIUM SULFATE 4 GM/100 ML 100 ML IVPB ONE (08:00)
[2019-07-05] MEDS: POLYETHYLENE GLYCOL 17 GM PACKET GTB SCH (08:41)
[2019-07-05] MEDS: SPIRONOLACTONE 25 MG TAB PO SCH (08:41)
[2019-07-05] MEDS: FOLIC ACID 1 MG TAB PO SCH (08:41)
[2019-07-05] MEDS: MAGNESIUM CHLORIDE (SR) 64 MG TAB PO SCH ×4 (08:41→21:12)
[2019-07-05] MEDS: CYANOCOBALAMIN 100 MCG TAB PO SCH (08:41)
[2019-07-05] MEDS: THIAMINE 100 MG TAB PO SCH (08:41)
[2019-07-05 14:42] VITALS: BP 111/77; PULSE 84; RESP 18
[2019-07-05 20:05] VITALS: BP 127/74; PULSE 96; RESP 18
[2019-07-06 02:52] VITALS: BP 121/82; PULSE 107; RESP 18
[2019-07-06] MEDS: FUROSEMIDE 40 MG TAB PO SCH (05:47)
[2019-07-06] MEDS: PANTOPRAZOLE (EC) 40 MG TAB PO SCH (05:48)
[2019-07-06 07:17] VITALS: BP 107/74; PULSE 100; RESP 18
[2019-07-06] MEDS: SPIRONOLACTONE 25 MG TAB PO SCH (09:04)
[2019-07-06] MEDS: THIAMINE 100 MG TAB PO SCH (09:04)
[2019-07-06] MEDS: POLYETHYLENE GLYCOL 17 GM PACKET GTB SCH (09:04)
[2019-07-06] MEDS: FOLIC ACID 1 MG TAB PO SCH (09:04)
[2019-07-06] MEDS: CYANOCOBALAMIN 100 MCG TAB PO SCH (09:04)
[2019-07-06] MEDS: MAGNESIUM CHLORIDE (SR) 64 MG TAB PO SCH ×3 (09:04→21:06)
[2019-07-06] MEDS ORDERED: MAGNESIUM SULFATE 2 GM/50 ML 50 ML IVPB ONE (09:30)
[2019-07-06] MEDS ORDERED: MAGNESIUM SULFATE 4 GM/100 ML 100 ML IVPB ONE ×3 (09:30→11:30)
[2019-07-06 13:32] VITALS: BP 112/69; PULSE 73; RESP 18
[2019-07-06 20:33] VITALS: BP 120/69; PULSE 85; RESP 18
[2019-07-06] MEDS: FAMOTIDINE 20 MG TAB PO SCH (21:06)
[2019-07-07 02:42] VITALS: BP 119/77; PULSE 92; RESP 18
[2019-07-07 05:23] VITALS: BP 110/73; PULSE 85
[2019-07-07] MEDS: FUROSEMIDE 40 MG TAB PO SCH (05:25)
[2019-07-07 08:25] VITALS: BP 103/75; PULSE 86; RESP 18
[2019-07-07] MEDS: POLYETHYLENE GLYCOL 17 GM PACKET GTB SCH (09:04)
[2019-07-07] MEDS: CYANOCOBALAMIN 100 MCG TAB PO SCH (09:05)
[2019-07-07] MEDS: MAGNESIUM CHLORIDE (SR) 64 MG TAB PO SCH ×3 (09:05→21:25)
[2019-07-07] MEDS: THIAMINE 100 MG TAB PO SCH (09:05)
[2019-07-07] MEDS: FAMOTIDINE 20 MG TAB PO SCH ×2 (09:05→21:25)
[2019-07-07] MEDS: FOLIC ACID 1 MG TAB PO SCH (09:05)
[2019-07-07] MEDS: SPIRONOLACTONE 25 MG TAB PO SCH (09:05)
[2019-07-07 15:02] VITALS: BP 109/73; PULSE 84; RESP 18
[2019-07-07 20:40] VITALS: BP 112/74; PULSE 92; RESP 18
[2019-07-08 02:45] VITALS: BP 130/79; PULSE 88; RESP 17
[2019-07-08 05:40] VITALS: BP 121/81; PULSE 84
[2019-07-08] MEDS: FUROSEMIDE 40 MG TAB PO SCH (05:42)
[2019-07-08 08:33] VITALS: BP 111/72; PULSE 82; RESP 18
[2019-07-08] MEDS: CYANOCOBALAMIN 100 MCG TAB PO SCH (09:15)
[2019-07-08] MEDS: MAGNESIUM CHLORIDE (SR) 64 MG TAB PO SCH ×3 (09:15→21:40)
[2019-07-08] MEDS: POLYETHYLENE GLYCOL 17 GM PACKET GTB SCH (09:15)
[2019-07-08] MEDS: SPIRONOLACTONE 25 MG TAB PO SCH (09:15)
[2019-07-08] MEDS: FOLIC ACID 1 MG TAB PO SCH (09:15)
[2019-07-08] MEDS: FAMOTIDINE 20 MG TAB PO SCH ×2 (09:15→21:40)
[2019-07-08] MEDS: THIAMINE 100 MG TAB PO SCH (09:16)
[2019-07-08 15:09] VITALS: BP 121/75; PULSE 93; RESP 18
[2019-07-08 19:42] VITALS: BP 121/77; PULSE 92; RESP 18
[2019-07-09 01:57] VITALS: BP 123/79; PULSE 99; RESP 18
[2019-07-09 06:25] VITALS: BP 117/75; PULSE 80
[2019-07-09] MEDS: FUROSEMIDE 40 MG TAB PO SCH (06:27)
[2019-07-09 07:20] VITALS: BP 118/72; PULSE 84; RESP 19
[2019-07-09] MEDS: POLYETHYLENE GLYCOL 17 GM PACKET GTB SCH (09:27)
[2019-07-09] MEDS: FAMOTIDINE 20 MG TAB PO SCH ×2 (09:27→20:22)
[2019-07-09] MEDS: SPIRONOLACTONE 25 MG TAB PO SCH (09:27)
[2019-07-09] MEDS: CYANOCOBALAMIN 100 MCG TAB PO SCH (09:27)
[2019-07-09] MEDS: MAGNESIUM CHLORIDE (SR) 64 MG TAB PO SCH ×3 (09:27→20:22)
[2019-07-09] MEDS: THIAMINE 100 MG TAB PO SCH (09:27)
[2019-07-09] MEDS: FOLIC ACID 1 MG TAB PO SCH (09:27)
[2019-07-09 13:58] VITALS: BP 125/80; PULSE 98; RESP 18
[2019-07-09 19:26] VITALS: BP 111/73; PULSE 91; RESP 18
[2019-07-10 01:44] VITALS: BP 102/65; PULSE 86; RESP 18
[2019-07-10] MEDS: FUROSEMIDE 40 MG TAB PO SCH (05:41)
[2019-07-10 08:25] VITALS: BP 120/71; PULSE 90; RESP 18
[2019-07-10] MEDS: SPIRONOLACTONE 25 MG TAB PO SCH (08:53)
[2019-07-10] MEDS: MAGNESIUM CHLORIDE (SR) 64 MG TAB PO SCH ×3 (08:53→20:32)
[2019-07-10] MEDS: FAMOTIDINE 20 MG TAB PO SCH ×2 (08:54→20:32)
[2019-07-10] MEDS: CYANOCOBALAMIN 100 MCG TAB PO SCH (08:54)
[2019-07-10] MEDS: FOLIC ACID 1 MG TAB PO SCH (08:54)
[2019-07-10] MEDS: THIAMINE 100 MG TAB PO SCH (08:55)
[2019-07-10] MEDS: POLYETHYLENE GLYCOL 17 GM PACKET GTB SCH (09:01)
[2019-07-10 15:09] VITALS: BP 117/73; PULSE 88; RESP 18
[2019-07-10 20:00] VITALS: BP 106/69; PULSE 87; RESP 18
[2019-07-11 02:51] VITALS: BP 121/73; PULSE 85; RESP 18
[2019-07-11] MEDS: FUROSEMIDE 40 MG TAB PO SCH (05:58)
[2019-07-11 09:07] VITALS: BP 129/79; PULSE 89; RESP 19
[2019-07-11] MEDS: POLYETHYLENE GLYCOL 17 GM PACKET GTB SCH (09:36)
[2019-07-11] MEDS: MAGNESIUM CHLORIDE (SR) 64 MG TAB PO SCH ×2 (09:36→13:50)
[2019-07-11] MEDS: SPIRONOLACTONE 25 MG TAB PO SCH (09:37)
[2019-07-11] MEDS: THIAMINE 100 MG TAB PO SCH (09:37)
[2019-07-11] MEDS: CYANOCOBALAMIN 100 MCG TAB PO SCH (09:37)
[2019-07-11] MEDS: FAMOTIDINE 20 MG TAB PO SCH (09:37)
[2019-07-11] MEDS: FOLIC ACID 1 MG TAB PO SCH (09:37)
== END 2019-07-11 14:28 | disposition home or self-care (01) | DRG 381 ==
LOC: E/R 09:21 → ICU 12:39 → SUATTDRO 13:10 → ICU 14:56 → 6WM 06-08 16:35 → MS1 06-20 00:19
PROVIDERS: ADMIT Internal Medicine; ATTEND Internal Medicine
PROC: 30233N1 Transfusion of Nonautologous Red Blood Cells into Peripheral Vein, Percutaneous Approach (ICD-10-PCS; 2019-06-07)
PROC: 0W3P8ZZ Control Bleeding in Gastrointestinal Tract, Via Natural or Artificial Opening Endoscopic (ICD-10-PCS; principal; 2019-06-08 12:00)
PROC: 30233K1 Transfusion of Nonautologous Frozen Plasma into Peripheral Vein, Percutaneous Approach (ICD-10-PCS; 2019-06-09)
PROC: 0DJD8ZZ Inspection of Lower Intestinal Tract, Via Natural or Artificial Opening Endoscopic (ICD-10-PCS; 2019-06-10)
PROC: 0W9G3ZZ Drainage of Peritoneal Cavity, Percutaneous Approach (ICD-10-PCS; 2019-06-11)
DX: K22.11 Ulcer of esophagus with bleeding (principal); D62 Acute posthemorrhagic anemia; E87.2 Acidosis; K76.6 Portal hypertension; E87.1 Hypo-osmolality and hyponatremia; F10.239 Alcohol dependence with withdrawal, unspecified; G40.89 Other seizures; D12.5 Benign neoplasm of sigmoid colon; E87.6 Hypokalemia; E83.42 Hypomagnesemia; F32.9 Major depressive disorder, single episode, unspecified; K70.31 Alcoholic cirrhosis of liver with ascites; K70.10 Alcoholic hepatitis without ascites; K31.89 Other diseases of stomach and duodenum; N28.89 Other specified disorders of kidney and ureter; R62.7 Adult failure to thrive; Q27.33 Arteriovenous malformation of digestive system vessel; Z59.0 Homelessness; Z68.22 Body mass index [BMI] 22.0-22.9, adult
CPT/HCPCS: 36415; 36430; 70450; 71045; 76705; 80048; 80053; 80069; 80076; 80307; 81001; 81003; 82043; 82140; 82550; 82553; 83605; 83735; 84100; 84132; 84155; 84300; 84484; 85014; 85018; 85025; 85610; 85730; 86850; 86900; 86901; 86920; 87081; 92526; 92610; 93005; 95819; 96374; 96375; 97110; 97116; 97162; 97530; C9113; J0360; J0610; J0696; J1940; J2060; J2250; J2354; J2405; J3411; J3475; J3480; J7030; J7040; J7042; P9016; P9059